=== PATIENT | female | born 1935 | race Caucasian/White ===

== ENCOUNTER → 2018-03-04 12:50 | Outpatient (CLI) | payer MEDICARE, OTHER, SELFPAY ==
[2018-03-04 13:10] LABS: Absolute Lymphocyte Count 1.62 X10^3/ul (0.83-4.51); Absolute Neutrophil Count 6.8 X10^3/uL (2.0-7.7); Basophil# 0.02 X10^3/uL; Basophil% 0.2 % (0-1); Eosinophil# 0.28 X10^3/uL; Eosinophils% 2.9 % (0-5); Hematocrit 47.7 % (37-47); Hemoglobin 14.7 g/dl (12.0-15.0); Lymphocyte # 1.62 X10^3/ul (4.0); Lymphocyte % 16.9 % (19-41); Mean Corp Hgb Conc 30.8 g/gl (32-36); Mean Corpuscular Hgb 30.5 pg (27.0-32.0); Mean Platelet Vol. 10.4 fl (6.2-12.0); Monocyte# 0.79 X10^3/uL; Monocyte% 8.3 % (0-10); Neutrophil # 6.84 X10^3/uL (2.7-7.7); Neutrophil % 71.5 % (47-70); Platelet Count 323 K/mm3 (150-450); RBC Distribution Width CV 14.1 % (11.6-14.6); RBC Distribution Width SD 50.6 fl (35.1-43.9); Red Blood Count 4.82 M/mm3 (4.2-5.4); White Blood Count 9.6 K/mm3 (4.4-11.0)
[2018-03-04 13:21] LABS: ALB/GLOB Ratio 0.8 RATIO (0.9-2.4); AST(SGOT) 23 U/L (15-37); Alanine Aminotransfer ALT/SGPT 19 U/L (13-56); Albumin, Serum 3.5 g/dL (3.2-5.0); Alkaline Phosphatase 100 U/L (45-117); Anion Gap 4 (5-15); BUN 7 mg/dL (7-18); BUN/Creat Ratio 8.9 RATIO (10-20); Calcium,Total 9.4 mg/dL (8.5-10.1); Chloride 97 mmol/L (98-107); Creatinine, Serum 0.79 mg/dL (0.55-1.02); EST Glomerular Filtration Rate 75 mL/min (>60); Est Glom Filt Rate - Afr Amer 90 mL/min (>60); Globulin 4.3 g/dL (2.2-4.2); Glucose 112 mg/dL (74-106); POSITIVE COUNT NO; POSITIVE DIFFERENTIAL NO; POSITIVE MORPHOLOGY NO; Potassium 4.1 mmol/L (3.5-5.1); Protein, Total 7.8 g/dL (6.4-8.2); Sodium Level 138 mmol/L (136-145)
== END ==
PROVIDERS: Family Provider Internal Medicine; PCP Internal Medicine; Visit Provider Family Medicine
DX: E11.9 Type 2 diabetes mellitus without complications (principal); I10 Essential (primary) hypertension
CPT/HCPCS: 36415; 80053; 85025

== ENCOUNTER → 2018-04-05 16:37 | Outpatient (CLI) | payer MEDICARE, OTHER, SELFPAY ==
[2018-04-05 18:58] LABS: Thyroid Stim Hormone (TSH) 1.26 uIU/mL (0.358-3.74)
== END ==
PROVIDERS: Visit Provider Family Medicine
DX: E11.9 Type 2 diabetes mellitus without complications (principal); I10 Essential (primary) hypertension
CPT/HCPCS: 36415; 84443

== ENCOUNTER → 2018-04-28 10:28 | Outpatient (CLI) | payer MEDICARE, OTHER, SELFPAY ==
--- NOTE | 2018-04-28 10:32 | VDLE_ITS ---
Reason For Study: LEG PAIN AND SWELLING Procedure LEFT Exam performed in department. GSV is normal. A preliminary report was called and/or faxed CFV is compressible, spontaneous, phasic, to Dr. Beyer. competent, and demonstrates normal augmentation. FV is compressible, spontaneous, phasic, competent and demonstrates normal augmentation. POP V is compressible, spontaneous, phasic, competent and demonstrates normal augmentation. T/P Trunk is compressible. PTV is compressible. LT PerV is compressible. Interpretation Summary Deep veins of the left lower extremity are patent and compressible segmentally. There is no evidence of left lower extremity deep vein thrombosis. Valvular competence appears intact within the proximal deep venous system on the left . The left greater saphenous vein appears patent and compressible segmentally. Ordering Physician: Arianna Beyer Referring Physician: Arianna Beyer Performed By: Lela Haile RVT
--- NOTE | 2018-04-28 10:46 | RAD_ITS ---
STUDY: X-RAY CHEST REASON FOR EXAM: Female, 82 years old. Preop for stem cell procedure TECHNIQUE: PA and lateral views of the chest. COMPARISON: 09/22/2017 FINDINGS: Lungs are hyperexpanded with chronic interstitial changes, no superimposed acute pulmonary process. There is no demonstrated pleural abnormality. Normal size heart. Normal mediastinum and jonny. Normal visualized pulmonary arteries. There is atherosclerotic calcification of the aortic arch with tortuosity. Normal visualized thoracic spine. Normal visualized ribs, clavicles, and shoulders. There is no demonstrated abnormality of the visualized soft tissue structures of the upper abdomen. RAD/Chest PA and Lateral IMPRESSION: Hyper expanded lungs with chronic interstitial changes, no superimposed acute pulmonary process. Electronically Signed: Mckinley Moore MD at 11:10 EDT , Service support ,
== END ==
PROVIDERS: Family Provider Internal Medicine; PCP Internal Medicine; Visit Provider Family Medicine
DX: J44.9 Chronic obstructive pulmonary disease, unspecified (principal); M79.605 Pain in left leg
CPT/HCPCS: 71046; 93971

== ENCOUNTER → 2018-06-22 10:48 | Outpatient (CLI) | payer MEDICARE, OTHER, SELFPAY ==
[2018-06-22 11:00] VITALS: PULSE 74; PULSE 93; PULSE 97; PULSE 98; PULSE 99; O2SAT 73; O2SAT 83; O2SAT 84; O2SAT 90; O2SAT 91; O2SAT 92; O2SAT 96
--- NOTE | 2018-06-22 11:42 | CPS ---
Pt wears 2-3L NC at home on pulse dose. DME is [employer]. Pt was 73% on RA pre test. 2L NC added and SpO2 went up to 85, increased again to 3L, SpO2 91% before starting test. Pt desaturated to 84% on 3L on 2nd minute and increased to 4L. On 3rd minute pt desaturated to 83% and increased to 5L. Pt's sats maintained on 5L for remainder of test. Pt checked post test on pulse dose and maintained oxygen levels while at rest, but recommended pt to go on continuous flow while exerting herself. Showed pt how to go on continuous flow on her tank and told pt to always have extra tanks at hand because continuous flow will run out faster.
--- NOTE | 2018-06-22 15:38 | WT_ITS ---
PSN 6 Minute Walk Test - 6 Minute Walk Test 6 Minute Walk Test: 6 Minute Walk Test PSN:6-Minute Walk Test Start: 06/22/18 11: 33 Freq: Status: Active Protocol: [id number] Document 06/22/18 11:00 HG (Rec: 06/22/18 11:46 HG [id number]) 6 Minute Walk Test Date Performed 06/22/18 Time Performed 11:00 Height 5 ft 1 in Weight: 87.09 kg Weight in Pounds 192.[address]: Maribel Ambrose Assistive device used: Cane Pre-test Oxygen Delivery Method Room Air Pulse Ox (%) 73 Pulse Rate (60-100 beats/min) 93 Dyspnea Bibi Scale (0-10) 3 Exertion Bibi Scale (6-20) 11 1st minute Oxygen Flow Rate (L/min) (L/min) 3 Oxygen Delivery Method Nasal Cannula Pulse Ox (%) 91 Pulse Rate (60-100 beats/min) 74 2nd minute Oxygen Flow Rate (L/min) (L/min) 3 Oxygen Delivery Method Nasal Cannula Pulse Ox (%) 84 Pulse Rate (60-100 beats/min) 97 Number of Rests Taken 1 Reported Symptoms Increased Work of Breathing 3rd minute Oxygen Flow Rate (L/min) (L/min) 4 Oxygen Delivery Method Nasal Cannula Pulse Ox (%) 83 Pulse Rate (60-100 beats/min) 98 Number of Rests Taken 1 Reported Symptoms Increased Work of Breathing 4th minute Oxygen Flow Rate (L/min) (L/min) 5 Oxygen Delivery Method Nasal Cannula Pulse Ox (%) 90 Pulse Rate (60-100 beats/min) 93 5th minute Oxygen Flow Rate (L/min) (L/min) 5 Oxygen Delivery Method Nasal Cannula Pulse Ox (%) 96 Pulse Rate (60-100 beats/min) 99 6th minute Oxygen Flow Rate (L/min) (L/min) 5 Oxygen Delivery Method Nasal Cannula Pulse Ox (%) 92 Pulse Rate (60-100 beats/min) 98 Post-test Oxygen Flow Rate (L/min) (L/min) 5 Oxygen Delivery Method Nasal Cannula Pulse Ox (%) 92 Pulse Rate (60-100 beats/min) 93 Dyspnea Bibi Scale (0-10) 3 Exertion Bibi Scale (6-20) 11 Full Laps Walked 6 Partial Lap, Number of Tiles Walked 0 Total Distance Walked (ft) 354 06/22/18 11:42 Cardiopulmonary Services by Richelle Dorsey Pt wears 2-3L NC at home on pulse dose. DME is [employer]. Pt was 73% on RA pre test. 2L NC added and SpO2 went up to 85, increased again to 3L, SpO2 91% before starting test. Pt desaturated to 84% on 3L on 2nd minute and increased to 4L. On 3rd minute pt desaturated to 83% and increased to 5L. Pt's sats maintained on 5L for remainder of test. Pt checked post test on pulse dose and maintained oxygen levels while at rest, but recommended pt to go on continuous flow while exerting herself. Showed pt how to go on continuous flow on her tank and told pt to always have extra tanks at hand because continuous flow will run out faster. Initialized on 06/22/18 11:42 - END OF NOTE - Interpretation Interpretation: Patient was noted to be 73% on room air. Patient was placed on 3 L nasal cannula before achieving a saturation of 91%. In total, patient required 5 L continuous flow with ambulation for 6 minutes using a cane and 2 breaks. In total patient traveled only 354 feet. No significant tachycardia was noted during testing. These findings are consistent with a respiratory limitation exercise tolerance. - Recommendations Recommendations: Patient should be on 3 L nasal cannula at rest and 5 L/min with any exertion.
== END ==
PROVIDERS: Family Provider Internal Medicine; PCP Internal Medicine; Visit Provider Nurse Practitioner Acute Care
DX: J44.9 Chronic obstructive pulmonary disease, unspecified (principal)
CPT/HCPCS: 94618

== ENCOUNTER → 2018-06-28 09:59 | Outpatient (CLI) | payer MEDICARE, OTHER, SELFPAY ==
--- NOTE | 2018-06-28 15:15 | PFTCOMP ---
COMPLETE PULMONARY FUNCTION TEST INTERPRETATION Brief HPI: Patient is an 82 year old female, currently under the care of Maribel Ambrose, who presents to [facility] for complete pulmonary function tests secondary to diagnosis of COPD. Respiratory therapist reports good effort and reproducible results. Interpretation: Forced expiration spirometry shows a very severe large airways obstructive ventilatory defect with an FEV1 of 34% predicted. There is no significant bronchodilator response by ATS criteria. Spirograms are of good quality and plateau slowly, indicating slowly emptying areas of the lungs. The respiratory flow volume loop shows decreased expiratory flow rates at all lung volumes consistent with airway obstruction. Lung volumes by body plethysmography show an elevated total lung capacity at 4.95 L, 120% predicted. FRC and RV are elevated out of proportion. Lung volume measurements are consistent with hyperinflation and air-trapping. Diffusion capacity by carbon monoxide is decreased at 25% predicted. The airway resistance is elevated. Compared to previous pulmonary function tests from 10/12/2017, there has been a significant reduction in FVC and FEV1 by 17% and 26% respectively. Impression: Irreversible very severe large airways obstructive ventilatory defect with a symmetric reduction diffusing capacity, resulting in air trapping with hyperinflation. There has been slight worsening compared to previous study.
== END ==
PROVIDERS: Family Provider Internal Medicine; PCP Internal Medicine; Visit Provider Nurse Practitioner Acute Care
DX: J44.9 Chronic obstructive pulmonary disease, unspecified (principal)
CPT/HCPCS: 94060; 94726; 94729

== ENCOUNTER → 2018-07-07 11:29 | Outpatient (CLI) | payer MEDICARE, OTHER, SELFPAY ==
[2018-07-07 13:01] LABS: Anion Gap 7 (5-15); BUN 11 mg/dL (7-18); Calcium,Total 9.6 mg/dL (8.5-10.1); Chloride 91 mmol/L (98-107); Creatinine, Serum 0.84 mg/dL (0.55-1.02); EST Glomerular Filtration Rate 69 mL/min (>60); Est Glom Filt Rate - Afr Amer 83 mL/min (>60); Glucose 127 mg/dL (74-106); Potassium 3.5 mmol/L (3.5-5.1); Sodium Level 138 mmol/L (136-145)
== END ==
PROVIDERS: Family Provider Family Medicine; PCP Family Medicine; Visit Provider Family Medicine
DX: R60.0 Localized edema (principal)
CPT/HCPCS: 36415; 80048

== ENCOUNTER → 2018-08-18 12:21 | Outpatient (CLI) | payer MEDICARE, OTHER, SELFPAY ==
[2018-08-18 13:05] LABS: Anion Gap 4 (5-15); BUN 7 mg/dL (7-18); BUN/Creat Ratio 9.4 RATIO (10-20); Chloride 95 mmol/L (98-107); Creatinine, Serum 0.75 mg/dL (0.55-1.02); EST Glomerular Filtration Rate 79 mL/min (>60); Est Glom Filt Rate - Afr Amer 96 mL/min (>60); Glucose 112 mg/dL (74-106); Sodium Level 140 mmol/L (136-145)
== END ==
PROVIDERS: Family Provider Family Medicine; PCP Family Medicine; Referring Provider Family Medicine; Visit Provider Family Medicine
DX: I10 Essential (primary) hypertension (principal); R60.0 Localized edema
CPT/HCPCS: 36415; 80048

== ENCOUNTER → 2018-11-11 10:30 | Outpatient (CLI) | payer MEDICARE, OTHER, SELFPAY ==
[2018-11-11 09:48] VITALS: BMI 35.5
--- NOTE | 2018-11-11 10:52 | RAD_ITS ---
STUDY: X-RAY CHEST REASON FOR EXAM: Female, 83 years old. Shortness of breath. Chronic dyspnea. TECHNIQUE: AP and lateral views of the chest. COMPARISON: Comparison is made with prior study dated April 28, 2018. FINDINGS: Hyperinflation. Scattered calcified granulomas. No acute abnormality is seen. Stable blunting of the cost phrenic angles. Normal size heart. Normal mediastinum and jonny. Normal visualized pulmonary arteries. There is atherosclerotic calcification of the aortic arch with tortuosity. There is demineralization of the osseous structures. Normal visualized ribs, clavicles, and shoulders. There is no demonstrated abnormality of the visualized soft tissue structures of the upper abdomen. RAD/Chest PA and Lateral IMPRESSION: Hyperinflation. Electronically Signed: Garrett Rivera MD at 15:11 EST , Service support ,
[2018-11-11 12:07] LABS: Anion Gap 11 (5-15); BUN 7 mg/dL (7-18); BUN/Creat Ratio 8.7 RATIO (10-20); Calcium,Total 9.4 mg/dL (8.5-10.1); Chloride 94 mmol/L (98-107); EST Glomerular Filtration Rate 73 mL/min (>60); Est Glom Filt Rate - Afr Amer 88 mL/min (>60); Glucose 129 mg/dL (74-106); Potassium 3.2 mmol/L (3.5-5.1); Sodium Level 140 mmol/L (136-145)
== END ==
PROVIDERS: Family Provider Family Medicine; PCP Family Medicine; Referring Provider Nurse Practitioner Acute Care; Visit Provider Nurse Practitioner Acute Care
DX: J44.9 Chronic obstructive pulmonary disease, unspecified (principal); R06.00 Dyspnea, unspecified
CPT/HCPCS: 36415; 71046; 80048; 83880

== ENCOUNTER → 2018-11-25 11:49 | Outpatient (CLI) | payer MEDICARE, OTHER, SELFPAY ==
[2018-11-25 10:52] VITALS: BMI 35.5
== END ==
PROVIDERS: Family Provider Family Medicine; PCP Family Medicine; Referring Provider Nurse Practitioner Acute Care; Visit Provider Nurse Practitioner Acute Care
DX: J47.9 Bronchiectasis, uncomplicated (principal)
CPT/HCPCS: 94667

== ENCOUNTER 2019-01-03 12:53 | Inpatient (IN) | payer MEDICARE, OTHER, SELFPAY ==
[2018-11-25 10:52] VITALS: BMI 35.5
[2019-01-03] VITALS (37 sets, daily range): BP systolic 80–179; BP diastolic 33–105; PULSE 60–825; RESP 12–23; TEMP 36.1–38.2; O2SAT 57–100; BMI 39.5; BMI 40.5; BMI 39.6
--- NOTE | 2019-01-03 13:02 | EKG12_ITS ---
Test Reason : SOB Blood Pressure : / mmHG Vent. Rate : 074 BPM Atrial Rate : 074 BPM P-R Int : 166 ms QRS Dur : 088 ms QT Int : 370 ms P-R-T Axes : 050 027 060 degrees QTc Int : 410 ms Sinus rhythm with Premature supraventricular complexes Low voltage QRS Borderline ECG Confirmed by HILLARY BRAND ([id number]), kennel helper DHRUV HOLT ([id number]) on 01/06/2019 11:12:29 AM Referred By: Cristopher Lazcano Confirmed By:HILALRY BRAND
--- NOTE | 2019-01-03 13:05 | CT_ITS ---
STUDY: CT BRAIN WITHOUT CONTRAST REASON FOR EXAM: Female, 83 years old. Head trauma. RADIATION DOSAGE (If Supplied By Facility): CTDIvol = ( 44.99 ) mGy, DLP = ( 779.24 ) mGycm TECHNIQUE: Transaxial CT imaging of the brain was performed without administration of intravenous contrast material. Individualized dose optimization techniques were used for this CT. COMPARISON: No relevant priors. FINDINGS: An endotracheal tube is in situ. Normal soft tissue structures. There is hyperostosis frontalis internus. There is mild cerebral atrophy with widening of the extra-axial spaces and ventricular dilatation. Normal white matter tracts of the cerebral hemispheres. Normal basal ganglia and thalami. Normal brainstem. Normal cerebellum. There is no intracranial hemorrhage. There are no findings of an acute ischemic infarction. There is opacification of the ethmoid sinuses. CT/Brain/Head without Contrast IMPRESSION: Chronic involutional changes of the brain. Opacification of the ethmoid sinuses bilaterally. Endotracheal tube is seen. Electronically Signed: Garrett Rivera, at 15:30 EDT , Service support ,
--- NOTE | 2019-01-03 13:05 | ED.VISSUMM ---
- ER Visit Summary Date of Service: 01/03/19 Chief Complaint: Shortness of breath History of Present Illness: The patient is a 83 F who presents with shortness of breath that has been getting progressively worse over the past few days. Family reports that patient fell yesterday and possibly hit her. Family states that her breathing became acutely worse today. Currently, the patient is nonverbal and is a very poor historian. When the patient arrived here, she was asked if she had any pain and she replied no. showed up and he stated that the patient did fall but he does not think she hit her head. He reported that the patient immediately called out for his help. He was able to help her up and she was able to ambulate after the fall. Physical Examination: Vital signs are stable. Patient is afebrile. There is a small frontal contusion. There is no bony crepitance or step-off. Neck is supple. Trachea is midline. There is no JVD noted. Heart was regular rate and rhythm. Lungs showed rhonchi on the right. There are no retractions noted. Abdomen is soft. Bowel sounds are normal. There is no apparent tenderness. Extremities are intact. There are no deformities. There is 2+ edema noted of the lower extremities bilaterally. Test Results: CBC showed a mild leukocytosis of 11.1 with 79 segs and 11 lymphocytes. Basic metabolic profile showed an elevated glucose of 181 and elevated CO2 of greater than 4 5 troponin was normal. Arterial blood gas showed a pH of 7.09, PCO2 was greater than 130, PO2 was 319. EKG showed sinus rhythm with a rate of 74. There are no acute ST or T wave changes. There is an occasional PAC noted. Chest x-ray showed cardiomegaly initially. There is no acute infiltrate. CT scan of the brain was obtained. There are chronic changes but there is no acute intracranial abnormality. Emergency Department Course and Treatment: Patient was ordered an albuterol aerosol. This was given via mask. With the blood gas results, I discussed with the the need for endotracheal intubation. He is agreeable with this. He states that the patient is a full code. Patient is not awake and alert enough to make decisions for herself at this time. Patient was given etomidate and rocuronium. Patient was intubated with a 7.5 ET tube to 25 cm of the lip. There is good air exchange bilaterally. There is no air noted over the stomach. There is good color change with capnography. Patient's oxygen saturation improved to 100%. Patient tolerated procedure well. Patient's blood pressure did drop during the procedure. Patient was given fluid bolus and her blood pressure has improved. Patient was started on propofol drip for sedation. Patient's blood pressure did drop to 79 systolic. This improved with a fluid bolus. Patient was given a dose of Versed for agitation. Patient was trying to bite the tube and fight the endotracheal tube. Case was discussed with Dr. Lazcano. He will admit the patient to ICU. Disposition: Admit to ICU Impression: 1. Hypercapnic respiratory failure 2. COPD exacerbation This note was generated with [employer] dictation software. It may contain incorrect words, spelling, and punctuation that were not noted in review of the chart prior to signing Capacity - Capacity Assessment Tool Can the patient make a choice & communicate that choice?: No Can the patient understand benefits, risks and alternatives?: No Can the patient make a logical, rational choice?: No Is there an impending, emergent risk to the patient?: Yes Is there a Surrogate Available?: Yes i.e. close relative (spouse, child, parent, sibling)?: Yes - Spouse ED Disposition - Plan for ED Patient: Disposition: [facility] Diagnosis: Hypercapnic respiratory failure Referrals: Arianna Beyer MD [Primary Care Provider] -
--- NOTE | 2019-01-03 13:10 | RAD_ITS ---
STUDY: X-RAY CHEST REASON FOR EXAM: Female, 83 years old. Shortness of breath. Lethargy. TECHNIQUE: Single AP portable view of the chest. COMPARISON: Comparison is made with prior study dated November 11, 2018. FINDINGS: EKG electrodes are seen. Scattered calcified granulomas. There is no demonstrated pleural abnormality. There is moderate cardiac enlargement. Normal mediastinum and jonny. Normal visualized pulmonary arteries. There is atherosclerotic calcification of the aortic arch with tortuosity. Normal visualized thoracic spine. Normal visualized ribs, clavicles, and shoulders. There is no demonstrated abnormality of the visualized soft tissue structures of the upper abdomen. RAD/Chest 1 View (Portable) IMPRESSION: Moderate cardiomegaly. No acute abnormality is seen. Electronically Signed: Garrett Rivera, at 14:03 EDT , Service support ,
[2019-01-03 13:34] LABS: Hematocrit 47.1 % (37-47); Hemoglobin 13.2 g/dl (12.0-15.0); Mean Corpuscular Volume 110.6 fL (81-99); Mean Platelet Vol. 10.6 fl (6.2-12.0); Platelet Count 228 K/mm3 (150-450); RBC Distribution Width CV 13.9 % (11.6-14.6); RBC Distribution Width SD 55.4 fl (35.1-43.9); Red Blood Count 4.26 M/mm3 (4.2-5.4); White Blood Count 11.1 K/mm3 (4.4-11.0)
[2019-01-03 13:39] LABS: POSITIVE COUNT YES; POSITIVE DIFFERENTIAL NO; POSITIVE MORPHOLOGY YES
[2019-01-03 13:40] LABS: Differential Indicated MANUAL DIFF
[2019-01-03 13:44] LABS: BUN 11 mg/dL (7-18); BUN/Creat Ratio 16.1 RATIO (10-20); Calcium,Total 8.8 mg/dL (8.5-10.1); Carbon Dioxide > 45.0 mmol/L (21.0-32.0); Chloride 94 mmol/L (98-107); Creatinine, Serum 0.68 mg/dL (0.55-1.02); EST Glomerular Filtration Rate 88 mL/min (>60); Est Glom Filt Rate - Afr Amer 106 mL/min (>60); Estimated Creatinine Clearance 31.69 ml/min; Glucose 181 mg/dL (74-106); Potassium 4.7 mmol/L (3.5-5.1); Sodium Level 140 mmol/L (136-145)
[2019-01-03] MEDS: Albuterol 2.5 MG/3 ML VIAL.NEB. INHALATION (13:45)
--- NOTE | 2019-01-03 13:53 | ED.RN ---
CO2 GREATER THAN 45 PER LAB, PRIMARY RN AND MD AWARE.
[2019-01-03 13:56] LABS: Lactic Acid 0.6 mmol/L (0.4-2.0)
[2019-01-03] MEDS: Etomidate 20 MG/10 ML Vial 28 MG IV (13:59)
[2019-01-03] MEDS: Rocuronium Bromide 50 MG/5 ML Vial 55 MG IV (14:00)
[2019-01-03 14:13] LABS: Absolute Neutrophil Count 8.8 X10^3/uL (2.0-7.7); Lymphocyte 11 % (19-41); Monocyte 10 % (0-10); Neutrophil-Segmented 79 % (47-70); Platelet Estimate ADEQUATE (ADEQ); Red Cell Morphology NORM C+C NORMAL (NORM C&C); Total Cells Counted 100 (MANUAL DIFF)
[2019-01-03 14:14] LABS: Absolute Lymphocyte Count 1.22 X10^3/ul (0.83-4.51); Lymphocyte # 1.22 X10^3/ul (4.0)
--- NOTE | 2019-01-03 14:30 | RAD_ITS ---
STUDY: X-RAY CHEST REASON FOR EXAM: Female, 83 years old. Endotracheal tube placement and orogastric tube placement. TECHNIQUE: Single AP portable view of the chest. COMPARISON: Comparison is made with prior study done earlier today. FINDINGS: The tip of the endotracheal tube is in the right mainstem bronchus. This should be pulled back approximately 5.3 cm. An orogastric tube is seen with the tip below the left hemidiaphragm. EKG electrodes are seen. Hyperinflation. Increased markings at the left lung base suggestive of left basilar atelectasis. Blunting of both costophrenic angles. There is borderline cardiomegaly. Normal mediastinum and jonny. Normal visualized pulmonary arteries. There is atherosclerotic calcification of the aortic arch with tortuosity. Normal visualized thoracic spine. Normal visualized ribs, clavicles, and shoulders. There is no demonstrated abnormality of the visualized soft tissue structures of the upper abdomen. RAD/Chest 1 View (Portable) IMPRESSION: The tip of the endotracheal tube is in the right mainstem bronchus. It should be pulled back approximately 5.3 cm. Findings areas of atelectasis at left lung base. Electronically Signed: Garrett Rivera, at 14:56 EDT , Service support ,
[2019-01-03 14:39] LABS: Allen Test POS; Blood Gas Specimen Type ART; O2 Delivery Device NRB Mask; SITE L RADIAL
[2019-01-03 14:40] LABS: Time Given 1337; pCO2 > 130.0 mmHg (35-45); pH 7.09 (7.35-7.45)
[2019-01-03 14:41] LABS: PO2 319 mmHG (75-100)
[2019-01-03] MEDS: Propofol 10MG/Ml 1,000 MG/100 ML Bottle 5.514 MG CONT INF (14:44)
[2019-01-03] MEDS: Midazolam 5 MG/ML Syringe IV (15:49)
[2019-01-03 15:55] LABS: Allen Test POS; Base Excess 17 mmol/L (-2 to +2); Bicarbonate 42.6 mmol/L (22-26); Blood Gas Specimen Type ART; FI02 30; Mode A-C; O2 Delivery Device Vent; PEEP 5; PO2 57 mmHG (75-100); RR 16; SITE L Radial; SO2 86 % (95-99); Time Given 1544; Total Carbon Dioxide 45 mmol/L; Vt 450; pCO2 77.1 mmHg (35-45); pH 7.35 (7.35-7.45)
--- NOTE | 2019-01-03 15:55 | CPS ---
CRITICAL VALUE ON ABG GIVEN TO DR. KEENAN.
--- NOTE | 2019-01-03 16:05 | NURSING ---
In ICU3 per bed from ER. COMPUTER SYSTEMS SECURITY ADMINISTRATOR, RT and Dr. Gamboa present for transport
--- NOTE | 2019-01-03 16:15 | NURSING ---
Dr. Gamboa remains at bedside. PT bagged 100% per RT w/much difficulty. CXR viewed by DR. Gamboa. OET pulled back several cms. pt now bagging easily. to Vent.
--- NOTE | 2019-01-03 16:16 | PCM.HP.STD ---
Problem List (1) COPD exacerbation Status: Chronic (2) Hypercapnic respiratory failure Status: Acute Qualifiers: Chronicity: acute Qualified Code(s): J96.02 - Acute respiratory failure with hypercapnia History of Present Illness Date of Admission: 01/03/19 Chief Complaint: shortness of breath The patient is a 83 year old F with shortness of breath. History is obtained through the ER physician as patient is intubated and sedated. No family present at bedside. Patient had been feeling unwell for the past few days. Patient was also feeling short of breath and fell and may have hit her head. PCO2 of greater than 130. Patient was emergently intubated and follow-up ABG showed pH of 7.35 and a PCO2 of 77. She did receive aerosols in the emergency room. Patient being admitted to the ICU for respiratory failure as well as suspected COPD exacerbation. [] Past Medical History Past Medical History (Chronic Problems): Chronic Problems (Last Reviewed 11/25/18 @ 11:11 by EVERARDO EncinasC) COPD exacerbation (Chronic) Hypercholesteremia (Chronic) Plasma cell disorder (Chronic) Carotid stenosis (Chronic) Osteopenia (Chronic) Lung nodule (Chronic) Hypersomnia (Chronic) 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 classification (Chronic) Abdominal hernia (Chronic) Obesity (BMI 35.0-39.9 without comorbidity) (Chronic) Chronic respiratory failure with hypoxia and hypercapnia (Chronic) COLD (chronic obstructive lung disease) (Chronic) Dyslipidemia (Chronic) Esophageal reflux (Chronic) Essential hypertension (Chronic) Former smoker (Chronic) Diabetes mellitus type 2 in obese (Chronic) Medical History: Medical History (Last Reviewed 01/03/19 @ 16:18 by Cristopher Lazcano DO) Parotitis (Acute) K11.20 Colon polyp (Acute) K63.5 Vitamin B12 deficiency (Acute) E53.8 Vitamin D deficiency (Acute) E55.9 Hypercholesteremia (Chronic) E78.00 Plasma cell disorder (Chronic) D72.9 Carotid stenosis (Chronic) I65.29 Allergic rhinitis (Acute) J30.9 Constipation (Acute) K59.00 Osteopenia (Chronic) M85.80 Lung nodule (Chronic) R91.1 Hypersomnia (Chronic) G47.10 Urinary incontinence (Acute) R32 Dyspnea (Acute) R06.00 Oral pharyngeal candidiasis (Acute) B37.0 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 classification (Chronic) J44.9 Abdominal hernia (Chronic) K46.9 Hypoxia (Acute) R09.02 Obesity (BMI 35.0-39.9 without comorbidity) (Chronic) E66.9 Dehydration (Acute) E86.0 Chronic respiratory failure with hypoxia and hypercapnia (Chronic) J96.11, J96.12 Acute on chronic respiratory failure with hypoxia and hypercapnia (Acute) J96.21, J96.22 COPD exacerbation (Acute) J44.1 FEV1 44% of predicted COLD (chronic obstructive lung disease) (Chronic) J44.9 Dyslipidemia (Chronic) E78.5 Esophageal reflux (Chronic) K21.9 Essential hypertension (Chronic) I10 Metabolic alkalosis (Resolved) E87.3 Former smoker (Chronic) Z87.891 Diabetes mellitus type 2 in obese (Chronic) E11.9, E66.9 Angioedema (Acute) T78.3XXA Allergies LEATHA Inhibitors Allergy (Severe, Verified 11/11/18 09:49) Unknown bee venom protein (honey bee) Allergy (Severe, Verified 11/11/18 09:49) Unknown levofloxacin [From Levaquin] Allergy (Severe, Verified 11/11/18 09:49) Unknown latex Allergy (Verified 11/11/18 09:49) Itching Sulfa (Sulfonamide Antibiotics) Allergy (Verified 11/11/18 09:49) PT CAN'T REMEMBER budesonide [From Symbicort] Adverse Reaction (Verified 11/11/18 09:49) SORES IN MOUTH fluticasone [From Advair Diskus] Adverse Reaction (Verified 11/11/18 09:49) SORES IN MOUTH formoterol [From Symbicort] Adverse Reaction (Verified 11/11/18 09:49) SORES IN MOUTH ipratropium Adverse Reaction (Verified 11/11/18 09:49) SORES IN MOUTH salmeterol [From Advair Diskus] Adverse Reaction (Verified 11/11/18 09:49) SORES IN MOUTH BREATHING TREATMENTS Adverse Reaction (Uncoded 11/11/18 09:49) SORES IN MOUTH Home Medications: Ambulatory Orders Medication Instructions Recorded Oxygen, Home [Home Oxygen] 2 lpm NASAL DAILY 04/08/15 Aspirin [Aspirin, Baby] 81 mg PO DAILY@0800 07/14/16 Tolterodine Tartrate 4 mg PO DAILY 12/02/16 Rabeprazole Sodium [Aciphex] 20 mg PO DAILY 09/15/17 Red Yeast Rice 600 mg PO DAILY 09/15/17 Magnesium Citrate [Citrate Of 300 ml PO X1 #300 ml 10/28/17 Magnesia] epinephrine 0.3 mg/0.3 mL 0.5 mg IM Q10-15M PRN 10/28/17 injection, auto-injector vit C,E,zinc,copper-aeijm0t 250 cap PO 10/28/17 mg-lutein 5 mg-zeaxanthin 1 mg capsule ipratropium 20 mcg-albuterol 100 2 inh INHALATION Q6H PRN #4 g 01/13/18 mcg/actuation mist for inhalation acetaminophen 325 mg capsule 325 mg PO TID PRN cap 04/21/18 flu vacc 2016-(67yr 0.5 ml IM ONCE #1 06/10/18 up)-MF59C(PF) 45 mcg(15 mcgx3)/0.5 mL IM syringe albuterol sulfate 2.5 mg/3 mL 2.5 mg INHALATION Q4H PRN #180 vial 06/21/18 (0.083 %) solution for nebulization lisinopril 10 mg tablet 10 mg PO DAILY 08/12/18 furosemide 40 mg tablet 40 mg PO BID #14 tab 11/11/18 potassium chloride 40 mEq/15 mL 40 meq PO DAILY #473 ml 11/11/18 oral liquid PEP device See Rx Instructions .ROUTE 11/25/18 .MEDSUPPLY #1 ea PEP device See Rx Instructions .ROUTE 11/25/18 .MEDSUPPLY #1 ea Handicap Placard 1 unit .ROUTE .MEDSUPPLY 01/03/19 Saxagliptin HCl [Onglyza] 5 mg PO DAILY 01/03/19 Surgical History: Surgical History (Last Reviewed 01/03/19 @ 16:18 by Cristopher Lazcano DO) stem cell injection (Resolved) bladder sling (Resolved) History of cholecystectomy (Resolved) Z98.890, Z90.49 History of inguinal hernia repair (Resolved) Z98.890, Z87.19 History of hemorrhoidectomy (Resolved) Z98.890 H/O cataract removal with insertion of prosthetic lens (Resolved) Z98.49, Z96.1 Surgical History: cataract - Bilateral, cholecystectomy, - - Bladder sling, Psychiatric History: No pertinent psych hx 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 Smoking Status: Former smoker - *Family History Maternal Family History: Family History (Last Reviewed 01/03/19 @ 16:18 by Cristopher Lazcano DO) Brother Lung disease Mother Heart disease Diabetes Father CAD (coronary artery disease) History Items: Diabetes, Heart Disease Paternal Family History: Family History (Last Reviewed 01/03/19 @ 16:18 by Cristopher Lazcano DO) Brother Lung disease Mother Heart disease Diabetes Father CAD (coronary artery disease) History Items: - - father at 76 with a DVT and PE Sibling Family History: Family History (Last Reviewed 01/03/19 @ 16:18 by Cristopher Lazcano DO) Brother Lung disease Mother Heart disease Diabetes Father CAD (coronary artery disease) History Items: - - she has 10 siblings...one is with pancreatic cancer Review of Systems Comment: Unable to obtain as the patient is intubated and sedated VTE Information - Inpt Only VTE Present on Admission: No VTE Pharm Prophylaxis ordered?: Yes Patient Problems: Active and Suspected Problems (Last Reviewed 11/25/18 @ 11:11 by Maribel Ambrose NP-C) Hypercapnic respiratory failure (Acute) - Physical Exam General: Alert, Cooperative, No apparent distress HEENT: Atraumatic, Normocephalic, - - No scleral icterus Oral: Moist Mucosa, No Gingival or Mucosal Lesions/ Ulcerations Neck: No Nodes, Thyroid Normal Size and Texture Lungs: Diminished, - - Coarse breath sounds bilaterally Cardiovascular: Regular rate, Regular Rhythm, Normal S1, Normal S2, No murmurs Abdomen: Bowel Sounds Present, Soft, Non Tender, Non-Distended, No Hepato-splenomegaly, Obese Extremities: No edema, No Calf Tenderness Skin: No rashes, - - Dry skin. Bruising on her hands. Musculoskeletal: No Tenderness to Palpation of Joints or Extremities, No Muscle Wasting Neurological: - - No clonus Psych/Mental Status: - - Intubated and sedated Vital Signs Temp Pulse Resp BP Pulse Ox 36.6 C 62 15 88/68 L 95 01/03/19 15:00 01/03/19 15:55 01/03/19 15:55 01/03/19 15:55 01/03/19 15:55 Oxygen Delivery Method Mechanical Ventilator Weight: 91.9 kg Body Mass Index (BMI) 39.5 Microbiology Past 72 Hours 01/03/19 14:00 Influenza Types A,B Direct FA (DANILO) - Final Mucosa - Nasopharyngeal Laboratory Tests Past 24 Hrs 01/03/19 01/03/19 01/03/19 13:10 13:10 13:18 WBC 11.1 H RBC 4.26 Hgb 13.2 Hct 47.1 H MCV 110.6 H MCH 31.0 MCHC 28.0 L RDW 13.9 RDW Differential 55.4 H Plt Count 228 MPV 10.6 Neut % (Auto) Not Reportable Absolute Neuts (auto) 8.8 H Absolute Lymphs (auto) 1.22 Total Counted 100 Neutrophils % (Manual) 79 H Lymphocytes % (Manual) 11 L Monocytes % (Manual) 10 Diff Path Review May foll Platelet Estimate ADEQUATE RBC Morphology NORM C+C Specimen Type Sample Site pH Bicarbonate Actual POC Total CO2 Base Excess O2 Saturation O2 % ABG pCO2 ABG pO2 Erick Test Respiration Rate O2 Delivery Device Liter Flow Minute Volume Vent Mode Tidal Volume POC PEEP Blood Gas Notified Whom Blood Gas Notified Time Sodium 140 Potassium 4.7 Chloride 94 L Carbon Dioxide > 45.0 H* Anion Gap TNP BUN 11 Creatinine 0.68 Estim Creat Clear Calc 31.69 Est GFR (MDRD) Af Amer 106 Est GFR (MDRD) Non-Af 88 BUN/Creatinine Ratio 16.1 Glucose 181 H Lactic Acid 0.6 Calcium 8.8 Troponin I < 0.015 01/03/19 01/03/19 13:37 15:45 WBC RBC Hgb Hct MCV MCH MCHC RDW RDW Differential Plt Count MPV Neut % (Auto) Absolute Neuts (auto) Absolute Lymphs (auto) Total Counted Neutrophils % (Manual) Lymphocytes % (Manual) Monocytes % (Manual) Diff Path Review Platelet Estimate RBC Morphology Specimen Type ART ART Sample Site L RADIAL L Radial pH 7.09 L* 7.35 Bicarbonate Actual TNP 42.6 H POC Total CO2 TNP 45 Base Excess TNP 17 H O2 Saturation TNP 86 L O2 % 30 ABG pCO2 > 130.0 H* 77.1 H* ABG pO2 319 H* 57 L Erick Test POS POS Respiration Rate 16 O2 Delivery Device NRB Mask Vent Liter Flow 8.0 Minute Volume 8.00 Vent Mode A-C Tidal Volume 450 POC PEEP 5 Blood Gas Notified Whom ED MD ED MD Blood Gas Notified Time 1337 1544 Sodium Potassium Chloride Carbon Dioxide Anion Gap BUN Creatinine Estim Creat Clear Calc Est GFR (MDRD) Af Amer Est GFR (MDRD) Non-Af BUN/Creatinine Ratio Glucose Lactic Acid Calcium Troponin I Clinical Impression(s) from Imaging Studies Brain CT 01/03/19 13:05 IMPRESSION: Chronic involutional changes of the brain. Opacification of the ethmoid sinuses bilaterally. Endotracheal tube is seen. Electronically Signed: Garrett Rivera, at 15:30 EDT , Service support , Chest X-Ray 01/03/19 13:10 IMPRESSION: Moderate cardiomegaly. No acute abnormality is seen. Electronically Signed: Garrett Rivera, at 14:03 EDT , Service support , Chest X-Ray 01/03/19 14:30 IMPRESSION: The tip of the endotracheal tube is in the right mainstem bronchus. It should be pulled back approximately 5.3 cm. Findings areas of atelectasis at left lung base. Electronically Signed: Garrett Rivera, at 14:56 EDT , Service support , Assessment/Plan All Active Problems (Last Reviewed 11/25/18 @ 11:11 by Maribel Ambrose, DRAUGHTSMAN-C) Hypercapnic respiratory failure (Acute) Hypokalemia (Acute) End of life care (Acute) Cough productive of yellow sputum (Acute) stem cell injection (Resolved) bladder sling (Resolved) History of cholecystectomy (Resolved) History of inguinal hernia repair (Resolved) History of hemorrhoidectomy (Resolved) H/O cataract removal with insertion of prosthetic lens (Resolved) Parotitis (Acute) Colon polyp (Acute) Vitamin B12 deficiency (Acute) Vitamin D deficiency (Acute) Allergic rhinitis (Acute) Constipation (Acute) Urinary incontinence (Acute) Dyspnea (Acute) Oral pharyngeal candidiasis (Acute) Hypoxia (Acute) Dehydration (Acute) Acute on chronic respiratory failure with hypoxia and hypercapnia (Acute) COPD exacerbation (Acute) Metabolic alkalosis (Resolved) Angioedema (Acute) History of DVT of lower extremity (Resolved) Parotitis (Resolved) 1. Acute hypercapnic respiratory failure Secondary to COPD On vent Pulmonary on consult Recheck chest x-ray this patient did have some adjustments made as appear to be more of a right mainstem intubation. Just make sure it is an appropriate place after they have adjusted it 2. Acute exacerbation of COPD No obvious infiltrate on chest x-ray Influenza swab was negative Initiate steroids Bronchodilators 3. Diabetes mellitus type 2 Sliding scale for now Hold Onglyza for now 4. DVT prophylaxis with Lovenox Code Visit Inpatient E&M: 71307 Init Hosp L3
--- NOTE | 2019-01-03 16:21 | HP.PCM_ITS ---
Problem List (1) COPD exacerbation Status: Chronic (2) Hypercapnic respiratory failure Status: Acute Qualifiers: Chronicity: acute Qualified Code(s): J96.02 - Acute respiratory failure with hypercapnia History of Present Illness Date of Admission: 01/03/19 Chief Complaint: shortness of breath The patient is a 83 year old F with shortness of breath. History is obtained through the ER physician as patient is intubated and sedated. No family present at bedside. Patient had been feeling unwell for the past few days. Patient was also feeling short of breath and fell and may have hit her head. PCO2 of greater than 130. Patient was emergently intubated and follow-up ABG showed pH of 7.35 and a PCO2 of 77. She did receive aerosols in the emergency room. Patient being admitted to the ICU for respiratory failure as well as suspected COPD exacerbation. [] Past Medical History Past Medical History (Chronic Problems): Chronic Problems (Last Reviewed 11/25/18 @ 11:11 by EVERARDO EncinasC) COPD exacerbation (Chronic) Hypercholesteremia (Chronic) Plasma cell disorder (Chronic) Carotid stenosis (Chronic) Osteopenia (Chronic) Lung nodule (Chronic) Hypersomnia (Chronic) 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 classification (Chronic) Abdominal hernia (Chronic) Obesity (BMI 35.0-39.9 without comorbidity) (Chronic) Chronic respiratory failure with hypoxia and hypercapnia (Chronic) COLD (chronic obstructive lung disease) (Chronic) Dyslipidemia (Chronic) Esophageal reflux (Chronic) Essential hypertension (Chronic) Former smoker (Chronic) Diabetes mellitus type 2 in obese (Chronic) Medical History: Medical History (Last Reviewed 01/03/19 @ 16:18 by Cristopher Lazcano DO) Parotitis (Acute) K11.20 Colon polyp (Acute) K63.5 Vitamin B12 deficiency (Acute) E53.8 Vitamin D deficiency (Acute) E55.9 Hypercholesteremia (Chronic) E78.00 Plasma cell disorder (Chronic) D72.9 Carotid stenosis (Chronic) I65.29 Allergic rhinitis (Acute) J30.9 Constipation (Acute) K59.00 Osteopenia (Chronic) M85.80 Lung nodule (Chronic) R91.1 Hypersomnia (Chronic) G47.10 Urinary incontinence (Acute) R32 Dyspnea (Acute) R06.00 Oral pharyngeal candidiasis (Acute) B37.0 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 classification (Chronic) J44.9 Abdominal hernia (Chronic) K46.9 Hypoxia (Acute) R09.02 Obesity (BMI 35.0-39.9 without comorbidity) (Chronic) E66.9 Dehydration (Acute) E86.0 Chronic respiratory failure with hypoxia and hypercapnia (Chronic) J96.11, J96.12 Acute on chronic respiratory failure with hypoxia and hypercapnia (Acute) J96.21, J96.22 COPD exacerbation (Acute) J44.1 FEV1 44% of predicted COLD (chronic obstructive lung disease) (Chronic) J44.9 Dyslipidemia (Chronic) E78.5 Esophageal reflux (Chronic) K21.9 Essential hypertension (Chronic) I10 Metabolic alkalosis (Resolved) E87.3 Former smoker (Chronic) Z87.891 Diabetes mellitus type 2 in obese (Chronic) E11.9, E66.9 Angioedema (Acute) T78.3XXA Allergies LEATHA Inhibitors Allergy (Severe, Verified 11/11/18 09:49) Unknown bee venom protein (honey bee) Allergy (Severe, Verified 11/11/18 09:49) Unknown levofloxacin [From Levaquin] Allergy (Severe, Verified 11/11/18 09:49) Unknown latex Allergy (Verified 11/11/18 09:49) Itching Sulfa (Sulfonamide Antibiotics) Allergy (Verified 11/11/18 09:49) PT CAN'T REMEMBER budesonide [From Symbicort] Adverse Reaction (Verified 11/11/18 09:49) SORES IN MOUTH fluticasone [From Advair Diskus] Adverse Reaction (Verified 11/11/18 09:49) SORES IN MOUTH formoterol [From Symbicort] Adverse Reaction (Verified 11/11/18 09:49) SORES IN MOUTH ipratropium Adverse Reaction (Verified 11/11/18 09:49) SORES IN MOUTH salmeterol [From Advair Diskus] Adverse Reaction (Verified 11/11/18 09:49) SORES IN MOUTH BREATHING TREATMENTS Adverse Reaction (Uncoded 11/11/18 09:49) SORES IN MOUTH Home Medications: Ambulatory Orders Medication Instructions Recorded Oxygen, Home [Home Oxygen] 2 lpm NASAL DAILY 04/08/15 Aspirin [Aspirin, Baby] 81 mg PO DAILY@0800 07/14/16 Tolterodine Tartrate 4 mg PO DAILY 12/02/16 Rabeprazole Sodium [Aciphex] 20 mg PO DAILY 09/15/17 Red Yeast Rice 600 mg PO DAILY 09/15/17 Magnesium Citrate [Citrate Of 300 ml PO X1 #300 ml 10/28/17 Magnesia] epinephrine 0.3 mg/0.3 mL 0.5 mg IM Q10-15M PRN 10/28/17 injection, auto-injector vit C,E,zinc,copper-enqqw0d 250 cap PO 10/28/17 mg-lutein 5 mg-zeaxanthin 1 mg capsule ipratropium 20 mcg-albuterol 100 2 inh INHALATION Q6H PRN #4 g 01/13/18 mcg/actuation mist for inhalation acetaminophen 325 mg capsule 325 mg PO TID PRN cap 04/21/18 flu vacc 2016-(67yr 0.5 ml IM ONCE #1 06/10/18 up)-MF59C(PF) 45 mcg(15 mcgx3)/0.5 mL IM syringe albuterol sulfate 2.5 mg/3 mL 2.5 mg INHALATION Q4H PRN #180 vial 06/21/18 (0.083 %) solution for nebulization lisinopril 10 mg tablet 10 mg PO DAILY 08/12/18 furosemide 40 mg tablet 40 mg PO BID #14 tab 11/11/18 potassium chloride 40 mEq/15 mL 40 meq PO DAILY #473 ml 11/11/18 oral liquid PEP device See Rx Instructions .ROUTE 11/25/18 .MEDSUPPLY #1 ea PEP device See Rx Instructions .ROUTE 11/25/18 .MEDSUPPLY #1 ea Handicap Placard 1 unit .ROUTE .MEDSUPPLY 01/03/19 Saxagliptin HCl [Onglyza] 5 mg PO DAILY 01/03/19 Surgical History: Surgical History (Last Reviewed 01/03/19 @ 16:18 by Cristopher Lazcano DO) stem cell injection (Resolved) bladder sling (Resolved) History of cholecystectomy (Resolved) Z98.890, Z90.49 History of inguinal hernia repair (Resolved) Z98.890, Z87.19 History of hemorrhoidectomy (Resolved) Z98.890 H/O cataract removal with insertion of prosthetic lens (Resolved) Z98.49, Z96.1 Surgical History: cataract - Bilateral, cholecystectomy, - - Bladder sling, Psychiatric History: No pertinent psych hx 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 Smoking Status: Former smoker - *Family History Maternal Family History: Family History (Last Reviewed 01/03/19 @ 16:18 by Cristopher Lazcano DO) Brother Lung disease Mother Heart disease Diabetes Father CAD (coronary artery disease) History Items: Diabetes, Heart Disease Paternal Family History: Family History (Last Reviewed 01/03/19 @ 16:18 by Cristopher Lazcano DO) Brother Lung disease Mother Heart disease Diabetes Father CAD (coronary artery disease) History Items: - - father at 76 with a DVT and PE Sibling Family History: Family History (Last Reviewed 01/03/19 @ 16:18 by Cristopher Lazcano DO) Brother Lung disease Mother Heart disease Diabetes Father CAD (coronary artery disease) History Items: - - she has 10 siblings...one is with pancreatic cancer Review of Systems Comment: Unable to obtain as the patient is intubated and sedated VTE Information - Inpt Only VTE Present on Admission: No VTE Pharm Prophylaxis ordered?: Yes Patient Problems: Active and Suspected Problems (Last Reviewed 11/25/18 @ 11:11 by Maribel Ambrose NP-C) Hypercapnic respiratory failure (Acute) - Physical Exam General: Alert, Cooperative, No apparent distress HEENT: Atraumatic, Normocephalic, - - No scleral icterus Oral: Moist Mucosa, No Gingival or Mucosal Lesions/ Ulcerations Neck: No Nodes, Thyroid Normal Size and Texture Lungs: Diminished, - - Coarse breath sounds bilaterally Cardiovascular: Regular rate, Regular Rhythm, Normal S1, Normal S2, No murmurs Abdomen: Bowel Sounds Present, Soft, Non Tender, Non-Distended, No Hepato- splenomegaly, Obese Extremities: No edema, No Calf Tenderness Skin: No rashes, - - Dry skin. Bruising on her hands. Musculoskeletal: No Tenderness to Palpation of Joints or Extremities, No Muscle Wasting Neurological: - - No clonus Psych/Mental Status: - - Intubated and sedated Vital Signs Temp Pulse Resp BP Pulse Ox 36.6 C 62 15 88/68 L 95 01/03/19 15:00 01/03/19 15:55 01/03/19 15:55 01/03/19 15:55 01/03/19 15:55 Oxygen Delivery Method Mechanical Ventilator Weight: 91.9 kg Body Mass Index (BMI) 39.5 Microbiology Past 72 Hours 01/03/19 14:00 Influenza Types A,B Direct FA (DANILO) - Final Mucosa - Nasopharyngeal Laboratory Tests Past 24 Hrs 01/03/19 01/03/19 01/03/19 13:10 13:10 13:18 WBC 11.1 H RBC 4.26 Hgb 13.2 Hct 47.1 H MCV 110.6 H MCH 31.0 MCHC 28.0 L RDW 13.9 RDW Differential 55.4 H Plt Count 228 MPV 10.6 Neut % (Auto) Not Reportable Absolute Neuts (auto) 8.8 H Absolute Lymphs (auto) 1.22 Total Counted 100 Neutrophils % (Manual) 79 H Lymphocytes % (Manual) 11 L Monocytes % (Manual) 10 Diff Path Review May foll Platelet Estimate ADEQUATE RBC Morphology NORM C+C Specimen Type Sample Site pH Bicarbonate Actual POC Total CO2 Base Excess O2 Saturation O2 % ABG pCO2 ABG pO2 Erick Test Respiration Rate O2 Delivery Device Liter Flow Minute Volume Vent Mode Tidal Volume POC PEEP Blood Gas Notified Whom Blood Gas Notified Time Sodium 140 Potassium 4.7 Chloride 94 L Carbon Dioxide > 45.0 H* Anion Gap TNP BUN 11 Creatinine 0.68 Estim Creat Clear Calc 31.69 Est GFR (MDRD) Af Amer 106 Est GFR (MDRD) Non-Af 88 BUN/Creatinine Ratio 16.1 Glucose 181 H Lactic Acid 0.6 Calcium 8.8 Troponin I < 0.015 01/03/19 01/03/19 13:37 15:45 WBC RBC Hgb Hct MCV MCH MCHC RDW RDW Differential Plt Count MPV Neut % (Auto) Absolute Neuts (auto) Absolute Lymphs (auto) Total Counted Neutrophils % (Manual) Lymphocytes % (Manual) Monocytes % (Manual) Diff Path Review Platelet Estimate RBC Morphology Specimen Type ART ART Sample Site L RADIAL L Radial pH 7.09 L* 7.35 Bicarbonate Actual TNP 42.6 H POC Total CO2 TNP 45 Base Excess TNP 17 H O2 Saturation TNP 86 L O2 % 30 ABG pCO2 > 130.0 H* 77.1 H* ABG pO2 319 H* 57 L Erick Test POS POS Respiration Rate 16 O2 Delivery Device NRB Mask Vent Liter Flow 8.0 Minute Volume 8.00 Vent Mode A-C Tidal Volume 450 POC PEEP 5 Blood Gas Notified Whom ED MD ED MD Blood Gas Notified Time 1337 1544 Sodium Potassium Chloride Carbon Dioxide Anion Gap BUN Creatinine Estim Creat Clear Calc Est GFR (MDRD) Af Amer Est GFR (MDRD) Non-Af BUN/Creatinine Ratio Glucose Lactic Acid Calcium Troponin I Clinical Impression(s) from Imaging Studies Brain CT 01/03/19 13:05 IMPRESSION: Chronic involutional changes of the brain. Opacification of the ethmoid sinuses bilaterally. Endotracheal tube is seen. Electronically Signed: Garrett Rivera, at 15:30 EDT , Service support , Chest X-Ray 01/03/19 13:10 IMPRESSION: Moderate cardiomegaly. No acute abnormality is seen. Electronically Signed: Garrett Rivera, at 14:03 EDT , Service support , Chest X-Ray 01/03/19 14:30 IMPRESSION: The tip of the endotracheal tube is in the right mainstem bronchus. It should be pulled back approximately 5.3 cm. Findings areas of atelectasis at left lung base. Electronically Signed: Garrett Rivera, at 14:56 EDT , Service support , Assessment/Plan All Active Problems (Last Reviewed 11/25/18 @ 11:11 by Maribel Ambrose, MANAGER HIGHWAY-C) Hypercapnic respiratory failure (Acute) Hypokalemia (Acute) End of life care (Acute) Cough productive of yellow sputum (Acute) stem cell injection (Resolved) bladder sling (Resolved) History of cholecystectomy (Resolved) History of inguinal hernia repair (Resolved) History of hemorrhoidectomy (Resolved) H/O cataract removal with insertion of prosthetic lens (Resolved) Parotitis (Acute) Colon polyp (Acute) Vitamin B12 deficiency (Acute) Vitamin D deficiency (Acute) Allergic rhinitis (Acute) Constipation (Acute) Urinary incontinence (Acute) Dyspnea (Acute) Oral pharyngeal candidiasis (Acute) Hypoxia (Acute) Dehydration (Acute) Acute on chronic respiratory failure with hypoxia and hypercapnia (Acute) COPD exacerbation (Acute) Metabolic alkalosis (Resolved) Angioedema (Acute) History of DVT of lower extremity (Resolved) Parotitis (Resolved) 1. Acute hypercapnic respiratory failure * Secondary to COPD * On vent * Pulmonary on consult * Recheck chest x-ray this patient did have some adjustments made as appear to be more of a right mainstem intubation. Just make sure it is an appropriate place after they have adjusted it 2. Acute exacerbation of COPD * No obvious infiltrate on chest x-ray * Influenza swab was negative * Initiate steroids * Bronchodilators 3. Diabetes mellitus type 2 * Sliding scale for now * Hold Onglyza for now 4. DVT prophylaxis with Lovenox Code Visit Inpatient E&M: 56867 Init Hosp L3
--- NOTE | 2019-01-03 16:25 | RAD_ITS ---
STUDY: X-RAY CHEST REASON FOR EXAM: Female, 83 years old. Tube placement TECHNIQUE: Frontal view of the chest COMPARISON: 01/03/2019 at 3:35 PM. FINDINGS: There is an endotracheal tube noted with its tip approximately 2 cm above the bridger. There is an enteric tube noted with its tip in the proximal stomach. This could be advanced 5-10 cm for improved positioning. The lungs are clear. There are no pleural effusions. There is no pneumothorax. The heart is normal in size. The visualized osseous structures are within normal limits. RAD/Chest 1 View (Portable) IMPRESSION: Satisfactory position of the endotracheal tube. Enteric tube tip in the proximal stomach. This could be advanced 5-10 cm for improved positioning. Electronically Signed: Ar Butts, at 17:12 EDT Tel , Service support ,
[2019-01-03] MEDS: fentaNYL drip 100 ML 10 MCG CONT INF (16:30)
--- NOTE | 2019-01-03 16:58 | PCM.CON.CC ---
Problem List (1) Hypercapnic respiratory failure Status: Acute Qualifiers: Chronicity: acute on chronic Qualified Code(s): J96.22 - Acute and chronic respiratory failure with hypercapnia (2) COPD exacerbation Status: Chronic (3) stem cell injection Status: Resolved (4) bladder sling Status: Resolved (5) History of cholecystectomy Status: Resolved (6) History of inguinal hernia repair Status: Resolved (7) History of hemorrhoidectomy Status: Resolved (8) H/O cataract removal with insertion of prosthetic lens Status: Resolved (9) Vitamin B12 deficiency Status: Acute (10) Vitamin D deficiency Status: Acute (11) Plasma cell disorder Status: Chronic (12) Allergic rhinitis Status: Acute (13) Constipation Status: Acute (14) Osteopenia Status: Chronic (15) 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 classification Status: Chronic (16) Obesity (BMI 35.0-39.9 without comorbidity) Status: Chronic (17) Chronic respiratory failure with hypoxia and hypercapnia Status: Chronic (18) Acute on chronic respiratory failure with hypoxia and hypercapnia Status: Acute (19) Diabetes mellitus type 2 in obese Status: Chronic Reason for Consult Date of Consultation: 01/03/19 Reason for Consultation: Respiratory failure History of Present Illness: The patient is a 83 year old F, with past medical history listed below and well-known to me from the outpatient office, who presented to [facility] on 01/03/19 secondary to progressive shortness of breath over the last 3-4 days. Patient reportedly had a fall yesterday and might have hit her head. Patient states her breathing became acutely worse today and on presentation to the ER was nonverbal. Patient reportedly had no pain at that time, but was unable to rise under her own power or ambulate. Patient was noted to have 2+ edema of the lower extremities and significant elevation of CO2 on ABG. Patient was intubated. While in the ER, patient was very difficult to ventilate. Patient was given etomidate and rocuronium. Patient was having some decreased blood pressures that was attributed to her sedation. Patient received a fluid bolus with some improvement. Patient was given a single dose of Versed. Patient was seen by myself in the ER and personally transported to the intensive care unit for further monitoring. On arrival to the intensive care unit, patient had transcutaneous carbon dioxide monitoring placed. Patient did have significant issues with synchrony with the ventilator, but responded well to VC plus and initiation of a fentanyl drip. Patient's oxygenation status has been doing well. Patient's blood pressure has remained stable. Nursing had reported some concern for venous access, but a PICC line has been ordered. Patient's is not a very good historian and review of systems was unable to be obtained. 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) Abdominal hernia (Chronic) Obesity (BMI 35.0-39.9 without comorbidity) (Chronic) Chronic respiratory failure with hypoxia and hypercapnia (Chronic) COLD (chronic obstructive lung disease) (Chronic) Dyslipidemia (Chronic) Esophageal reflux (Chronic) Essential hypertension (Chronic) Former smoker (Chronic) Diabetes mellitus type 2 in obese (Chronic) Medical History: Medical History (Last Reviewed 01/03/19 @ 16:18 by Cristopher Lazcano DO) Parotitis (Acute) K11.20 Colon polyp (Acute) K63.5 Vitamin B12 deficiency (Acute) E53.8 Vitamin D deficiency (Acute) E55.9 Hypercholesteremia (Chronic) E78.00 Plasma cell disorder (Chronic) D72.9 Carotid stenosis (Chronic) I65.29 Allergic rhinitis (Acute) J30.9 Constipation (Acute) K59.00 Osteopenia (Chronic) M85.80 Lung nodule (Chronic) R91.1 Hypersomnia (Chronic) G47.10 Urinary incontinence (Acute) R32 Dyspnea (Acute) R06.00 Oral pharyngeal candidiasis (Acute) B37.0 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 classification (Chronic) J44.9 Abdominal hernia (Chronic) K46.9 Hypoxia (Acute) R09.02 Obesity (BMI 35.0-39.9 without comorbidity) (Chronic) E66.9 Dehydration (Acute) E86.0 Chronic respiratory failure with hypoxia and hypercapnia (Chronic) J96.11, J96.12 Acute on chronic respiratory failure with hypoxia and hypercapnia (Acute) J96.21, J96.22 COPD exacerbation (Acute) J44.1 FEV1 44% of predicted COLD (chronic obstructive lung disease) (Chronic) J44.9 Dyslipidemia (Chronic) E78.5 Esophageal reflux (Chronic) K21.9 Essential hypertension (Chronic) I10 Metabolic alkalosis (Resolved) E87.3 Former smoker (Chronic) Z87.891 Diabetes mellitus type 2 in obese (Chronic) E11.9, E66.9 Angioedema (Acute) T78.3XXA Allergies bee venom protein (honey bee) Allergy (Severe, Verified 01/03/19 16:50) Anaphylaxis LEATHA Inhibitors Allergy (Verified 01/03/19 16:50) Unknown latex Allergy (Verified 11/11/18 09:49) Itching levofloxacin [From Levaquin] Allergy (Verified 01/03/19 16:50) Unknown Sulfa (Sulfonamide Antibiotics) Allergy (Verified 11/11/18 09:49) PT CAN'T REMEMBER budesonide [From Symbicort] Adverse Reaction (Verified 11/11/18 09:49) SORES IN MOUTH fluticasone [From Advair Diskus] Adverse Reaction (Verified 11/11/18 09:49) SORES IN MOUTH formoterol [From Symbicort] Adverse Reaction (Verified 11/11/18 09:49) SORES IN MOUTH ipratropium Adverse Reaction (Verified 11/11/18 09:49) SORES IN MOUTH salmeterol [From Advair Diskus] Adverse Reaction (Verified 11/11/18 09:49) SORES IN MOUTH BREATHING TREATMENTS Adverse Reaction (Uncoded 11/11/18 09:49) SORES IN MOUTH Home Medications: Ambulatory Orders Medication Instructions Recorded Oxygen, Home [Home Oxygen] 2 lpm NASAL DAILY 04/08/15 Aspirin [Aspirin, Baby] 81 mg PO DAILY@0800 07/14/16 Tolterodine Tartrate 4 mg PO DAILY 12/02/16 Rabeprazole Sodium [Aciphex] 20 mg PO DAILY 09/15/17 Red Yeast Rice 600 mg PO DAILY 09/15/17 epinephrine 0.3 mg/0.3 mL 0.5 mg IM Q10-15M PRN 10/28/17 injection, auto-injector vit C,E,zinc,copper-[id number] 250 cap PO 10/28/17 mg-lutein 5 mg-zeaxanthin 1 mg capsule ipratropium 20 mcg-albuterol 100 2 inh INHALATION Q6H PRN #4 g 01/13/18 mcg/actuation mist for inhalation acetaminophen 325 mg capsule 325 mg PO TID PRN cap 04/21/18 albuterol sulfate 2.5 mg/3 mL 2.5 mg INHALATION Q4H PRN #180 vial 06/21/18 (0.083 %) solution for nebulization lisinopril 10 mg tablet 10 mg PO DAILY 08/12/18 furosemide 40 mg tablet 40 mg PO BID #14 tab 11/11/18 potassium chloride 40 mEq/15 mL 40 meq PO DAILY #473 ml 11/11/18 oral liquid Saxagliptin HCl [Onglyza] 5 mg PO DAILY 01/03/19 Surgical History: Surgical History (Last Reviewed 01/03/19 @ 16:18 by Cristopher Lazcano DO) stem cell injection (Resolved) bladder sling (Resolved) History of cholecystectomy (Resolved) Z98.890, Z90.49 History of inguinal hernia repair (Resolved) Z98.890, Z87.19 History of hemorrhoidectomy (Resolved) Z98.890 H/O cataract removal with insertion of prosthetic lens (Resolved) Z98.49, Z96.1 Surgical History: cataract - Bilateral, cholecystectomy, - - Bladder sling, Psychiatric History: No pertinent psych hx [employer] History: No pertinent [employer] history Smoking Status: Former smoker - *Family History Maternal Family History: Family History (Last Reviewed 01/03/19 @ 16:18 by Cristopher Lazcano DO) Brother Lung disease Mother Heart disease Diabetes Father CAD (coronary artery disease) History Items: Diabetes, Heart Disease Paternal Family History: Family History (Last Reviewed 01/03/19 @ 16:18 by Cristopher Lazcano DO) Brother Lung disease Mother Heart disease Diabetes Father CAD (coronary artery disease) History Items: - - father at 76 with a DVT and PE Sibling Family History: Family History (Last Reviewed 01/03/19 @ 16:18 by Cristopher Lazcano DO) Brother Lung disease Mother Heart disease Diabetes Father CAD (coronary artery disease) History Items: - - she has 10 siblings...one is with pancreatic cancer Review of Systems Unable to obtain accurate/complete ROS d/t: Intubated and sedated. See HPI Patient Problems: Active and Suspected Problems (Last Reviewed 01/03/19 @ 16:18 by MALISSA Ruiz Hypercapnic respiratory failure (Acute) Objective: Original chest x-ray was noted to have a right mainstem intubation. On arrival to the intensive care unit, tube position was unchanged. Endotracheal tube was withdrawn 3 cm and repeat chest x-ray shows appropriate position. OG was also noted to be high and this was advanced with improved position on repeat x-ray. - Physical Exam General: - - Intubated and sedated. Morbidly obese. Cushingoid appearance. HEENT: Atraumatic, PERRLA, EOMI, Normocephalic, - - No scleral icterus or injection noted. Oral: No Gingival or Mucosal Lesions/ Ulcerations, Dry Mucosa Neck: Supple, No Nodes, Trachea Midline, JVD, Right Lungs: No rhonchi, No rales, Diminished, Wheezes - Sporadic at end exhalation Cardiovascular: Regular rate, Regular Rhythm, Normal S1, Normal S2, No murmurs, No rub noted, No Gallop, - - Normal sinus rhythm noted on telemetry Abdomen: Bowel Sounds Present, Soft, Non Tender, Distended, Obese Extremities: No cyanosis, Clubbing, Edema Skin: - - Decubitus ulcer of the coccyx was noted. Very thin skin with multiple tears. Some bruising noted at various stages. Musculoskeletal: No Tenderness to Palpation of Joints or Extremities Lymphatic: No Cervical, Supraclavicular, or Inguinal Adenopathy Neurological: Cranial nerves II-XII grossly intact, Neuro grossly intact, Motor Exam 5/5 strength throughout Psych/Mental Status: Flat Affect, Restless Vital Signs Temp Pulse Resp BP Pulse Ox 36.6 C 62 15 88/68 L 95 01/03/19 15:00 01/03/19 15:55 01/03/19 15:55 01/03/19 15:55 01/03/19 15:55 Oxygen Delivery Method Mechanical Ventilator Weight: 91.9 kg Body Mass Index (BMI) 39.5 Microbiology Past 72 Hours 01/03/19 14:00 Influenza Types A,B Direct FA (DANILO) - Final Mucosa - Nasopharyngeal Laboratory Tests Past 24 Hrs 01/03/19 01/03/19 01/03/19 13:10 13:10 13:10 WBC 11.1 H RBC 4.26 Hgb 13.2 Hct 47.1 H MCV 110.6 H MCH 31.0 MCHC 28.0 L RDW 13.9 RDW Differential 55.4 H Plt Count 228 MPV 10.6 Neut % (Auto) Not Reportable Absolute Neuts (auto) 8.8 H Absolute Lymphs (auto) 1.22 Total Counted 100 Neutrophils % (Manual) 79 H Lymphocytes % (Manual) 11 L Monocytes % (Manual) 10 Diff Path Review May foll Platelet Estimate ADEQUATE RBC Morphology NORM C+C PT Pending INR Pending APTT Pending Specimen Type Sample Site pH Bicarbonate Actual POC Total CO2 Base Excess O2 Saturation O2 % ABG pCO2 ABG pO2 Erick Test Respiration Rate O2 Delivery Device Liter Flow Minute Volume Vent Mode Tidal Volume POC PEEP Blood Gas Notified Whom Blood Gas Notified Time Sodium 140 Potassium 4.7 Chloride 94 L Carbon Dioxide > 45.0 H* Anion Gap TNP BUN 11 Creatinine 0.68 Estim Creat Clear Calc 31.69 Est GFR (MDRD) Af Amer 106 Est GFR (MDRD) Non-Af 88 BUN/Creatinine Ratio 16.1 Glucose 181 H Lactic Acid Calcium 8.8 Troponin I < 0.015 01/03/19 01/03/19 01/03/19 13:18 13:37 15:45 WBC RBC Hgb Hct MCV MCH MCHC RDW RDW Differential Plt Count MPV Neut % (Auto) Absolute Neuts (auto) Absolute Lymphs (auto) Total Counted Neutrophils % (Manual) Lymphocytes % (Manual) Monocytes % (Manual) Diff Path Review Platelet Estimate RBC Morphology PT INR APTT Specimen Type ART ART Sample Site L RADIAL L Radial pH 7.09 L* 7.35 Bicarbonate Actual TNP 42.6 H POC Total CO2 TNP 45 Base Excess TNP 17 H O2 Saturation TNP 86 L O2 % 30 ABG pCO2 > 130.0 H* 77.1 H* ABG pO2 319 H* 57 L Erick Test POS POS Respiration Rate 16 O2 Delivery Device NRB Mask Vent Liter Flow 8.0 Minute Volume 8.00 Vent Mode A-C Tidal Volume 450 POC PEEP 5 Blood Gas Notified Whom ED MD ED MD Blood Gas Notified Time 1337 1544 Sodium Potassium Chloride Carbon Dioxide Anion Gap BUN Creatinine Estim Creat Clear Calc Est GFR (MDRD) Af Amer Est GFR (MDRD) Non-Af BUN/Creatinine Ratio Glucose Lactic Acid 0.6 Calcium Troponin I Clinical Impression(s) from Imaging Studies Brain CT 01/03/19 13:05 IMPRESSION: Chronic involutional changes of the brain. Opacification of the ethmoid sinuses bilaterally. Endotracheal tube is seen. Electronically Signed: Garrett Miguel, at 15:30 EDT , Service support , Chest X-Ray 01/03/19 13:10 IMPRESSION: Moderate cardiomegaly. No acute abnormality is seen. Electronically Signed: Garrett Miguel, at 14:03 EDT , Service support , Chest X-Ray 01/03/19 14:30 IMPRESSION: The tip of the endotracheal tube is in the right mainstem bronchus. It should be pulled back approximately 5.3 cm. Findings areas of atelectasis at left lung base. Electronically Signed: Garrett Miguel, at 14:56 EDT , Service support , Assessment/Plan Active and Suspected Problems (Last Reviewed 01/03/19 @ 16:18 by Cristopher Lazcano DO) Hypercapnic respiratory failure (Acute) RECOMMENDATIONS: 1. Initiate mucolytic, steroids, bronchodilators and empiric antibiotics 2. Place PICC line 3. Await coley cultures and obtain respiratory panel 4. Continues breathing and awakening trials per protocol 5. Sliding scale insulin 6. Initiate tube feeds 7. Initiate Levophed if necessary IMPRESSIONS: 1. Acute on chronic hypoxemic and hypercarbic respiratory failure Patient with advanced COPD by PFT criteria at baseline. Unclear etiology of patient's current exacerbation. Chest x-ray does not show any significant infiltrate, so viral etiology versus volume depletion would be suspected. Coley cultures have been ordered. Will initiate patient on steroids, bronchodilators, mucolytic and empiric antibiotics. Will monitor patient's blood pressure closely. Anticipate significant issues with hypotension given acidosis on presentation. Patient may also have an element of sepsis. Levophed if necessary. Patient may require stress dose steroids as she has had multiple prednisone bursts as an outpatient previously. 2. Diabetes mellitus type 2 Patient will be initiated on empiric steroid therapy. Will need to watch blood sugars closely. Anticipate protracted course, so tube feeds will be initiated immediately. 3. Morbid obesity/dyslipidemia/esophageal reflux/hypertension/chronic steroids/osteopenia Complicates care, management, recovery and prognosis. Patient may require stress dose steroids. Blood pressure medications will be held. TIME: 78 minutes of critical care time was spent addressing the patient's acute on chronic respiratory failure, diabetes mellitus, review of all data and collaboration with the care team. (3 PM to 5:14 PM) Code Visit Procedures: [id number] Critial Care Addl 30 Min 9xxxx: [id number] Critical care first hour
--- NOTE | 2019-01-03 17:03 | CON.PCM_ITS ---
Problem List (1) Hypercapnic respiratory failure Status: Acute Qualifiers: Chronicity: acute on chronic Qualified Code(s): J96.22 - Acute and chronic respiratory failure with hypercapnia (2) COPD exacerbation Status: Chronic (3) stem cell injection Status: Resolved (4) bladder sling Status: Resolved (5) History of cholecystectomy Status: Resolved (6) History of inguinal hernia repair Status: Resolved (7) History of hemorrhoidectomy Status: Resolved (8) H/O cataract removal with insertion of prosthetic lens Status: Resolved (9) Vitamin B12 deficiency Status: Acute (10) Vitamin D deficiency Status: Acute (11) Plasma cell disorder Status: Chronic (12) Allergic rhinitis Status: Acute (13) Constipation Status: Acute (14) Osteopenia Status: Chronic (15) 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 classification Status: Chronic (16) Obesity (BMI 35.0-39.9 without comorbidity) Status: Chronic (17) Chronic respiratory failure with hypoxia and hypercapnia Status: Chronic (18) Acute on chronic respiratory failure with hypoxia and hypercapnia Status: Acute (19) Diabetes mellitus type 2 in obese Status: Chronic Reason for Consult Date of Consultation: 01/03/19 Reason for Consultation: Respiratory failure History of Present Illness: The patient is a 83 year old F, with past medical history listed below and well- known to me from the outpatient office, who presented to [facility] on 01/03/19 secondary to progressive shortness of breath over the last 3- 4 days. Patient reportedly had a fall yesterday and might have hit her head. Patient states her breathing became acutely worse today and on presentation to the ER was nonverbal. Patient reportedly had no pain at that time, but was unable to rise under her own power or ambulate. Patient was noted to have 2+ edema of the lower extremities and significant elevation of CO2 on ABG. Patient was intubated. While in the ER, patient was very difficult to ventilate. Patient was given etomidate and rocuronium. Patient was having some decreased blood pressures that was attributed to her sedation. Patient received a fluid bolus with some improvement. Patient was given a single dose of Versed. Patient was seen by myself in the ER and personally transported to the intensive care unit for further monitoring. On arrival to the intensive care unit, patient had transcutaneous carbon dioxide monitoring placed. Patient did have significant issues with synchrony with the ventilator, but responded well to VC plus and initiation of a fentanyl drip. Patient's oxygenation status has been doing well. Patient's blood pressure has remained stable. Nursing had reported some concern for venous access, but a PICC line has been ordered. Patient's is not a very good historian and review of systems was unable to be obtained. 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) Abdominal hernia (Chronic) Obesity (BMI 35.0-39.9 without comorbidity) (Chronic) Chronic respiratory failure with hypoxia and hypercapnia (Chronic) COLD (chronic obstructive lung disease) (Chronic) Dyslipidemia (Chronic) Esophageal reflux (Chronic) Essential hypertension (Chronic) Former smoker (Chronic) Diabetes mellitus type 2 in obese (Chronic) Medical History: Medical History (Last Reviewed 01/03/19 @ 16:18 by Cristopher Lazcano DO) Parotitis (Acute) K11.20 Colon polyp (Acute) K63.5 Vitamin B12 deficiency (Acute) E53.8 Vitamin D deficiency (Acute) E55.9 Hypercholesteremia (Chronic) E78.00 Plasma cell disorder (Chronic) D72.9 Carotid stenosis (Chronic) I65.29 Allergic rhinitis (Acute) J30.9 Constipation (Acute) K59.00 Osteopenia (Chronic) M85.80 Lung nodule (Chronic) R91.1 Hypersomnia (Chronic) G47.10 Urinary incontinence (Acute) R32 Dyspnea (Acute) R06.00 Oral pharyngeal candidiasis (Acute) B37.0 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 classification (Chronic) J44.9 Abdominal hernia (Chronic) K46.9 Hypoxia (Acute) R09.02 Obesity (BMI 35.0-39.9 without comorbidity) (Chronic) E66.9 Dehydration (Acute) E86.0 Chronic respiratory failure with hypoxia and hypercapnia (Chronic) J96.11, J96.12 Acute on chronic respiratory failure with hypoxia and hypercapnia (Acute) J96.21, J96.22 COPD exacerbation (Acute) J44.1 FEV1 44% of predicted COLD (chronic obstructive lung disease) (Chronic) J44.9 Dyslipidemia (Chronic) E78.5 Esophageal reflux (Chronic) K21.9 Essential hypertension (Chronic) I10 Metabolic alkalosis (Resolved) E87.3 Former smoker (Chronic) Z87.891 Diabetes mellitus type 2 in obese (Chronic) E11.9, E66.9 Angioedema (Acute) T78.3XXA Allergies bee venom protein (honey bee) Allergy (Severe, Verified 01/03/19 16:50) Anaphylaxis LEATHA Inhibitors Allergy (Verified 01/03/19 16:50) Unknown latex Allergy (Verified 11/11/18 09:49) Itching levofloxacin [From Levaquin] Allergy (Verified 01/03/19 16:50) Unknown Sulfa (Sulfonamide Antibiotics) Allergy (Verified 11/11/18 09:49) PT CAN'T REMEMBER budesonide [From Symbicort] Adverse Reaction (Verified 11/11/18 09:49) SORES IN MOUTH fluticasone [From Advair Diskus] Adverse Reaction (Verified 11/11/18 09:49) SORES IN MOUTH formoterol [From Symbicort] Adverse Reaction (Verified 11/11/18 09:49) SORES IN MOUTH ipratropium Adverse Reaction (Verified 11/11/18 09:49) SORES IN MOUTH salmeterol [From Advair Diskus] Adverse Reaction (Verified 11/11/18 09:49) SORES IN MOUTH BREATHING TREATMENTS Adverse Reaction (Uncoded 11/11/18 09:49) SORES IN MOUTH Home Medications: Ambulatory Orders Medication Instructions Recorded Oxygen, Home [Home Oxygen] 2 lpm NASAL DAILY 04/08/15 Aspirin [Aspirin, Baby] 81 mg PO DAILY@0800 07/14/16 Tolterodine Tartrate 4 mg PO DAILY 12/02/16 Rabeprazole Sodium [Aciphex] 20 mg PO DAILY 09/15/17 Red Yeast Rice 600 mg PO DAILY 09/15/17 epinephrine 0.3 mg/0.3 mL 0.5 mg IM Q10-15M PRN 10/28/17 injection, auto-injector vit C,E,zinc,copper-[id number] 250 cap PO 10/28/17 mg-lutein 5 mg-zeaxanthin 1 mg capsule ipratropium 20 mcg-albuterol 100 2 inh INHALATION Q6H PRN #4 g 01/13/18 mcg/actuation mist for inhalation acetaminophen 325 mg capsule 325 mg PO TID PRN cap 04/21/18 albuterol sulfate 2.5 mg/3 mL 2.5 mg INHALATION Q4H PRN #180 vial 06/21/18 (0.083 %) solution for nebulization lisinopril 10 mg tablet 10 mg PO DAILY 08/12/18 furosemide 40 mg tablet 40 mg PO BID #14 tab 11/11/18 potassium chloride 40 mEq/15 mL 40 meq PO DAILY #473 ml 11/11/18 oral liquid Saxagliptin HCl [Onglyza] 5 mg PO DAILY 01/03/19 Surgical History: Surgical History (Last Reviewed 01/03/19 @ 16:18 by Cristopher Lazcano DO) stem cell injection (Resolved) bladder sling (Resolved) History of cholecystectomy (Resolved) Z98.890, Z90.49 History of inguinal hernia repair (Resolved) Z98.890, Z87.19 History of hemorrhoidectomy (Resolved) Z98.890 H/O cataract removal with insertion of prosthetic lens (Resolved) Z98.49, Z96.1 Surgical History: cataract - Bilateral, cholecystectomy, - - Bladder sling, Psychiatric History: No pertinent psych hx SWATCH CHECKER History: No pertinent SWATCH CHECKER history Smoking Status: Former smoker - *Family History Maternal Family History: Family History (Last Reviewed 01/03/19 @ 16:18 by Cristopher Lazcano DO) Brother Lung disease Mother Heart disease Diabetes Father CAD (coronary artery disease) History Items: Diabetes, Heart Disease Paternal Family History: Family History (Last Reviewed 01/03/19 @ 16:18 by Cristopher Lazcano DO) Brother Lung disease Mother Heart disease Diabetes Father CAD (coronary artery disease) History Items: - - father at 76 with a DVT and PE Sibling Family History: Family History (Last Reviewed 01/03/19 @ 16:18 by Cristopher Lazcano DO) Brother Lung disease Mother Heart disease Diabetes Father CAD (coronary artery disease) History Items: - - she has 10 siblings...one is with pancreatic cancer Review of Systems Unable to obtain accurate/complete ROS d/t: Intubated and sedated. See HPI Patient Problems: Active and Suspected Problems (Last Reviewed 01/03/19 @ 16:18 by MALISSA Ruiz Hypercapnic respiratory failure (Acute) Objective: Original chest x-ray was noted to have a right mainstem intubation. On arrival to the intensive care unit, tube position was unchanged. Endotracheal tube was withdrawn 3 cm and repeat chest x-ray shows appropriate position. OG was also noted to be high and this was advanced with improved position on repeat x-ray. - Physical Exam General: - - Intubated and sedated. Morbidly obese. Cushingoid appearance. HEENT: Atraumatic, PERRLA, EOMI, Normocephalic, - - No scleral icterus or injection noted. Oral: No Gingival or Mucosal Lesions/ Ulcerations, Dry Mucosa Neck: Supple, No Nodes, Trachea Midline, JVD, Right Lungs: No rhonchi, No rales, Diminished, Wheezes - Sporadic at end exhalation Cardiovascular: Regular rate, Regular Rhythm, Normal S1, Normal S2, No murmurs, No rub noted, No Gallop, - - Normal sinus rhythm noted on telemetry Abdomen: Bowel Sounds Present, Soft, Non Tender, Distended, Obese Extremities: No cyanosis, Clubbing, Edema Skin: - - Decubitus ulcer of the coccyx was noted. Very thin skin with multiple tears. Some bruising noted at various stages. Musculoskeletal: No Tenderness to Palpation of Joints or Extremities Lymphatic: No Cervical, Supraclavicular, or Inguinal Adenopathy Neurological: Cranial nerves II-XII grossly intact, Neuro grossly intact, Motor Exam 5/5 strength throughout Psych/Mental Status: Flat Affect, Restless Vital Signs Temp Pulse Resp BP Pulse Ox 36.6 C 62 15 88/68 L 95 01/03/19 15:00 01/03/19 15:55 01/03/19 15:55 01/03/19 15:55 01/03/19 15:55 Oxygen Delivery Method Mechanical Ventilator Weight: 91.9 kg Body Mass Index (BMI) 39.5 Microbiology Past 72 Hours 01/03/19 14:00 Influenza Types A,B Direct FA (DANILO) - Final Mucosa - Nasopharyngeal Laboratory Tests Past 24 Hrs 01/03/19 01/03/19 01/03/19 13:10 13:10 13:10 WBC 11.1 H RBC 4.26 Hgb 13.2 Hct 47.1 H MCV 110.6 H MCH 31.0 MCHC 28.0 L RDW 13.9 RDW Differential 55.4 H Plt Count 228 MPV 10.6 Neut % (Auto) Not Reportable Absolute Neuts (auto) 8.8 H Absolute Lymphs (auto) 1.22 Total Counted 100 Neutrophils % (Manual) 79 H Lymphocytes % (Manual) 11 L Monocytes % (Manual) 10 Diff Path Review May foll Platelet Estimate ADEQUATE RBC Morphology NORM C+C PT Pending INR Pending APTT Pending Specimen Type Sample Site pH Bicarbonate Actual POC Total CO2 Base Excess O2 Saturation O2 % ABG pCO2 ABG pO2 Erick Test Respiration Rate O2 Delivery Device Liter Flow Minute Volume Vent Mode Tidal Volume POC PEEP Blood Gas Notified Whom Blood Gas Notified Time Sodium 140 Potassium 4.7 Chloride 94 L Carbon Dioxide > 45.0 H* Anion Gap TNP BUN 11 Creatinine 0.68 Estim Creat Clear Calc 31.69 Est GFR (MDRD) Af Amer 106 Est GFR (MDRD) Non-Af 88 BUN/Creatinine Ratio 16.1 Glucose 181 H Lactic Acid Calcium 8.8 Troponin I < 0.015 01/03/19 01/03/19 01/03/19 13:18 13:37 15:45 WBC RBC Hgb Hct MCV MCH MCHC RDW RDW Differential Plt Count MPV Neut % (Auto) Absolute Neuts (auto) Absolute Lymphs (auto) Total Counted Neutrophils % (Manual) Lymphocytes % (Manual) Monocytes % (Manual) Diff Path Review Platelet Estimate RBC Morphology PT INR APTT Specimen Type ART ART Sample Site L RADIAL L Radial pH 7.09 L* 7.35 Bicarbonate Actual TNP 42.6 H POC Total CO2 TNP 45 Base Excess TNP 17 H O2 Saturation TNP 86 L O2 % 30 ABG pCO2 > 130.0 H* 77.1 H* ABG pO2 319 H* 57 L Erick Test POS POS Respiration Rate 16 O2 Delivery Device NRB Mask Vent Liter Flow 8.0 Minute Volume 8.00 Vent Mode A-C Tidal Volume 450 POC PEEP 5 Blood Gas Notified Whom ED MD ED MD Blood Gas Notified Time 1337 1544 Sodium Potassium Chloride Carbon Dioxide Anion Gap BUN Creatinine Estim Creat Clear Calc Est GFR (MDRD) Af Amer Est GFR (MDRD) Non-Af BUN/Creatinine Ratio Glucose Lactic Acid 0.6 Calcium Troponin I Clinical Impression(s) from Imaging Studies Brain CT 01/03/19 13:05 IMPRESSION: Chronic involutional changes of the brain. Opacification of the ethmoid sinuses bilaterally. Endotracheal tube is seen. Electronically Signed: Garrett Miguel, at 15:30 EDT , Service support , Chest X-Ray 01/03/19 13:10 IMPRESSION: Moderate cardiomegaly. No acute abnormality is seen. Electronically Signed: Garrett Miguel, at 14:03 EDT , Service support , Chest X-Ray 01/03/19 14:30 IMPRESSION: The tip of the endotracheal tube is in the right mainstem bronchus. It should be pulled back approximately 5.3 cm. Findings areas of atelectasis at left lung base. Electronically Signed: Garrett Miguel, at 14:56 EDT , Service support , Assessment/Plan Active and Suspected Problems (Last Reviewed 01/03/19 @ 16:18 by Cristopher Lazcano DO) Hypercapnic respiratory failure (Acute) RECOMMENDATIONS: 1. Initiate mucolytic, steroids, bronchodilators and empiric antibiotics 2. Place PICC line 3. Await coley cultures and obtain respiratory panel 4. Continues breathing and awakening trials per protocol 5. Sliding scale insulin 6. Initiate tube feeds 7. Initiate Levophed if necessary IMPRESSIONS: 1. Acute on chronic hypoxemic and hypercarbic respiratory failure Patient with advanced COPD by PFT criteria at baseline. Unclear etiology of patient's current exacerbation. Chest x-ray does not show any significant infiltrate, so viral etiology versus volume depletion would be suspected. Coley cultures have been ordered. Will initiate patient on steroids, bronchodilators, mucolytic and empiric antibiotics. Will monitor patient's blood pressure closely. Anticipate significant issues with hypotension given acidosis on presentation. Patient may also have an element of sepsis. Levophed if necessary. Patient may require stress dose steroids as she has had multiple prednisone bursts as an outpatient previously. 2. Diabetes mellitus type 2 Patient will be initiated on empiric steroid therapy. Will need to watch blood sugars closely. Anticipate protracted course, so tube feeds will be in itiated immediately. 3. Morbid obesity/dyslipidemia/esophageal reflux/hypertension/chronic steroids/osteopenia Complicates care, management, recovery and prognosis. Patient may require stress dose steroids. Blood pressure medications will be held. TIME: 78 minutes of critical care time was spent addressing the patient's acute on chronic respiratory failure, diabetes mellitus, review of all data and collaboration with the care team. (3 PM to 5:14 PM) Code Visit Procedures: [id number] Critial Care Addl 30 Min 9xxxx: [id number] Critical care first hour
--- NOTE | 2019-01-03 17:54 | NURSING ---
RT in pt room, begin Art line insertion
[2019-01-03] MEDS: Ipratropium/Albuterol Sulfate 3 ML AMPUL.NEB INHALATION ×2 (18:45→22:33)
[2019-01-03 19:26] LABS: Bedside Glucose 104 mg/dL (70-110)
[2019-01-03 19:26] LABS: Allen Test POS; Base Excess 19 mmol/L (-2 to +2); Bicarbonate 43.3 mmol/L (22-26); Blood Gas Specimen Type ART; FI02 30; Mode VC+; O2 Delivery Device Vent; PEEP 5; PO2 46 mmHG (75-100); RR 12; SITE L Radial; SO2 81 % (95-99); Time Given 1915; Total Carbon Dioxide 45 mmol/L; Vt 450; pCO2 64.2 mmHg (35-45); pH 7.44 (7.35-7.45)
[2019-01-03] MEDS: Vital AF 1.2 Cal Liquid 1,000 ML 20 ML GT (20:59)
[2019-01-03] MEDS: levoFLOXacin IV 500 MG/100 ML BAG 100 MG IV (20:59)
[2019-01-03] MEDS: guaiFENesin 10 ML UDC (200MG/10ML) GT (21:00)
[2019-01-03] MEDS: Chlorhexidine 15 ML PO (21:01)
--- NOTE | 2019-01-03 21:26 | RAD_ITS ---
STUDY: X-RAY CHEST REASON FOR EXAM: Female, 83 years old. Oral gastric tube placement. TECHNIQUE: Limited portable image. COMPARISON: None. FINDINGS: The tip of the orogastric tube is in the distal portion of the stomach. RAD/Abdomen Single View IMPRESSION: The tip of the orogastric tube is in the distal portion of the stomach. Electronically Signed: Garrett Rivera, at 10:14 EDT , Service support ,
[2019-01-03 21:43] LABS: International Normalized Ratio 1.1; Prothrombin Time (Protime)PT. 13.7 SECONDS (11.7-14.9)
[2019-01-03 21:44] LABS: Partial Thromboplast Time 29.7 Seconds (24.1-36.2)
[2019-01-03] MEDS: Docusate Sodium 100 MG/10 ML UDC NG (21:56)
[2019-01-03] MEDS: Acetaminophen 650 MG/20 ML UDC 325 MG NG (22:13)
[2019-01-04] VITALS (43 sets, daily range): BP systolic 99–206; BP diastolic 27–103; PULSE 59–107; RESP 12–24; TEMP 37.2–38.3; O2SAT 86–97
[2019-01-04] MEDS: 0.9% NaCl PICC Flush IV ×3 (00:57→21:27)
[2019-01-04] MEDS: Insulin Lispro 100 UNIT/ML INSULN.PEN SQ ×4 (00:57→17:28)
[2019-01-04 01:01] LABS: Bedside Glucose 156 mg/dL (70-110)
[2019-01-04] MEDS: fentaNYL drip 100 ML 10 MCG CONT INF ×3 (01:33→23:07)
[2019-01-04] MEDS: guaiFENesin 10 ML UDC (200MG/10ML) GT ×6 (01:34→21:26)
[2019-01-04] MEDS: Propofol 10MG/Ml 1,000 MG/100 ML Bottle 5.514 MG CONT INF (03:29)
[2019-01-04] MEDS: Ipratropium/Albuterol Sulfate 3 ML AMPUL.NEB INHALATION ×6 (03:30→22:15)
[2019-01-04] MEDS: CHLORHEXIDINE GLUC 2% CLOTH 1 EACH TOWELETTE TOPICAL (04:09)
[2019-01-04] MEDS: 0.9% NaCl IVPB Med Flush (250 mL) 15 ML IV (04:13)
[2019-01-04 04:40] LABS: Absolute Lymphocyte Count 0.38 X10^3/ul (0.83-4.51); Absolute Neutrophil Count 8.3 X10^3/uL (2.0-7.7); Differential Indicated SCAN CRITERIA MET; Hematocrit 41.1 % (37-47); Lymphocyte # 0.38 X10^3/ul (4.0); Lymphocyte % 4.3 % (19-41); Mean Corp Hgb Conc 29.2 g/gl (32-36); Mean Corpuscular Hgb 30.5 pg (27.0-32.0); Mean Corpuscular Volume 104.6 fL (81-99); Mean Platelet Vol. 10.7 fl (6.2-12.0); Monocyte# 0.14 X10^3/uL; Monocyte% 1.6 % (0-10); Neutrophil # 8.29 X10^3/uL (2.7-7.7); Neutrophil % 93.6 % (47-70); POSITIVE COUNT NO; POSITIVE DIFFERENTIAL YES; POSITIVE MORPHOLOGY NO; Platelet Count 183 K/mm3 (150-450); RBC Distribution Width CV 13.6 % (11.6-14.6); RBC Distribution Width SD 51.7 fl (35.1-43.9); Red Blood Count 3.93 M/mm3 (4.2-5.4); White Blood Count 8.9 K/mm3 (4.4-11.0)
[2019-01-04 04:51] LABS: Anion Gap 4 (5-15); BUN 15 mg/dL (7-18); BUN/Creat Ratio 18.1 RATIO (10-20); Calcium,Total 8.5 mg/dL (8.5-10.1); Chloride 97 mmol/L (98-107); Creatinine, Serum 0.83 mg/dL (0.55-1.02); EST Glomerular Filtration Rate 70 mL/min (>60); Est Glom Filt Rate - Afr Amer 85 mL/min (>60); Estimated Creatinine Clearance 78.63 ml/min; Glucose 201 mg/dL (74-106); Magnesium 2.2 mg/dL (1.6-2.6); Potassium 4.3 mmol/L (3.5-5.1); Sodium Level 142 mmol/L (136-145)
[2019-01-04 05:03] LABS: Phosphorus 1.7 mg/dL (2.5-4.9)
[2019-01-04 06:20] LABS: Bedside Glucose 171 mg/dL (70-110)
--- NOTE | 2019-01-04 07:04 | PCM.PN.INT ---
Subjective: Patient did okay overnight. Patient did require Levophed therapy transiently, but has been off pressors most of the evening. Patient did spike a fever overnight. Oxygenation has slightly improved. Patient will open eyes to command. General: Cooperative, No apparent distress, - - Appears older than stated age. Good vent synchrony. RASS 0. HEENT: Atraumatic, PERRLA, EOMI, Normocephalic, - - No scleral icterus or injection noted. Oral: Moist Mucosa, No Gingival or Mucosal Lesions/ Ulcerations Neck: Supple, No JVD, No Nodes, Trachea Midline Lungs: No rhonchi, No wheeze, No rales, Diminished, - - Symmetric expansion. No dullness to percussion. Cardiovascular: Regular rate, Regular Rhythm, Normal S1, Normal S2, No murmurs, No rub noted, No Gallop Abdomen: Bowel Sounds Present, Soft, Non Tender, Non-Distended, Obese Extremities: No cyanosis, Capillary Refill Less than 3 Seconds, Clubbing, Edema Skin: - - No significant change compared to previous Musculoskeletal: No Tenderness to Palpation of Joints or Extremities Lymphatic: No Cervical, Supraclavicular, or Inguinal Adenopathy Neurological: Cranial nerves II-XII grossly intact, Neuro grossly intact, Motor Exam 5/5 strength throughout Psych/Mental Status: Appropriate, Flat Affect Vital Signs Temp Pulse Resp BP Pulse Ox 37.5 C H 63 16 102/31 L 94 01/04/19 07:00 01/04/19 07:00 01/04/19 07:00 01/04/19 07:00 01/04/19 07:00 Oxygen Delivery Method Mechanical Ventilator Weight: 93.5 kg Body Mass Index (BMI) 40.5 Intake and Output for Last 24 Hours 01/02/19 01/03/19 01/04/19 23:59 23:59 23:59 Intake Total 705.5 / 705.5 699.2 / 699.2 Output Total 355 / 355 150 / 150 Balance 350.5 / 350.5 549.2 / 549.2 Labs (Last 48 Hours) 01/03/19 01/03/19 01/03/19 13:10 13:10 13:18 WBC 11.1 H RBC 4.26 Hgb 13.2 Hct 47.1 H MCV 110.6 H MCH 31.0 MCHC 28.0 L RDW 13.9 RDW Differential 55.4 H Plt Count 228 MPV 10.6 Immature Gran % (Auto) Neut % (Auto) Not Reportable Lymph % (Auto) [place] % (Auto) Eos % (Auto) Baso % (Auto) Absolute Neuts (auto) 8.8 H Absolute Lymphs (auto) 1.22 Total Counted 100 Neutrophils % (Manual) 79 H Lymphocytes % (Manual) 11 L Monocytes % (Manual) 10 Differential Comment Diff Path Review May foll Platelet Estimate ADEQUATE RBC Morphology NORM C+C PT INR APTT Specimen Type Sample Site pH Bicarbonate Actual POC Total CO2 Base Excess O2 Saturation O2 % ABG pCO2 ABG pO2 Erick Test Respiration Rate O2 Delivery Device Liter Flow Minute Volume Vent Mode Tidal Volume POC PEEP Blood Gas Notified Whom Blood Gas Notified Time Sodium 140 Potassium 4.7 Chloride 94 L Carbon Dioxide > 45.0 H* Anion Gap TNP BUN 11 Creatinine 0.68 Estim Creat Clear Calc 31.69 Est GFR (MDRD) Af Amer 106 Est GFR (MDRD) Non-Af 88 BUN/Creatinine Ratio 16.1 Glucose 181 H Lactic Acid 0.6 Calcium 8.8 Phosphorus Magnesium Troponin I < 0.015 POC Glucose 01/03/19 01/03/19 01/03/19 13:37 15:45 18:48 WBC RBC Hgb Hct MCV MCH MCHC RDW RDW Differential Plt Count MPV Immature Gran % (Auto) Neut % (Auto) Lymph % (Auto) [place] % (Auto) Eos % (Auto) Baso % (Auto) Absolute Neuts (auto) Absolute Lymphs (auto) Total Counted Neutrophils % (Manual) Lymphocytes % (Manual) Monocytes % (Manual) Differential Comment Diff Path Review Platelet Estimate RBC Morphology PT INR APTT Specimen Type ART ART Sample Site L RADIAL L Radial pH 7.09 L* 7.35 Bicarbonate Actual TNP 42.6 H POC Total CO2 TNP 45 Base Excess TNP 17 H O2 Saturation TNP 86 L O2 % 30 ABG pCO2 > 130.0 H* 77.1 H* ABG pO2 319 H* 57 L Erick Test POS POS Respiration Rate 16 O2 Delivery Device NRB Mask Vent Liter Flow 8.0 Minute Volume 8.00 Vent Mode A-C Tidal Volume 450 POC PEEP 5 Blood Gas Notified Whom ED MD ED MD Blood Gas Notified Time 1337 1544 Sodium Potassium Chloride Carbon Dioxide Anion Gap BUN Creatinine Estim Creat Clear Calc Est GFR (MDRD) Af Amer Est GFR (MDRD) Non-Af BUN/Creatinine Ratio Glucose Lactic Acid Calcium Phosphorus Magnesium Troponin I POC Glucose 104 01/03/19 01/03/19 01/04/19 19:20 21:15 00:53 WBC RBC Hgb Hct MCV MCH MCHC RDW RDW Differential Plt Count MPV Immature Gran % (Auto) Neut % (Auto) Lymph % (Auto) [place] % (Auto) Eos % (Auto) Baso % (Auto) Absolute Neuts (auto) Absolute Lymphs (auto) Total Counted Neutrophils % (Manual) Lymphocytes % (Manual) Monocytes % (Manual) Differential Comment Diff Path Review Platelet Estimate RBC Morphology PT 13.7 INR 1.1 APTT 29.7 Specimen Type ART Sample Site L Radial pH 7.44 Bicarbonate Actual 43.3 H POC Total CO2 45 Base Excess 19 H O2 Saturation 81 L O2 % 30 ABG pCO2 64.2 H ABG pO2 46 L Erick Test POS Respiration Rate 12 O2 Delivery Device Vent Liter Flow Minute Volume Vent Mode VC+ Tidal Volume 450 POC PEEP 5 Blood Gas Notified Whom ICU Blood Gas Notified Time 191 Sodium Potassium Chloride Carbon Dioxide Anion Gap BUN Creatinine Estim Creat Clear Calc Est GFR (MDRD) Af Amer Est GFR (MDRD) Non-Af BUN/Creatinine Ratio Glucose Lactic Acid Calcium Phosphorus Magnesium Troponin I POC Glucose 156 H 01/04/19 01/04/19 01/04/19 04:20 04:20 04:20 WBC 8.9 RBC 3.93 L Hgb 12.0 Hct 41.1 MCV 104.6 H MCH 30.5 MCHC 29.2 L RDW 13.6 RDW Differential 51.7 H Plt Count 183 MPV 10.7 Immature Gran % (Auto) 0.500 Neut % (Auto) 93.6 H Lymph % (Auto) 4.3 L [place] % (Auto) 1.6 Eos % (Auto) 0.0 Baso % (Auto) 0.0 Absolute Neuts (auto) 8.3 H Absolute Lymphs (auto) 0.38 L Total Counted Not Reportable Neutrophils % (Manual) Lymphocytes % (Manual) Monocytes % (Manual) Differential Comment Diff Path Review Platelet Estimate RBC Morphology PT INR APTT Specimen Type Sample Site pH Bicarbonate Actual POC Total CO2 Base Excess O2 Saturation O2 % ABG pCO2 ABG pO2 Erick Test Respiration Rate O2 Delivery Device Liter Flow Minute Volume Vent Mode Tidal Volume POC PEEP Blood Gas Notified Whom Blood Gas Notified Time Sodium 142 Potassium 4.3 Chloride 97 L Carbon Dioxide 41.0 H Anion Gap 4 L BUN 15 Creatinine 0.83 Estim Creat Clear Calc 78.63 Est GFR (MDRD) Af Amer 85 Est GFR (MDRD) Non-Af 70 BUN/Creatinine Ratio 18.1 Glucose 201 H Lactic Acid Calcium 8.5 Phosphorus 1.7 L Magnesium 2.2 Troponin I POC Glucose 01/04/19 06:00 WBC RBC Hgb Hct MCV MCH MCHC RDW RDW Differential Plt Count MPV Immature Gran % (Auto) Neut % (Auto) Lymph % (Auto) [place] % (Auto) Eos % (Auto) Baso % (Auto) Absolute Neuts (auto) Absolute Lymphs (auto) Total Counted Neutrophils % (Manual) Lymphocytes % (Manual) Monocytes % (Manual) Differential Comment Diff Path Review Platelet Estimate RBC Morphology PT INR APTT Specimen Type Sample Site pH Bicarbonate Actual POC Total CO2 Base Excess O2 Saturation O2 % ABG pCO2 ABG pO2 Erick Test Respiration Rate O2 Delivery Device Liter Flow Minute Volume Vent Mode Tidal Volume POC PEEP Blood Gas Notified Whom Blood Gas Notified Time Sodium Potassium Chloride Carbon Dioxide Anion Gap BUN Creatinine Estim Creat Clear Calc Est GFR (MDRD) Af Amer Est GFR (MDRD) Non-Af BUN/Creatinine Ratio Glucose Lactic Acid Calcium Phosphorus Magnesium Troponin I POC Glucose 171 H Microbiology 01/03/19 14:00 Mucosa - Nasopharyngeal Influenza Types A,B Direct FA (DANILO) - Final Clinical Impression(s) from Imaging Studies Brain CT 01/03/19 13:05 IMPRESSION: Chronic involutional changes of the brain. Opacification of the ethmoid sinuses bilaterally. Endotracheal tube is seen. Electronically Signed: Garrett Rivera, at 15:30 EDT , Service support , Chest X-Ray 01/03/19 13:10 IMPRESSION: Moderate cardiomegaly. No acute abnormality is seen. Electronically Signed: Garrett Rivera, at 14:03 EDT , Service support , Chest X-Ray 01/03/19 14:30 IMPRESSION: The tip of the endotracheal tube is in the right mainstem bronchus. It should be pulled back approximately 5.3 cm. Findings areas of atelectasis at left lung base. Electronically Signed: Garrett Vivilewisjoann, at 14:56 EDT , Service support , Chest X-Ray 01/03/19 16:25 IMPRESSION: Satisfactory position of the endotracheal tube. Enteric tube tip in the proximal stomach. This could be advanced 5-10 cm for improved positioning. Electronically Signed: Ar Butts, at 17:12 EDT Tel , Service support , Medical Necessity - Tobacco Use Smoking Status: Former smoker Tobacco Use: Cigarettes Assessment/Plan All Active Problems (Last Reviewed 01/03/19 @ 16:18 by Cristopher Lazcano DO) Hypercapnic respiratory failure (Acute) Hypokalemia (Acute) End of life care (Acute) Cough productive of yellow sputum (Acute) stem cell injection (Resolved) bladder sling (Resolved) History of cholecystectomy (Resolved) History of inguinal hernia repair (Resolved) History of hemorrhoidectomy (Resolved) H/O cataract removal with insertion of prosthetic lens (Resolved) Parotitis (Acute) Colon polyp (Acute) Vitamin B12 deficiency (Acute) Vitamin D deficiency (Acute) Allergic rhinitis (Acute) Constipation (Acute) Urinary incontinence (Acute) Dyspnea (Acute) Oral pharyngeal candidiasis (Acute) Hypoxia (Acute) Dehydration (Acute) Acute on chronic respiratory failure with hypoxia and hypercapnia (Acute) COPD exacerbation (Acute) Metabolic alkalosis (Resolved) Angioedema (Acute) History of DVT of lower extremity (Resolved) Parotitis (Resolved) RECOMMENDATIONS: 1. Continue mucolytic, steroids, bronchodilators and empiric antibiotics 2. Wean oxygen as tolerated 3. Await coley cultures and obtain respiratory panel 4. Continues breathing and awakening trials per protocol 5. Sliding scale insulin 6. Continue tube feeds IMPRESSIONS: 1. Acute on chronic hypoxemic and hypercarbic respiratory failure Patient with advanced COPD by PFT criteria at baseline. Unclear etiology of patient's current exacerbation. Chest x-ray does not show any significant infiltrate, so viral etiology versus volume depletion would be suspected. Coley cultures have been ordered. Continue patient on steroids, bronchodilators, mucolytic and empiric antibiotics. Spontaneous breathing and awakening trials per protocol. Await results of viral panel. 2. Diabetes mellitus type 2 Patient initiated on empiric steroid therapy. Will need to watch blood sugars closely. Patient currently on tube feeds. 3. Morbid obesity/dyslipidemia/esophageal reflux/hypertension/chronic steroids/osteopenia Complicates care, management, recovery and prognosis. Patient may require stress dose steroids. Blood pressure medications will be held. TIME: 33 minutes of critical care time was spent addressing the patient's acute on chronic respiratory failure, diabetes mellitus, review of all data and collaboration with the care team. (5:40 AM to 6:40 AM) Code Visit [id number]: [id number] Critical care first hour
--- NOTE | 2019-01-04 07:09 | PN_ITS ---
Subjective: Patient did okay overnight. Patient did require Levophed therapy transiently, but has been off pressors most of the evening. Patient did spike a fever overnight. Oxygenation has slightly improved. Patient will open eyes to command. General: Cooperative, No apparent distress, - - Appears older than stated age. Good vent synchrony. RASS 0. HEENT: Atraumatic, PERRLA, EOMI, Normocephalic, - - No scleral icterus or injection noted. Oral: Moist Mucosa, No Gingival or Mucosal Lesions/ Ulcerations Neck: Supple, No JVD, No Nodes, Trachea Midline Lungs: No rhonchi, No wheeze, No rales, Diminished, - - Symmetric expansion. No dullness to percussion. Cardiovascular: Regular rate, Regular Rhythm, Normal S1, Normal S2, No murmurs, No rub noted, No Gallop Abdomen: Bowel Sounds Present, Soft, Non Tender, Non-Distended, Obese Extremities: No cyanosis, Capillary Refill Less than 3 Seconds, Clubbing, Edema Skin: - - No significant change compared to previous Musculoskeletal: No Tenderness to Palpation of Joints or Extremities Lymphatic: No Cervical, Supraclavicular, or Inguinal Adenopathy Neurological: Cranial nerves II-XII grossly intact, Neuro grossly intact, Motor Exam 5/5 strength throughout Psych/Mental Status: Appropriate, Flat Affect Vital Signs Temp Pulse Resp BP Pulse Ox 37.5 C H 63 16 102/31 L 94 01/04/19 07:00 01/04/19 07:00 01/04/19 07:00 01/04/19 07:00 01/04/19 07:00 Oxygen Delivery Method Mechanical Ventilator Weight: 93.5 kg Body Mass Index (BMI) 40.5 Intake and Output for Last 24 Hours 01/02/19 01/03/19 01/04/19 23:59 23:59 23:59 Intake Total 705.5 / 705.5 699.2 / 699.2 Output Total 355 / 355 150 / 150 Balance 350.5 / 350.5 549.2 / 549.2 Labs (Last 48 Hours) 01/03/19 01/03/19 01/03/19 13:10 13:10 13:18 WBC 11.1 H RBC 4.26 Hgb 13.2 Hct 47.1 H MCV 110.6 H MCH 31.0 MCHC 28.0 L RDW 13.9 RDW Differential 55.4 H Plt Count 228 MPV 10.6 Immature Gran % (Auto) Neut % (Auto) Not Reportable Lymph % (Auto) [place] % (Auto) Eos % (Auto) Baso % (Auto) Absolute Neuts (auto) 8.8 H Absolute Lymphs (auto) 1.22 Total Counted 100 Neutrophils % (Manual) 79 H Lymphocytes % (Manual) 11 L Monocytes % (Manual) 10 Differential Comment Diff Path Review May foll Platelet Estimate ADEQUATE RBC Morphology NORM C+C PT INR APTT Specimen Type Sample Site pH Bicarbonate Actual POC Total CO2 Base Excess O2 Saturation O2 % ABG pCO2 ABG pO2 Erick Test Respiration Rate O2 Delivery Device Liter Flow Minute Volume Vent Mode Tidal Volume POC PEEP Blood Gas Notified Whom Blood Gas Notified Time Sodium 140 Potassium 4.7 Chloride 94 L Carbon Dioxide > 45.0 H* Anion Gap TNP BUN 11 Creatinine 0.68 Estim Creat Clear Calc 31.69 Est GFR (MDRD) Af Amer 106 Est GFR (MDRD) Non-Af 88 BUN/Creatinine Ratio 16.1 Glucose 181 H Lactic Acid 0.6 Calcium 8.8 Phosphorus Magnesium Troponin I < 0.015 POC Glucose 01/03/19 01/03/19 01/03/19 13:37 15:45 18:48 WBC RBC Hgb Hct MCV MCH MCHC RDW RDW Differential Plt Count MPV Immature Gran % (Auto) Neut % (Auto) Lymph % (Auto) [place] % (Auto) Eos % (Auto) Baso % (Auto) Absolute Neuts (auto) Absolute Lymphs (auto) Total Counted Neutrophils % (Manual) Lymphocytes % (Manual) Monocytes % (Manual) Differential Comment Diff Path Review Platelet Estimate RBC Morphology PT INR APTT Specimen Type ART ART Sample Site L RADIAL L Radial pH 7.09 L* 7.35 Bicarbonate Actual TNP 42.6 H POC Total CO2 TNP 45 Base Excess TNP 17 H O2 Saturation TNP 86 L O2 % 30 ABG pCO2 > 130.0 H* 77.1 H* ABG pO2 319 H* 57 L Erick Test POS POS Respiration Rate 16 O2 Delivery Device NRB Mask Vent Liter Flow 8.0 Minute Volume 8.00 Vent Mode A-C Tidal Volume 450 POC PEEP 5 Blood Gas Notified Whom ED MD ED MD Blood Gas Notified Time 1337 1544 Sodium Potassium Chloride Carbon Dioxide Anion Gap BUN Creatinine Estim Creat Clear Calc Est GFR (MDRD) Af Amer Est GFR (MDRD) Non-Af BUN/Creatinine Ratio Glucose Lactic Acid Calcium Phosphorus Magnesium Troponin I POC Glucose 104 01/03/19 01/03/19 01/04/19 19:20 21:15 00:53 WBC RBC Hgb Hct MCV MCH MCHC RDW RDW Differential Plt Count MPV Immature Gran % (Auto) Neut % (Auto) Lymph % (Auto) [place] % (Auto) Eos % (Auto) Baso % (Auto) Absolute Neuts (auto) Absolute Lymphs (auto) Total Counted Neutrophils % (Manual) Lymphocytes % (Manual) Monocytes % (Manual) Differential Comment Diff Path Review Platelet Estimate RBC Morphology PT 13.7 INR 1.1 APTT 29.7 Specimen Type ART Sample Site L Radial pH 7.44 Bicarbonate Actual 43.3 H POC Total CO2 45 Base Excess 19 H O2 Saturation 81 L O2 % 30 ABG pCO2 64.2 H ABG pO2 46 L Erick Test POS Respiration Rate 12 O2 Delivery Device Vent Liter Flow Minute Volume Vent Mode VC+ Tidal Volume 450 POC PEEP 5 Blood Gas Notified Whom ICU Blood Gas Notified Time 191 Sodium Potassium Chloride Carbon Dioxide Anion Gap BUN Creatinine Estim Creat Clear Calc Est GFR (MDRD) Af Amer Est GFR (MDRD) Non-Af BUN/Creatinine Ratio Glucose Lactic Acid Calcium Phosphorus Magnesium Troponin I POC Glucose 156 H 01/04/19 01/04/19 01/04/19 04:20 04:20 04:20 WBC 8.9 RBC 3.93 L Hgb 12.0 Hct 41.1 MCV 104.6 H MCH 30.5 MCHC 29.2 L RDW 13.6 RDW Differential 51.7 H Plt Count 183 MPV 10.7 Immature Gran % (Auto) 0.500 Neut % (Auto) 93.6 H Lymph % (Auto) 4.3 L [place] % (Auto) 1.6 Eos % (Auto) 0.0 Baso % (Auto) 0.0 Absolute Neuts (auto) 8.3 H Absolute Lymphs (auto) 0.38 L Total Counted Not Reportable Neutrophils % (Manual) Lymphocytes % (Manual) Monocytes % (Manual) Differential Comment Diff Path Review Platelet Estimate RBC Morphology PT INR APTT Specimen Type Sample Site pH Bicarbonate Actual POC Total CO2 Base Excess O2 Saturation O2 % ABG pCO2 ABG pO2 Erick Test Respiration Rate O2 Delivery Device Liter Flow Minute Volume Vent Mode Tidal Volume POC PEEP Blood Gas Notified Whom Blood Gas Notified Time Sodium 142 Potassium 4.3 Chloride 97 L Carbon Dioxide 41.0 H Anion Gap 4 L BUN 15 Creatinine 0.83 Estim Creat Clear Calc 78.63 Est GFR (MDRD) Af Amer 85 Est GFR (MDRD) Non-Af 70 BUN/Creatinine Ratio 18.1 Glucose 201 H Lactic Acid Calcium 8.5 Phosphorus 1.7 L Magnesium 2.2 Troponin I POC Glucose 01/04/19 06:00 WBC RBC Hgb Hct MCV MCH MCHC RDW RDW Differential Plt Count MPV Immature Gran % (Auto) Neut % (Auto) Lymph % (Auto) [place] % (Auto) Eos % (Auto) Baso % (Auto) Absolute Neuts (auto) Absolute Lymphs (auto) Total Counted Neutrophils % (Manual) Lymphocytes % (Manual) Monocytes % (Manual) Differential Comment Diff Path Review Platelet Estimate RBC Morphology PT INR APTT Specimen Type Sample Site pH Bicarbonate Actual POC Total CO2 Base Excess O2 Saturation O2 % ABG pCO2 ABG pO2 Erick Test Respiration Rate O2 Delivery Device Liter Flow Minute Volume Vent Mode Tidal Volume POC PEEP Blood Gas Notified Whom Blood Gas Notified Time Sodium Potassium Chloride Carbon Dioxide Anion Gap BUN Creatinine Estim Creat Clear Calc Est GFR (MDRD) Af Amer Est GFR (MDRD) Non-Af BUN/Creatinine Ratio Glucose Lactic Acid Calcium Phosphorus Magnesium Troponin I POC Glucose 171 H Microbiology 01/03/19 14:00 Mucosa - Nasopharyngeal Influenza Types A,B Direct FA (DANILO) - Final Clinical Impression(s) from Imaging Studies Brain CT 01/03/19 13:05 IMPRESSION: Chronic involutional changes of the brain. Opacification of the ethmoid sinuses bilaterally. Endotracheal tube is seen. Electronically Signed: Garrett Rivera, at 15:30 EDT , Service support , Chest X-Ray 01/03/19 13:10 IMPRESSION: Moderate cardiomegaly. No acute abnormality is seen. Electronically Signed: Garrett Rivera, at 14:03 EDT , Service support , Chest X-Ray 01/03/19 14:30 IMPRESSION: The tip of the endotracheal tube is in the right mainstem bronchus. It should be pulled back approximately 5.3 cm. Findings areas of atelectasis at left lung base. Electronically Signed: Garrett Vivilewisjoann, at 14:56 EDT , Service support , Chest X-Ray 01/03/19 16:25 IMPRESSION: Satisfactory position of the endotracheal tube. Enteric tube tip in the proximal stomach. This could be advanced 5-10 cm for improved positioning. Electronically Signed: Ar Butts, at 17:12 EDT Tel , Service support , Medical Necessity - Tobacco Use Smoking Status: Former smoker Tobacco Use: Cigarettes Assessment/Plan All Active Problems (Last Reviewed 01/03/19 @ 16:18 by Cristopher Lazcano DO) Hypercapnic respiratory failure (Acute) Hypokalemia (Acute) End of life care (Acute) Cough productive of yellow sputum (Acute) stem cell injection (Resolved) bladder sling (Resolved) History of cholecystectomy (Resolved) History of inguinal hernia repair (Resolved) History of hemorrhoidectomy (Resolved) H/O cataract removal with insertion of prosthetic lens (Resolved) Parotitis (Acute) Colon polyp (Acute) Vitamin B12 deficiency (Acute) Vitamin D deficiency (Acute) Allergic rhinitis (Acute) Constipation (Acute) Urinary incontinence (Acute) Dyspnea (Acute) Oral pharyngeal candidiasis (Acute) Hypoxia (Acute) Dehydration (Acute) Acute on chronic respiratory failure with hypoxia and hypercapnia (Acute) COPD exacerbation (Acute) Metabolic alkalosis (Resolved) Angioedema (Acute) History of DVT of lower extremity (Resolved) Parotitis (Resolved) RECOMMENDATIONS: 1. Continue mucolytic, steroids, bronchodilators and empiric antibiotics 2. Wean oxygen as tolerated 3. Await coley cultures and obtain respiratory panel 4. Continues breathing and awakening trials per protocol 5. Sliding scale insulin 6. Continue tube feeds IMPRESSIONS: 1. Acute on chronic hypoxemic and hypercarbic respiratory failure Patient with advanced COPD by PFT criteria at baseline. Unclear etiology of patient's current exacerbation. Chest x-ray does not show any significant infiltrate, so viral etiology versus volume depletion would be suspected. Coley cultures have been ordered. Continue patient on steroids, bronchodilators, mucolytic and empiric antibiotics. Spontaneous breathing and awakening trials per protocol. Await results of viral panel. 2. Diabetes mellitus type 2 Patient initiated on empiric steroid therapy. Will need to watch blood sugars closely. Patient currently on tube feeds. 3. Morbid obesity/dyslipidemia/esophageal reflux/hypertension/chronic steroids/osteopenia Complicates care, management, recovery and prognosis. Patient may require stress dose steroids. Blood pressure medications will be held. TIME: 33 minutes of critical care time was spent addressing the patient's acute on chronic respiratory failure, diabetes mellitus, review of all data and collaboration with the care team. (5:40 AM to 6:40 AM) Code Visit [id number]: [id number] Critical care first hour
--- NOTE | 2019-01-04 07:52 | PCM.PN.HOSP ---
Patient Problems: Active and Suspected Problems (Last Reviewed 01/03/19 @ 16:18 by Cristopher Lazcano DO) Hypercapnic respiratory failure (Acute) Subjective: Patient was seen and examined. Admitted yesterday with SOB and emergently intubated. She has since been managed as acute COPD exacerbation. Vitals/I&O's: Vital Signs Temp Pulse Resp BP Pulse Ox 99.5 F H 63 16 102/31 L 94 01/04/19 07:00 01/04/19 07:24 01/04/19 07:00 01/04/19 07:00 01/04/19 07:00 Oxygen Delivery Method Mechanical Ventilator Weight: 93.5 kg Body Mass Index (BMI) 40.5 Intake and Output for Last 24 Hours 01/02/19 01/03/19 01/04/19 23:59 23:59 23:59 Intake Total 705.5 / 705.5 699.2 / 699.2 Output Total 355 / 355 150 / 150 Balance 350.5 / 350.5 549.2 / 549.2 General: - - Intubated, sedated, on mechanical ventilator HEENT: Atraumatic, PERRLA, EOMI, Normocephalic Oral: Dry Mucosa Neck: Supple Lungs: Clear to auscultation Cardiovascular: Regular rate, Regular Rhythm, Normal S1, Normal S2 Abdomen: Bowel Sounds Present, Soft, Non Tender, Non-Distended, No Hepato-splenomegaly Extremities: Edema - bilateral pedaL edema +2 Skin: No rashes Musculoskeletal: No Tenderness to Palpation of Joints or Extremities Lymphatic: No Cervical, Supraclavicular, or Inguinal Adenopathy Neurological: - - sedated Psych/Mental Status: - - sedated Microbiology Past 72 Hours 01/03/19 14:00 Mucosa - Nasopharyngeal Influenza Types A,B Direct FA (DANILO) - Final Laboratory Results 01/03/19 13:10: WBC 11.1 H, RBC 4.26, Hgb 13.2, Hct 47.1 H, MCV 110.6 H, MCH 31.0, MCHC 28.0 L, RDW 13.9, RDW Differential 55.4 H, Plt Count 228, MPV 10.6, Neut % (Auto) Not Reportable, Absolute Neuts (auto) 8.8 H, Absolute Lymphs (auto) 1.22, Total Counted 100, Neutrophils % (Manual) 79 H, Lymphocytes % (Manual) 11 L, Monocytes % (Manual) 10, Diff Path Review February, Platelet Estimate ADEQUATE, RBC Morphology NORM C+C 01/03/19 13:10: Sodium 140, Potassium 4.7, Chloride 94 L, Carbon Dioxide > 45.0 H*, Anion Gap TNP, BUN 11, Creatinine 0.68, Estim Creat Clear Calc 31.69, Est GFR (MDRD) Af Amer 106, Est GFR (MDRD) Non-Af 88, BUN/Creatinine Ratio 16.1, Glucose 181 H, Calcium 8.8, Troponin I < 0.015 01/03/19 13:18: Lactic Acid 0.6 01/03/19 13:37: Specimen Type ART, Sample Site L RADIAL, pH 7.09 L*, Bicarbonate Actual TNP, POC Total CO2 TNP, Base Excess TNP, O2 Saturation TNP, ABG pCO2 > 130.0 H*, ABG pO2 319 H*, Erick Test POS, O2 Delivery Device NRB Mask, Liter Flow 8.0, Blood Gas Notified Whom ED , Blood Gas Notified Time 13301/03/19 15:45: Specimen Type ART, Sample Site L Radial, pH 7.35, Bicarbonate Actual 42.6 H, POC Total CO2 45, Base Excess 17 H, O2 Saturation 86 L, O2 % 30, ABG pCO2 77.1 H*, ABG pO2 57 L, Erick Test POS, Respiration Rate 16, O2 Delivery Device Vent, Minute Volume 8.00, Vent Mode A-C, Tidal Volume 450, POC PEEP 5, Blood Gas Notified Whom ED MD, Blood Gas Notified Time 15401/03/19 18:48: POC Glucose 104 01/03/19 19:20: Specimen Type ART, Sample Site L Radial, pH 7.44, Bicarbonate Actual 43.3 H, POC Total CO2 45, Base Excess 19 H, O2 Saturation 81 L, O2 % 30, ABG pCO2 64.2 H, ABG pO2 46 L, Erick Test POS, Respiration Rate 12, O2 Delivery Device Vent, Vent Mode VC+, Tidal Volume 450, POC PEEP 5, Blood Gas Notified Whom ICU , Blood Gas Notified Time 191401/03/19 21:15: PT 13.7, INR 1.1, APTT 29.7 01/04/19 00:53: POC Glucose 156 H 01/04/19 04:20: WBC 8.9, RBC 3.93 L, Hgb 12.0, Hct 41.1, MCV 104.6 H, MCH 30.5, MCHC 29.2 L, RDW 13.6, RDW Differential 51.7 H, Plt Count 183, MPV 10.7, Immature Gran % (Auto) 0.500, Neut % (Auto) 93.6 H, Lymph % (Auto) 4.3 L, [place] % (Auto) 1.6, Eos % (Auto) 0.0, Baso % (Auto) 0.0, Absolute Neuts (auto) 8.3 H, Absolute Lymphs (auto) 0.38 L, Total Counted Not Reportable, Differential Comment 01/04/19 04:20: Sodium 142, Potassium 4.3, Chloride 97 L, Carbon Dioxide 41.0 H, Anion Gap 4 L, BUN 15, Creatinine 0.83, Estim Creat Clear Calc 78.63, Est GFR (MDRD) Af Amer 85, Est GFR (MDRD) Non-Af 70, BUN/Creatinine Ratio 18.1, Glucose 201 H, Calcium 8.5, Magnesium 2.2 01/04/19 04:20: Phosphorus 1.7 L 01/04/19 06:00: POC Glucose 171 H Current Medications Acetaminophen (Tylenol Liquid) 650 mg NG Q6H PRN PRN PRN Reason: Fever > 100.4/Pain Albuterol Sulfate (Ventolin Aerosols) 2.5 mg INHALATION Q2H PRN PRN PRN Reason: SHORTNESS OF BREATH Albuterol/Ipratropium (Duoneb) 3 ml INHALATION Q4H.RT [facility] Last Admin: 01/04/19 06:39 Dose: 3 ml Aspirin (Aspirin, Baby) 81 mg NG DAILY@0800 [facility] Chlorhexidine Gluconate () 15 ml PO BID [facility] Last Admin: 01/03/19 21:01 Dose: 15 ml Chlorhexidine Gluconate () 1 each TOPICAL DAILY [facility] Last Admin: 01/04/19 04:09 Dose: 1 each Dextrose (D50w Syringe) 0 gm IV X1 PRN; Protocol PRN Reason: Hypoglycemia Docusate Sodium (Colace Syrup) 100 mg NG BID [facility] Last Admin: 01/03/19 21:56 Dose: 100 mg Enoxaparin Sodium (Lovenox) 40 mg SC DAILY@1000 [facility] Glucagon () 1 mg IM .X1 PRN PRN Reason: Hypoglycemia Guaifenesin (Robitussin) 10 ml GT Q4H [facility] Last Admin: 01/04/19 06:01 Dose: 10 ml Heparin Sodium (Beef Lung) () 50 units IV UD PRN PRN Reason: HEPARIN FLUSH Sodium Chloride () 500 mls @ 999 mls/hr IV .Q31M ONE Last Admin: 01/03/19 13:14 Dose: 999 mls/hr Famotidine 20 mg/ Sodium (Chloride) 10 mls @ 300 mls/hr IV Q24 [facility] Last Admin: 01/03/19 20:58 Dose: 300 mls/hr Sodium Chloride () 250 mls @ 15 mls/hr IV .[id number] PRN PRN Reason: SALINE FLUSH Last Admin: 01/04/19 04:13 Dose: 15 mls/hr Sodium Chloride () 500 mls @ 15 mls/hr IV .[id number] PRN PRN Reason: SALINE FLUSH Fentanyl () 100 mls @ 10 mls/hr CONT INF .Q10H [facility] Last Admin: 01/04/19 03:07 Dose: Not Given Enteral Nutritional Formula (Vital Af 1.2 [place] Liquid) 1,000 mls @ 20 mls/hr GT .Q48H [facility] Last Admin: 01/03/19 20:59 Dose: 20 mls/hr Propofol (Diprivan) 1,000 mg in 100 mls @ 5.514 mls/hr CONT INF .Q12H [facility] Last Admin: 01/04/19 05:24 Dose: Not Given Levofloxacin (Levaquin Iv) 250 mg in 50 mls @ 50 mls/hr IV Q24H [facility] Stop: 01/09/19 22:01 Norepinephrine Bitartrate 8 mg (/ Sodium Chloride) 250 mls @ 9.38 mls/hr CONT INF .[id number] [facility] Last Admin: 01/03/19 21:57 Dose: 9.38 mls/hr Insulin Human Lispro (Humalog Kwikpen (Bkc)) 0 unit SQ Q6 [facility]; Protocol Last Admin: 01/04/19 06:01 Dose: 1 u Lisinopril (Zestril) 10 mg NG DAILY [facility] Magnesium Hydroxide (Milk Of Magnesia) 30 ml PO DAILY PRN PRN PRN Reason: Constipation Methylprednisolone (Solu-Medrol) 40 mg IV Q6 [facility] Last Admin: 01/04/19 06:01 Dose: 40 mg Ondansetron HCl (Zofran) 4 mg IV Q8H PRN PRN PRN Reason: Nausea Polyethylene Glycol (Miralax) 17 gm GT DAILY PRN PRN Reason: Constipation Sodium Chloride () 5 - 15 ml IV UD PRN PRN Reason: SALINE FLUSH Sodium Chloride () 10 - 20 ml IV UD PRN PRN Reason: PICC FLUSH Last Admin: 01/04/19 06:04 Dose: 20 ml Medical Necessity - Tobacco Use Smoking Status: Former smoker Tobacco Use: Cigarettes Assessment/Plan All Active Problems (Last Reviewed 01/03/19 @ 16:18 by Cristopher Lazcano DO) Hypercapnic respiratory failure (Acute) Hypokalemia (Acute) End of life care (Acute) Cough productive of yellow sputum (Acute) stem cell injection (Resolved) bladder sling (Resolved) History of cholecystectomy (Resolved) History of inguinal hernia repair (Resolved) History of hemorrhoidectomy (Resolved) H/O cataract removal with insertion of prosthetic lens (Resolved) Parotitis (Acute) Colon polyp (Acute) Vitamin B12 deficiency (Acute) Vitamin D deficiency (Acute) Allergic rhinitis (Acute) Constipation (Acute) Urinary incontinence (Acute) Dyspnea (Acute) Oral pharyngeal candidiasis (Acute) Hypoxia (Acute) Dehydration (Acute) Acute on chronic respiratory failure with hypoxia and hypercapnia (Acute) COPD exacerbation (Acute) Metabolic alkalosis (Resolved) Angioedema (Acute) History of DVT of lower extremity (Resolved) Parotitis (Resolved) 83-year-old female with past medical history of COPD admitted with shortness of breath, found to be in respiratory failure second to COPD exacerbation, emergently intubated in the emergency department and subsequently managed in ICU. 1. 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 2. Acute COPD exacerbation, management as above 3. Hypophosphatemia, replaced, recheck in am 4. Type II DM, was on Onglyza at home, held on admission, currently on Accu-Cheks with insulin sliding scale, blood sugars are controlled, will continue to monitor, check HbA1c 5. DVT prophylaxis with Lovenox subcu Code Visit Inpatient E&M: 14434 Subs Hosp L3
--- NOTE | 2019-01-04 09:44 | CPS ---
Transcutaneous CO2 monitor 58.3, sensor is on left clavicle.
[2019-01-04] MEDS: Chlorhexidine 15 ML PO ×2 (09:51→21:33)
[2019-01-04] MEDS: Enoxaparin 40 MG/0.4 ML Syringe SC (09:51)
[2019-01-04] MEDS: Aspirin 81 MG TAB.CHEW GT (09:51)
[2019-01-04] MEDS: Polyethylene Glycol 3350 17 GM PACKET GT ×2 (09:52→21:26)
[2019-01-04] MEDS: Famotidine 20 MG Tablet GT ×2 (09:56→21:26)
[2019-01-04] MEDS: Senna/Docusate Sodium 1 Tablet 2 TABLET GT ×2 (10:03→21:26)
[2019-01-04 11:30] LABS: Bedside Glucose 175 mg/dL (70-110)
--- NOTE | 2019-01-04 12:30 | CPS ---
TCO2 monitor=56.2
[2019-01-04 13:50] LABS: Pathologist Review Reviewed
--- NOTE | 2019-01-04 16:01 | CPS ---
Transcutaneous CO2 monitoring=57. adhesive came off during P.T., R.T. replaced w/o problems to left clavicle.
[2019-01-04 17:40] LABS: Bedside Glucose 222 mg/dL (70-110)
[2019-01-04] MEDS: Lisinopril 20 MG Tablet GT (18:07)
--- NOTE | 2019-01-04 19:03 | CPS ---
Addendum entered by Damian Castanon 01/05/19 02:18: Site ring on just below right clavicle Original Note: TCO2 level 63.7
[2019-01-04] MEDS: hydrALAZINE 20 MG/ML Vial 5 MG IV (20:53)
[2019-01-04] MEDS: levoFLOXacin IV 250 MG/50 ML BAG 50 MG IV (21:33)
[2019-01-04] MEDS: Vital AF 1.2 Cal Liquid 1,000 ML 20 ML GT (23:08)
[2019-01-05] VITALS (43 sets, daily range): BP systolic 121–230; BP diastolic 34–97; PULSE 55–117; RESP 11–27; TEMP 37–37.3; O2SAT 91–100
[2019-01-05] MEDS: Insulin Lispro 100 UNIT/ML INSULN.PEN SQ ×5 (00:08→23:43)
[2019-01-05] MEDS: 0.9% NaCl PICC Flush IV ×2 (00:11→05:47)
[2019-01-05 00:20] LABS: Bedside Glucose 238 mg/dL (70-110)
[2019-01-05] MEDS: guaiFENesin 10 ML UDC (200MG/10ML) GT ×6 (02:06→21:37)
--- NOTE | 2019-01-05 02:14 | CPS ---
Addendum entered by Damian Castanon 01/05/19 02:19: site ring on right clavicle Original Note: tCO2 level at 55.9
--- NOTE | 2019-01-05 02:15 | CPS ---
Addendum entered by Damian Castanon 01/05/19 02:20: placement below right clavicle, skin intact Original Note: tCO2 level at 51.4
[2019-01-05] MEDS: Propofol 10MG/Ml 1,000 MG/100 ML Bottle 5.514 MG CONT INF (02:24)
[2019-01-05] MEDS: Ipratropium/Albuterol Sulfate 3 ML AMPUL.NEB INHALATION ×6 (03:15→22:52)
--- NOTE | 2019-01-05 03:18 | CPS ---
tCO2 monitoring at 61, sight at right clavicle intact
[2019-01-05] MEDS: CHLORHEXIDINE GLUC 2% CLOTH 1 EACH TOWELETTE TOPICAL (03:41)
[2019-01-05 05:14] LABS: Absolute Lymphocyte Count 0.42 X10^3/ul (0.83-4.51); Absolute Neutrophil Count 16.5 X10^3/uL (2.0-7.7); Basophil# 0.01 X10^3/uL; Basophil% 0.1 % (0-1); Hematocrit 41.3 % (37-47); Lymphocyte # 0.42 X10^3/ul (4.0); Lymphocyte % 2.3 % (19-41); Mean Corp Hgb Conc 31.5 g/gl (32-36); Mean Corpuscular Hgb 31.1 pg (27.0-32.0); Mean Corpuscular Volume 98.8 fL (81-99); Mean Platelet Vol. 10.6 fl (6.2-12.0); Monocyte% 5.6 % (0-10); Neutrophil % 91.7 % (47-70); Platelet Count 235 K/mm3 (150-450); RBC Distribution Width CV 14.8 % (11.6-14.6); RBC Distribution Width SD 52.9 fl (35.1-43.9); Red Blood Count 4.18 M/mm3 (4.2-5.4)
[2019-01-05 05:16] LABS: Differential Indicated SCAN CRITERIA MET; POSITIVE COUNT NO; POSITIVE DIFFERENTIAL YES; POSITIVE MORPHOLOGY NO
[2019-01-05 05:20] LABS: Albumin, Serum 2.9 g/dL (3.2-5.0); BUN 23 mg/dL (7-18); BUN/Creat Ratio 28.9 RATIO (10-20); Calcium,Total 8.7 mg/dL (8.5-10.1); Chloride 96 mmol/L (98-107); EST Glomerular Filtration Rate 74 mL/min (>60); Est Glom Filt Rate - Afr Amer 89 mL/min (>60); Estimated Creatinine Clearance 81.41 ml/min; Glucose 211 mg/dL (74-106); Phosphorus 2.7 mg/dL (2.5-4.9); Potassium 4.2 mmol/L (3.5-5.1); Sodium Level 139 mmol/L (136-145)
[2019-01-05 06:00] LABS: Allen Test POS; Base Excess 18 mmol/L (-2 to +2); Bicarbonate 41.9 mmol/L (22-26); Blood Gas Specimen Type ART; FI02 35; Mode CPAP PS; O2 Delivery Device Vent; PEEP 5; PO2 73 mmHG (75-100); PS 5; SITE L Radial; SO2 94 % (95-99); Time Given 550; Total Carbon Dioxide 44 mmol/L; pCO2 61.9 mmHg (35-45); pH 7.44 (7.35-7.45)
[2019-01-05 06:20] LABS: Bedside Glucose 232 mg/dL (70-110)
--- NOTE | 2019-01-05 06:26 | CPS ---
Discontinuing tcPCO2 per Dr. Gamboa verbal order.
--- NOTE | 2019-01-05 06:46 | PN_ITS ---
Subjective: Patient did okay overnight. No acute issues were reported. Patient did have a spontaneous breathing and awakening trial this morning, but no leak was noted. Patient did have highly variable blood pressures overnight leading to some hydralazine dosing and reinitiation of lisinopril. General: Alert, Cooperative - Does follow some commands, but needed frequent reassurance during spontaneous awakening trial, - - Good vent synchrony. HEENT: Atraumatic, PERRLA, EOMI, Normocephalic, - - No scleral icterus or injection noted. Oral: Moist Mucosa, No Gingival or Mucosal Lesions/ Ulcerations Neck: Supple, No JVD, No Nodes, Trachea Midline Lungs: No rhonchi, No wheeze, No rales, Diminished, - - Symmetric expansion. Cardiovascular: Regular rate, Regular Rhythm, Normal S1, Normal S2, No murmurs, No rub noted, No Gallop Abdomen: Bowel Sounds Present, Soft, Non Tender, Non-Distended, Obese Extremities: No cyanosis, Clubbing, Edema Skin: - - No significant change compared to previous Musculoskeletal: No Tenderness to Palpation of Joints or Extremities, No Muscle Wasting Lymphatic: No Cervical, Supraclavicular, or Inguinal Adenopathy Neurological: Cranial nerves II-XII grossly intact, Neuro grossly intact, Motor Exam 5/5 strength throughout Psych/Mental Status: Anxious, Restless Vital Signs Temp Pulse Resp BP Pulse Ox 37.2 C 74 12 169/97 H 94 01/05/19 06:00 01/05/19 06:32 01/05/19 06:32 01/05/19 06:00 01/05/19 06:27 Oxygen Delivery Method Mechanical Ventilator Weight: 95 kg Body Mass Index (BMI) 40.5 Intake and Output for Last 24 Hours 01/03/19 01/04/19 01/05/19 23:59 23:59 23:59 Intake Total 705.5 / 705.5 3107.2 / 3107.2 623.5 / 623.5 Output Total 355 / 355 900 / 900 600 / 600 Balance 350.5 / 350.5 2207.2 / 2207.2 23.5 / 23.5 Labs (Last 48 Hours) 01/03/19 01/03/19 01/03/19 13:10 13:10 13:18 WBC 11.1 H RBC 4.26 Hgb 13.2 Hct 47.1 H MCV 110.6 H MCH 31.0 MCHC 28.0 L RDW 13.9 RDW Differential 55.4 H Plt Count 228 MPV 10.6 Immature Gran % (Auto) Neut % (Auto) Not Reportable Lymph % (Auto) [place] % (Auto) Eos % (Auto) Baso % (Auto) Absolute Neuts (auto) 8.8 H Absolute Lymphs (auto) 1.22 Total Counted 100 Neutrophils % (Manual) 79 H Lymphocytes % (Manual) 11 L Monocytes % (Manual) 10 Differential Comment Diff Path Review Reviewed Platelet Estimate ADEQUATE RBC Morphology NORM C+C PT INR APTT Specimen Type Sample Site pH Bicarbonate Actual POC Total CO2 Base Excess O2 Saturation O2 % ABG pCO2 ABG pO2 Erick Test Respiration Rate O2 Delivery Device Liter Flow Minute Volume Vent Mode Tidal Volume POC PEEP POC Pressure Suppt Blood Gas Notified Whom Blood Gas Notified Time Sodium 140 Potassium 4.7 Chloride 94 L Carbon Dioxide > 45.0 H* Anion Gap TNP BUN 11 Creatinine 0.68 Estim Creat Clear Calc 31.69 Est GFR (MDRD) Af Amer 106 Est GFR (MDRD) Non-Af 88 BUN/Creatinine Ratio 16.1 Glucose 181 H Lactic Acid 0.6 Calcium 8.8 Phosphorus Magnesium Troponin I < 0.015 Albumin POC Glucose 01/03/19 01/03/19 01/03/19 13:37 15:45 18:48 WBC RBC Hgb Hct MCV MCH MCHC RDW RDW Differential Plt Count MPV Immature Gran % (Auto) Neut % (Auto) Lymph % (Auto) [place] % (Auto) Eos % (Auto) Baso % (Auto) Absolute Neuts (auto) Absolute Lymphs (auto) Total Counted Neutrophils % (Manual) Lymphocytes % (Manual) Monocytes % (Manual) Differential Comment Diff Path Review Platelet Estimate RBC Morphology PT INR APTT Specimen Type ART ART Sample Site L RADIAL L Radial pH 7.09 L* 7.35 Bicarbonate Actual TNP 42.6 H POC Total CO2 TNP 45 Base Excess TNP 17 H O2 Saturation TNP 86 L O2 % 30 ABG pCO2 > 130.0 H* 77.1 H* ABG pO2 319 H* 57 L Erick Test POS POS Respiration Rate 16 O2 Delivery Device NRB Mask Vent Liter Flow 8.0 Minute Volume 8.00 Vent Mode A-C Tidal Volume 450 POC PEEP 5 POC Pressure Suppt Blood Gas Notified Whom ED MD ED MD Blood Gas Notified Time [id number] Sodium Potassium Chloride Carbon Dioxide Anion Gap BUN Creatinine Estim Creat Clear Calc Est GFR (MDRD) Af Amer Est GFR (MDRD) Non-Af BUN/Creatinine Ratio Glucose Lactic Acid Calcium Phosphorus Magnesium Troponin I Albumin POC Glucose 104 01/03/19 01/03/19 01/04/19 19:20 21:15 00:53 WBC RBC Hgb Hct MCV MCH MCHC RDW RDW Differential Plt Count MPV Immature Gran % (Auto) Neut % (Auto) Lymph % (Auto) [place] % (Auto) Eos % (Auto) Baso % (Auto) Absolute Neuts (auto) Absolute Lymphs (auto) Total Counted Neutrophils % (Manual) Lymphocytes % (Manual) Monocytes % (Manual) Differential Comment Diff Path Review Platelet Estimate RBC Morphology PT 13.7 INR 1.1 APTT 29.7 Specimen Type ART Sample Site L Radial pH 7.44 Bicarbonate Actual 43.3 H POC Total CO2 45 Base Excess 19 H O2 Saturation 81 L O2 % 30 ABG pCO2 64.2 H ABG pO2 46 L Erick Test POS Respiration Rate 12 O2 Delivery Device Vent Liter Flow Minute Volume Vent Mode VC+ Tidal Volume 450 POC PEEP 5 POC Pressure Suppt Blood Gas Notified Whom ICU MD Blood Gas Notified Time 1915 Sodium Potassium Chloride Carbon Dioxide Anion Gap BUN Creatinine Estim Creat Clear Calc Est GFR (MDRD) Af Amer Est GFR (MDRD) Non-Af BUN/Creatinine Ratio Glucose Lactic Acid Calcium Phosphorus Magnesium Troponin I Albumin POC Glucose 156 H 01/04/19 01/04/19 01/04/19 04:20 04:20 04:20 WBC 8.9 RBC 3.93 L Hgb 12.0 Hct 41.1 MCV 104.6 H MCH 30.5 MCHC 29.2 L RDW 13.6 RDW Differential 51.7 H Plt Count 183 MPV 10.7 Immature Gran % (Auto) 0.500 Neut % (Auto) 93.6 H Lymph % (Auto) 4.3 L [place] % (Auto) 1.6 Eos % (Auto) 0.0 Baso % (Auto) 0.0 Absolute Neuts (auto) 8.3 H Absolute Lymphs (auto) 0.38 L Total Counted Not Reportable Neutrophils % (Manual) Lymphocytes % (Manual) Monocytes % (Manual) Differential Comment Diff Path Review Platelet Estimate RBC Morphology PT INR APTT Specimen Type Sample Site pH Bicarbonate Actual POC Total CO2 Base Excess O2 Saturation O2 % ABG pCO2 ABG pO2 Erick Test Respiration Rate O2 Delivery Device Liter Flow Minute Volume Vent Mode Tidal Volume POC PEEP POC Pressure Suppt Blood Gas Notified Whom Blood Gas Notified Time Sodium 142 Potassium 4.3 Chloride 97 L Carbon Dioxide 41.0 H Anion Gap 4 L BUN 15 Creatinine 0.83 Estim Creat Clear Calc 78.63 Est GFR (MDRD) Af Amer 85 Est GFR (MDRD) Non-Af 70 BUN/Creatinine Ratio 18.1 Glucose 201 H Lactic Acid Calcium 8.5 Phosphorus 1.7 L Magnesium 2.2 Troponin I Albumin POC Glucose 01/04/19 01/04/19 01/04/19 06:00 11:14 17:26 WBC RBC Hgb Hct MCV MCH MCHC RDW RDW Differential Plt Count MPV Immature Gran % (Auto) Neut % (Auto) Lymph % (Auto) [place] % (Auto) Eos % (Auto) Baso % (Auto) Absolute Neuts (auto) Absolute Lymphs (auto) Total Counted Neutrophils % (Manual) Lymphocytes % (Manual) Monocytes % (Manual) Differential Comment Diff Path Review Platelet Estimate RBC Morphology PT INR APTT Specimen Type Sample Site pH Bicarbonate Actual POC Total CO2 Base Excess O2 Saturation O2 % ABG pCO2 ABG pO2 Erick Test Respiration Rate O2 Delivery Device Liter Flow Minute Volume Vent Mode Tidal Volume POC PEEP POC Pressure Suppt Blood Gas Notified Whom Blood Gas Notified Time Sodium Potassium Chloride Carbon Dioxide Anion Gap BUN Creatinine Estim Creat Clear Calc Est GFR (MDRD) Af Amer Est GFR (MDRD) Non-Af BUN/Creatinine Ratio Glucose Lactic Acid Calcium Phosphorus Magnesium Troponin I Albumin POC Glucose 171 H 175 H 222 H 01/05/19 01/05/19 01/05/19 00:07 04:45 04:45 WBC 18.0 H RBC 4.18 L Hgb 13.0 Hct 41.3 MCV 98.8 MCH 31.1 MCHC 31.5 L RDW 14.8 H RDW Differential 52.9 H Plt Count 235 MPV 10.6 Immature Gran % (Auto) 0.300 Neut % (Auto) 91.7 H Lymph % (Auto) 2.3 L [place] % (Auto) 5.6 Eos % (Auto) 0.0 Baso % (Auto) 0.1 Absolute Neuts (auto) 16.5 H Absolute Lymphs (auto) 0.42 L Total Counted Not Reportable Neutrophils % (Manual) Lymphocytes % (Manual) Monocytes % (Manual) Differential Comment Diff Path Review Platelet Estimate RBC Morphology PT INR APTT Specimen Type Sample Site pH Bicarbonate Actual POC Total CO2 Base Excess O2 Saturation O2 % ABG pCO2 ABG pO2 Erick Test Respiration Rate O2 Delivery Device Liter Flow Minute Volume Vent Mode Tidal Volume POC PEEP POC Pressure Suppt Blood Gas Notified Whom Blood Gas Notified Time Sodium 139 Potassium 4.2 Chloride 96 L Carbon Dioxide 39.0 H Anion Gap BUN 23 H Creatinine 0.80 Estim Creat Clear Calc 81.41 Est GFR (MDRD) Af Amer 89 Est GFR (MDRD) Non-Af 74 BUN/Creatinine Ratio 28.9 H Glucose 211 H Lactic Acid Calcium 8.7 Phosphorus 2.7 Magnesium Troponin I Albumin 2.9 L POC Glucose 238 H 01/05/19 01/05/19 05:56 06:03 WBC RBC Hgb Hct MCV MCH MCHC RDW RDW Differential Plt Count MPV Immature Gran % (Auto) Neut % (Auto) Lymph % (Auto) [place] % (Auto) Eos % (Auto) Baso % (Auto) Absolute Neuts (auto) Absolute Lymphs (auto) Total Counted Neutrophils % (Manual) Lymphocytes % (Manual) Monocytes % (Manual) Differential Comment Diff Path Review Platelet Estimate RBC Morphology PT INR APTT Specimen Type ART Sample Site L Radial pH 7.44 Bicarbonate Actual 41.9 H POC Total CO2 44 Base Excess 18 H O2 Saturation 94 L O2 % 35 ABG pCO2 61.9 H ABG pO2 73 L Erick Test POS Respiration Rate O2 Delivery Device Vent Liter Flow Minute Volume Vent Mode CPAP PS Tidal Volume POC PEEP 5 POC Pressure Suppt 5 Blood Gas Notified Whom [facility] MD Blood Gas Notified Time 550 Sodium Potassium Chloride Carbon Dioxide Anion Gap BUN Creatinine Estim Creat Clear Calc Est GFR (MDRD) Af Amer Est GFR (MDRD) Non-Af BUN/Creatinine Ratio Glucose Lactic Acid Calcium Phosphorus Magnesium Troponin I Albumin POC Glucose 232 H Microbiology 01/03/19 17:30 Sputum, Induced/Lukens Gram Stain - Final 01/03/19 17:30 Sputum, Induced/Lukens Respiratory Culture - Preliminary Appears to be normal respiratory ras. Further studies to follow. 01/03/19 18:20 Mucosa - Nasopharyngeal Respiratory Panel (PCR) - Final 01/03/19 14:00 Mucosa - Nasopharyngeal Influenza Types A,B Direct FA (DANILO) - Final Clinical Impression(s) from Imaging Studies [facility] X-Ray 01/03/19 21:26 IMPRESSION: The tip of the orogastric tube is in the distal portion of the stomach. Electronically Signed: Garrett Rivera, at 10:14 EDT , Service support , Medical Necessity - Tobacco Use Smoking Status: Former smoker Tobacco Use: Cigarettes Assessment/Plan All Active Problems (Last Reviewed 01/03/19 @ 16:18 by Cristopher Lazcano DO) Hypercapnic respiratory failure (Acute) Hypokalemia (Acute) End of life care (Acute) Cough productive of yellow sputum (Acute) stem cell injection (Resolved) bladder sling (Resolved) History of cholecystectomy (Resolved) History of inguinal hernia repair (Resolved) History of hemorrhoidectomy (Resolved) H/O cataract removal with insertion of prosthetic lens (Resolved) Parotitis (Acute) Colon polyp (Acute) Vitamin B12 deficiency (Acute) Vitamin D deficiency (Acute) Allergic rhinitis (Acute) Constipation (Acute) Urinary incontinence (Acute) Dyspnea (Acute) Oral pharyngeal candidiasis (Acute) Hypoxia (Acute) Dehydration (Acute) Acute on chronic respiratory failure with hypoxia and hypercapnia (Acute) COPD exacerbation (Acute) Metabolic alkalosis (Resolved) Angioedema (Acute) History of DVT of lower extremity (Resolved) Parotitis (Resolved) RECOMMENDATIONS: 1. Continue mucolytic, steroids, bronchodilators and empiric antibiotics 2. Wean oxygen as tolerated 3. Transition to Precedex from propofol 4. Continues breathing and awakening trials per protocol 5. Sliding scale insulin 6. Continue tube feeds IMPRESSIONS: 1. Acute on chronic hypoxemic and hypercarbic respiratory failure Patient with advanced COPD by PFT criteria at baseline. Unclear etiology of patient's current exacerbation. Chest x-ray does not show any significant infiltrate, so viral etiology versus volume depletion would be suspected. [place] cultures are currently pending. Continue patient on steroids, bronchodilators, mucolytic and empiric antibiotics. No change in steroids given lack of leak on SBT. Spontaneous breathing and awakening trials per protocol. Will transition to Precedex therapy to facilitate liberation from the ventilator. 2. Diabetes mellitus type 2 Patient initiated on empiric steroid therapy. Will need to watch blood sugars closely. Patient currently on tube feeds. 3. Morbid obesity/dyslipidemia/esophageal reflux/hypertension/chronic steroids/osteopenia Complicates care, management, recovery and prognosis. Patient may require stress dose steroids. Blood pressure medications will be held. TIME: 35 minutes of critical care time was spent addressing the patient's acute on chronic respiratory failure, diabetes mellitus, review of all data and collaboration with the care team. (6 AM to 6:45 AM) Code Visit [id number]: [id number] Critical care first hour
--- NOTE | 2019-01-05 07:13 | PN_ITS ---
Patient Problems: Active and Suspected Problems (Last Reviewed 01/03/19 @ 16:18 by Cristopher Lazcano DO) Hypercapnic respiratory failure (Acute) Subjective: Patient was seen and examined. Awake, trying to talk whilst intubated, Appeared frustrated, wanting to get bilateral wrist restraints off. Remains intubated, did not have an airleak this morning. Objective: Physical exam: General: - - Intubated, alert, on mechanical ventilator HEENT: Atraumatic, PERRLA, EOMI, Normocephalic Oral: Dry Mucosa Neck: Supple Lungs: Clear to auscultation Cardiovascular: Regular rate, Regular Rhythm, Normal S1, Normal S2 Abdomen: Bowel Sounds Present, Soft, Non Tender, Non-Distended, No Hepato- splenomegaly Extremities: Edema - bilateral pedaL edema +2 Skin: No rashes Musculoskeletal: No Tenderness to Palpation of Joints or Extremities Lymphatic: No Cervical, Supraclavicular, or Inguinal Adenopathy Neurological: - - sedated Psych/Mental Status: - - sedated Vitals/I&O's: Vital Signs Temp Pulse Resp BP Pulse Ox 99.0 F 74 12 169/97 H 94 01/05/19 06:00 01/05/19 06:32 01/05/19 06:32 01/05/19 06:00 01/05/19 06:27 Oxygen Delivery Method Mechanical Ventilator Weight: 95 kg Body Mass Index (BMI) 40.5 Intake and Output for Last 24 Hours 01/03/19 01/04/19 01/05/19 23:59 23:59 23:59 Intake Total 705.5 / 705.5 3107.2 / 3107.2 623.5 / 623.5 Output Total 355 / 355 900 / 900 600 / 600 Balance 350.5 / 350.5 2207.2 / 2207.2 23.5 / 23.5 Microbiology Past 72 Hours 01/03/19 17:30 Sputum, Induced/Lukens Gram Stain - Final 01/03/19 17:30 Sputum, Induced/Lukens Respiratory Culture - Preliminary Appears to be normal respiratory ras. Further studies to follow. 01/03/19 18:20 Mucosa - Nasopharyngeal Respiratory Panel (PCR) - Final 01/03/19 14:00 Mucosa - Nasopharyngeal Influenza Types A,B Direct FA (DANILO) - Final Laboratory Results 01/03/19 13:10: Diff Path Review Reviewed 01/04/19 11:14: POC Glucose 175 H 01/04/19 17:26: POC Glucose 222 H 01/05/19 00:07: POC Glucose 238 H 01/05/19 04:45: WBC 18.0 H, RBC 4.18 L, Hgb 13.0, Hct 41.3, MCV 98.8, MCH 31.1, MCHC 31.5 L, RDW 14.8 H, RDW Differential 52.9 H, Plt Count 235, MPV 10.6, Immature Gran % (Auto) 0.300, Neut % (Auto) 91.7 H, Lymph % (Auto) 2.3 L, Stanley % (Auto) 5.6, Eos % (Auto) 0.0, Baso % (Auto) 0.1, Absolute Neuts (auto) 16.5 H, Absolute Lymphs (auto) 0.42 L, Total Counted Not Reportable, Differential Comment 01/05/19 04:45: Sodium 139, Potassium 4.2, Chloride 96 L, Carbon Dioxide 39.0 H, BUN 23 H, Creatinine 0.80, Estim Creat Clear Calc 81.41, Est GFR (MDRD) Af Amer 89, Est GFR (MDRD) Non-Af 74, BUN/Creatinine Ratio 28.9 H, Glucose 211 H, Calcium 8.7, Phosphorus 2.7, Albumin 2.9 L 01/05/19 05:56: Specimen Type ART, Sample Site L Radial, pH 7.44, Bicarbonate Actual 41.9 H, POC Total CO2 44, Base Excess 18 H, O2 Saturation 94 L, O2 % 35, ABG pCO2 61.9 H, ABG pO2 73 L, Erick Test POS, O2 Delivery Device Vent, Vent Mode CPAP PS, POC PEEP 5, POC Pressure Suppt 5, Blood Gas Notified Whom HOSP , Blood Gas Notified Time 550 01/05/19 06:03: POC Glucose 232 H Current Medications Acetaminophen (Tylenol Liquid) 650 mg GT Q6H PRN PRN PRN Reason: Fever > 100.4/Pain Albuterol Sulfate (Ventolin Aerosols) 2.5 mg INHALATION Q2H PRN PRN PRN Reason: SHORTNESS OF BREATH Albuterol/Ipratropium (Duoneb) 3 ml INHALATION Q4H.RT CURRY Last Admin: 01/05/19 06:31 Dose: 3 ml Aspirin (Aspirin, Baby) 81 mg GT DAILY [facility] Last Admin: 01/04/19 09:51 Dose: 81 mg Chlorhexidine Gluconate () 15 ml PO BID [facility] Last Admin: 01/04/19 21:33 Dose: 15 ml Chlorhexidine Gluconate () 1 each TOPICAL DAILY [facility] Last Admin: 01/05/19 03:41 Dose: 1 each Dextrose (D50w Syringe) 0 gm IV X1 PRN; Protocol PRN Reason: Hypoglycemia Enoxaparin Sodium (Lovenox) 40 mg SC DAILY@1000 [facility] Last Admin: 01/04/19 09:51 Dose: 40 mg Famotidine (Pepcid) 20 mg GT BID [facility] Last Admin: 01/04/19 21:26 Dose: 20 mg Furosemide (Lasix) 20 mg IV DAILY [facility] Glucagon () 1 mg IM .X1 PRN PRN Reason: Hypoglycemia Guaifenesin (Robitussin) 10 ml GT Q4H [facility] Last Admin: 01/05/19 05:44 Dose: 10 ml Heparin Sodium (Beef Lung) () 50 units IV UD PRN PRN Reason: HEPARIN FLUSH Hydralazine HCl (Apresoline Iv) 5 mg IV Q6H PRN PRN PRN Reason: BLOOD PRESSURE Last Admin: 01/04/19 20:53 Dose: 5 mg Sodium Chloride () 250 mls @ 15 mls/hr IV .[id number] PRN PRN Reason: SALINE FLUSH Last Admin: 01/04/19 04:13 Dose: 15 mls/hr Sodium Chloride () 500 mls @ 15 mls/hr IV .[id number] PRN PRN Reason: SALINE FLUSH Fentanyl () 100 mls @ 10 mls/hr CONT INF .Q10H [facility] Last Admin: 01/04/19 23:07 Dose: 10 mls/hr Levofloxacin (Levaquin Iv) 250 mg in 50 mls @ 50 mls/hr IV Q24H [facility] Stop: 01/09/19 22:01 Last Admin: 01/04/19 21:33 Dose: 50 mls/hr Enteral Nutritional Formula (Vital Af 1.2 Garrison Liquid) 1,000 mls @ 20 mls/hr GT .Q48H [facility] Last Admin: 01/04/19 23:08 Dose: 20 mls/hr Dexmedetomidine HCl 400 mcg/ (Sodium Chloride) 100 mls @ 11.88 mls/hr CONT INF .Q8H26M [facility]; Protocol Insulin Human Lispro (Humalog Kwikpen (Bkc)) 0 unit SQ Q6 [facility]; Protocol Last Admin: 01/05/19 06:04 Dose: 3 u Lisinopril (Zestril) 20 mg GT DAILY [facility] Last Admin: 01/04/19 18:07 Dose: 20 mg Magnesium Hydroxide (Milk Of Magnesia) 30 ml PO DAILY PRN PRN PRN Reason: Constipation Methylprednisolone (Solu-Medrol) 40 mg IV Q6 [facility] Last Admin: 01/05/19 05:44 Dose: 40 mg Ondansetron HCl (Zofran) 4 mg IV Q8H PRN PRN PRN Reason: Nausea Polyethylene Glycol (Miralax) 17 gm GT BID [facility] Last Admin: 01/04/19 21:26 Dose: 17 gm Senna/Docusate Sodium (Senokot-S, Mini-Colace) 2 tablet GT BID [facility] Last Admin: 01/04/19 21:26 Dose: 2 tablet Sodium Chloride () 5 - 15 ml IV UD PRN PRN Reason: SALINE FLUSH Sodium Chloride () 10 - 20 ml IV UD PRN PRN Reason: PICC FLUSH Last Admin: 01/05/19 05:47 Dose: 10 ml Medical Necessity - Tobacco Use Smoking Status: Former smoker Tobacco Use: Cigarettes Assessment/Plan All Active Problems (Last Reviewed 01/03/19 @ 16:18 by Cristopher Lazcano DO) Hypercapnic respiratory failure (Acute) Hypokalemia (Acute) End of life care (Acute) Cough productive of yellow sputum (Acute) stem cell injection (Resolved) bladder sling (Resolved) History of cholecystectomy (Resolved) History of inguinal hernia repair (Resolved) History of hemorrhoidectomy (Resolved) H/O cataract removal with insertion of prosthetic lens (Resolved) Parotitis (Acute) Colon polyp (Acute) Vitamin B12 deficiency (Acute) Vitamin D deficiency (Acute) Allergic rhinitis (Acute) Constipation (Acute) Urinary incontinence (Acute) Dyspnea (Acute) Oral pharyngeal candidiasis (Acute) Hypoxia (Acute) Dehydration (Acute) Acute on chronic respiratory failure with hypoxia and hypercapnia (Acute) COPD exacerbation (Acute) Metabolic alkalosis (Resolved) Angioedema (Acute) History of DVT of lower extremity (Resolved) Parotitis (Resolved) 83-year-old female with past medical history of COPD admitted with shortness of breath, found to be in respiratory failure second to COPD exacerbation, emergently intubated in the emergency department and subsequently managed in ICU. 1. Acute hypercapnic respiratory failure second to acute COPD exacerbation, status post intubation, on mechanical ventilator, Improving, on IV steroids, IV levaquin, breathing treatments, riding coach following. 2. Acute COPD exacerbation, management as above 3. Hypophosphatemia, resolved 4. Type II DM, was on Onglyza at home, held on admission, currently on Accu- Cheks with insulin sliding scale, blood sugars are fairly uncontrolled, will increase ISS to med-high dose, HgbA1c is pending. 5. Leucocytosis secondary to IV steroids, will trend 6. DVT prophylaxis with Lovenox subcu 7. GI PPx- Famotidine Code Visit Inpatient E&M: 16392 Subs Hosp L2
[2019-01-05] MEDS: Famotidine 20 MG Tablet GT ×2 (10:30→21:37)
[2019-01-05] MEDS: Polyethylene Glycol 3350 17 GM PACKET GT ×2 (10:30→21:37)
[2019-01-05] MEDS: Chlorhexidine 15 ML PO ×2 (10:30→21:36)
[2019-01-05] MEDS: Aspirin 81 MG TAB.CHEW GT (10:30)
[2019-01-05] MEDS: Furosemide 20 MG/2 ML VIAL IV ×2 (10:30→21:36)
[2019-01-05] MEDS: Senna/Docusate Sodium 1 Tablet 2 TABLET GT ×2 (10:31→21:37)
[2019-01-05] MEDS: Enoxaparin 40 MG/0.4 ML Syringe SC (10:31)
[2019-01-05] MEDS: 0.9% NaCl Peripheral Flush Adult/Peds IV ×2 (10:32→12:27)
[2019-01-05 11:32] LABS: Hemoglobin A1c 7.2 % (4.2-6.3)
[2019-01-05] MEDS: fentaNYL drip 100 ML 10 MCG CONT INF ×2 (11:56→20:51)
[2019-01-05 12:05] LABS: Bedside Glucose 245 mg/dL (70-110)
--- NOTE | 2019-01-05 12:12 | CASEMGMT ---
SW met initially w/pt's three sisters and niece in the waiting room, then spoke w/ Davey and granddaughter Maribel in the waiting area by the elevators in regard to pt. Pt at this time is still on the ventilator. PCP: Dr Arianna Beyer Preferred Pharmacy: [facility] in [place] Insurance/Prescription Benefit: Medicare, [employer], for Life Living Will/POA: None Living arrangements: Pt lives w/ in a high ranch, flight of steps to main living area. As per pt's sisters, pt has a stair chair that takes her up the stairs. As per pt's sisters, does not help pt as much as is needed and leaves her home alone at times. Pt's sisters state concern about pt being home alone. Pt's one sister lives 5 minutes away and does help pt at times. Pt's sisters state that is overstating how much he helps. As per , pt does the wash, cooking, cleaning, helps pt w/personal ADL's such as washing hair. Transportation: Pt's takes pt to appointments. DME/HHC: Pt on 2-3 LPM continuous O2, through [employer]. Pt has a cane and just recently got a walker. As per , pt has never had home health or been to a usp. Plan: Plan is to be determined. Pt's sisters feel pt should go to a usp from here so she can be properly cared for. Pt's states he wants to take pt home, this is his first choice. He explains pt has always been able to come home and has wanted to come home in the past. SW explained to sisters that we will need to see how pt does. SW explained to the also that we will need to see how the pt does, and also make sure that she can manage if going home. SW gently explained to that sometimes after a stay like this patients need more help than before, and could be too much to manage at home. SW/CM will continue to follow and will make needed discharge arrangements when appropriate. BILL Lan, DIRECTOR SURFACE TRANSPORTATION
[2019-01-05] MEDS: Lisinopril 20 MG Tablet GT (13:09)
--- NOTE | 2019-01-05 15:12 | CASEMGMT ---
Two of pt's sisters asked to speak w/SW. SW met w/sisters in waiting room. They were asking what halfway could care for pt. SW explained that we will need to see the care needs for pt when she is ready for discharge. Pt's sister concerned no halfway can care for pt on a vent. SW explained the plan is to get pt off of the vent. SW gently explained that patients do not normally leave the hospital on a vent--but that if pt could truly not get off a vent then we would be talking to family about a trach and feeding tube vs. hospice. Pt's sister states that pt would never want that. SW offered support to pt's sisters, explained will see how pt is doing tomorrow in regard to her breathing, and will work on discharge plan when appropriate. BILL Lan, GUEST SERVICES REPRESENTATIVE
--- NOTE | 2019-01-05 17:58 | EKG12_ITS ---
Test Reason : RHYTHM CHANGE Blood Pressure : / mmHG Vent. Rate : 057 BPM Atrial Rate : 057 BPM P-R Int : 160 ms QRS Dur : 086 ms QT Int : 414 ms P-R-T Axes : 057 030 058 degrees QTc Int : 402 ms Sinus bradycardia Otherwise normal ECG When compared with ECG of 03-JAN-2019 13:22, MANUAL COMPARISON REQUIRED, DATA IS UNCONFIRMED Confirmed by QUINN MARTINEZ, KEVAN ([id number]), international editorial producer DHRUV HOLT ([id number]) on 01/10/2019 8:26:39 AM Referred By: Cristopher Lazcano Confirmed By:KEVAN BALL MD
[2019-01-05 18:30] LABS: Bedside Glucose 244 mg/dL (70-110)
[2019-01-05] MEDS: levoFLOXacin IV 250 MG/50 ML BAG 50 MG IV (21:44)
[2019-01-05] MEDS: Vital AF 1.2 Cal Liquid 1,000 ML 20 ML GT (23:47)
[2019-01-05 23:56] LABS: Bedside Glucose 194 mg/dL (70-110)
[2019-01-06] VITALS (46 sets, daily range): BP systolic 111–180; BP diastolic 34–88; PULSE 13–79; RESP 12–26; TEMP 36.8–37.2; O2SAT 91–100
[2019-01-06] MEDS: Ipratropium/Albuterol Sulfate 3 ML AMPUL.NEB INHALATION ×6 (02:19→22:11)
[2019-01-06] MEDS: fentaNYL drip 100 ML 10 MCG CONT INF ×2 (02:21→16:34)
[2019-01-06] MEDS: guaiFENesin 10 ML UDC (200MG/10ML) GT ×6 (02:21→22:18)
[2019-01-06] MEDS: CHLORHEXIDINE GLUC 2% CLOTH 1 EACH TOWELETTE TOPICAL (02:37)
[2019-01-06 04:43] LABS: Hematocrit 41.9 % (37-47); Hemoglobin 13.3 g/dl (12.0-15.0); Lymphocyte % 2.3 % (19-41); Mean Corp Hgb Conc 31.7 g/gl (32-36); Mean Corpuscular Hgb 30.4 pg (27.0-32.0); Mean Corpuscular Volume 95.9 fL (81-99); Mean Platelet Vol. 10.6 fl (6.2-12.0); Monocyte# 0.54 X10^3/uL; Monocyte% 4.2 % (0-10); Neutrophil # 11.95 X10^3/uL (2.7-7.7); Neutrophil % 93.2 % (47-70); Platelet Count 189 K/mm3 (150-450); RBC Distribution Width CV 14.9 % (11.6-14.6); RBC Distribution Width SD 50.4 fl (35.1-43.9); Red Blood Count 4.37 M/mm3 (4.2-5.4); White Blood Count 12.8 K/mm3 (4.4-11.0)
[2019-01-06 04:47] LABS: Differential Indicated SCAN CRITERIA MET; POSITIVE COUNT NO; POSITIVE DIFFERENTIAL YES; POSITIVE MORPHOLOGY NO
[2019-01-06 04:51] LABS: Prothrombin Time (Protime)PT. 13.3 SECONDS (11.7-14.9)
[2019-01-06 05:04] LABS: Albumin, Serum 2.7 g/dL (3.2-5.0); Anion Gap 3 (5-15); BUN 29 mg/dL (7-18); BUN/Creat Ratio 35.3 RATIO (10-20); Calcium,Total 8.3 mg/dL (8.5-10.1); Chloride 95 mmol/L (98-107); Creatinine, Serum 0.82 mg/dL (0.55-1.02); EST Glomerular Filtration Rate 71 mL/min (>60); Est Glom Filt Rate - Afr Amer 86 mL/min (>60); Glucose 190 mg/dL (74-106); Phosphorus 4.2 mg/dL (2.5-4.9); Potassium 4.2 mmol/L (3.5-5.1); Sodium Level 139 mmol/L (136-145)
[2019-01-06 05:08] LABS: Differential Comment SCANNED
[2019-01-06] MEDS: hydrALAZINE 20 MG/ML Vial 5 MG IV (05:47)
[2019-01-06] MEDS: Insulin Lispro 100 UNIT/ML INSULN.PEN SQ ×3 (06:20→18:45)
[2019-01-06] MEDS: Magnesium Citrate 300 ML 150 ML PO (06:34)
[2019-01-06 06:37] LABS: Bedside Glucose 206 mg/dL (70-110)
--- NOTE | 2019-01-06 07:24 | PN_ITS ---
Subjective: Patient did well overnight. No hemodynamic instability was noted. Patient once again was able to tolerate spontaneous breathing trial for an hour, but no leak was noted. Patient also noted to have significant hypertension overnight requiring as needed medications. General: Alert, Cooperative, No apparent distress, - - Morbidly obese. Anasarca. Cushingoid appearance. HEENT: Atraumatic, PERRLA, EOMI, Normocephalic, - - Slight scleral injection without icterus Oral: Moist Mucosa, No Gingival or Mucosal Lesions/ Ulcerations Neck: Supple, No JVD, No Nodes, Trachea Midline Lungs: No rhonchi, No wheeze, No rales, Diminished, - - No leak noted with obstruction of endotracheal tube. Cardiovascular: Regular rate, Regular Rhythm, Normal S1, Normal S2, No murmurs, No rub noted, No Gallop Abdomen: Bowel Sounds Present, Soft, Non Tender, Non-Distended, Obese Extremities: No cyanosis, Clubbing, Edema Skin: - - No significant change compared to previous Musculoskeletal: No Tenderness to Palpation of Joints or Extremities Lymphatic: No Cervical, Supraclavicular, or Inguinal Adenopathy Neurological: Cranial nerves II-XII grossly intact, Neuro grossly intact, Motor Exam 5/5 strength throughout Psych/Mental Status: Anxious, Flat Affect Vital Signs Temp Pulse Resp BP Pulse Ox 36.8 C 61 14 124/49 H 98 01/06/19 05:00 01/06/19 07:00 01/06/19 07:00 01/06/19 07:00 01/06/19 07:00 Oxygen Delivery Method Mechanical Ventilator Weight: 93.3 kg Body Mass Index (BMI) 40.5 Intake and Output for Last 24 Hours 01/04/19 01/05/19 01/06/19 23:59 23:59 23:59 Intake Total 3107.2 / 3107.2 1881.5 / 1881.5 1086 / 1086 Output Total 900 / 900 1999 / 2000 1250 / 1250 Balance 2207.2 / 2207.2 -118.5 / -118.5 -164 / -164 Labs (Last 48 Hours) 01/03/19 01/04/19 01/04/19 13:10 11:14 17:26 WBC RBC Hgb Hct MCV MCH MCHC RDW RDW Differential Plt Count MPV Immature Gran % (Auto) Neut % (Auto) Lymph % (Auto) Charlton % (Auto) Eos % (Auto) Baso % (Auto) Absolute Neuts (auto) Absolute Lymphs (auto) Total Counted Differential Comment Diff Path Review Reviewed PT INR Specimen Type Sample Site pH Bicarbonate Actual POC Total CO2 Base Excess O2 Saturation O2 % ABG pCO2 ABG pO2 Erick Test O2 Delivery Device Vent Mode POC PEEP POC Pressure Suppt Blood Gas Notified Whom Blood Gas Notified Time Sodium Potassium Chloride Carbon Dioxide Anion Gap BUN Creatinine Estim Creat Clear Calc Est GFR (MDRD) Af Amer Est GFR (MDRD) Non-Af BUN/Creatinine Ratio Glucose Hemoglobin A1c Calcium Phosphorus Albumin POC Glucose 175 H 222 H 01/05/19 01/05/19 01/05/19 00:07 04:45 04:45 WBC 18.0 H RBC 4.18 L Hgb 13.0 Hct 41.3 MCV 98.8 MCH 31.1 MCHC 31.5 L RDW 14.8 H RDW Differential 52.9 H Plt Count 235 MPV 10.6 Immature Gran % (Auto) 0.300 Neut % (Auto) 91.7 H Lymph % (Auto) 2.3 L Charlton % (Auto) 5.6 Eos % (Auto) 0.0 Baso % (Auto) 0.1 Absolute Neuts (auto) 16.5 H Absolute Lymphs (auto) 0.42 L Total Counted Not Reportable Differential Comment Diff Path Review PT INR Specimen Type Sample Site pH Bicarbonate Actual POC Total CO2 Base Excess O2 Saturation O2 % ABG pCO2 ABG pO2 Erick Test O2 Delivery Device Vent Mode POC PEEP POC Pressure Suppt Blood Gas Notified Whom Blood Gas Notified Time Sodium 139 Potassium 4.2 Chloride 96 L Carbon Dioxide 39.0 H Anion Gap BUN 23 H Creatinine 0.80 Estim Creat Clear Calc 81.41 Est GFR (MDRD) Af Amer 89 Est GFR (MDRD) Non-Af 74 BUN/Creatinine Ratio 28.9 H Glucose 211 H Hemoglobin A1c Calcium 8.7 Phosphorus 2.7 Albumin 2.9 L POC Glucose 238 H 01/05/19 01/05/19 01/05/19 04:45 05:56 06:03 WBC RBC Hgb Hct MCV MCH MCHC RDW RDW Differential Plt Count MPV Immature Gran % (Auto) Neut % (Auto) Lymph % (Auto) Charlton % (Auto) Eos % (Auto) Baso % (Auto) Absolute Neuts (auto) Absolute Lymphs (auto) Total Counted Differential Comment Diff Path Review PT INR Specimen Type ART Sample Site L Radial pH 7.44 Bicarbonate Actual 41.9 H POC Total CO2 44 Base Excess 18 H O2 Saturation 94 L O2 % 35 ABG pCO2 61.9 H ABG pO2 73 L Erick Test POS O2 Delivery Device Vent Vent Mode CPAP PS POC PEEP 5 POC Pressure Suppt 5 Blood Gas Notified Whom [facility] Blood Gas Notified Time 550 Sodium Potassium Chloride Carbon Dioxide Anion Gap BUN Creatinine Estim Creat Clear Calc Est GFR (MDRD) Af Amer Est GFR (MDRD) Non-Af BUN/Creatinine Ratio Glucose Hemoglobin A1c 7.2 H Calcium Phosphorus Albumin POC Glucose 232 H 01/05/19 01/05/19 01/05/19 11:55 18:24 23:41 WBC RBC Hgb Hct MCV MCH MCHC RDW RDW Differential Plt Count MPV Immature Gran % (Auto) Neut % (Auto) Lymph % (Auto) Charlton % (Auto) Eos % (Auto) Baso % (Auto) Absolute Neuts (auto) Absolute Lymphs (auto) Total Counted Differential Comment Diff Path Review PT INR Specimen Type Sample Site pH Bicarbonate Actual POC Total CO2 Base Excess O2 Saturation O2 % ABG pCO2 ABG pO2 Erick Test O2 Delivery Device Vent Mode POC PEEP POC Pressure Suppt Blood Gas Notified Whom Blood Gas Notified Time Sodium Potassium Chloride Carbon Dioxide Anion Gap BUN Creatinine Estim Creat Clear Calc Est GFR (MDRD) Af Amer Est GFR (MDRD) Non-Af BUN/Creatinine Ratio Glucose Hemoglobin A1c Calcium Phosphorus Albumin POC Glucose 245 H 244 H 194 H 01/06/19 01/06/19 01/06/19 04:30 04:30 04:30 WBC 12.8 H RBC 4.37 Hgb 13.3 Hct 41.9 MCV 95.9 MCH 30.4 MCHC 31.7 L RDW 14.9 H RDW Differential 50.4 H Plt Count 189 MPV 10.6 Immature Gran % (Auto) 0.300 Neut % (Auto) 93.2 H Lymph % (Auto) 2.3 L Charlton % (Auto) 4.2 Eos % (Auto) 0.0 Baso % (Auto) 0.0 Absolute Neuts (auto) 12.0 H Absolute Lymphs (auto) 0.30 L Total Counted Not Reportable Differential Comment SCANNED Diff Path Review PT 13.3 INR 1.0 Specimen Type Sample Site pH Bicarbonate Actual POC Total CO2 Base Excess O2 Saturation O2 % ABG pCO2 ABG pO2 Erick Test O2 Delivery Device Vent Mode POC PEEP POC Pressure Suppt Blood Gas Notified Whom Blood Gas Notified Time Sodium 139 Potassium 4.2 Chloride 95 L Carbon Dioxide 41.0 H Anion Gap 3 L BUN 29 H Creatinine 0.82 Estim Creat Clear Calc 80.70 Est GFR (MDRD) Af Amer 86 Est GFR (MDRD) Non-Af 71 BUN/Creatinine Ratio 35.3 H Glucose 190 H Hemoglobin A1c Calcium 8.3 L Phosphorus 4.2 Albumin 2.7 L POC Glucose 01/06/19 06:18 WBC RBC Hgb Hct MCV MCH MCHC RDW RDW Differential Plt Count MPV Immature Gran % (Auto) Neut % (Auto) Lymph % (Auto) Charlton % (Auto) Eos % (Auto) Baso % (Auto) Absolute Neuts (auto) Absolute Lymphs (auto) Total Counted Differential Comment Diff Path Review PT INR Specimen Type Sample Site pH Bicarbonate Actual POC Total CO2 Base Excess O2 Saturation O2 % ABG pCO2 ABG pO2 Erick Test O2 Delivery Device Vent Mode POC PEEP POC Pressure Suppt Blood Gas Notified Whom Blood Gas Notified Time Sodium Potassium Chloride Carbon Dioxide Anion Gap BUN Creatinine Estim Creat Clear Calc Est GFR (MDRD) Af Amer Est GFR (MDRD) Non-Af BUN/Creatinine Ratio Glucose Hemoglobin A1c Calcium Phosphorus Albumin POC Glucose 206 H Microbiology 01/03/19 13:25 Blood Culture (Wb) #2 - Right Forearm Blood Culture - Preliminary No growth in 48 hours. 01/03/19 13:18 Blood Culture (Wb) - Left Forearm Blood Culture - Preliminary No growth in 48 hours. 01/03/19 17:30 Sputum, Induced/Lukens Gram Stain - Final 01/03/19 17:30 Sputum, Induced/Lukens Respiratory Culture - Final 01/03/19 18:20 Mucosa - Nasopharyngeal Respiratory Panel (PCR) - Final Medical Necessity - Tobacco Use Smoking Status: Former smoker Tobacco Use: Cigarettes Assessment/Plan All Active Problems (Last Reviewed 01/03/19 @ 16:18 by Cristopher Lazcano DO) Hypercapnic respiratory failure (Acute) Hypokalemia (Acute) End of life care (Acute) Cough productive of yellow sputum (Acute) stem cell injection (Resolved) bladder sling (Resolved) History of cholecystectomy (Resolved) History of inguinal hernia repair (Resolved) History of hemorrhoidectomy (Resolved) H/O cataract removal with insertion of prosthetic lens (Resolved) Parotitis (Acute) Colon polyp (Acute) Vitamin B12 deficiency (Acute) Vitamin D deficiency (Acute) Allergic rhinitis (Acute) Constipation (Acute) Urinary incontinence (Acute) Dyspnea (Acute) Oral pharyngeal candidiasis (Acute) Hypoxia (Acute) Dehydration (Acute) Acute on chronic respiratory failure with hypoxia and hypercapnia (Acute) COPD exacerbation (Acute) Metabolic alkalosis (Resolved) Angioedema (Acute) History of DVT of lower extremity (Resolved) Parotitis (Resolved) RECOMMENDATIONS: 1. Continue mucolytic, steroids, bronchodilators and empiric antibiotics 2. Wean oxygen as tolerated 3. Continue Precedex 4. Continues breathing and awakening trials per protocol 5. Sliding scale insulin 6. Aggressive bowel regimen 7. Obtain ENT evaluation IMPRESSIONS: 1. Acute on chronic hypoxemic and hypercarbic respiratory failure Patient with advanced COPD by PFT criteria at baseline. Unclear etiology of patient's current exacerbation. Chest x-ray does not show any significant infiltrate, so viral etiology versus volume depletion would be suspected. Continue patient on steroids, bronchodilators, mucolytic and empiric antibiotics. No change in steroids given lack of leak on SBT. Spontaneous breathing and awakening trials per protocol. Patient continues not to have a leak despite Solu-Medrol therapy. Unclear if transition to Decadron would be helpful. Will obtain an ENT evaluation. Will discuss with family as patient may need to be extubated under direct observation 2. Diabetes mellitus type 2 Patient continues on empiric steroid therapy. Will need to watch blood sugars closely. Patient has had high residuals, but no bowel movements have been noted. Aggressive bowel regimen has been ordered and then tube feeds can be reinitiated. 3. Morbid obesity/dyslipidemia/esophageal reflux/hypertension/chronic steroids/osteopenia Complicates care, management, recovery and prognosis. Blood pressure medications will be held. TIME: 34 minutes of critical care time was spent addressing the patient's acute on chronic respiratory failure, diabetes mellitus, review of all data and collaboration with the care team. (5:50 AM to 6:30 AM) Code Visit [id number]: [id number] Critical care first hour
--- NOTE | 2019-01-06 08:17 | PCM.PN.HOSP ---
Patient Problems: Active and Suspected Problems (Last Reviewed 01/03/19 @ 16:18 by Cristopher Lazcano DO) Hypercapnic respiratory failure (Acute) Subjective: Patient was seen and examined. Not able to be extubated. ENT consulted. No other acute events overnight. Objective: Physical exam: General: - - Intubated, alert, on mechanical ventilator HEENT: Atraumatic, PERRLA, EOMI, Normocephalic Oral: Dry Mucosa Neck: Supple Lungs: Clear to auscultation Cardiovascular: Regular rate, Regular Rhythm, Normal S1, Normal S2 Abdomen: Bowel Sounds Present, Soft, Non Tender, Non-Distended, No Hepato-splenomegaly Extremities: Edema - bilateral pedaL edema +2 Skin: No rashes Musculoskeletal: No Tenderness to Palpation of Joints or Extremities Lymphatic: No Cervical, Supraclavicular, or Inguinal Adenopathy Neurological: - - sedated Psych/Mental Status: sedated Vitals/I&O's: Vital Signs Temp Pulse Resp BP Pulse Ox 98.2 F 61 14 124/49 H 98 01/06/19 05:00 01/06/19 07:17 01/06/19 07:00 01/06/19 07:00 01/06/19 07:00 Oxygen Delivery Method Mechanical Ventilator Weight: 93.3 kg Body Mass Index (BMI) 40.5 Intake and Output for Last 24 Hours 01/04/19 01/05/19 01/06/19 23:59 23:59 23:59 Intake Total 3107.2 / 3107.2 1881.5 / 1881.5 1086 / 1086 Output Total 900 / 900 1999 / 2000 1250 / 1250 Balance 2207.2 / 2207.2 -118.5 / -118.5 -164 / -164 Microbiology Past 72 Hours 01/03/19 13:25 Blood Culture (Wb) #2 - Right Forearm Blood Culture - Preliminary No growth in 48 hours. 01/03/19 13:18 Blood Culture (Wb) - Left Forearm Blood Culture - Preliminary No growth in 48 hours. 01/03/19 17:30 Sputum, Induced/Lukens Gram Stain - Final 01/03/19 17:30 Sputum, Induced/Lukens Respiratory Culture - Final 01/03/19 18:20 Mucosa - Nasopharyngeal Respiratory Panel (PCR) - Final 01/03/19 14:00 Mucosa - Nasopharyngeal Influenza Types A,B Direct FA ([facility]) - Final Laboratory Results 01/05/19 04:45: Hemoglobin A1c 7.2 H 01/05/19 11:55: POC Glucose 245 H 01/05/19 18:24: POC Glucose 244 H 01/05/19 23:41: POC Glucose 194 H 01/06/19 04:30: Sodium 139, Potassium 4.2, Chloride 95 L, Carbon Dioxide 41.0 H, Anion Gap 3 L, BUN 29 H, Creatinine 0.82, Estim Creat Clear Calc 80.70, Est GFR (MDRD) Af Amer 86, Est GFR (MDRD) Non-Af 71, BUN/Creatinine Ratio 35.3 H, Glucose 190 H, Calcium 8.3 L, Phosphorus 4.2, Albumin 2.7 L 01/06/19 04:30: WBC 12.8 H, RBC 4.37, Hgb 13.3, Hct 41.9, MCV 95.9, MCH 30.4, MCHC 31.7 L, RDW 14.9 H, RDW Differential 50.4 H, Plt Count 189, MPV 10.6, Immature Gran % (Auto) 0.300, Neut % (Auto) 93.2 H, Lymph % (Auto) 2.3 L, Mcclain % (Auto) 4.2, Eos % (Auto) 0.0, Baso % (Auto) 0.0, Absolute Neuts (auto) 12.0 H, Absolute Lymphs (auto) 0.30 L, Total Counted Not Reportable, Differential Comment SCANNED 01/06/19 04:30: PT 13.3, INR 1.0 01/06/19 06:18: POC Glucose 206 H Current Medications Acetaminophen (Tylenol Liquid) 650 mg GT Q6H PRN PRN PRN Reason: Fever > 100.4/Pain Albuterol Sulfate (Ventolin Aerosols) 2.5 mg INHALATION Q2H PRN PRN PRN Reason: SHORTNESS OF BREATH Albuterol/Ipratropium (Duoneb) 3 ml INHALATION Q4H.RT [facility] Last Admin: 01/06/19 06:35 Dose: 3 ml Aspirin (Aspirin, Baby) 81 mg GT DAILY [facility] Last Admin: 01/05/19 10:30 Dose: 81 mg Chlorhexidine Gluconate () 15 ml PO BID [facility] Last Admin: 01/05/19 21:36 Dose: 15 ml Chlorhexidine Gluconate () 1 each TOPICAL DAILY [facility] Last Admin: 01/06/19 02:37 Dose: 1 each Dextrose (D50w Syringe) 0 gm IV X1 PRN; Protocol PRN Reason: Hypoglycemia Enoxaparin Sodium (Lovenox) 40 mg SC DAILY@1000 [facility] Last Admin: 01/05/19 10:31 Dose: 40 mg Famotidine (Pepcid) 20 mg GT BID [facility] Last Admin: 01/05/19 21:37 Dose: 20 mg Furosemide (Lasix) 20 mg IV BID [facility] Last Admin: 01/05/19 21:36 Dose: 20 mg Glucagon () 1 mg IM .X1 PRN PRN Reason: Hypoglycemia Guaifenesin (Robitussin) 10 ml GT Q4H [facility] Last Admin: 01/06/19 05:45 Dose: 10 ml Heparin Sodium (Beef Lung) () 50 units IV UD PRN PRN Reason: HEPARIN FLUSH Hydralazine HCl (Apresoline Iv) 5 mg IV Q6H PRN PRN PRN Reason: BLOOD PRESSURE Last Admin: 01/06/19 05:47 Dose: 5 mg Sodium Chloride () 250 mls @ 15 mls/hr IV .[id number] PRN PRN Reason: SALINE FLUSH Last Admin: 01/04/19 04:13 Dose: 15 mls/hr Sodium Chloride () 500 mls @ 15 mls/hr IV .[id number] PRN PRN Reason: SALINE FLUSH Fentanyl () 100 mls @ 10 mls/hr CONT INF .Q10H [facility] Last Admin: 01/06/19 02:21 Dose: 10 mls/hr Levofloxacin (Levaquin Iv) 250 mg in 50 mls @ 50 mls/hr IV Q24H [facility] Stop: 01/09/19 22:01 Last Admin: 01/05/19 21:44 Dose: 50 mls/hr Enteral Nutritional Formula (Vital Af 1.2 Garrison Liquid) 1,000 mls @ 20 mls/hr GT .Q48H [facility] Last Admin: 01/05/19 23:47 Dose: 20 mls/hr Dexmedetomidine HCl 400 mcg/ (Sodium Chloride) 100 mls @ 11.88 mls/hr CONT INF .Q8H26M [facility]; Protocol Last Admin: 01/06/19 06:20 Dose: 11.88 mls/hr Insulin Human Lispro (Humalog Kwikpen (Bkc)) 0 unit SQ Q6 [facility]; Protocol Last Admin: 01/06/19 06:20 Dose: 4 u Lisinopril (Zestril) 20 mg GT DAILY [facility] Last Admin: 01/05/19 13:09 Dose: 20 mg Magnesium Hydroxide (Milk Of Magnesia) 30 ml PO DAILY PRN PRN PRN Reason: Constipation Methylprednisolone (Solu-Medrol) 40 mg IV Q6 [facility] Last Admin: 01/06/19 05:45 Dose: 40 mg Metoprolol Tartrate (Lopressor (Beta Tobin)) 12.5 mg GT BID [facility] Ondansetron HCl (Zofran) 4 mg IV Q8H PRN PRN PRN Reason: Nausea Polyethylene Glycol (Miralax) 17 gm GT BID [facility] Last Admin: 01/05/19 21:37 Dose: 17 gm Senna/Docusate Sodium (Senokot-S, Mini-Colace) 2 tablet GT BID [facility] Last Admin: 01/05/19 21:37 Dose: 2 tablet Sodium Chloride () 5 - 15 ml IV UD PRN PRN Reason: SALINE FLUSH Last Admin: 01/05/19 12:27 Dose: 10 ml Sodium Chloride () 10 - 20 ml IV UD PRN PRN Reason: PICC FLUSH Last Admin: 01/05/19 05:47 Dose: 10 ml Medical Necessity - Tobacco Use Smoking Status: Former smoker Tobacco Use: Cigarettes Assessment/Plan All Active Problems (Last Reviewed 01/03/19 @ 16:18 by Cristopher Lazcano DO) Hypercapnic respiratory failure (Acute) Hypokalemia (Acute) End of life care (Acute) Cough productive of yellow sputum (Acute) stem cell injection (Resolved) bladder sling (Resolved) History of cholecystectomy (Resolved) History of inguinal hernia repair (Resolved) History of hemorrhoidectomy (Resolved) H/O cataract removal with insertion of prosthetic lens (Resolved) Parotitis (Acute) Colon polyp (Acute) Vitamin B12 deficiency (Acute) Vitamin D deficiency (Acute) Allergic rhinitis (Acute) Constipation (Acute) Urinary incontinence (Acute) Dyspnea (Acute) Oral pharyngeal candidiasis (Acute) Hypoxia (Acute) Dehydration (Acute) Acute on chronic respiratory failure with hypoxia and hypercapnia (Acute) COPD exacerbation (Acute) Metabolic alkalosis (Resolved) Angioedema (Acute) History of DVT of lower extremity (Resolved) Parotitis (Resolved) 83-year-old female with past medical history of COPD admitted with shortness of breath, found to be in respiratory failure secondary to COPD exacerbation, emergently intubated in the emergency department and subsequently managed in ICU. 1. Acute hypercapnic respiratory failure secondary to acute COPD exacerbation, status post intubation, on mechanical ventilator, Difficulty extubating, failed airleak testing, remains on mechanical ventilator, ENT: Consulted Continue on IV steroids, IV levaquin, breathing treatments. 2. Acute COPD exacerbation, management as above 3. Hypophosphatemia, resolved 4. Type II DM, HgbA1c is 7.2, was on Onglyza at home, held on admission, currently on Accu-Cheks with insulin sliding scale, Blood sugars are fairly uncontrolled, will increase ISS to high dose. 5. Leucocytosis secondary to IV steroids, will trend 6. DVT prophylaxis with Lovenox subcu 7. GI PPx- Famotidine Code Visit Inpatient E&M: 77843 Subs Hosp L2
[2019-01-06] MEDS: Famotidine 20 MG Tablet GT ×2 (08:39→22:18)
[2019-01-06] MEDS: Aspirin 81 MG TAB.CHEW GT (08:40)
[2019-01-06] MEDS: Polyethylene Glycol 3350 17 GM PACKET GT (08:40)
[2019-01-06] MEDS: Senna/Docusate Sodium 1 Tablet 2 TABLET GT (08:40)
[2019-01-06] MEDS: Lisinopril 20 MG Tablet GT (08:40)
[2019-01-06] MEDS: Enoxaparin 40 MG/0.4 ML Syringe SC (08:44)
[2019-01-06] MEDS: Chlorhexidine 15 ML PO ×2 (08:44→22:18)
[2019-01-06] MEDS: Furosemide 20 MG/2 ML VIAL IV ×2 (08:44→22:18)
[2019-01-06 11:16] LABS: Bedside Glucose 206 mg/dL (70-110)
[2019-01-06] MEDS: Magnesium Citrate 300 ML 150 ML GT (12:15)
--- NOTE | 2019-01-06 17:11 | PCM.HP.BLA ---
History and Physical Date of Admission: 01/03/19 Asked to see the patient at the request of Dr. Gamboa for a failed leak test 83 yo white female presented to the ER in respiratory distress. She was intubated in the ER without incident. From a pulmonary standpoint, she is now ready for extubation, however, she has failed a leak test. She has been on steroids since admission for COPD exacerbation. 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) Abdominal hernia (Chronic) Obesity (BMI 35.0-39.9 without comorbidity) (Chronic) Chronic respiratory failure with hypoxia and hypercapnia (Chronic) COLD (chronic obstructive lung disease) (Chronic) Dyslipidemia (Chronic) Esophageal reflux (Chronic) Essential hypertension (Chronic) Former smoker (Chronic) Diabetes mellitus type 2 in obese (Chronic) Medical History: Medical History (Last Reviewed 01/03/19 @ 16:18 by Cristopher Lazcano DO) Parotitis (Acute) K11.20 Colon polyp (Acute) K63.5 Vitamin B12 deficiency (Acute) E53.8 Vitamin D deficiency (Acute) E55.9 Hypercholesteremia (Chronic) E78.00 Plasma cell disorder (Chronic) D72.9 Carotid stenosis (Chronic) I65.29 Allergic rhinitis (Acute) J30.9 Constipation (Acute) K59.00 Osteopenia (Chronic) M85.80 Lung nodule (Chronic) R91.1 Hypersomnia (Chronic) G47.10 Urinary incontinence (Acute) R32 Dyspnea (Acute) R06.00 Oral pharyngeal candidiasis (Acute) B37.0 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 classification (Chronic) J44.9 Abdominal hernia (Chronic) K46.9 Hypoxia (Acute) R09.02 Obesity (BMI 35.0-39.9 without comorbidity) (Chronic) E66.9 Dehydration (Acute) E86.0 Chronic respiratory failure with hypoxia and hypercapnia (Chronic) J96.11, J96.12 Acute on chronic respiratory failure with hypoxia and hypercapnia (Acute) J96.21, J96.22 COPD exacerbation (Acute) J44.1 FEV1 44% of predicted COLD (chronic obstructive lung disease) (Chronic) J44.9 Dyslipidemia (Chronic) E78.5 Esophageal reflux (Chronic) K21.9 Essential hypertension (Chronic) I10 Metabolic alkalosis (Resolved) E87.3 Former smoker (Chronic) Z87.891 Diabetes mellitus type 2 in obese (Chronic) E11.9, E66.9 Angioedema (Acute) T78.3XXA Allergies bee venom protein (honey bee) Allergy (Severe, Verified 01/03/19 16:50) Anaphylaxis LEATHA Inhibitors Allergy (Verified 01/03/19 16:50) Unknown latex Allergy (Verified 11/11/18 09:49) Itching levofloxacin [From Levaquin] Allergy (Verified 01/03/19 16:50) Unknown Sulfa (Sulfonamide Antibiotics) Allergy (Verified 11/11/18 09:49) PT CAN'T REMEMBER budesonide [From Symbicort] Adverse Reaction (Verified 11/11/18 09:49) SORES IN MOUTH fluticasone [From Advair Diskus] Adverse Reaction (Verified 11/11/18 09:49) SORES IN MOUTH formoterol [From Symbicort] Adverse Reaction (Verified 11/11/18 09:49) SORES IN MOUTH ipratropium Adverse Reaction (Verified 11/11/18 09:49) SORES IN MOUTH salmeterol [From Advair Diskus] Adverse Reaction (Verified 11/11/18 09:49) SORES IN MOUTH BREATHING TREATMENTS Adverse Reaction (Uncoded 11/11/18 09:49) SORES IN MOUTH Home Medications: Ambulatory Orders Medication Instructions Recorded Oxygen, Home [Home Oxygen] 2 lpm NASAL DAILY 04/08/15 Aspirin [Aspirin, Baby] 81 mg PO DAILY@0800 07/14/16 Tolterodine Tartrate 4 mg PO DAILY 12/02/16 Rabeprazole Sodium [Aciphex] 20 mg PO DAILY 09/15/17 Red Yeast Rice 600 mg PO DAILY 09/15/17 epinephrine 0.3 mg/0.3 mL 0.5 mg IM Q10-15M PRN 10/28/17 injection, auto-injector vit C,E,zinc,copper-jnghp5m 250 cap PO 10/28/17 mg-lutein 5 mg-zeaxanthin 1 mg capsule ipratropium 20 mcg-albuterol 100 2 inh INHALATION Q6H PRN #4 g 01/13/18 mcg/actuation mist for inhalation acetaminophen 325 mg capsule 325 mg PO TID PRN cap 04/21/18 albuterol sulfate 2.5 mg/3 mL 2.5 mg INHALATION Q4H PRN #180 vial 06/21/18 (0.083 %) solution for nebulization lisinopril 10 mg tablet 10 mg PO DAILY 08/12/18 furosemide 40 mg tablet 40 mg PO BID #14 tab 11/11/18 potassium chloride 40 mEq/15 mL 40 meq PO DAILY #473 ml 11/11/18 oral liquid Saxagliptin HCl [Onglyza] 5 mg PO DAILY 01/03/19 Surgical History: Surgical History (Last Reviewed 01/03/19 @ 16:18 by Cristopher Lazcano DO) stem cell injection (Resolved) bladder sling (Resolved) History of cholecystectomy (Resolved) Z98.890, Z90.49 History of inguinal hernia repair (Resolved) Z98.890, Z87.19 History of hemorrhoidectomy (Resolved) Z98.890 H/O cataract removal with insertion of prosthetic lens (Resolved) Z98.49, Z96.1 Surgical History: cataract - Bilateral, cholecystectomy, - - Bladder sling, Psychiatric History: No pertinent psych hx 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 Smoking Status: Former smoker - *Family History Maternal Family History: Family History (Last Reviewed 01/03/19 @ 16:18 by Cristopher Lazcano DO) Brother Lung disease Mother Heart disease Diabetes Father CAD (coronary artery disease) History Items: Diabetes, Heart Disease Paternal Family History: Family History (Last Reviewed 01/03/19 @ 16:18 by Cristopher Lazcano DO) Brother Lung disease Mother Heart disease Diabetes Father CAD (coronary artery disease) History Items: - - father at 76 with a DVT and PE Sibling Family History: Family History (Last Reviewed 01/03/19 @ 16:18 by Cristopher Lazcano DO) Brother Lung disease Mother Heart disease Diabetes Father CAD (coronary artery disease) History Items: - - she has 10 siblings...one is with pancreatic cancer Review of Systems Unable to obtain accurate/complete ROS d/t: Intubated and sedated. See HPI PE: awake on sedation ETT and OG tube are in place. Neck is short and full. The thyroid cartilage is palpable. A: Acute on chronic respiratory failure Now with a failed leak test. P: I would recommend extubating. I will be available/present for an airway evaluation if she fails. If she does fail, she will need re intubated (ie not emergent tracheotomy).
--- NOTE | 2019-01-06 17:16 | HP.PCM_ITS ---
History and Physical Date of Admission: 01/03/19 Asked to see the patient at the request of Dr. Gamboa for a failed leak test 83 yo white female presented to the ER in respiratory distress. She was intubated in the ER without incident. From a pulmonary standpoint, she is now ready for extubation, however, she has failed a leak test. She has been on steroids since admission for COPD exacerbation. Past Medical History Past Medical History (Chronic Problems): Chronic Problems (Last Reviewed 01/03/19 @ 16:18 by Cristopher aLzcano DO) COPD exacerbation (Chronic) Hypercholesteremia (Chronic) Plasma cell disorder (Chronic) Carotid stenosis (Chronic) Osteopenia (Chronic) Lung nodule (Chronic) Hypersomnia (Chronic) 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 classification (Chronic) Abdominal hernia (Chronic) Obesity (BMI 35.0-39.9 without comorbidity) (Chronic) Chronic respiratory failure with hypoxia and hypercapnia (Chronic) COLD (chronic obstructive lung disease) (Chronic) Dyslipidemia (Chronic) Esophageal reflux (Chronic) Essential hypertension (Chronic) Former smoker (Chronic) Diabetes mellitus type 2 in obese (Chronic) Medical History: Medical History (Last Reviewed 01/03/19 @ 16:18 by Cristopher Lazcano DO) Parotitis (Acute) K11.20 Colon polyp (Acute) K63.5 Vitamin B12 deficiency (Acute) E53.8 Vitamin D deficiency (Acute) E55.9 Hypercholesteremia (Chronic) E78.00 Plasma cell disorder (Chronic) D72.9 Carotid stenosis (Chronic) I65.29 Allergic rhinitis (Acute) J30.9 Constipation (Acute) K59.00 Osteopenia (Chronic) M85.80 Lung nodule (Chronic) R91.1 Hypersomnia (Chronic) G47.10 Urinary incontinence (Acute) R32 Dyspnea (Acute) R06.00 Oral pharyngeal candidiasis (Acute) B37.0 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 classification (Chronic) J44.9 Abdominal hernia (Chronic) K46.9 Hypoxia (Acute) R09.02 Obesity (BMI 35.0-39.9 without comorbidity) (Chronic) E66.9 Dehydration (Acute) E86.0 Chronic respiratory failure with hypoxia and hypercapnia (Chronic) J96.11, J96.12 Acute on chronic respiratory failure with hypoxia and hypercapnia (Acute) J96.2 1, J96.22 COPD exacerbation (Acute) J44.1 FEV1 44% of predicted COLD (chronic obstructive lung disease) (Chronic) J44.9 Dyslipidemia (Chronic) E78.5 Esophageal reflux (Chronic) K21.9 Essential hypertension (Chronic) I10 Metabolic alkalosis (Resolved) E87.3 Former smoker (Chronic) Z87.891 Diabetes mellitus type 2 in obese (Chronic) E11.9, E66.9 Angioedema (Acute) T78.3XXA Allergies bee venom protein (honey bee) Allergy (Severe, Verified 01/03/19 16:50) Anaphylaxis LEATHA Inhibitors Allergy (Verified 01/03/19 16:50) Unknown latex Allergy (Verified 11/11/18 09:49) Itching levofloxacin [From Levaquin] Allergy (Verified 01/03/19 16:50) Unknown Sulfa (Sulfonamide Antibiotics) Allergy (Verified 11/11/18 09:49) PT CAN'T REMEMBER budesonide [From Symbicort] Adverse Reaction (Verified 11/11/18 09:49) SORES IN MOUTH fluticasone [From Advair Diskus] Adverse Reaction (Verified 11/11/18 09:49) SORES IN MOUTH formoterol [From Symbicort] Adverse Reaction (Verified 11/11/18 09:49) SORES IN MOUTH ipratropium Adverse Reaction (Verified 11/11/18 09:49) SORES IN MOUTH salmeterol [From Advair Diskus] Adverse Reaction (Verified 11/11/18 09:49) SORES IN MOUTH BREATHING TREATMENTS Adverse Reaction (Uncoded 11/11/18 09:49) SORES IN MOUTH Home Medications: Ambulatory Orders Medication Instructions Recorded Oxygen, Home [Home Oxygen] 2 lpm NASAL DAILY 04/08/15 Aspirin [Aspirin, Baby] 81 mg PO DAILY@0800 07/14/16 Tolterodine Tartrate 4 mg PO DAILY 12/02/16 Rabeprazole Sodium [Aciphex] 20 mg PO DAILY 09/15/17 Red Yeast Rice 600 mg PO DAILY 09/15/17 epinephrine 0.3 mg/0.3 mL 0.5 mg IM Q10-15M PRN 10/28/17 injection, auto-injector vit C,E,zinc,copper-pdphj4d 250 cap PO 10/28/17 mg-lutein 5 mg-zeaxanthin 1 mg capsule ipratropium 20 mcg-albuterol 100 2 inh INHALATION Q6H PRN #4 g 01/13/18 mcg/actuation mist for inhalation acetaminophen 325 mg capsule 325 mg PO TID PRN cap 04/21/18 albuterol sulfate 2.5 mg/3 mL 2.5 mg INHALATION Q4H PRN #180 vial 06/21/18 (0.083 %) solution for nebulization lisinopril 10 mg tablet 10 mg PO DAILY 08/12/18 furosemide 40 mg tablet 40 mg PO BID #14 tab 11/11/18 potassium chloride 40 mEq/15 mL 40 meq PO DAILY #473 ml 11/11/18 oral liquid Saxagliptin HCl [Onglyza] 5 mg PO DAILY 01/03/19 Surgical History: Surgical History (Last Reviewed 01/03/19 @ 16:18 by Cristopher Lazcano DO) stem cell injection (Resolved) bladder sling (Resolved) History of cholecystectomy (Resolved) Z98.890, Z90.49 History of inguinal hernia repair (Resolved) Z98.890, Z87.19 History of hemorrhoidectomy (Resolved) Z98.890 H/O cataract removal with insertion of prosthetic lens (Resolved) Z98.49, Z96.1 Surgical History: cataract - Bilateral, cholecystectomy, - - Bladder sling, Psychiatric History: No 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 psych 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 Smoking Status: Former smoker - *Family History Maternal Family History: Family History (Last Reviewed 01/03/19 @ 16:18 by Cristopher Lazcano DO) Brother Lung disease Mother Heart disease Diabetes Father CAD (coronary artery disease) History Items: Diabetes, Heart Disease Paternal Family History: Family History (Last Reviewed 01/03/19 @ 16:18 by Cristopher Lazcano DO) Brother Lung disease Mother Heart disease Diabetes Father CAD (coronary artery disease) History Items: - - father at 76 with a DVT and PE Sibling Family History: Family History (Last Reviewed 01/03/19 @ 16:18 by Cristopher Lazcano DO) Brother Lung disease Mother Heart disease Diabetes Father CAD (coronary artery disease) History Items: - - she has 10 siblings...one is with pancreatic cancer Review of Systems Unable to obtain accurate/complete ROS d/t: Intubated and sedated. See HPI PE: awake on sedation ETT and OG tube are in place. Neck is short and full. The thyroid cartilage is palpable. A: Acute on chronic respiratory failure Now with a failed leak test. P: I would recommend extubating. I will be available/present for an airway evaluation if she fails. If she does fail, she will need re intubated (ie not emergent tracheotomy).
[2019-01-06 21:41] LABS: Bedside Glucose 201 mg/dL (70-110)
[2019-01-06] MEDS: Metoprolol Tartrate 25 MG Tablet 12.5 MG GT (22:18)
[2019-01-06] MEDS: levoFLOXacin IV 250 MG/50 ML BAG 50 MG IV (22:22)
[2019-01-07] VITALS (37 sets, daily range): BP systolic 110–176; BP diastolic 35–86; PULSE 50–104; RESP 11–26; TEMP 36.5–37.1; O2SAT 65–99
[2019-01-07] MEDS: hydrALAZINE 20 MG/ML Vial 5 MG IV (00:31)
[2019-01-07] MEDS: Insulin Lispro 100 UNIT/ML INSULN.PEN SQ ×2 (00:31→06:08)
[2019-01-07] MEDS: 0.9% NaCl PICC Flush IV ×4 (00:31→10:17)
[2019-01-07] MEDS: CHLORHEXIDINE GLUC 2% CLOTH 1 EACH TOWELETTE TOPICAL (00:32)
[2019-01-07] MEDS: Dexmedetomidine 1,000 mcg in 0.9% NS 240 mL 11.66 MCG CONT INF (00:32)
[2019-01-07 00:46] LABS: Bedside Glucose 207 mg/dL (70-110)
[2019-01-07] MEDS: Ipratropium/Albuterol Sulfate 3 ML AMPUL.NEB INHALATION ×6 (02:07→23:16)
[2019-01-07] MEDS: guaiFENesin 10 ML UDC (200MG/10ML) GT ×2 (03:35→06:08)
[2019-01-07] MEDS: fentaNYL drip 100 ML 10 MCG CONT INF (04:43)
[2019-01-07 05:03] LABS: Absolute Lymphocyte Count 0.76 X10^3/ul (0.83-4.51); Absolute Neutrophil Count 10.3 X10^3/uL (2.0-7.7); Hemoglobin 13.5 g/dl (12.0-15.0); Lymphocyte # 0.76 X10^3/ul (4.0); Lymphocyte % 6.7 % (19-41); Mean Corp Hgb Conc 32.1 g/gl (32-36); Mean Corpuscular Volume 96.6 fL (81-99); Mean Platelet Vol. 10.4 fl (6.2-12.0); Monocyte# 0.25 X10^3/uL; Monocyte% 2.2 % (0-10); Neutrophil # 10.31 X10^3/uL (2.7-7.7); Neutrophil % 90.9 % (47-70); Platelet Count 191 K/mm3 (150-450); RBC Distribution Width SD 52.5 fl (35.1-43.9); Red Blood Count 4.35 M/mm3 (4.2-5.4); White Blood Count 11.3 K/mm3 (4.4-11.0)
[2019-01-07 05:06] LABS: POSITIVE COUNT NO; POSITIVE DIFFERENTIAL NO; POSITIVE MORPHOLOGY NO
[2019-01-07 05:14] LABS: Anion Gap 5 (5-15); BUN 30 mg/dL (7-18); BUN/Creat Ratio 41.2 RATIO (10-20); Calcium,Total 8.1 mg/dL (8.5-10.1); Chloride 94 mmol/L (98-107); Creatinine, Serum 0.73 mg/dL (0.55-1.02); EST Glomerular Filtration Rate 82 mL/min (>60); Est Glom Filt Rate - Afr Amer 99 mL/min (>60); Estimated Creatinine Clearance 64.29 ml/min; Glucose 171 mg/dL (74-106); Potassium 3.6 mmol/L (3.5-5.1); Sodium Level 139 mmol/L (136-145)
[2019-01-07 06:21] LABS: Allen Test POS; Base Excess 17 mmol/L (-2 to +2); Bicarbonate 41.4 mmol/L (22-26); Blood Gas Specimen Type ART; FI02 35; Mode CPAP PS; O2 Delivery Device Vent; PEEP 5; PO2 76 mmHG (75-100); PS 5; SITE L Radial; SO2 95 % (95-99); Time Given 610; Total Carbon Dioxide 43 mmol/L; pCO2 59.5 mmHg (35-45); pH 7.45 (7.35-7.45)
[2019-01-07 06:21] LABS: Bedside Glucose 202 mg/dL (70-110)
--- NOTE | 2019-01-07 06:30 | NURSING ---
Pt extubated with RT staff at bedside to 4L NC. Pt tolerated well. Minimal secretions, cough/gag intact, OG d/c'd. Vocal chords intact as well.
--- NOTE | 2019-01-07 06:56 | PN_ITS ---
Subjective: Patient did well overnight. No acute issues were reported. Patient did tolerate a spontaneous breathing trial this morning and air leak was noted around the endotracheal tube. Patient was successfully extubated under my direct supervision. Patient did not have any stridor following extubation, but did report a sore throat. Patient does appear to be somewhat confused at this time and picking at various lines. General: Alert, Cooperative, No apparent distress, - - Morbidly obese. HEENT: Atraumatic, PERRLA, EOMI, Normocephalic, - - No scleral icterus or injection noted Oral: Moist Mucosa, No Gingival or Mucosal Lesions/ Ulcerations Neck: Supple, No Nodes, Trachea Midline, JVD, Right Lungs: No rhonchi, No wheeze, No rales, Diminished, - - Symmetric expansion. No dullness to percussion. Cardiovascular: Normal S1, Normal S2, Bradycardic, Murmur - Grade 2 out of 6 systolic ejection murmur, No rub noted, No Gallop Abdomen: Bowel Sounds Present, Soft, Non Tender, Non-Distended, Obese Extremities: No cyanosis, Clubbing, Edema Skin: - - Dermal atrophy. No significant changes compared to previous Musculoskeletal: No Tenderness to Palpation of Joints or Extremities Lymphatic: No Cervical, Supraclavicular, or Inguinal Adenopathy Neurological: Cranial nerves II-XII grossly intact, Neuro grossly intact, Motor Exam 5/5 strength throughout Psych/Mental Status: Appropriate, Flat Affect Vital Signs Temp Pulse Resp BP Pulse Ox 36.7 C 58 L 12 155/55 H 95 01/07/19 06:00 01/07/19 06:00 01/07/19 06:00 01/07/19 06:00 01/07/19 06:00 Oxygen Delivery Method Mechanical Ventilator Weight: 92.3 kg Body Mass Index (BMI) 40.5 Intake and Output for Last 24 Hours 01/05/19 01/06/19 01/07/19 23:59 23:59 23:59 Intake Total 1881.5 / 1881.5 2249 / 2249 1203.1 / 1203.1 Output Total 1999 2450 / 2450 1710 / 1710 Balance -118.5 / -118.5 -201 / -201 -506.9 / -506.9 Labs (Last 48 Hours) 01/05/19 01/05/1919 04:45 11:55 18:24 WBC RBC Hgb Hct MCV MCH MCHC RDW RDW Differential Plt Count MPV Immature Gran % (Auto) Neut % (Auto) Lymph % (Auto) [place] % (Auto) Eos % (Auto) Baso % (Auto) Absolute Neuts (auto) Absolute Lymphs (auto) Total Counted Differential Comment PT INR Specimen Type Sample Site pH Bicarbonate Actual POC Total CO2 Base Excess O2 Saturation O2 % ABG pCO2 ABG pO2 Erick Test O2 Delivery Device Vent Mode POC PEEP POC Pressure Suppt Blood Gas Notified Whom Blood Gas Notified Time Sodium Potassium Chloride Carbon Dioxide Anion Gap BUN Creatinine Estim Creat Clear Calc Est GFR (MDRD) Af Amer Est GFR (MDRD) Non-Af BUN/Creatinine Ratio Glucose Hemoglobin A1c 7.2 H Calcium Phosphorus Albumin POC Glucose 245 H 244 H 01/05/19 01/06/19 01/06/19 23:41 04:30 04:30 WBC 12.8 H RBC 4.37 Hgb 13.3 Hct 41.9 MCV 95.9 MCH 30.4 MCHC 31.7 L RDW 14.9 H RDW Differential 50.4 H Plt Count 189 MPV 10.6 Immature Gran % (Auto) 0.300 Neut % (Auto) 93.2 H Lymph % (Auto) 2.3 L [place] % (Auto) 4.2 Eos % (Auto) 0.0 Baso % (Auto) 0.0 Absolute Neuts (auto) 12.0 H Absolute Lymphs (auto) 0.30 L Total Counted Not Reportable Differential Comment SCANNED PT INR Specimen Type Sample Site pH Bicarbonate Actual POC Total CO2 Base Excess O2 Saturation O2 % ABG pCO2 ABG pO2 Erick Test O2 Delivery Device Vent Mode POC PEEP POC Pressure Suppt Blood Gas Notified Whom Blood Gas Notified Time Sodium 139 Potassium 4.2 Chloride 95 L Carbon Dioxide 41.0 H Anion Gap 3 L BUN 29 H Creatinine 0.82 Estim Creat Clear Calc 80.70 Est GFR (MDRD) Af Amer 86 Est GFR (MDRD) Non-Af 71 BUN/Creatinine Ratio 35.3 H Glucose 190 H Hemoglobin A1c Calcium 8.3 L Phosphorus 4.2 Albumin 2.7 L POC Glucose 194 H 01/06/19 01/06/19 01/06/19 04:30 06:18 11:11 WBC RBC Hgb Hct MCV MCH MCHC RDW RDW Differential Plt Count MPV Immature Gran % (Auto) Neut % (Auto) Lymph % (Auto) [place] % (Auto) Eos % (Auto) Baso % (Auto) Absolute Neuts (auto) Absolute Lymphs (auto) Total Counted Differential Comment PT 13.3 INR 1.0 Specimen Type Sample Site pH Bicarbonate Actual POC Total CO2 Base Excess O2 Saturation O2 % ABG pCO2 ABG pO2 Erick Test O2 Delivery Device Vent Mode POC PEEP POC Pressure Suppt Blood Gas Notified Whom Blood Gas Notified Time Sodium Potassium Chloride Carbon Dioxide Anion Gap BUN Creatinine Estim Creat Clear Calc Est GFR (MDRD) Af Amer Est GFR (MDRD) Non-Af BUN/Creatinine Ratio Glucose Hemoglobin A1c Calcium Phosphorus Albumin POC Glucose 206 H 206 H 01/06/19 01/07/19 01/07/19 18:41 00:27 04:50 WBC 11.3 H RBC 4.35 Hgb 13.5 Hct 42.0 MCV 96.6 MCH 31.0 MCHC 32.1 RDW 15.0 H RDW Differential 52.5 H Plt Count 191 MPV 10.4 Immature Gran % (Auto) 0.200 Neut % (Auto) 90.9 H Lymph % (Auto) 6.7 L [place] % (Auto) 2.2 Eos % (Auto) 0.0 Baso % (Auto) 0.0 Absolute Neuts (auto) 10.3 H Absolute Lymphs (auto) 0.76 L Total Counted Not Reportable Differential Comment PT INR Specimen Type Sample Site pH Bicarbonate Actual POC Total CO2 Base Excess O2 Saturation O2 % ABG pCO2 ABG pO2 Erick Test O2 Delivery Device Vent Mode POC PEEP POC Pressure Suppt Blood Gas Notified Whom Blood Gas Notified Time Sodium Potassium Chloride Carbon Dioxide Anion Gap BUN Creatinine Estim Creat Clear Calc Est GFR (MDRD) Af Amer Est GFR (MDRD) Non-Af BUN/Creatinine Ratio Glucose Hemoglobin A1c Calcium Phosphorus Albumin POC Glucose 201 H 207 H 01/07/19 01/07/19 01/07/19 04:50 06:04 06:16 WBC RBC Hgb Hct MCV MCH MCHC RDW RDW Differential Plt Count MPV Immature Gran % (Auto) Neut % (Auto) Lymph % (Auto) [place] % (Auto) Eos % (Auto) Baso % (Auto) Absolute Neuts (auto) Absolute Lymphs (auto) Total Counted Differential Comment PT INR Specimen Type ART Sample Site L Radial pH 7.45 Bicarbonate Actual 41.4 H POC Total CO2 43 Base Excess 17 H O2 Saturation 95 O2 % 35 ABG pCO2 59.5 H ABG pO2 76 Erick Test POS O2 Delivery Device Vent Vent Mode CPAP PS POC PEEP 5 POC Pressure Suppt 5 Blood Gas Notified Whom ICU MD Blood Gas Notified Time 610 Sodium 139 Potassium 3.6 Chloride 94 L Carbon Dioxide 40.0 H Anion Gap 5 BUN 30 H Creatinine 0.73 Estim Creat Clear Calc 64.29 Est GFR (MDRD) Af Amer 99 Est GFR (MDRD) Non-Af 82 BUN/Creatinine Ratio 41.2 H Glucose 171 H Hemoglobin A1c Calcium 8.1 L Phosphorus Albumin POC Glucose 202 H Microbiology 01/03/19 13:25 Blood Culture (Wb) #2 - Right Forearm Blood Culture - Preliminary No growth in 48 hours. 01/03/19 13:18 Blood Culture (Wb) - Left Forearm Blood Culture - Preliminary No growth in 48 hours. 01/03/19 17:30 Sputum, Induced/Lukens Gram Stain - Final 01/03/19 17:30 Sputum, Induced/Lukens Respiratory Culture - Final Medical Necessity - Tobacco Use Smoking Status: Former smoker Tobacco Use: Cigarettes Assessment/Plan All Active Problems (Last Reviewed 01/03/19 @ 16:18 by Cristopher Lazcano DO) Hypercapnic respiratory failure (Acute) Hypokalemia (Acute) End of life care (Acute) Cough productive of yellow sputum (Acute) stem cell injection (Resolved) bladder sling (Resolved) History of cholecystectomy (Resolved) History of inguinal hernia repair (Resolved) History of hemorrhoidectomy (Resolved) H/O cataract removal with insertion of prosthetic lens (Resolved) Parotitis (Acute) Colon polyp (Acute) Vitamin B12 deficiency (Acute) Vitamin D deficiency (Acute) Allergic rhinitis (Acute) Constipation (Acute) Urinary incontinence (Acute) Dyspnea (Acute) Oral pharyngeal candidiasis (Acute) Hypoxia (Acute) Dehydration (Acute) Acute on chronic respiratory failure with hypoxia and hypercapnia (Acute) COPD exacerbation (Acute) Metabolic alkalosis (Resolved) Angioedema (Acute) History of DVT of lower extremity (Resolved) Parotitis (Resolved) RECOMMENDATIONS: 1. Continue mucolytic, bronchodilators and empiric antibiotics 2. Wean oxygen as tolerated 3. Wean steroids, discontinue Precedex and fentanyl drips 4. Continues breathing and awakening trials per protocol 5. Sliding scale insulin 6. Await bedside swallow evaluation 7. Removal of FMS later today IMPRESSIONS: 1. Acute on chronic hypoxemic and hypercarbic respiratory failure Patient with advanced COPD by PFT criteria at baseline. Unclear etiology of patient's current exacerbation. Chest x-ray does not show any significant infiltrate, so viral etiology versus volume depletion would be suspected. Patient successfully extubated and appears to be doing well. Patient will have steroids decreased. Fentanyl and Precedex have been discontinued. Patient will complete antibiotic regimen. Await bedside swallow evaluation. 2. Diabetes mellitus type 2 Patient continues on empiric steroid therapy. Will need to watch blood sugars closely. Patient has had high residuals, but no bowel movements have been noted. Patient with significant diarrhea overnight, likely secondary to medications. Await bedside swallow evaluation. 3. Morbid obesity/dyslipidemia/esophageal reflux/hypertension/chronic steroids/osteopenia Complicates care, management, recovery and prognosis. Blood pressure medications will be held. Anticipate prolonged taper TIME: 32 minutes of critical care time was spent addressing the patient's acute on chronic respiratory failure, diabetes mellitus, review of all data and collaboration with the care team. (5:50 AM to 6:45 AM) Code Visit 9xxxx: [id number] Critical care first hour
--- NOTE | 2019-01-07 09:42 | PN_ITS ---
Patient Problems: Active and Suspected Problems (Last Reviewed 01/03/19 @ 16:18 by Cristopher Lazcano DO) Hypercapnic respiratory failure (Acute) Subjective: Patient was seen and examined. She was extubated today. Complains of sore throat. Denies any worsening SOB. On 4L oxygen. ROS was negative Vitals/I&O's: Vital Signs Temp Pulse Resp BP Pulse Ox 98.1 F 59 L 18 155/55 H 94 01/07/19 06:00 01/07/19 07:07 01/07/19 07:07 01/07/19 06:00 01/07/19 07:07 Oxygen Flow Rate (L/min) 4 Oxygen Delivery Method Nasal Cannula Weight: 92.3 kg Body Mass Index (BMI) 40.5 Intake and Output for Last 24 Hours 01/05/19 01/06/19 01/07/19 23:59 23:59 23:59 Intake Total 1881.5 / 1881.5 2249 / 2249 1203.1 / 1203.1 Output Total 1999 2450 / 2450 1710 / 1710 Balance -118.5 / -118.5 -201 / -201 -506.9 / -506.9 General: Alert, Oriented x3, Cooperative, No apparent distress, - - on 4L oxygen HEENT: Atraumatic, PERRLA, EOMI, Normocephalic Oral: Moist Mucosa Neck: Supple Lungs: Clear to auscultation, Normal air movement Cardiovascular: Regular rate, Regular Rhythm, Normal S1, Normal S2, No murmurs Abdomen: Bowel Sounds Present, Soft, Non Tender, Non-Distended, No Hepato- splenomegaly Extremities: Edema - improving, +1 bilateral pedal edema, slight erythema of lower extremities Skin: No rashes Musculoskeletal: No Tenderness to Palpation of Joints or Extremities Lymphatic: No Cervical, Supraclavicular, or Inguinal Adenopathy Neurological: Cranial nerves II-XII grossly intact, Neuro grossly intact Psych/Mental Status: Normal Affect, Appropriate Microbiology Past 72 Hours 01/03/19 13:25 Blood Culture (Wb) #2 - Right Forearm Blood Culture - Preliminary No growth in 48 hours. 01/03/19 13:18 Blood Culture (Wb) - Left Forearm Blood Culture - Preliminary No growth in 48 hours. 01/03/19 17:30 Sputum, Induced/Lukens Gram Stain - Final 01/03/19 17:30 Sputum, Induced/Lukens Respiratory Culture - Final 01/03/19 18:20 Mucosa - Nasopharyngeal Respiratory Panel (PCR) - Final Laboratory Results 01/06/19 11:11: POC Glucose 206 H 01/06/19 18:41: POC Glucose 201 H 01/07/19 00:27: POC Glucose 207 H 01/07/19 04:50: WBC 11.3 H, RBC 4.35, Hgb 13.5, Hct 42.0, MCV 96.6, MCH 31.0, MCHC 32.1, RDW 15.0 H, RDW Differential 52.5 H, Plt Count 191, MPV 10.4, Immature Gran % (Auto) 0.200, Neut % (Auto) 90.9 H, Lymph % (Auto) 6.7 L, [place] % (Auto) 2.2, Eos % (Auto) 0.0, Baso % (Auto) 0.0, Absolute Neuts (auto) 10.3 H, Absolute Lymphs (auto) 0.76 L, Total Counted Not Reportable 01/07/19 04:50: Sodium 139, Potassium 3.6, Chloride 94 L, Carbon Dioxide 40.0 H, Anion Gap 5, BUN 30 H, Creatinine 0.73, Estim Creat Clear Calc 64.29, Est GFR (MDRD) Af Amer 99, Est GFR (MDRD) Non-Af 82, BUN/Creatinine Ratio 41.2 H, Glucose 171 H, Calcium 8.1 L 01/07/19 06:04: POC Glucose 202 H 01/07/19 06:16: Specimen Type ART, Sample Site L Radial, pH 7.45, Bicarbonate Actual 41.4 H, POC Total CO2 43, Base Excess 17 H, O2 Saturation 95, O2 % 35, ABG pCO2 59.5 H, ABG pO2 76, Erick Test POS, O2 Delivery Device Vent, Vent Mode CPAP PS, POC PEEP 5, POC Pressure Suppt 5, Blood Gas Notified Whom ICU MD, Blood Gas Notified Time 610 Current Medications Acetaminophen (Tylenol Liquid) 650 mg GT Q6H PRN PRN PRN Reason: Fever > 100.4/Pain Albuterol Sulfate (Ventolin Aerosols) 2.5 mg INHALATION Q2H PRN PRN PRN Reason: SHORTNESS OF BREATH Albuterol/Ipratropium (Duoneb) 3 ml INHALATION Q4H.RT [facility] Last Admin: 01/07/19 07:07 Dose: 3 ml Aspirin (Aspirin, Baby) 81 mg GT DAILY [facility] Last Admin: 01/06/19 08:40 Dose: 81 mg Chlorhexidine Gluconate () 1 each TOPICAL DAILY [facility] Last Admin: 01/07/19 00:32 Dose: 1 each Dextrose (D50w Syringe) 0 gm IV X1 PRN; Protocol PRN Reason: Hypoglycemia Enoxaparin Sodium (Lovenox) 40 mg SC DAILY@1000 [facility] Last Admin: 01/06/19 08:44 Dose: 40 mg Famotidine (Pepcid) 20 mg GT BID [facility] Last Admin: 01/06/19 22:18 Dose: 20 mg Furosemide (Lasix) 20 mg IV BID [facility] Last Admin: 01/06/19 22:18 Dose: 20 mg Glucagon () 1 mg IM .X1 PRN PRN Reason: Hypoglycemia Guaifenesin (Robitussin) 10 ml GT Q4H [facility] Last Admin: 01/07/19 06:08 Dose: 10 ml Heparin Sodium (Beef Lung) () 50 units IV UD PRN PRN Reason: HEPARIN FLUSH Hydralazine HCl (Apresoline Iv) 5 mg IV Q6H PRN PRN PRN Reason: BLOOD PRESSURE Last Admin: 01/07/19 00:31 Dose: 5 mg Sodium Chloride () 250 mls @ 15 mls/hr IV .[id number] PRN PRN Reason: SALINE FLUSH Last Admin: 01/04/19 04:13 Dose: 15 mls/hr Sodium Chloride () 500 mls @ 15 mls/hr IV .[id number] PRN PRN Reason: SALINE FLUSH Levofloxacin (Levaquin Iv) 250 mg in 50 mls @ 50 mls/hr IV Q24H [facility] Stop: 01/09/19 22:01 Last Admin: 01/06/19 22:22 Dose: 50 mls/hr Insulin Human Lispro (Humalog Kwikpen (Bkc)) 0 unit SQ Q6 [facility]; Protocol Last Admin: 01/07/19 06:08 Dose: 3 u Lisinopril (Zestril) 20 mg GT DAILY [facility] Last Admin: 01/06/19 08:40 Dose: 20 mg Magnesium Hydroxide (Milk Of Magnesia) 30 ml PO DAILY PRN PRN PRN Reason: Constipation Methylprednisolone (Solu-Medrol) 40 mg IV Q8 [facility] Metoprolol Tartrate (Lopressor (Beta Tobin)) 12.5 mg GT BID [facility] Last Admin: 01/06/19 22:18 Dose: 12.5 mg Ondansetron HCl (Zofran) 4 mg IV Q8H PRN PRN PRN Reason: Nausea Polyethylene Glycol (Miralax) 17 gm GT BID [facility] Last Admin: 01/06/19 22:19 Dose: Not Given Senna/Docusate Sodium (Senokot-S, Mini-Colace) 2 tablet GT BID [facility] Last Admin: 01/06/19 22:19 Dose: Not Given Sodium Chloride () 5 - 15 ml IV UD PRN PRN Reason: SALINE FLUSH Last Admin: 01/05/19 12:27 Dose: 10 ml Sodium Chloride () 10 - 20 ml IV UD PRN PRN Reason: PICC FLUSH Last Admin: 01/07/19 04:43 Dose: 20 ml Medical Necessity - Tobacco Use Smoking Status: Former smoker Tobacco Use: Cigarettes Assessment/Plan All Active Problems (Last Reviewed 01/03/19 @ 16:18 by Cristopher Lazcano DO) Hypercapnic respiratory failure (Acute) Hypokalemia (Acute) End of life care (Acute) Cough productive of yellow sputum (Acute) stem cell injection (Resolved) bladder sling (Resolved) History of cholecystectomy (Resolved) History of inguinal hernia repair (Resolved) History of hemorrhoidectomy (Resolved) H/O cataract removal with insertion of prosthetic lens (Resolved) Parotitis (Acute) Colon polyp (Acute) Vitamin B12 deficiency (Acute) Vitamin D deficiency (Acute) Allergic rhinitis (Acute) Constipation (Acute) Urinary incontinence (Acute) Dyspnea (Acute) Oral pharyngeal candidiasis (Acute) Hypoxia (Acute) Dehydration (Acute) Acute on chronic respiratory failure with hypoxia and hypercapnia (Acute) COPD exacerbation (Acute) Metabolic alkalosis (Resolved) Angioedema (Acute) History of DVT of lower extremity (Resolved) Parotitis (Resolved) 83-year-old female with past medical history of COPD admitted with shortness of breath, found to be in respiratory failure secondary to COPD exacerbation, emergently intubated in the emergency department and subsequently managed in ICU. 1. Acute hypercapnic respiratory failure secondary to acute COPD exacerbation, resolving Extubated today, on 4L nasal canula oxygen, will do breathing treatment and wean off oxygen. 2. Acute COPD exacerbation, management as above, will consider switching to prednisone from tomorrow 3. Hypophosphatemia, resolved 4. Type II DM, HgbA1c is 7.2, was on Onglyza at home, held on admission, Blood sugars remain fairly uncontrolled, likely was secondary to tube feeds, will continue on high dose ISS for now. Will resume home Onglyza in a couple of days. 5. Leucocytosis secondary to IV steroids, resolving, labs in am 6. DVT prophylaxis with Lovenox subcu 7. GI PPx- Famotidine Code Visit Inpatient E&M: [id number] Subs Hosp L2
[2019-01-07] MEDS: Furosemide 20 MG/2 ML VIAL IV (10:09)
[2019-01-07] MEDS: Enoxaparin 40 MG/0.4 ML Syringe SC (10:09)
[2019-01-07 12:01] LABS: Bedside Glucose 120 mg/dL (70-110)
--- NOTE | 2019-01-07 13:01 | NURSING ---
speech therapy presentin pt room
[2019-01-07] MEDS: Famotidine 20 MG Tablet PO ×2 (13:28→21:27)
[2019-01-07] MEDS: Metoprolol Tartrate 25 MG Tablet 12.5 MG PO ×2 (13:29→21:27)
[2019-01-07 16:50] LABS: Bedside Glucose 147 mg/dL (70-110)
[2019-01-07] MEDS: levoFLOXacin IV 250 MG/50 ML BAG 50 MG IV (21:26)
[2019-01-07 22:35] LABS: Bedside Glucose 138 mg/dL (70-110)
[2019-01-08] VITALS (23 sets, daily range): BP systolic 135–190; BP diastolic 55–89; PULSE 62–114; RESP 12–21; TEMP 36.6–37.1; O2SAT 92–100
[2019-01-08 06:09] LABS: Absolute Lymphocyte Count 1.22 X10^3/ul (0.83-4.51); Absolute Neutrophil Count 13.9 X10^3/uL (2.0-7.7); Basophil# 0.01 X10^3/uL; Basophil% 0.1 % (0-1); Hemoglobin 13.8 g/dl (12.0-15.0); Lymphocyte # 1.22 X10^3/ul (4.0); Lymphocyte % 7.8 % (19-41); Mean Corp Hgb Conc 31.4 g/gl (32-36); Mean Corpuscular Hgb 30.8 pg (27.0-32.0); Mean Corpuscular Volume 98.2 fL (81-99); Mean Platelet Vol. 10.6 fl (6.2-12.0); Monocyte# 0.49 X10^3/uL; Monocyte% 3.1 % (0-10); Neutrophil # 13.89 X10^3/uL (2.7-7.7); Neutrophil % 88.6 % (47-70); Platelet Count 249 K/mm3 (150-450); RBC Distribution Width CV 15.1 % (11.6-14.6); RBC Distribution Width SD 54.1 fl (35.1-43.9); Red Blood Count 4.48 M/mm3 (4.2-5.4); White Blood Count 15.7 K/mm3 (4.4-11.0)
[2019-01-08 06:24] LABS: Anion Gap 7 (5-15); BUN 29 mg/dL (7-18); BUN/Creat Ratio 30.1 RATIO (10-20); Calcium,Total 8.5 mg/dL (8.5-10.1); Chloride 94 mmol/L (98-107); Creatinine, Serum 0.96 mg/dL (0.55-1.02); EST Glomerular Filtration Rate 59 mL/min (>60); Est Glom Filt Rate - Afr Amer 71 mL/min (>60); Estimated Creatinine Clearance 66.82 ml/min; Glucose 145 mg/dL (74-106); Potassium 3.5 mmol/L (3.5-5.1); Sodium Level 142 mmol/L (136-145)
[2019-01-08 06:26] LABS: POSITIVE COUNT NO; POSITIVE DIFFERENTIAL NO; POSITIVE MORPHOLOGY NO
[2019-01-08] MEDS: Ipratropium/Albuterol Sulfate 3 ML AMPUL.NEB INHALATION ×4 (07:00→19:40)
--- NOTE | 2019-01-08 07:19 | PCM.PN.INT ---
Subjective: Patient did well overnight. No hemodynamic instability has been reported. Patient did not use noninvasive therapy overnight. Patient is back on baseline nasal cannula oxygen, but remains confused with little to no short-term memory. Patient also has been noted to be significantly weak and unable to stand without significant help. Patient was up in a chair yesterday. General: Alert, Cooperative, No apparent distress, - - Needs redirected frequently. Morbidly obese. HEENT: Atraumatic, PERRLA, EOMI, Normocephalic, - - No scleral icterus or injection noted. Oral: Moist Mucosa, No Gingival or Mucosal Lesions/ Ulcerations Neck: Supple, No Nodes, Trachea Midline, JVD, Right Lungs: No rhonchi, No wheeze, No rales, Diminished, - - Symmetric expansion. No dullness to percussion. Cardiovascular: Regular rate, Regular Rhythm, Normal S1, Normal S2, No murmurs, No rub noted, No Gallop Abdomen: Bowel Sounds Present, Soft, Non Tender, Obese Extremities: No cyanosis, Clubbing, Edema - Improving Skin: - - No significant change compared to previous Musculoskeletal: No Tenderness to Palpation of Joints or Extremities, No Muscle Wasting Lymphatic: No Cervical, Supraclavicular, or Inguinal Adenopathy Neurological: Cranial nerves II-XII grossly intact, Neuro grossly intact, Motor Exam 5/5 strength throughout Psych/Mental Status: Appropriate, Impulsive Vital Signs Temp Pulse Resp BP Pulse Ox 36.6 C 87 14 162/66 H 100 01/08/19 00:00 01/08/19 07:00 01/08/19 07:00 01/08/19 07:00 01/08/19 07:00 Oxygen Flow Rate (L/min) 3 Oxygen Delivery Method Nasal Cannula Weight: 92.1 kg Body Mass Index (BMI) 40.5 Intake and Output for Last 24 Hours 01/06/19 01/07/19 01/08/19 23:59 23:59 23:59 Intake Total 2249 / 2249 1203.1 / 1203.1 57 / 57 Output Total 2450 / 2450 3060 / 3060 1200 / 1200 Balance -201 / -201 -1856.9 / -1856.9 -1143 / -1143 Labs (Last 48 Hours) 01/06/19 01/06/19 01/07/19 11:11 18:41 00:27 WBC RBC Hgb Hct MCV MCH MCHC RDW RDW Differential Plt Count MPV Immature Gran % (Auto) Neut % (Auto) Lymph % (Auto) Page % (Auto) Eos % (Auto) Baso % (Auto) Absolute Neuts (auto) Absolute Lymphs (auto) Total Counted Specimen Type Sample Site pH Bicarbonate Actual POC Total CO2 Base Excess O2 Saturation O2 % ABG pCO2 ABG pO2 Erick Test O2 Delivery Device Vent Mode POC PEEP POC Pressure Suppt Blood Gas Notified Whom Blood Gas Notified Time Sodium Potassium Chloride Carbon Dioxide Anion Gap BUN Creatinine Estim Creat Clear Calc Est GFR (MDRD) Af Amer Est GFR (MDRD) Non-Af BUN/Creatinine Ratio Glucose Calcium POC Glucose 206 H 201 H 207 H 01/07/19 01/07/19 01/07/19 04:50 04:50 06:04 WBC 11.3 H RBC 4.35 Hgb 13.5 Hct 42.0 MCV 96.6 MCH 31.0 MCHC 32.1 RDW 15.0 H RDW Differential 52.5 H Plt Count 191 MPV 10.4 Immature Gran % (Auto) 0.200 Neut % (Auto) 90.9 H Lymph % (Auto) 6.7 L Page % (Auto) 2.2 Eos % (Auto) 0.0 Baso % (Auto) 0.0 Absolute Neuts (auto) 10.3 H Absolute Lymphs (auto) 0.76 L Total Counted Not Reportable Specimen Type Sample Site pH Bicarbonate Actual POC Total CO2 Base Excess O2 Saturation O2 % ABG pCO2 ABG pO2 Erick Test O2 Delivery Device Vent Mode POC PEEP POC Pressure Suppt Blood Gas Notified Whom Blood Gas Notified Time Sodium 139 Potassium 3.6 Chloride 94 L Carbon Dioxide 40.0 H Anion Gap 5 BUN 30 H Creatinine 0.73 Estim Creat Clear Calc 64.29 Est GFR (MDRD) Af Amer 99 Est GFR (MDRD) Non-Af 82 BUN/Creatinine Ratio 41.2 H Glucose 171 H Calcium 8.1 L POC Glucose 202 H 01/07/19 01/07/19 01/07/19 06:16 11:54 16:46 WBC RBC Hgb Hct MCV MCH MCHC RDW RDW Differential Plt Count MPV Immature Gran % (Auto) Neut % (Auto) Lymph % (Auto) Page % (Auto) Eos % (Auto) Baso % (Auto) Absolute Neuts (auto) Absolute Lymphs (auto) Total Counted Specimen Type ART Sample Site L Radial pH 7.45 Bicarbonate Actual 41.4 H POC Total CO2 43 Base Excess 17 H O2 Saturation 95 O2 % 35 ABG pCO2 59.5 H ABG pO2 76 Erick Test POS O2 Delivery Device Vent Vent Mode CPAP PS POC PEEP 5 POC Pressure Suppt 5 Blood Gas Notified Whom ICU MD Blood Gas Notified Time 610 Sodium Potassium Chloride Carbon Dioxide Anion Gap BUN Creatinine Estim Creat Clear Calc Est GFR (MDRD) Af Amer Est GFR (MDRD) Non-Af BUN/Creatinine Ratio Glucose Calcium POC Glucose 120 H 147 H 01/07/19 01/08/19 01/08/19 22:32 05:40 05:40 WBC 15.7 H RBC 4.48 Hgb 13.8 Hct 44.0 MCV 98.2 MCH 30.8 MCHC 31.4 L RDW 15.1 H RDW Differential 54.1 H Plt Count 249 MPV 10.6 Immature Gran % (Auto) 0.400 Neut % (Auto) 88.6 H Lymph % (Auto) 7.8 L Page % (Auto) 3.1 Eos % (Auto) 0.0 Baso % (Auto) 0.1 Absolute Neuts (auto) 13.9 H Absolute Lymphs (auto) 1.22 Total Counted Not Reportable Specimen Type Sample Site pH Bicarbonate Actual POC Total CO2 Base Excess O2 Saturation O2 % ABG pCO2 ABG pO2 Erick Test O2 Delivery Device Vent Mode POC PEEP POC Pressure Suppt Blood Gas Notified Whom Blood Gas Notified Time Sodium 142 Potassium 3.5 Chloride 94 L Carbon Dioxide 41.0 H Anion Gap 7 BUN 29 H Creatinine 0.96 Estim Creat Clear Calc 66.82 Est GFR (MDRD) Af Amer 71 Est GFR (MDRD) Non-Af 59 L BUN/Creatinine Ratio 30.1 H Glucose 145 H Calcium 8.5 POC Glucose 138 H Medical Necessity - Tobacco Use Smoking Status: Former smoker Tobacco Use: Cigarettes Assessment/Plan All Active Problems (Last Reviewed 01/03/19 @ 16:18 by Cristopher Lazcano DO) Hypercapnic respiratory failure (Acute) Hypokalemia (Acute) End of life care (Acute) Cough productive of yellow sputum (Acute) stem cell injection (Resolved) bladder sling (Resolved) History of cholecystectomy (Resolved) History of inguinal hernia repair (Resolved) History of hemorrhoidectomy (Resolved) H/O cataract removal with insertion of prosthetic lens (Resolved) Parotitis (Acute) Colon polyp (Acute) Vitamin B12 deficiency (Acute) Vitamin D deficiency (Acute) Allergic rhinitis (Acute) Constipation (Acute) Urinary incontinence (Acute) Dyspnea (Acute) Oral pharyngeal candidiasis (Acute) Hypoxia (Acute) Dehydration (Acute) Acute on chronic respiratory failure with hypoxia and hypercapnia (Acute) COPD exacerbation (Acute) Metabolic alkalosis (Resolved) Angioedema (Acute) History of DVT of lower extremity (Resolved) Parotitis (Resolved) RECOMMENDATIONS: 1. Continue mucolytic, bronchodilators and empiric antibiotics 2. Wean oxygen as tolerated 3. Wean steroids 4. Continues breathing and awakening trials per protocol 5. Sliding scale insulin 6. Okay to leave the intensive care unit from my perspective IMPRESSIONS: 1. Acute on chronic hypoxemic and hypercarbic respiratory failure Patient with advanced COPD by PFT criteria at baseline. Unclear etiology of patient's current exacerbation. Chest x-ray does not show any significant infiltrate, so viral etiology versus volume depletion would be suspected. Patient successfully extubated and appears to be doing well. Patient will have steroids decreased. Patient will complete antibiotic regimen. Hemodynamically stable on baseline nasal cannula oxygen. Okay to transfer from the intensive care unit from my perspective. 2. Diabetes mellitus type 2 Patient continues on empiric steroid therapy. Will need to watch blood sugars closely. Patient has had high residuals, but no bowel movements have been noted. Patient with significant diarrhea overnight, likely secondary to medications. Await bedside swallow evaluation. 3. Morbid obesity/dyslipidemia/esophageal reflux/hypertension/chronic steroids/osteopenia Complicates care, management, recovery and prognosis. Blood pressure medications will be held. Anticipate prolonged taper. Patient does have significant short-term memory loss and appears to be much weaker than baseline. Physical and Occupational Therapy are following. Clinical suspicion for rehab placement following hospitalization. Code Visit Inpatient E&M: 91338 Subs Hosp L3
[2019-01-08 07:25] LABS: Bedside Glucose 145 mg/dL (70-110)
--- NOTE | 2019-01-08 07:31 | PN_ITS ---
Patient Problems: Active and Suspected Problems (Last Reviewed 01/03/19 @ 16:18 by Cristopher Lazcano DO) Hypercapnic respiratory failure (Acute) Subjective: Patient was seen and examined. She feels better. On 3L oxygen. Denies any new complains. No fever or chills, or worsening SOB. Objective: Physical exam: General: Alert, Oriented x3, Cooperative, No apparent distress, - - on 3L oxygen HEENT: Atraumatic, PERRLA, EOMI, Normocephalic Oral: Moist Mucosa Neck: Supple Lungs: Clear to auscultation, Normal air movement Cardiovascular: Regular rate, Regular Rhythm, Normal S1, Normal S2, No murmurs Abdomen: Bowel Sounds Present, Soft, Non Tender, Non-Distended, No Hepato- splenomegaly Extremities: Edema - improving, +1 bilateral pedal edema, slight erythema of lower extremities Skin: No rashes Musculoskeletal: No Tenderness to Palpation of Joints or Extremities Lymphatic: No Cervical, Supraclavicular, or Inguinal Adenopathy Neurological: Cranial nerves II-XII grossly intact, Neuro grossly intact Psych/Mental Status: Normal Affect, Appropriate Vitals/I&O's: Vital Signs Temp Pulse Resp BP Pulse Ox 97.8 F 92 16 162/66 H 95 01/08/19 00:00 01/08/19 07:00 01/08/19 07:00 01/08/19 07:00 01/08/19 07:00 Oxygen Flow Rate (L/min) 3 Oxygen Delivery Method Nasal Cannula Weight: 92.1 kg Body Mass Index (BMI) 40.5 Intake and Output for Last 24 Hours 01/06/19 01/07/19 01/08/19 23:59 23:59 23:59 Intake Total 2249 / 2249 1203.1 / 1203.1 57 / 57 Output Total 2450 / 2450 3060 / 3060 1200 / 1200 Balance -201 / -201 -1856.9 / -1856.9 -1143 / -1143 Microbiology Past 72 Hours 01/03/19 13:25 Blood Culture (Wb) #2 - Right Forearm Blood Culture - Preliminary No growth in 48 hours. 01/03/19 13:18 Blood Culture (Wb) - Left Forearm Blood Culture - Preliminary No growth in 48 hours. 01/03/19 17:30 Sputum, Induced/Lukens Gram Stain - Final 01/03/19 17:30 Sputum, Induced/Lukens Respiratory Culture - Final Laboratory Results 01/07/19 11:54: POC Glucose 120 H 01/07/19 16:46: POC Glucose 147 H 01/07/19 22:32: POC Glucose 138 H 01/08/19 05:40: Sodium 142, Potassium 3.5, Chloride 94 L, Carbon Dioxide 41.0 H, Anion Gap 7, BUN 29 H, Creatinine 0.96, Estim Creat Clear Calc 66.82, Est GFR (MDRD) Af Amer 71, Est GFR (MDRD) Non-Af 59 L, BUN/Creatinine Ratio 30.1 H, Glu cose 145 H, Calcium 8.5 01/08/19 05:40: WBC 15.7 H, RBC 4.48, Hgb 13.8, Hct 44.0, MCV 98.2, MCH 30.8, MCHC 31.4 L, RDW 15.1 H, RDW Differential 54.1 H, Plt Count 249, MPV 10.6, Immature Gran % (Auto) 0.400, Neut % (Auto) 88.6 H, Lymph % (Auto) 7.8 L, Nolan % (Auto) 3.1, Eos % (Auto) 0.0, Baso % (Auto) 0.1, Absolute Neuts (auto) 13.9 H, Absolute Lymphs (auto) 1.22, Total Counted Not Reportable 01/08/19 07:00: POC Glucose 145 H Current Medications Acetaminophen (Tylenol Liquid) 650 mg PO Q6H PRN PRN PRN Reason: Fever > 100.4/Pain Albuterol Sulfate (Ventolin Aerosols) 2.5 mg INHALATION Q2H PRN PRN PRN Reason: SHORTNESS OF BREATH Albuterol/Ipratropium (Duoneb) 3 ml INHALATION Q4H.RT [facility] Last Admin: 01/08/19 07:00 Dose: 3 ml Aspirin (Aspirin, Baby) 81 mg PO DAILYCM [facility] Chlorhexidine Gluconate () 1 each TOPICAL DAILY [facility] Last Admin: 01/07/19 00:32 Dose: 1 each Dextrose (D50w Syringe) 0 gm IV X1 PRN; Protocol PRN Reason: Hypoglycemia Enoxaparin Sodium (Lovenox) 40 mg SC DAILY@1000 [facility] Last Admin: 01/07/19 10:09 Dose: 40 mg Famotidine (Pepcid) 20 mg PO BID [facility] Last Admin: 01/07/19 21:27 Dose: 20 mg Furosemide (Lasix) 20 mg PO BID PRN PRN Reason: Swelling Glucagon () 1 mg IM .X1 PRN PRN Reason: Hypoglycemia Heparin Sodium (Beef Lung) () 50 units IV UD PRN PRN Reason: HEPARIN FLUSH Hydralazine HCl (Apresoline Iv) 5 mg IV Q6H PRN PRN PRN Reason: BLOOD PRESSURE Last Admin: 01/07/19 00:31 Dose: 5 mg Sodium Chloride () 250 mls @ 15 mls/hr IV .[id number] PRN PRN Reason: SALINE FLUSH Last Admin: 01/04/19 04:13 Dose: 15 mls/hr Sodium Chloride () 500 mls @ 15 mls/hr IV .[id number] PRN PRN Reason: SALINE FLUSH Levofloxacin (Levaquin Iv) 250 mg in 50 mls @ 50 mls/hr IV Q24H [facility] Stop: 01/09/19 22:01 Last Admin: 01/07/19 21:26 Dose: 50 mls/hr Insulin Human Lispro (Humalog Kwikpen (Bkc)) 0 unit SQ ACHS [facility]; Protocol Last Admin: 01/08/19 07:01 Dose: Not Given Lisinopril (Zestril) 20 mg PO DAILY [facility] Magnesium Hydroxide (Milk Of Magnesia) 30 ml PO DAILY PRN PRN PRN Reason: Constipation Methylprednisolone (Solu-Medrol) 40 mg IV Q12 [facility] Metoprolol Tartrate (Lopressor (Beta Tobin)) 12.5 mg PO BID [facility] Last Admin: 01/07/19 21:27 Dose: 12.5 mg Ondansetron HCl (Zofran) 4 mg IV Q8H PRN PRN PRN Reason: Nausea Polyethylene Glycol (Miralax) 17 gm PO BID [facility] Last Admin: 01/07/19 21:28 Dose: Not Given Senna/Docusate Sodium (Senokot-S, Mini-Colace) 2 tablet PO BID [facility] Last Admin: 01/07/19 21:28 Dose: Not Given Sodium Chloride () 5 - 15 ml IV UD PRN PRN Reason: SALINE FLUSH Last Admin: 01/05/19 12:27 Dose: 10 ml Sodium Chloride () 10 - 20 ml IV UD PRN PRN Reason: PICC FLUSH Last Admin: 01/07/19 10:17 Dose: 20 ml Medical Necessity - Tobacco Use Smoking Status: Former smoker Tobacco Use: Cigarettes Assessment/Plan All Active Problems (Last Reviewed 01/03/19 @ 16:18 by Cristopher Lazcano DO) Hypercapnic respiratory failure (Acute) Hypokalemia (Acute) End of life care (Acute) Cough productive of yellow sputum (Acute) stem cell injection (Resolved) bladder sling (Resolved) History of cholecystectomy (Resolved) History of inguinal hernia repair (Resolved) History of hemorrhoidectomy (Resolved) H/O cataract removal with insertion of prosthetic lens (Resolved) Parotitis (Acute) Colon polyp (Acute) Vitamin B12 deficiency (Acute) Vitamin D deficiency (Acute) Allergic rhinitis (Acute) Constipation (Acute) Urinary incontinence (Acute) Dyspnea (Acute) Oral pharyngeal candidiasis (Acute) Hypoxia (Acute) Dehydration (Acute) Acute on chronic respiratory failure with hypoxia and hypercapnia (Acute) COPD exacerbation (Acute) Metabolic alkalosis (Resolved) Angioedema (Acute) History of DVT of lower extremity (Resolved) Parotitis (Resolved) 83-year-old female with past medical history of COPD admitted with shortness of breath, found to be in respiratory failure secondary to COPD exacerbation, emergently intubated in the emergency department and subsequently managed in ICU. She was extubated on 01/07/19 1. Acute hypercapnic respiratory failure secondary to acute COPD exacerbation, resolving Improved to 3L oxygen, will continue on breathing treatments, continue to wean off for SPO2 more than 94% 2. Acute COPD exacerbation, management as above, will consider switching to prednisone from tomorrow Stop IV Levaquin tomorrow 3. Hypertension, uncontrolled, on lisinopril 20mg, as well as metoprolol 12.5 mg Increase metoprolol to 25 mg twice daily, continue lisinopril, continue to monitor vitals 4. Type II DM, HgbA1c is 7.2, was on Onglyza at home, held on admission, Blood sugars are better controlled; elevated likely secondary to tube feeds, wOn high dose ISS for now. Will resume home Onglyza in a couple of days. 5. Hypophosphatemia, resolved 6. Leucocytosis secondary to IV steroids, will monitor 7. DVT prophylaxis with Lovenox subcu 8. GI PPx- Famotidine Code Visit Inpatient E&M: 15273 Subs Hosp L2
[2019-01-08] MEDS: Aspirin 81 MG TAB.CHEW PO (07:55)
[2019-01-08] MEDS: Famotidine 20 MG Tablet PO ×2 (09:58→21:37)
[2019-01-08] MEDS: Senna/Docusate Sodium 1 Tablet 2 TABLET PO ×2 (09:58→21:12)
[2019-01-08] MEDS: Metoprolol Tartrate 25 MG Tablet 12.5 MG PO (09:58)
[2019-01-08] MEDS: Enoxaparin 40 MG/0.4 ML Syringe SC (09:58)
[2019-01-08] MEDS: Lisinopril 20 MG Tablet PO (09:59)
[2019-01-08] MEDS: Insulin Lispro 100 UNIT/ML INSULN.PEN SQ (11:10)
[2019-01-08 11:20] LABS: Bedside Glucose 163 mg/dL (70-110)
[2019-01-08 12:24] LABS: Phosphorus 3.6 mg/dL (2.5-4.9)
[2019-01-08 18:10] LABS: Bedside Glucose 111 mg/dL (70-110)
[2019-01-08] MEDS: Metoprolol Tartrate 25 MG Tablet PO (21:12)
[2019-01-08] MEDS: Polyethylene Glycol 3350 17 GM PACKET PO (21:12)
[2019-01-08] MEDS: 0.9% NaCl PICC Flush IV ×2 (21:21→21:41)
[2019-01-08] MEDS: levoFLOXacin IV 250 MG/50 ML BAG 50 MG IV (21:47)
[2019-01-09] VITALS (9 sets, daily range): BP systolic 136–149; BP diastolic 55–61; PULSE 68–87; RESP 11–18; TEMP 36.4–37.1; O2SAT 92–98
[2019-01-09] MEDS: 0.9% NaCl PICC Flush IV (00:10)
[2019-01-09 01:01] LABS: Bedside Glucose 99 mg/dL (70-110)
--- NOTE | 2019-01-09 01:33 | NURSING ---
This RN entered pt room d/t bed exit alarming. Pt was working on getting out of bed. The RECREATION FACILITY ATTENDANT assisted pt to the bathroom. RECREATION FACILITY ATTENDANT reported that pt was diaphoretic and her lips were blue. This RN entered the room and pt was diaphoretic and working to breathe after returning to bed. Pt oxygen saturation noted to be 79% on 2L NC. Pt was bumped up to 4L. Pt oxygen saturation now 96% on 4L NC. Pt reports feeling a little short of breath at this time. No distress noted now.
--- NOTE | 2019-01-09 02:14 | EKG12_ITS ---
Test Reason : Blood Pressure : / mmHG Vent. Rate : 074 BPM Atrial Rate : 074 BPM P-R Int : 156 ms QRS Dur : 086 ms QT Int : 386 ms P-R-T Axes : 088 037 053 degrees QTc Int : 428 ms Sinus rhythm with Premature atrial complexes Low voltage QRS Borderline ECG When compared with ECG of 05-JAN-2019 17:54, MANUAL COMPARISON REQUIRED, DATA IS UNCONFIRMED Confirmed by QUINN MARTINEZ, KEVAN ([id number]), editor farm journal DHRUV HOLT ([id number]) on 01/10/2019 8:06:36 AM Referred By: Cristopher Lazcano Confirmed By:KEVAN BALL MD
[2019-01-09] MEDS: Ipratropium/Albuterol Sulfate 3 ML AMPUL.NEB INHALATION ×4 (03:10→14:58)
[2019-01-09 05:07] LABS: Anion Gap 7 (5-15); BUN 29 mg/dL (7-18); BUN/Creat Ratio 27.4 RATIO (10-20); Calcium,Total 7.9 mg/dL (8.5-10.1); Chloride 97 mmol/L (98-107); Creatinine, Serum 1.06 mg/dL (0.55-1.02); EST Glomerular Filtration Rate 53 mL/min (>60); Est Glom Filt Rate - Afr Amer 64 mL/min (>60); Estimated Creatinine Clearance 60.52 ml/min; Glucose 206 mg/dL (74-106); Potassium 3.5 mmol/L (3.5-5.1); Sodium Level 142 mmol/L (136-145)
[2019-01-09 05:56] LABS: Absolute Lymphocyte Count 0.31 X10^3/ul (0.83-4.51); Absolute Neutrophil Count 11.3 X10^3/uL (2.0-7.7); Basophil# 0.01 X10^3/uL; Basophil% 0.1 % (0-1); Hematocrit 42.3 % (37-47); Hemoglobin 13.1 g/dl (12.0-15.0); Lymphocyte # 0.31 X10^3/ul (4.0); Lymphocyte % 2.5 % (19-41); Mean Corpuscular Hgb 30.4 pg (27.0-32.0); Mean Corpuscular Volume 98.1 fL (81-99); Mean Platelet Vol. 10.8 fl (6.2-12.0); Monocyte# 0.72 X10^3/uL; Monocyte% 5.8 % (0-10); Neutrophil # 11.26 X10^3/uL (2.7-7.7); Neutrophil % 91.3 % (47-70); Platelet Count 206 K/mm3 (150-450); RBC Distribution Width CV 15.1 % (11.6-14.6); RBC Distribution Width SD 52.4 fl (35.1-43.9); Red Blood Count 4.31 M/mm3 (4.2-5.4); White Blood Count 12.3 K/mm3 (4.4-11.0)
[2019-01-09 06:10] LABS: Differential Indicated SCAN CRITERIA MET; POSITIVE COUNT NO; POSITIVE DIFFERENTIAL YES; POSITIVE MORPHOLOGY NO
[2019-01-09 06:22] LABS: Differential Comment SCANNED
[2019-01-09 07:00] LABS: Bedside Glucose 143 mg/dL (70-110)
[2019-01-09] MEDS: Famotidine 20 MG Tablet PO (09:26)
[2019-01-09] MEDS: Aspirin 81 MG TAB.CHEW PO (09:26)
[2019-01-09] MEDS: predniSONE 20 MG Tablet 40 MG PO (09:26)
[2019-01-09] MEDS: Senna/Docusate Sodium 1 Tablet 2 TABLET PO (09:27)
[2019-01-09] MEDS: Lisinopril 20 MG Tablet PO (09:27)
[2019-01-09] MEDS: Metoprolol Tartrate 25 MG Tablet PO (09:27)
[2019-01-09] MEDS: Polyethylene Glycol 3350 17 GM PACKET PO (09:28)
[2019-01-09] MEDS: Enoxaparin 40 MG/0.4 ML Syringe SC (09:29)
--- NOTE | 2019-01-09 10:02 | PCM.PN.PUL ---
Subjective: The patient was seen and examined at the bedside this morning. Events from the last 24 hours have been reviewed. The patient is currently afebrile, hemodynamically stable and maintaining appropriate oxygen saturations on 3 L/min via nasal cannula. Breathing quality has improved. Objective: The patient's most recent lab work, culture data and imaging studies have all been personally reviewed. Respiratory viral panel was negative. Sputum culture was negative. Blood cultures have shown no growth to date. - Physical Exam General: Alert, Cooperative, No apparent distress HEENT: Atraumatic, PERRLA, Normocephalic Oral: No Gingival or Mucosal Lesions/ Ulcerations Neck: Supple, No Nodes, Trachea Midline Lungs: No rhonchi, No wheeze, No rales, Diminished Cardiovascular: Regular rate, Regular Rhythm, Normal S1, Normal S2, No murmurs Abdomen: Bowel Sounds Present, Soft, Non Tender, Obese Extremities: No clubbing, No cyanosis, Edema Skin: No breakdown Musculoskeletal: No Muscle Wasting Lymphatic: No Cervical, Supraclavicular, or Inguinal Adenopathy Neurological: Neuro grossly intact Psych/Mental Status: Normal Affect, Appropriate Vital Signs Temp Pulse Resp BP Pulse Ox 36.6 C 83 12 136/61 H 98 01/09/19 08:46 01/09/19 09:27 01/09/19 08:53 01/09/19 09:27 01/09/19 08:46 Oxygen Flow Rate (L/min) 3 Oxygen Delivery Method Nasal Cannula Weight: 194 lb 0.108 oz Body Mass Index (BMI) 40.5 Intake and Output for Last 24 Hours 01/07/19 01/08/19 01/09/19 23:59 23:59 23:59 Intake Total 1203.1 / 1203.1 801 / 801 Output Total 3060 / 3060 1200 / 1200 Balance -1856.9 / -1856.9 -399 / -399 Microbiology Past 72 Hours 01/03/19 13:25 Blood Culture - Final Blood Culture (Wb) #2 - Right Forearm No growth in 5 days. 01/03/19 13:18 Blood Culture - Final Blood Culture (Wb) - Left Forearm No growth in 5 days. Laboratory Tests Past 24 Hrs 01/08/19 01/09/19 01/09/19 05:40 04:35 04:35 WBC 12.3 H RBC 4.31 Hgb 13.1 Hct 42.3 MCV 98.1 MCH 30.4 MCHC 31.0 L RDW 15.1 H RDW Differential 52.4 H Plt Count 206 MPV 10.8 Immature Gran % (Auto) 0.300 Neut % (Auto) 91.3 H Lymph % (Auto) 2.5 L [place] % (Auto) 5.8 Eos % (Auto) 0.0 Baso % (Auto) 0.1 Absolute Neuts (auto) 11.3 H Absolute Lymphs (auto) 0.31 L Total Counted Not Reportable Differential Comment SCANNED Sodium 142 Potassium 3.5 Chloride 97 L Carbon Dioxide 38.0 H Anion Gap 7 BUN 29 H Creatinine 1.06 H Estim Creat Clear Calc 60.52 Est GFR (MDRD) Af Amer 64 Est GFR (MDRD) Non-Af 53 L BUN/Creatinine Ratio 27.4 H Glucose 206 H Calcium 7.9 L Phosphorus 3.6 POC Glucose 01/09/19 01/08/19 01/08/19 06:58 21:07 17:57 POC Glucose 143 H 99 111 H 01/08/19 11:08 POC Glucose 163 H Clinical Impression(s) from Imaging Studies Brain CT 01/03/19 13:05 IMPRESSION: Chronic involutional changes of the brain. Opacification of the ethmoid sinuses bilaterally. Endotracheal tube is seen. Electronically Signed: Garrett Rivera, at 15:30 EDT , Service support , Chest X-Ray 01/03/19 13:10 IMPRESSION: Moderate cardiomegaly. No acute abnormality is seen. Electronically Signed: Garrett Rivera, at 14:03 EDT , Service support , Chest X-Ray 01/03/19 14:30 IMPRESSION: The tip of the endotracheal tube is in the right mainstem bronchus. It should be pulled back approximately 5.3 cm. Findings areas of atelectasis at left lung base. Electronically Signed: Garrett Rivera, at 14:56 EDT , Service support , Chest X-Ray 01/03/19 16:25 IMPRESSION: Satisfactory position of the endotracheal tube. Enteric tube tip in the proximal stomach. This could be advanced 5-10 cm for improved positioning. Electronically Signed: Ar Butts, at 17:12 EDT Tel , Service support , KUB X-Ray 01/03/19 21:26 IMPRESSION: The tip of the orogastric tube is in the distal portion of the stomach. Electronically Signed: Garrett Rivera, at 10:14 EDT , Service support , Medical Necessity - Tobacco Use Smoking Status: Former smoker Tobacco Use: Cigarettes Assessment/Plan All Active Problems (Last Reviewed 01/03/19 @ 16:18 by Cristopher Lazcano DO) Hypercapnic respiratory failure (Acute) End of life care (Acute) Cough productive of yellow sputum (Acute) stem cell injection (Resolved) bladder sling (Resolved) History of cholecystectomy (Resolved) History of inguinal hernia repair (Resolved) History of hemorrhoidectomy (Resolved) H/O cataract removal with insertion of prosthetic lens (Resolved) Parotitis (Acute) Colon polyp (Acute) Vitamin B12 deficiency (Acute) Vitamin D deficiency (Acute) Allergic rhinitis (Acute) Urinary incontinence (Acute) Dyspnea (Acute) Oral pharyngeal candidiasis (Acute) Hypoxia (Acute) Dehydration (Acute) Acute on chronic respiratory failure with hypoxia and hypercapnia (Acute) COPD exacerbation (Acute) Metabolic alkalosis (Resolved) Angioedema (Acute) History of DVT of lower extremity (Resolved) Parotitis (Resolved) RECOMMENDATIONS: 1. Continue bronchodilators and empiric antibiotics to complete treatment course. 2. Continue prednisone 40 mg daily, with plans to wean by 10 mg every 3 days. 3. Wean supplemental oxygen as tolerated. 4. Perform walking oximetry study prior to consideration for discharge from the hospital. 5. Outpatient pulmonary follow-up is recommended within 2 weeks of discharge. IMPRESSIONS: 1. Acute on chronic hypoxemic and hypercarbic respiratory failure The patient has advanced COPD by PFT criteria at baseline. She is currently maintaining appropriate oxygen saturations at her baseline requirement. Although bacterial cultures were negative, will plan to continue antibiotics empirically to complete a 7-day treatment course. Continue volume optimization with diuretics as ordered. Wean supplemental oxygen as tolerated. Encourage incentive spirometer use and mobilize patient as tolerated. The patient's prednisone can be weaned by 10 mg every 3 days. I do recommend that she follow-up in the pulmonary medicine clinic within 2 weeks of her discharge from the hospital. 2. Diabetes mellitus type 2 Continue sliding scale insulin coverage. 3. Morbid obesity/dyslipidemia/esophageal reflux/hypertension/chronic steroids/osteopenia Complicates care, management, recovery and prognosis. Likely okay to continue home medications. This note was generated with [employer] dictation software. It may contain incorrect words, spelling, and punctuation that were not noted in checking the note before signing. Code Visit Inpatient E&M: 32511 Subs Hosp L2
--- NOTE | 2019-01-09 10:06 | PN_ITS ---
Subjective: The patient was seen and examined at the bedside this morning. Events from the last 24 hours have been reviewed. The patient is currently afebrile, hemodynamically stable and maintaining appropriate oxygen saturations on 3 L/min via nasal cannula. Breathing quality has improved. Objective: The patient's most recent lab work, culture data and imaging studies have all been personally reviewed. Respiratory viral panel was negative. Sputum culture was negative. Blood cultures have shown no growth to date. - Physical Exam General: Alert, Cooperative, No apparent distress HEENT: Atraumatic, PERRLA, Normocephalic Oral: No Gingival or Mucosal Lesions/ Ulcerations Neck: Supple, No Nodes, Trachea Midline Lungs: No rhonchi, No wheeze, No rales, Diminished Cardiovascular: Regular rate, Regular Rhythm, Normal S1, Normal S2, No murmurs Abdomen: Bowel Sounds Present, Soft, Non Tender, Obese Extremities: No clubbing, No cyanosis, Edema Skin: No breakdown Musculoskeletal: No Muscle Wasting Lymphatic: No Cervical, Supraclavicular, or Inguinal Adenopathy Neurological: Neuro grossly intact Psych/Mental Status: Normal Affect, Appropriate Vital Signs Temp Pulse Resp BP Pulse Ox 36.6 C 83 12 136/61 H 98 01/09/19 08:46 01/09/19 09:27 01/09/19 08:53 01/09/19 09:27 01/09/19 08:46 Oxygen Flow Rate (L/min) 3 Oxygen Delivery Method Nasal Cannula Weight: 194 lb 0.108 oz Body Mass Index (BMI) 40.5 Intake and Output for Last 24 Hours 01/07/19 01/08/19 01/09/19 23:59 23:59 23:59 Intake Total 1203.1 / 1203.1 801 / 801 Output Total 3060 / 3060 1200 / 1200 Balance -1856.9 / -1856.9 -399 / -399 Microbiology Past 72 Hours 01/03/19 13:25 Blood Culture - Final Blood Culture (Wb) #2 - Right Forearm No growth in 5 days. 01/03/19 13:18 Blood Culture - Final Blood Culture (Wb) - Left Forearm No growth in 5 days. Laboratory Tests Past 24 Hrs 01/08/19 01/09/19 01/09/19 05:40 04:35 04:35 WBC 12.3 H RBC 4.31 Hgb 13.1 Hct 42.3 MCV 98.1 MCH 30.4 MCHC 31.0 L RDW 15.1 H RDW Differential 52.4 H Plt Count 206 MPV 10.8 Immature Gran % (Auto) 0.300 Neut % (Auto) 91.3 H Lymph % (Auto) 2.5 L [place] % (Auto) 5.8 Eos % (Auto) 0.0 Baso % (Auto) 0.1 Absolute Neuts (auto) 11.3 H Absolute Lymphs (auto) 0.31 L Total Counted Not Reportable Differential Comment SCANNED Sodium 142 Potassium 3.5 Chloride 97 L Carbon Dioxide 38.0 H Anion Gap 7 BUN 29 H Creatinine 1.06 H Estim Creat Clear Calc 60.52 Est GFR (MDRD) Af Amer 64 Est GFR (MDRD) Non-Af 53 L BUN/Creatinine Ratio 27.4 H Glucose 206 H Calcium 7.9 L Phosphorus 3.6 POC Glucose 01/09/19 01/08/19 01/08/19 06:58 21:07 17:57 POC Glucose 143 H 99 111 H 01/08/19 11:08 POC Glucose 163 H Clinical Impression(s) from Imaging Studies Brain CT 01/03/19 13:05 IMPRESSION: Chronic involutional changes of the brain. Opacification of the ethmoid sinuses bilaterally. Endotracheal tube is seen. Electronically Signed: Garrett Rivera, at 15:30 EDT , Service support , Chest X-Ray 01/03/19 13:10 IMPRESSION: Moderate cardiomegaly. No acute abnormality is seen. Electronically Signed: Garrett Rivera, at 14:03 EDT , Service support , Chest X-Ray 01/03/19 14:30 IMPRESSION: The tip of the endotracheal tube is in the right mainstem bronchus. It should be pulled back approximately 5.3 cm. Findings areas of atelectasis at left lung base. Electronically Signed: Garrett Rivera, at 14:56 EDT , Service support , Chest X-Ray 01/03/19 16:25 IMPRESSION: Satisfactory position of the endotracheal tube. Enteric tube tip in the proximal stomach. This could be advanced 5-10 cm for improved positioning. Electronically Signed: Ar Butts, at 17:12 EDT Tel , Service support , KUB X-Ray 01/03/19 21:26 IMPRESSION: The tip of the orogastric tube is in the distal portion of the stomach. Electronically Signed: Garrett Rivera, at 10:14 EDT , Service support , Medical Necessity - Tobacco Use Smoking Status: Former smoker Tobacco Use: Cigarettes Assessment/Plan All Active Problems (Last Reviewed 01/03/19 @ 16:18 by Cristopher Lazcano DO) Hypercapnic respiratory failure (Acute) End of life care (Acute) Cough productive of yellow sputum (Acute) stem cell injection (Resolved) bladder sling (Resolved) History of cholecystectomy (Resolved) History of inguinal hernia repair (Resolved) History of hemorrhoidectomy (Resolved) H/O cataract removal with insertion of prosthetic lens (Resolved) Parotitis (Acute) Colon polyp (Acute) Vitamin B12 deficiency (Acute) Vitamin D deficiency (Acute) Allergic rhinitis (Acute) Urinary incontinence (Acute) Dyspnea (Acute) Oral pharyngeal candidiasis (Acute) Hypoxia (Acute) Dehydration (Acute) Acute on chronic respiratory failure with hypoxia and hypercapnia (Acute) COPD exacerbation (Acute) Metabolic alkalosis (Resolved) Angioedema (Acute) History of DVT of lower extremity (Resolved) Parotitis (Resolved) RECOMMENDATIONS: 1. Continue bronchodilators and empiric antibiotics to complete treatment course. 2. Continue prednisone 40 mg daily, with plans to wean by 10 mg every 3 days. 3. Wean supplemental oxygen as tolerated. 4. Perform walking oximetry study prior to consideration for discharge from the hospital. 5. Outpatient pulmonary follow-up is recommended within 2 weeks of discharge. IMPRESSIONS: 1. Acute on chronic hypoxemic and hypercarbic respiratory failure The patient has advanced COPD by PFT criteria at baseline. She is currently maintaining appropriate oxygen saturations at her baseline requirement. Although bacterial cultures were negative, will plan to continue antibiotics empirically to complete a 7-day treatment course. Continue volume optimization with diuretics as ordered. Wean supplemental oxygen as tolerated. Encourage incentive spirometer use and mobilize patient as tolerated. The patient's prednisone can be weaned by 10 mg every 3 days. I do recommend that she follow- up in the pulmonary medicine clinic within 2 weeks of her discharge from the hospital. 2. Diabetes mellitus type 2 Continue sliding scale insulin coverage. 3. Morbid obesity/dyslipidemia/esophageal reflux/hypertension/chronic steroids/osteopenia Complicates care, management, recovery and prognosis. Likely okay to continue home medications. This note was generated with [employer] dictation software. It may contain incorrect words, spelling, and punctuation that were not noted in checking the note before signing. Code Visit Inpatient E&M: 93946 Subs Hosp L2
--- NOTE | 2019-01-09 11:27 | PN_ITS ---
<Epifanio James - Last Filed: 01/09/19 11:19> Patient Problems: Active and Suspected Problems (Last Reviewed 01/03/19 @ 16:18 by Cristopher Lazcano DO) Hypercapnic respiratory failure (Acute) Subjective: Pt is at her baseline O2. She is overall improved with regards to her SOB. She has no cough, fevers/chills, CP, LE edema. She is deciding on home vs skilled rehab. wants her to go to SNF, unsure about if he feels safe with her at home. - Physical Exam General: Alert, Oriented x3, Cooperative HEENT: Atraumatic, PERRLA, EOMI, Normocephalic Neck: Supple, No JVD, Negative Carotid Bruits Lungs: Diminished - severely diminished throughout Cardiovascular: Regular rate, No murmurs Abdomen: Bowel Sounds Present, Soft, Non Tender Extremities: No edema, Capillary Refill Less than 3 Seconds Skin: No rashes, No breakdown Musculoskeletal: No Tenderness to Palpation of Joints or Extremities Neurological: Cranial nerves II-XII grossly intact Psych/Mental Status: Normal Affect, Appropriate, Alert and oriented to time, place, person, mood and affect Vital Signs Temp Pulse Resp BP Pulse Ox 98 F 83 12 136/61 H 98 01/09/19 08:46 01/09/19 09:27 01/09/19 08:53 01/09/19 09:27 01/09/19 08:46 Oxygen Flow Rate (L/min) 3 Oxygen Delivery Method Nasal Cannula Weight: 194 lb 0.108 oz Body Mass Index (BMI) 40.5 Intake and Output for Last 24 Hours 01/07/19 01/08/19 01/09/19 23:59 23:59 23:59 Intake Total 1203.1 / 1203.1 801 / 801 Output Total 3060 / 3060 1200 / 1200 Balance -1856.9 / -1856.9 -399 / -399 Microbiology Past 72 Hours 01/03/19 13:25 Blood Culture - Final Blood Culture (Wb) #2 - Right Forearm No growth in 5 days. 01/03/19 13:18 Blood Culture - Final Blood Culture (Wb) - Left Forearm No growth in 5 days. Laboratory Tests Past 24 Hrs 01/08/19 01/09/19 01/09/19 05:40 04:35 04:35 WBC 12.3 H RBC 4.31 Hgb 13.1 Hct 42.3 MCV 98.1 MCH 30.4 MCHC 31.0 L RDW 15.1 H RDW Differential 52.4 H Plt Count 206 MPV 10.8 Immature Gran % (Auto) 0.300 Neut % (Auto) 91.3 H Lymph % (Auto) 2.5 L [place] % (Auto) 5.8 Eos % (Auto) 0.0 Baso % (Auto) 0.1 Absolute Neuts (auto) 11.3 H Absolute Lymphs (auto) 0.31 L Total Counted Not Reportable Differential Comment SCANNED Sodium 142 Potassium 3.5 Chloride 97 L Carbon Dioxide 38.0 H Anion Gap 7 BUN 29 H Creatinine 1.06 H Estim Creat Clear Calc 60.52 Est GFR (MDRD) Af Amer 64 Est GFR (MDRD) Non-Af 53 L BUN/Creatinine Ratio 27.4 H Glucose 206 H Calcium 7.9 L Phosphorus 3.6 POC Glucose 01/09/19 01/08/19 01/08/19 06:58 21:07 17:57 POC Glucose 143 H 99 111 H 01/08/19 11:08 POC Glucose 163 H Medical Necessity - Tobacco Use Smoking Status: Former smoker Tobacco Use: Cigarettes Assessment/Plan All Active Problems (Last Reviewed 01/03/19 @ 16:18 by Cristopher Lazcano DO) Hypercapnic respiratory failure (Acute) Hypokalemia (Acute) End of life care (Acute) Cough productive of yellow sputum (Acute) stem cell injection (Resolved) bladder sling (Resolved) History of cholecystectomy (Resolved) History of inguinal hernia repair (Resolved) History of hemorrhoidectomy (Resolved) H/O cataract removal with insertion of prosthetic lens (Resolved) Parotitis (Acute) Colon polyp (Acute) Vitamin B12 deficiency (Acute) Vitamin D deficiency (Acute) Allergic rhinitis (Acute) Constipation (Acute) Urinary incontinence (Acute) Dyspnea (Acute) Oral pharyngeal candidiasis (Acute) Hypoxia (Acute) Dehydration (Acute) Acute on chronic respiratory failure with hypoxia and hypercapnia (Acute) COPD exacerbation (Acute) Metabolic alkalosis (Resolved) Angioedema (Acute) History of DVT of lower extremity (Resolved) Parotitis (Resolved) 1. Acute hypercapneic respiratory failure 2/2 acute COPD exacerbation - resolved. O2 back to baseline. PO prednisone taper. s/p intubation/ICU stay. Completed 5 days levaquin. 2. HTN - improved. 3. T2DM - a1c 7.2, resume onglyza at dc, continue current ISS 4. Low phos - repleted, resolved 5. Dysphagia - regular solids, nectar thickened liquids. DVT ppx: lovenox DC planning: home vs SNF This patient was seen by Epifanio James PA-C under the supervision of Dr. Whitney <Damian Whitney - Last Filed: 01/09/19 11:44> - Physical Exam Vital Signs Temp Pulse Resp BP Pulse Ox 98 F 83 12 136/61 H 98 01/09/19 08:46 01/09/19 09:27 01/09/19 08:53 01/09/19 09:27 01/09/19 08:46 Oxygen Flow Rate (L/min) 3 Oxygen Delivery Method Nasal Cannula Weight: 88 kg Body Mass Index (BMI) 40.5 Intake and Output for Last 24 Hours 01/07/19 01/08/19 01/09/19 23:59 23:59 23:59 Intake Total 1203.1 / 1203.1 801 / 801 Output Total 3060 / 3060 1200 / 1200 Balance -1856.9 / -1856.9 -399 / -399 Microbiology Past 72 Hours 01/03/19 13:25 Blood Culture - Final Blood Culture (Wb) #2 - Right Forearm No growth in 5 days. 01/03/19 13:18 Blood Culture - Final Blood Culture (Wb) - Left Forearm No growth in 5 days. Laboratory Tests Past 24 Hrs 01/08/19 01/09/19 01/09/19 05:40 04:35 04:35 WBC 12.3 H RBC 4.31 Hgb 13.1 Hct 42.3 MCV 98.1 MCH 30.4 MCHC 31.0 L RDW 15.1 H RDW Differential 52.4 H Plt Count 206 MPV 10.8 Immature Gran % (Auto) 0.300 Neut % (Auto) 91.3 H Lymph % (Auto) 2.5 L [place] % (Auto) 5.8 Eos % (Auto) 0.0 Baso % (Auto) 0.1 Absolute Neuts (auto) 11.3 H Absolute Lymphs (auto) 0.31 L Total Counted Not Reportable Differential Comment SCANNED Sodium 142 Potassium 3.5 Chloride 97 L Carbon Dioxide 38.0 H Anion Gap 7 BUN 29 H Creatinine 1.06 H Estim Creat Clear Calc 60.52 Est GFR (MDRD) Af Amer 64 Est GFR (MDRD) Non-Af 53 L BUN/Creatinine Ratio 27.4 H Glucose 206 H Calcium 7.9 L Phosphorus 3.6 POC Glucose 01/09/19 01/08/19 01/08/19 06:58 21:07 17:57 POC Glucose 143 H 99 111 H Assessment/Plan This patient was seen in conjunction with Epifanio James PA-C . I have independently interviewed and examined the patient and reviewed pertinent historical, laboratory, and other data. Please refer to Epifanio James PA-C note for details of this patient's presentation, findings, and recommendations. I have reviewed Epifanio James PA-C note and concur with documented findings. In brief, patient- 83 year-old lady who presented with progressive shortness of breath. An assessment of acute hypoxic respiratory failure secondary to COPD with acute exacerbation was made. Patient intubated and managed in the ICU transferred to PCU following extubation Physical Examination: GENERAL: cooperative HEENT: Atraumatic; moist oral mucosa EYES; Anicteric, Normal Conjunctiva NECK; supple, normal thyroid, RESPIRATORY: Diminished to auscultation bilaterally, CARDIOVASCULAR: Regular S1 S2, NEURO: Awake; no lateralizing signs. SKIN: No Rash PSYCH; Normal affect Assessment: Keep 1. Acute hypoxic and hypercapnic respiratory failure status post intubation and subsequent extubation 2. COPD with acute exacerbation 3. Hypertension 4. Diabetes mellitus type 2 5. Hypophosphatemia 6. Dysphagia 7. Physical deconditioning 8. Morbid obesity with BMI of 38 9. DVT prophylaxis SC Lovenox Recommendations: 1. I have discussed the results of my overview and impressions with the patient 2. Options for management were reviewed Code Visit Inpatient E&M: 19632 Subs Hosp L3
[2019-01-09 12:10] LABS: Bedside Glucose 121 mg/dL (70-110)
--- NOTE | 2019-01-09 13:06 | CASEMGMT ---
Social work: Met with patient in room. Patient aware that physician and therapy staff are recommending short term SNF placement for continued therapy for strengthening. Patient agreeable to placement but does not have a preference to which facility. Patient giving this SW permission to contact to discuss D/C planning. Spoke with patient's in private waiting area. Patient's agreeable to SNF placement and choosing [facility] as first choice. Support given as patient's is expressing concerns about family issues. Will continue to follow for D/C planning and emotional support. TC to Julia at [facility]. Julia states that they will review clinicals. Referral faxed to [facility] for review. BILL Donovan
--- NOTE | 2019-01-09 15:08 | PCM.EXTCARCO ---
- Diet 01/07/19 13:37 Diet: Regular Diet Food consistency:: Regular Liquid Consistency:: Regular/Thin Is pt able to select menu?: No Diet Comments: Distaint supervision; meds whole w/ purees - Routine Orders/Code Status Suppository Type: Dulcolax 10mg Suppository Frequency: Daily PRN O2 Frequency: Continuous Keep PO Greater than or Equal to (%): 89 Routine Lab Work: CBC - 5 days, BMP - 3 days Code Status: Full Code - Wound(s) L buttock Wound Type: Pressure Injury - Therapies Physical Therapy: Eval and Treat Occupational Therapy: Eval and Treat Speech Therapy: Eval and Treat - Problem/Diagnosis (1) Acute on chronic respiratory failure with hypoxia and hypercapnia Status: Acute Current Visit: No (2) Hypercapnic respiratory failure Status: Acute Current Visit: Yes (3) COPD exacerbation Status: Chronic Current Visit: Yes (4) Dysphagia Status: Chronic Current Visit: Yes (5) Constipation Status: Chronic Current Visit: No (6) Hypokalemia Status: Chronic Current Visit: No (7) Carotid stenosis Status: Chronic Current Visit: No (8) Diabetes mellitus type 2 in obese Status: Chronic Current Visit: No (9) Dyslipidemia Status: Chronic Current Visit: No (10) Esophageal reflux Status: Chronic Current Visit: No (11) Essential hypertension Status: Chronic Current Visit: No (12) Former smoker Status: Chronic Current Visit: No - Allergies/Procedures Done in Hospital Allergies/Adverse Reactions: Allergies bee venom protein (honey bee) Allergy (Severe, Verified 01/03/19 16:50) Anaphylaxis LEATHA Inhibitors Allergy (Verified 01/03/19 16:50) Unknown latex Allergy (Verified 11/11/18 09:49) Itching Sulfa (Sulfonamide Antibiotics) Allergy (Verified 11/11/18 09:49) PT CAN'T REMEMBER budesonide [From Symbicort] Adverse Reaction (Verified 11/11/18 09:49) SORES IN MOUTH fluticasone [From Advair Diskus] Adverse Reaction (Verified 11/11/18 09:49) SORES IN MOUTH formoterol [From Symbicort] Adverse Reaction (Verified 11/11/18 09:49) SORES IN MOUTH ipratropium Adverse Reaction (Verified 11/11/18 09:49) SORES IN MOUTH salmeterol [From Advair Diskus] Adverse Reaction (Verified 11/11/18 09:49) SORES IN MOUTH BREATHING TREATMENTS Adverse Reaction (Uncoded 11/11/18 09:49) SORES IN MOUTH Procedures: Intubation - Type of Care/Length of Stay Estimated LOS: Convalescent Care Less Than 30 days Type of Care Needed: Skilled Rehab Potential: Fair Prognosis: Fair - Additional Orders/Day of Discharge Day of Discharge: 01/09/19 - Dietary and Speech Recommendations Dietitian Recommendations/Changes: Suggest therapeutic diet change to 1600 calorie/cardiac with texture/consistency as per speech. - Follow Up Care Primary Care Physician: Arianna Beyer MD [Primary Care Provider] - Please follow up with your Primary Care Physician in: 1-2 weeks Please Follow Up With: Leandro Gamboa MD When: 2 weeks
--- NOTE | 2019-01-09 15:12 | PCM.DC.SUM ---
<Epifanio James - Last Filed: 01/09/19 15:12> Discharge Date and Diagnosis - Problem List Patient Problems: Active and Suspected Problems (Last Reviewed 01/03/19 @ 16:18 by Cristopher Lazcano DO) Hypercapnic respiratory failure (Acute) Date of Admission: 01/03/19 Date of Discharge: 01/09/19 - Primary Discharge Diagnosis Active and Suspected Problems (Last Reviewed 01/03/19 @ 16:18 by Cristopher Lazcano DO) Acute on chronic hypoxic hypercapnic respiratory failure secondary to acute COPD exacerbation Dysphagia Former smoker Type 2 diabetes mellitus Hyperlipidemia Hypertension GERD - Secondary Discharge Diagnosis Chronic Problems (Last Reviewed 01/03/19 @ 16:18 by Cristopher Lazcano DO) COPD exacerbation (Chronic) Dysphagia (Chronic) Hypokalemia (Chronic) Hypercholesteremia (Chronic) Plasma cell disorder (Chronic) Carotid stenosis (Chronic) Constipation (Chronic) Osteopenia (Chronic) Lung nodule (Chronic) Hypersomnia (Chronic) 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 Opacification of the ethmoid sinuses bilaterally. Endotracheal tube is seen. RAD/Chest 1 View (Portable) IMPRESSION: Moderate cardiomegaly. No acute abnormality is seen. RAD/Chest 1 View (Portable) IMPRESSION: The tip of the endotracheal tube is in the right mainstem bronchus. It should be pulled back approximately 5.3 cm. Findings areas of atelectasis at left lung base. RAD/Chest 1 View (Portable) IMPRESSION: Satisfactory position of the endotracheal tube. Enteric tube tip in the proximal stomach. This could be advanced 5-10 cm for improved positioning. RAD/Abdomen Single View IMPRESSION: The tip of the orogastric tube is in the distal portion of the stomach. Consultations: Cooper/Carlos-pulmonology Operations: None Procedures: Intubation Summary of Care Provided: Hospital Course: The patient is a 83 year old F with past medical history of COPD, chronic hypoxic respiratory failure on 3 L/min oxygen chronically at home, hyperlipidemia, hypertension, former smoker who presented the emergency room with increased shortness of breath, also fell at home hitting her head. She was found to be hypoxic requiring nonrebreather mask, and ABG revealed significant hypercarbia with PCO2 of 130. She also had leukocytosis, negative chest x-ray, and initially without fever, however later she did develop a fever. She was intubated, OG tube placed, placed in the ICU. She was treated with aerosols, Levaquin, Solu-Medrol, mechanical ventilation. She was able to be extubated successfully, and transitioned to the PCU. She remained stable following extubation. She was weaned to her baseline O2 level. She had some dysphagia and required a modified diet initially, however later she was transitioned to normal mechanical and thin liquids, although she still requires supervision with feeding. She will need two more doses of levaquin to complete a 7 day course. She will need to complete a prednisone oral taper. She will continue O2 at night and during the day. She will continue aerosol therapy. She remained somewhat debilitated and her did not feel she was safe at home. [facility] She will need follow up with pulmonology in two weeks and with her PCP in 1-2 weeks. This patient was seen by Epifanio James PA-C under the supervision of Dr. Whitney. [] Patient Problems: Active and Suspected Problems (Last Reviewed 01/03/19 @ 16:18 by Cristopher Lazcano DO) Hypercapnic respiratory failure (Acute) - Physical Exam General: Alert, Oriented x3, Cooperative HEENT: Atraumatic, PERRLA, EOMI, Normocephalic Neck: Supple, No JVD, Negative Carotid Bruits Lungs: Diminished Cardiovascular: Regular rate, No murmurs Abdomen: Bowel Sounds Present, Soft, Non Tender Extremities: No edema, Capillary Refill Less than 3 Seconds Skin: No rashes, No breakdown Musculoskeletal: No Tenderness to Palpation of Joints or Extremities Neurological: Cranial nerves II-XII grossly intact Psych/Mental Status: Normal Affect, Appropriate, Alert and oriented to time, place, person, mood and affect Vital Signs Temp Pulse Resp BP Pulse Ox 98 F 75 16 136/61 H 98 01/09/19 08:46 01/09/19 11:30 01/09/19 11:30 01/09/19 09:27 01/09/19 11:30 Oxygen Flow Rate (L/min) 3 Oxygen Delivery Method Nasal Cannula Weight: 194 lb 0.108 oz Body Mass Index (BMI) 40.5 Intake and Output for Last 24 Hours 01/07/19 01/08/19 01/09/19 23:59 23:59 23:59 Intake Total 1203.1 / 1203.1 801 / 801 750 / 750 Output Total 3060 / 3060 1200 / 1200 475 / 475 Balance -1856.9 / -1856.9 -399 / -399 275 / 275 Microbiology Past 72 Hours 01/03/19 13:25 Blood Culture - Final Blood Culture (Wb) #2 - Right Forearm No growth in 5 days. 01/03/19 13:18 Blood Culture - Final Blood Culture (Wb) - Left Forearm No growth in 5 days. Laboratory Tests Past 24 Hrs 01/09/19 01/09/19 04:35 04:35 WBC 12.3 H RBC 4.31 Hgb 13.1 Hct 42.3 MCV 98.1 MCH 30.4 MCHC 31.0 L RDW 15.1 H RDW Differential 52.4 H Plt Count 206 MPV 10.8 Immature Gran % (Auto) 0.300 Neut % (Auto) 91.3 H Lymph % (Auto) 2.5 L [place] % (Auto) 5.8 Eos % (Auto) 0.0 Baso % (Auto) 0.1 Absolute Neuts (auto) 11.3 H Absolute Lymphs (auto) 0.31 L Total Counted Not Reportable Differential Comment SCANNED Sodium 142 Potassium 3.5 Chloride 97 L Carbon Dioxide 38.0 H Anion Gap 7 BUN 29 H Creatinine 1.06 H Estim Creat Clear Calc 60.52 Est GFR (MDRD) Af Amer 64 Est GFR (MDRD) Non-Af 53 L BUN/Creatinine Ratio 27.4 H Glucose 206 H Calcium 7.9 L POC Glucose 01/09/19 01/09/19 01/08/19 11:46 06:58 21:07 POC Glucose 121 H 143 H 99 01/08/19 17:57 POC Glucose 111 H Discharge Diet: Low fat/ Low Cholesterol, 1800 Calorie Control Diet, 2000 mg Sodium Diet Discharge Activity: Return to Normal Activity Home Medications: Medications to take at Discharge Oxygen, Home [Home Oxygen] 2 lpm NASAL DAILY 04/08/15 Tolterodine Tartrate 4 mg PO DAILY 12/02/16 Rabeprazole Sodium [Aciphex] 20 mg PO DAILY 09/15/17 Red Yeast Rice 600 mg PO DAILY 09/15/17 epinephrine 0.3 mg/0.3 mL injection, auto-injector 0.5 mg IM Q10-15M PRN 10/28/17 vit C,E,zinc,copper-[id number] 250 mg-lutein 5 mg-zeaxanthin 1 mg capsule 1 cap PO DAILY 10/28/17 acetaminophen 325 mg capsule 325 mg PO TID PRN cap 04/21/18 Furosemide [Lasix] 20 mg PO BID PRN 01/03/19 Saxagliptin HCl [Onglyza] 5 mg PO DAILY 01/03/19 Albuterol Aerosols [Ventolin Aerosols] 2.5 mg INHALATION Q2H PRN PRN vial.neb. 01/09/19 Aspirin [Aspirin, Baby] 81 mg PO DAILYCM tab.chew 01/09/19 Famotidine [Pepcid] 20 mg PO BID tablet 01/09/19 Ipratropium/Albuterol Sulfate [Duoneb] 3 ml INHALATION Q4H.RT ampul.neb 01/09/19 Lisinopril [Zestril] 20 mg PO DAILY tablet 01/09/19 Magnesium Hydroxide [Milk Of Magnesia] 30 ml PO DAILY PRN PRN udc 01/09/19 Metoprolol Tartrate [Lopressor (beta hiram)] 25 mg PO BID tablet 01/09/19 Polyethylene Glycol 3350 [Miralax] 17 gm PO BID packet 01/09/19 Prednisone 10 mg PO UD #26 tablet 01/09/19 Senna/Docusate Sodium [Senokot-S] 2 tablet PO BID tablet 01/09/19 levoFLOXacin tablet [Levaquin tablet] 250 mg PO DAILY #2 tablet 01/09/19 Following Prescrptions Were Given to Patient: levoFLOXacin tablet [Levaquin tablet] 250 mg PO DAILY #2 tablet Prednisone 10 mg PO UD #26 tablet Primary Care Physician: Arianna Beyer MD [Primary Care Provider] - Please follow up with your Primary Care Physician in: 1-2 weeks Please Follow Up With: Leandro Gamboa MD When: 2 weeks Disposition: [facility] facility Minutes spent on discharge:: 40 Patient Condition:: Stable Medical Necessity - Tobacco Use Smoking Status: Former smoker Tobacco Use: Cigarettes Meaningful Use Info Meaningful Use Diagnoses (Choose all that apply): None applicable <Damian Whitney - Last Filed: 01/09/19 16:03> Discharge Date and Diagnosis - Primary Discharge Diagnosis Active and Suspected Problems (Last Reviewed 01/03/19 @ 16:18 by Cristopher Lazcano DO) Hypercapnic respiratory failure (Acute) - Secondary Discharge Diagnosis Chronic Problems (Last Reviewed 01/03/19 @ 16:18 by Critsopher Lazcano DO) COPD exacerbation (Chronic) Dysphagia (Chronic) Hypokalemia (Chronic) Hypercholesteremia (Chronic) Plasma cell disorder (Chronic) Carotid stenosis (Chronic) Constipation (Chronic) Osteopenia (Chronic) Lung nodule (Chronic) Hypersomnia (Chronic) 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 classification (Chronic) Abdominal hernia (Chronic) Obesity (BMI 35.0-39.9 without comorbidity) (Chronic) Chronic respiratory failure with hypoxia and hypercapnia (Chronic) COLD (chronic obstructive lung disease) (Chronic) Dyslipidemia (Chronic) Esophageal reflux (Chronic) Essential hypertension (Chronic) Former smoker (Chronic) Diabetes mellitus type 2 in obese (Chronic) Hospital Course and Treatment Summary of Care Provided: This patient was seen in conjunction with Epifanio James PA-C . I have independently interviewed and examined the patient and reviewed pertinent historical, laboratory, and other data. Please refer to Epifanio James PA-C note for details of this patient's presentation, findings, and recommendations. I have reviewed Epifanio James PA-C note and concur with documented findings. In brief, patient- 83 year-old lady who presented with progressive shortness of breath. An assessment of acute hypoxic respiratory failure secondary to COPD with acute exacerbation was made. Patient intubated and managed in the ICU transferred to PCU following extubation Assessment: Keep 1. Acute hypoxic and hypercapnic respiratory failure status post intubation and subsequent extubation 2. COPD with acute exacerbation 3. Hypertension 4. Diabetes mellitus type 2 5. Hypophosphatemia 6. Dysphagia 7. Physical deconditioning 8. Morbid obesity with BMI of 38 9. DVT prophylaxis SC Lovenox Hospital course ; As documented by Epifanio James PA-C - Physical Exam Vital Signs Temp Pulse Resp BP Pulse Ox 98.8 F 87 18 144/55 H 94 01/09/19 15:22 01/09/19 15:22 01/09/19 15:22 01/09/19 15:22 01/09/19 15:22 Oxygen Flow Rate (L/min) 3 Oxygen Delivery Method Nasal Cannula Weight: 88 kg Body Mass Index (BMI) 40.5 Intake and Output for Last 24 Hours 01/07/19 01/08/19 01/09/19 23:59 23:59 23:59 Intake Total 1203.1 / 1203.1 801 / 801 750 / 750 Output Total 3060 / 3060 1200 / 1200 475 / 475 Balance -1856.9 / -1856.9 -399 / -399 275 / 275 Microbiology Past 72 Hours 01/03/19 13:25 Blood Culture - Final Blood Culture (Wb) #2 - Right Forearm No growth in 5 days. 01/03/19 13:18 Blood Culture - Final Blood Culture (Wb) - Left Forearm No growth in 5 days. Laboratory Tests Past 24 Hrs 01/09/19 01/09/19 04:35 04:35 WBC 12.3 H RBC 4.31 Hgb 13.1 Hct 42.3 MCV 98.1 MCH 30.4 MCHC 31.0 L RDW 15.1 H RDW Differential 52.4 H Plt Count 206 MPV 10.8 Immature Gran % (Auto) 0.300 Neut % (Auto) 91.3 H Lymph % (Auto) 2.5 L [place] % (Auto) 5.8 Eos % (Auto) 0.0 Baso % (Auto) 0.1 Absolute Neuts (auto) 11.3 H Absolute Lymphs (auto) 0.31 L Total Counted Not Reportable Differential Comment SCANNED Sodium 142 Potassium 3.5 Chloride 97 L Carbon Dioxide 38.0 H Anion Gap 7 BUN 29 H Creatinine 1.06 H Estim Creat Clear Calc 60.52 Est GFR (MDRD) Af Amer 64 Est GFR (MDRD) Non-Af 53 L BUN/Creatinine Ratio 27.4 H Glucose 206 H Calcium 7.9 L POC Glucose 01/09/19 01/09/19 01/08/19 11:46 06:58 21:07 POC Glucose 121 H 143 H 99 01/08/19 17:57 POC Glucose 111 H Code Visit Inpatient E&M: 49453 Disch Hosp
--- NOTE | 2019-01-09 15:25 | DS.PCM_ITS ---
<Epifanio James - Last Filed: 01/09/19 15:12> Discharge Date and Diagnosis - Problem List Patient Problems: Active and Suspected Problems (Last Reviewed 01/03/19 @ 16:18 by Cristopher Lazcano DO) Hypercapnic respiratory failure (Acute) Date of Admission: 01/03/19 Date of Discharge: 01/09/19 - Primary Discharge Diagnosis Active and Suspected Problems (Last Reviewed 01/03/19 @ 16:18 by Cristopher Lazcano DO) Acute on chronic hypoxic hypercapnic respiratory failure secondary to acute COPD exacerbation Dysphagia Former smoker Type 2 diabetes mellitus Hyperlipidemia Hypertension GERD - Secondary Discharge Diagnosis Chronic Problems (Last Reviewed 01/03/19 @ 16:18 by Cristopher Lazcano DO) COPD exacerbation (Chronic) Dysphagia (Chronic) Hypokalemia (Chronic) Hypercholesteremia (Chronic) Plasma cell disorder (Chronic) Carotid stenosis (Chronic) Constipation (Chronic) Osteopenia (Chronic) Lung nodule (Chronic) Hypersomnia (Chronic) 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 Opacification of the ethmoid sinuses bilaterally. Endotracheal tube is seen. RAD/Chest 1 View (Portable) IMPRESSION: Moderate cardiomegaly. No acute abnormality is seen. RAD/Chest 1 View (Portable) IMPRESSION: The tip of the endotracheal tube is in the right mainstem bronchus. It should be pulled back approximately 5.3 cm. Findings areas of atelectasis at left lung base. RAD/Chest 1 View (Portable) IMPRESSION: Satisfactory position of the endotracheal tube. Enteric tube tip in the proximal stomach. This could be advanced 5-10 cm for improved positioning. RAD/Abdomen Single View IMPRESSION: The tip of the orogastric tube is in the distal portion of the stomach. Consultations: Cooper/Carlos-pulmonology Operations: None Procedures: Intubation Summary of Care Provided: Hospital Course: The patient is a 83 year old F with past medical history of COPD, chronic hypoxic respiratory failure on 3 L/min oxygen chronically at home, hyperlipidemia, hypertension, former smoker who presented the emergency room with increased shortness of breath, also fell at home hitting her head. She was found to be hypoxic requiring nonrebreather mask, and ABG revealed significant hypercarbia with PCO2 of 130. She also had leukocytosis, negative chest x-ray, and initially without fever, however later she did develop a fever. She was intubated, OG tube placed, placed in the ICU. She was treated with aerosols, Levaquin, Solu-Medrol, mechanical ventilation. She was able to be extubated successfully, and transitioned to the PCU. She remained stable following extubation. She was weaned to her baseline O2 level. She had some dysphagia and required a modified diet initially, however later she was transitioned to normal mechanical and thin liquids, although she still requires supervision with feeding. She will need two more doses of levaquin to complete a 7 day course. She will need to complete a prednisone oral taper. She will continue O2 at night and during the day. She will continue aerosol therapy. She remained somewhat debilitated and her did not feel she was safe at home. [facility]. She will need follow up with pulmonology in two weeks and with her PCP in 1-2 weeks. This patient was seen by Epifanio James PA-C under the supervision of Dr. Whitney. [] Patient Problems: Active and Suspected Problems (Last Reviewed 01/03/19 @ 16:18 by Cristopher Lazcano DO) Hypercapnic respiratory failure (Acute) - Physical Exam General: Alert, Oriented x3, Cooperative HEENT: Atraumatic, PERRLA, EOMI, Normocephalic Neck: Supple, No JVD, Negative Carotid Bruits Lungs: Diminished Cardiovascular: Regular rate, No murmurs Abdomen: Bowel Sounds Present, Soft, Non Tender Extremities: No edema, Capillary Refill Less than 3 Seconds Skin: No rashes, No breakdown Musculoskeletal: No Tenderness to Palpation of Joints or Extremities Neurological: Cranial nerves II-XII grossly intact Psych/Mental Status: Normal Affect, Appropriate, Alert and oriented to time, place, person, mood and affect Vital Signs Temp Pulse Resp BP Pulse Ox 98 F 75 16 136/61 H 98 01/09/19 08:46 01/09/19 11:30 01/09/19 11:30 01/09/19 09:27 01/09/19 11:30 Oxygen Flow Rate (L/min) 3 Oxygen Delivery Method Nasal Cannula Weight: 194 lb 0.108 oz Body Mass Index (BMI) 40.5 Intake and Output for Last 24 Hours 01/07/19 01/08/19 01/09/19 23:59 23:59 23:59 Intake Total 1203.1 / 1203.1 801 / 801 750 / 750 Output Total 3060 / 3060 1200 / 1200 475 / 475 Balance -1856.9 / -1856.9 -399 / -399 275 / 275 Microbiology Past 72 Hours 01/03/19 13:25 Blood Culture - Final Blood Culture (Wb) #2 - Right Forearm No growth in 5 days. 01/03/19 13:18 Blood Culture - Final Blood Culture (Wb) - Left Forearm No growth in 5 days. Laboratory Tests Past 24 Hrs 01/09/19 01/09/19 04:35 04:35 WBC 12.3 H RBC 4.31 Hgb 13.1 Hct 42.3 MCV 98.1 MCH 30.4 MCHC 31.0 L RDW 15.1 H RDW Differential 52.4 H Plt Count 206 MPV 10.8 Immature Gran % (Auto) 0.300 Neut % (Auto) 91.3 H Lymph % (Auto) 2.5 L [place] % (Auto) 5.8 Eos % (Auto) 0.0 Baso % (Auto) 0.1 Absolute Neuts (auto) 11.3 H Absolute Lymphs (auto) 0.31 L Total Counted Not Reportable Differential Comment SCANNED Sodium 142 Potassium 3.5 Chloride 97 L Carbon Dioxide 38.0 H Anion Gap 7 BUN 29 H Creatinine 1.06 H Estim Creat Clear Calc 60.52 Est GFR (MDRD) Af Amer 64 Est GFR (MDRD) Non-Af 53 L BUN/Creatinine Ratio 27.4 H Glucose 206 H Calcium 7.9 L POC Glucose 01/09/19 01/09/19 01/08/19 11:46 06:58 21:07 POC Glucose 121 H 143 H 99 01/08/19 17:57 POC Glucose 111 H Discharge Diet: Low fat/ Low Cholesterol, 1800 Calorie Control Diet, 2000 mg Sodium Diet Discharge Activity: Return to Normal Activity Home Medications: Medications to take at Discharge Oxygen, Home [Home Oxygen] 2 lpm NASAL DAILY 04/08/15 Tolterodine Tartrate 4 mg PO DAILY 12/02/16 Rabeprazole Sodium [Aciphex] 20 mg PO DAILY 09/15/17 Red Yeast Rice 600 mg PO DAILY 09/15/17 epinephrine 0.3 mg/0.3 mL injection, auto-injector 0.5 mg IM Q10-15M PRN 10/28/17 vit C,E,zinc,copper-tsuax8a 250 mg-lutein 5 mg-zeaxanthin 1 mg capsule 1 cap PO DAILY 10/28/17 acetaminophen 325 mg capsule 325 mg PO TID PRN cap 04/21/18 Furosemide [Lasix] 20 mg PO BID PRN 01/03/19 Saxagliptin HCl [Onglyza] 5 mg PO DAILY 01/03/19 Albuterol Aerosols [Ventolin Aerosols] 2.5 mg INHALATION Q2H PRN PRN vial.neb. 01/09/19 Aspirin [Aspirin, Baby] 81 mg PO DAILYCM tab.chew 01/09/19 Famotidine [Pepcid] 20 mg PO BID tablet 01/09/19 Ipratropium/Albuterol Sulfate [Duoneb] 3 ml INHALATION Q4H.RT ampul.neb 01/09/19 Lisinopril [Zestril] 20 mg PO DAILY tablet 01/09/19 Magnesium Hydroxide [Milk Of Magnesia] 30 ml PO DAILY PRN PRN udc 01/09/19 Metoprolol Tartrate [Lopressor (beta hiram)] 25 mg PO BID tablet 01/09/19 Polyethylene Glycol 3350 [Miralax] 17 gm PO BID packet 01/09/19 Prednisone 10 mg PO UD #26 tablet 01/09/19 Senna/Docusate Sodium [Senokot-S] 2 tablet PO BID tablet 01/09/19 levoFLOXacin tablet [Levaquin tablet] 250 mg PO DAILY #2 tablet 01/09/19 Following Prescrptions Were Given to Patient: levoFLOXacin tablet [Levaquin tablet] 250 mg PO DAILY #2 tablet Prednisone 10 mg PO UD #26 tablet Primary Care Physician: Arianna Beyer MD [Primary Care Provider] - Please follow up with your Primary Care Physician in: 1-2 weeks Please Follow Up With: Leandro Gamboa MD When: 2 weeks Disposition: Care Home facility Minutes spent on discharge:: 40 Patient Condition:: Stable Medical Necessity - Tobacco Use Smoking Status: Former smoker Tobacco Use: Cigarettes Meaningful Use Info Meaningful Use Diagnoses (Choose all that apply): None applicable <Damian Whitney - Last Filed: 01/09/19 16:03> Discharge Date and Diagnosis - Primary Discharge Diagnosis Active and Suspected Problems (Last Reviewed 01/03/19 @ 16:18 by Cristopher Lazcano DO) Hypercapnic respiratory failure (Acute) - Secondary Discharge Diagnosis Chronic Problems (Last Reviewed 01/03/19 @ 16:18 by Cristopher Lazcano DO) COPD exacerbation (Chronic) Dysphagia (Chronic) Hypokalemia (Chronic) Hypercholesteremia (Chronic) Plasma cell disorder (Chronic) Carotid stenosis (Chronic) Constipation (Chronic) Osteopenia (Chronic) Lung nodule (Chronic) Hypersomnia (Chronic) 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 classification (Chronic) Abdominal hernia (Chronic) Obesity (BMI 35.0-39.9 without comorbidity) (Chronic) Chronic respiratory failure with hypoxia and hypercapnia (Chronic) COLD (chronic obstructive lung disease) (Chronic) Dyslipidemia (Chronic) Esophageal reflux (Chronic) Essential hypertension (Chronic) Former smoker (Chronic) Diabetes mellitus type 2 in obese (Chronic) Hospital Course and Treatment Summary of Care Provided: This patient was seen in conjunction with Epifanio James PA-C . I have independently interviewed and examined the patient and reviewed pertinent histor ical, laboratory, and other data. Please refer to Epifanio James PA-C note for details of this patient's presentation, findings, and recommendations. I have reviewed Epifanio James PA-C note and concur with documented findings. In brief, patient- 83 year-old lady who presented with progressive shortness of breath. An assessment of acute hypoxic respiratory failure secondary to COPD with acute exacerbation was made. Patient intubated and managed in the ICU transferred to PCU following extubation Assessment: Keep 1. Acute hypoxic and hypercapnic respiratory failure status post intubation and subsequent extubation 2. COPD with acute exacerbation 3. Hypertension 4. Diabetes mellitus type 2 5. Hypophosphatemia 6. Dysphagia 7. Physical deconditioning 8. Morbid obesity with BMI of 38 9. DVT prophylaxis SC Lovenox Hospital course ; As documented by Epifanio James PA-C - Physical Exam Vital Signs Temp Pulse Resp BP Pulse Ox 98.8 F 87 18 144/55 H 94 01/09/19 15:22 01/09/19 15:22 01/09/19 15:22 01/09/19 15:22 01/09/19 15:22 Oxygen Flow Rate (L/min) 3 Oxygen Delivery Method Nasal Cannula Weight: 88 kg Body Mass Index (BMI) 40.5 Intake and Output for Last 24 Hours 01/07/19 01/08/19 01/09/19 23:59 23:59 23:59 Intake Total 1203.1 / 1203.1 801 / 801 750 / 750 Output Total 3060 / 3060 1200 / 1200 475 / 475 Balance -1856.9 / -1856.9 -399 / -399 275 / 275 Microbiology Past 72 Hours 01/03/19 13:25 Blood Culture - Final Blood Culture (Wb) #2 - Right Forearm No growth in 5 days. 01/03/19 13:18 Blood Culture - Final Blood Culture (Wb) - Left Forearm No growth in 5 days. Laboratory Tests Past 24 Hrs 01/09/19 01/09/19 04:35 04:35 WBC 12.3 H RBC 4.31 Hgb 13.1 Hct 42.3 MCV 98.1 MCH 30.4 MCHC 31.0 L RDW 15.1 H RDW Differential 52.4 H Plt Count 206 MPV 10.8 Immature Gran % (Auto) 0.300 Neut % (Auto) 91.3 H Lymph % (Auto) 2.5 L [place] % (Auto) 5.8 Eos % (Auto) 0.0 Baso % (Auto) 0.1 Absolute Neuts (auto) 11.3 H Absolute Lymphs (auto) 0.31 L Total Counted Not Reportable Differential Comment SCANNED Sodium 142 Potassium 3.5 Chloride 97 L Carbon Dioxide 38.0 H Anion Gap 7 BUN 29 H Creatinine 1.06 H Estim Creat Clear Calc 60.52 Est GFR (MDRD) Af Amer 64 Est GFR (MDRD) Non-Af 53 L BUN/Creatinine Ratio 27.4 H Glucose 206 H Calcium 7.9 L POC Glucose 01/09/19 01/09/19 01/08/19 11:46 06:58 21:07 POC Glucose 121 H 143 H 99 01/08/19 17:57 POC Glucose 111 H Code Visit Inpatient E&M: 36118 Disch Hosp
--- NOTE | 2019-01-09 15:34 | CASEMGMT ---
Social Work: TC from Julia at [facility]. Julia states that they are able to accept patient today. Transfer to Extended Care form and med list faxed to Julia. HENS completed. Copy in chart and in packet. TC to [facility]. [facility] transportation scheduled for 4:00pm. Ground transport form on chart. Spoke with patient and in room. Both aware that [facility] has accepted patient and that D/C will be today. [facility] will be arriving at 4:00pm. to transport patient and patient/ is aware. D/C PLAN: Patient will be discharged to [facility] today for skilled care. BILL [facility]
--- NOTE | 2019-01-09 16:43 | NURSING ---
report called to [facility] Misti Romero
== END 2019-01-09 15:15 | disposition skilled nursing facility (03) | DRG 208 ==
LOC: ED 15:52 → ICU 01-04 07:00 → PCU 01-08 11:48
PROVIDERS: Internal Medicine; Internal Medicine Critical Care Medicine; Emergency Provider Emergency Medicine; Family Provider Family Medicine; PCP Family Medicine; Visit Provider Internal Medicine
DX: J96.22 Acute and chronic respiratory failure with hypercapnia (principal); J44.1 Chronic obstructive pulmonary disease with (acute) exacerbation; Z68.41 Body mass index [BMI] 40.0-44.9, adult; J96.21 Acute and chronic respiratory failure with hypoxia; Z87.891 Personal history of nicotine dependence; E78.5 Hyperlipidemia, unspecified; K21.9 Gastro-esophageal reflux disease without esophagitis; E66.01 Morbid (severe) obesity due to excess calories; Z99.81 Dependence on supplemental oxygen; E83.39 Other disorders of phosphorus metabolism; L89.159 Pressure ulcer of sacral region, unspecified stage; E11.9 Type 2 diabetes mellitus without complications; Z79.84 Long term (current) use of oral hypoglycemic drugs; I10 Essential (primary) hypertension; R13.10 Dysphagia, unspecified
CPT/HCPCS: 31500; 31720; 36569; 36600; 51702; 70450; 71045; 74018; 80048; 80069; 82040; 82803; 82962; 83036; 83605; 83735; 84100; 84484; 85025; 85610; 85730; 87040; 87070; 87205; 87633; 87804; 92526; 92610; 93005; 94002; 94003; 94640; 94660; 95831; 97110; 97163; 97166; 97530; 97535; 97802; 99251; 99285; J7030; J7040; J7050; A4216; G0463; J1940; J3490

== ENCOUNTER 2019-01-25 07:02 | Inpatient (IN) | payer MEDICARE, OTHER, SELFPAY ==
[2019-01-03 16:27] VITALS: BMI 40.5
[2019-01-25] VITALS (28 sets, daily range): BP systolic 98–164; BP diastolic 41–61; PULSE 61–98; RESP 12–28; TEMP 35.8–36.6; O2SAT 66–100; BMI 38.0; BMI 36.1; BMI 36.2
--- NOTE | 2019-01-25 07:19 | RAD_ITS ---
STUDY: X-RAY CHEST REASON FOR EXAM: Female, 83 years old. Hypoxia and shortness of breath. TECHNIQUE: Single AP portable view of the chest. COMPARISON: January 03, 2019. FINDINGS: Cardiac monitoring leads are present. The lungs are underexpanded compared to previous study. There is eventration of the right hemidiaphragm. There are prominent bronchovascular markings in both lungs. There are small bilateral pleural effusions. There is mild cardiac enlargement. Normal mediastinum and jonny. Normal visualized pulmonary arteries. There is atherosclerotic calcification of the aortic arch with tortuosity. There is demineralization of the osseous structures. Normal visualized ribs, clavicles, and shoulders. There is no demonstrated abnormality of the visualized soft tissue structures of the upper abdomen. RAD/Chest 1 View (Portable) IMPRESSION: Mild cardiomegaly with pulmonary congestion and small pleural effusions. Electronically Signed: Liana Garcia MD at 8:04 EDT , Service support ,
--- NOTE | 2019-01-25 07:19 | EKG12_ITS ---
Test Reason : SOB Blood Pressure : / mmHG Vent. Rate : 070 BPM Atrial Rate : 070 BPM P-R Int : 144 ms QRS Dur : 092 ms QT Int : 390 ms P-R-T Axes : 077 040 039 degrees QTc Int : 421 ms Normal sinus rhythm Normal ECG Confirmed by HILLARY BRAND ([id number]), city editor DHRUV HOLT ([id number]) on 01/26/2019 10:52:27 AM Referred By: JAZ Confirmed By:HILLARY BRAND
--- NOTE | 2019-01-25 07:23 | ED.VISSUMM ---
- ER Visit Summary Date of Service: 01/25/19 Chief Complaint: Hypoxia History of Present Illness: The patient is a 83 F with a history of COPD, respiratory failure and carotid stenosis. Patient recently been hospitalized for CO2 retention and respiratory failure. Today at the [facility] was hypoxic and was sent to the ER for further evaluation. They are trying to get CPAP approved but not able to as of this time. Currently she is also full CODE STATUS. Patient is awake her eyes are open she does respond but she is a limited informant. She is definitely lethargic. Physical Examination: Vital signs she is afebrile 97 8. Her pulse ox is 66% on room air on oxygen she is 98%. HEENT exam she will open her eyes. No facial droop. Dry mucous membranes. Neck nontender. Lungs clear to auscultation bilaterally but diminished breath sounds bilaterally. She is not taking deep respirations. Heart regular rhythm rate about 80 no murmur. Abdomen is soft and nontender. Obese. No peritoneal signs. Patient can move all 4 extremities. She has trace edema both lower extremities equal symmetrical. Calves are nontender. Neurologically she is lethargic but easily arousable. Her eyes are open. She does respond to commands. 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 And has dorsi flexion bilaterally. He has no focal motor deficits. She is just overall diminished. Test Results: CBC White count 11.2. Hemoglobin 12. No bands. Chemistries show a CO2 greater than 45 normal creatinine. Urinalysis is pending. Troponin normal. BNP is pending. Patient's arterial blood gas showed a pH of 7.36 with a PCO2 of 111 and a PO2 of 50 and a bicarb of 64. Obviously consistent with CO2 retention. Patient was started on BiPAP for the CO2 retention. Chest x-ray showed small bilateral pleural effusions with pulmonary congestion is read both by myself and the radiologist. Emergency Department Course and Treatment: Elderly female that is hypoxic and a respiratory failure. Repeat exam at 08 10 AM patient is doing better on BiPAP. I very spoken to her and she will be admitted I have the hospitalist on page. Treatment Plan: [] Disposition: Admission Impression: Acute respiratory failure with CO2 retention Acute hypoxia Acute exacerbation of COPD Decreased mental status secondary to CO2 retention This note was generated with [employer] software. It may contain incorrect words, spelling, and punctuation that were not noted in review of the chart prior to signing ED Disposition - Plan for ED Patient: Referrals: Arianna Beyer MD [Primary Care Provider] -
--- NOTE | 2019-01-25 07:27 | ED.DCSUM_ITS ---
- ER Visit Summary Date of Service: 01/25/19 Chief Complaint: Hypoxia History of Present Illness: The patient is a 83 F with a history of COPD, respiratory failure and carotid stenosis. Patient recently been hospitalized for CO2 retention and respiratory failure. Today at the [facility] was hypoxic and was sent to the ER for further evaluation. They are trying to get CPAP approved but not able to as of this time. Currently she is also full CODE STATUS. Patient is awake her eyes are open she does respond but she is a limited informant. She is definitely lethargic. Physical Examination: Vital signs she is afebrile 97 8. Her pulse ox is 66% on room air on oxygen she is 98%. HEENT exam she will open her eyes. No facial droop. Dry mucous membranes. Neck nontender. Lungs clear to auscultation bilaterally but diminished breath sounds bilaterally. She is not taking deep respirations. Heart regular rhythm rate about 80 no murmur. Abdomen is soft and nontender. Obese. No peritoneal signs. Patient can move all 4 extremities. She has trace edema both lower extremities equal symmetrical. Calves are nontender. Neurologically she is lethargic but easily arousable. Her eyes are open. She does respond to commands. 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 And has dorsi flexion bilaterally. He has no focal motor deficits. She is just overall diminished. Test Results: CBC White count 11.2. Hemoglobin 12. No bands. Chemistries show a CO2 greater than 45 normal creatinine. Urinalysis is pending. Troponin normal. BNP is pending. Patient's arterial blood gas showed a pH of 7.36 with a PCO2 of 111 and a PO2 of 50 and a bicarb of 64. Obviously consistent with CO2 retention. Patient was started on BiPAP for the CO2 retention. Chest x-ray showed small bilateral pleural effusions with pulmonary congestion is read both by myself and the radiologist. Emergency Department Course and Treatment: Elderly female that is hypoxic and a respiratory failure. Repeat exam at 08 10 AM patient is doing better on BiPAP. I very spoken to her and she will be admitted I have the hospitalist on page. Treatment Plan: [] Disposition: Admission Impression: Acute respiratory failure with CO2 retention Acute hypoxia Acute exacerbation of COPD Decreased mental status secondary to CO2 retention This note was generated with [employer] software. It may contain incorrect words, spelling, and punctuation that were not noted in review of the chart prior to signing ED Disposition - Plan for ED Patient: Referrals: Arianna Beyer MD [Primary Care Provider] -
[2019-01-25 07:30] LABS: Absolute Lymphocyte Count 0.93 X10^3/ul (0.83-4.51); Basophil# 0.01 X10^3/uL; Basophil% 0.1 % (0-1); Eosinophil# 0.06 X10^3/uL; Eosinophils% 0.5 % (0-5); Hematocrit 42.3 % (37-47); Hemoglobin 12.2 g/dl (12.0-15.0); Lymphocyte # 0.93 X10^3/ul (4.0); Lymphocyte % 8.3 % (19-41); Mean Corp Hgb Conc 28.8 g/gl (32-36); Mean Corpuscular Hgb 31.2 pg (27.0-32.0); Mean Corpuscular Volume 108.2 fL (81-99); Mean Platelet Vol. 11.3 fl (6.2-12.0); Monocyte# 1.09 X10^3/uL; Monocyte% 9.8 % (0-10); Neutrophil # 9.03 X10^3/uL (2.7-7.7); Platelet Count 135 K/mm3 (150-450); RBC Distribution Width CV 15.6 % (11.6-14.6); RBC Distribution Width SD 60.6 fl (35.1-43.9); Red Blood Count 3.91 M/mm3 (4.2-5.4); White Blood Count 11.2 K/mm3 (4.4-11.0)
[2019-01-25 07:31] LABS: POSITIVE COUNT NO; POSITIVE DIFFERENTIAL NO; POSITIVE MORPHOLOGY NO
[2019-01-25 07:51] LABS: Base Excess > 30 mmol/L (-2 to +2); Blood Gas Specimen Type ART; O2 Delivery Device Nasal Can; PO2 50 mmHG (75-100); SITE L Brachial; SO2 79 % (95-99); Time Given 744; Total Carbon Dioxide > 50 mmol/L; pCO2 111.8 mmHg (35-45); pH 7.37 (7.35-7.45)
[2019-01-25 07:55] LABS: BUN 17 mg/dL (7-18); BUN/Creat Ratio 31.5 RATIO (10-20); Calcium,Total 8.6 mg/dL (8.5-10.1); Carbon Dioxide > 45.0 mmol/L (21.0-32.0); Chloride 90 mmol/L (98-107); Creatinine, Serum 0.54 mg/dL (0.55-1.02); EST Glomerular Filtration Rate 115 mL/min (>60); Est Glom Filt Rate - Afr Amer 139 mL/min (>60); Glucose 174 mg/dL (74-106); Potassium 4.1 mmol/L (3.5-5.1); Sodium Level 141 mmol/L (136-145)
--- NOTE | 2019-01-25 08:03 | CPS ---
This RT gave critical ABG results to at 0755. Emily Malcolm RRT
[2019-01-25 08:16] LABS: BNP,B-Type NATRIURETIC PEPTIDE 113.8 pg/mL (0-100)
--- NOTE | 2019-01-25 08:21 | NURSING ---
DR DAREK SEBASTIAN
--- NOTE | 2019-01-25 08:25 | NURSING ---
PCU K[facility]TOE RESP FAILURE, COPD W CO 2 RETENTION
--- NOTE | 2019-01-25 08:32 | PCM.HP.STD ---
History of Present Illness The patient is a 83 year old F [] Past Medical History Past Medical History (Chronic Problems): Chronic Problems (Last Reviewed 01/03/19 @ 16:18 by Cristopher Lazcano DO) COPD exacerbation (Chronic) Dysphagia (Chronic) Hypokalemia (Chronic) Hypercholesteremia (Chronic) Plasma cell disorder (Chronic) Carotid stenosis (Chronic) Constipation (Chronic) Osteopenia (Chronic) Lung nodule (Chronic) Hypersomnia (Chronic) 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 classification (Chronic) Abdominal hernia (Chronic) Obesity (BMI 35.0-39.9 without comorbidity) (Chronic) Chronic respiratory failure with hypoxia and hypercapnia (Chronic) COLD (chronic obstructive lung disease) (Chronic) Dyslipidemia (Chronic) Esophageal reflux (Chronic) Essential hypertension (Chronic) Former smoker (Chronic) Diabetes mellitus type 2 in obese (Chronic) Medical History: Medical History (Last Reviewed 01/03/19 @ 16:18 by Cristopher Lazcano DO) Parotitis (Acute) K11.20 Colon polyp (Acute) K63.5 Vitamin B12 deficiency (Acute) E53.8 Vitamin D deficiency (Acute) E55.9 Hypercholesteremia (Chronic) E78.00 Plasma cell disorder (Chronic) D72.9 Carotid stenosis (Chronic) I65.29 Allergic rhinitis (Acute) J30.9 Constipation (Chronic) K59.00 Osteopenia (Chronic) M85.80 Lung nodule (Chronic) R91.1 Hypersomnia (Chronic) G47.10 Urinary incontinence (Acute) R32 Dyspnea (Acute) R06.00 Oral pharyngeal candidiasis (Acute) B37.0 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 classification (Chronic) J44.9 Abdominal hernia (Chronic) K46.9 Hypoxia (Acute) R09.02 Obesity (BMI 35.0-39.9 without comorbidity) (Chronic) E66.9 Dehydration (Acute) E86.0 Chronic respiratory failure with hypoxia and hypercapnia (Chronic) J96.11, J96.12 Acute on chronic respiratory failure with hypoxia and hypercapnia (Acute) J96.21, J96.22 COPD exacerbation (Acute) J44.1 FEV1 44% of predicted COLD (chronic obstructive lung disease) (Chronic) J44.9 Dyslipidemia (Chronic) E78.5 Esophageal reflux (Chronic) K21.9 Essential hypertension (Chronic) I10 Metabolic alkalosis (Resolved) E87.3 Former smoker (Chronic) Z87.891 Diabetes mellitus type 2 in obese (Chronic) E11.9, E66.9 Angioedema (Acute) T78.3XXA Allergies bee venom protein (honey bee) Allergy (Severe, Verified 01/25/19 07:06) Anaphylaxis LEATHA Inhibitors Allergy (Verified 01/25/19 07:06) Unknown latex Allergy (Verified 01/25/19 07:06) Itching Sulfa (Sulfonamide Antibiotics) Allergy (Verified 01/25/19 07:06) PT CAN'T REMEMBER budesonide [From Symbicort] Adverse Reaction (Verified 01/25/19 07:06) SORES IN MOUTH fluticasone [From Advair Diskus] Adverse Reaction (Verified 01/25/19 07:06) SORES IN MOUTH formoterol [From Symbicort] Adverse Reaction (Verified 01/25/19 07:06) SORES IN MOUTH ipratropium Adverse Reaction (Verified 01/25/19 07:06) SORES IN MOUTH salmeterol [From Advair Diskus] Adverse Reaction (Verified 01/25/19 07:06) SORES IN MOUTH BREATHING TREATMENTS Adverse Reaction (Uncoded 01/25/19 07:06) SORES IN MOUTH Home Medications: Ambulatory Orders Medication Instructions Recorded Oxygen, Home [Home Oxygen] 2 lpm NASAL DAILY 04/08/15 Tolterodine Tartrate 4 mg PO DAILY 12/02/16 Red Yeast Rice 600 mg PO DAILY 09/15/17 epinephrine 0.3 mg/0.3 mL 0.5 mg IM Q10-15M PRN 10/28/17 injection, auto-injector vit C,E,zinc,copper-ymyps7g 250 1 cap PO DAILY 10/28/17 mg-lutein 5 mg-zeaxanthin 1 mg capsule acetaminophen 325 mg capsule 325 mg PO TID PRN cap 04/21/18 Furosemide [Lasix] 20 mg PO BID PRN 01/03/19 Saxagliptin HCl [Onglyza] 5 mg PO DAILY 01/03/19 Albuterol Aerosols [Ventolin 2.5 mg INHALATION Q2H PRN PRN 01/09/19 Aerosols] vial.neb. Aspirin [Aspirin, Baby] 81 mg PO DAILYCM tab.chew 01/09/19 Famotidine [Pepcid] 20 mg PO BID tablet 01/09/19 Ipratropium/Albuterol Sulfate 3 ml INHALATION Q4H.RT ampul.neb 01/09/19 [Duoneb] Lisinopril [Zestril] 20 mg PO DAILY tablet 01/09/19 Magnesium Hydroxide [Milk Of 30 ml PO DAILY PRN PRN udc 01/09/19 Magnesia] Metoprolol Tartrate [Lopressor 25 mg PO BID tablet 01/09/19 (beta hiram)] Polyethylene Glycol 3350 [Miralax] 17 gm PO BID packet 01/09/19 Senna/Docusate Sodium [Senokot-S] 2 tablet PO BID tablet 01/09/19 Argin/Glut/Cahmb/Collag/Mv-Min 1 each PO BID 01/25/19 [Rhett Packet] Hydrocortisone 2.5% Crm [Hytone] 1 applic TOPICAL BID PRN PRN 01/25/19 Omeprazole [Prilosec] 20 mg PO DAILY 01/25/19 Surgical History: Surgical History (Last Reviewed 01/03/19 @ 16:18 by Cristopher Lazcano DO) stem cell injection (Resolved) bladder sling (Resolved) History of cholecystectomy (Resolved) Z98.890, Z90.49 History of inguinal hernia repair (Resolved) Z98.890, Z87.19 History of hemorrhoidectomy (Resolved) Z98.890 H/O cataract removal with insertion of prosthetic lens (Resolved) Z98.49, Z96.1 Surgical History: cataract - Bilateral, cholecystectomy, - - Bladder sling, Psychiatric History: No pertinent psych hx 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 Smoking Status: Former smoker - *Family History Maternal Family History: Family History (Last Reviewed 01/03/19 @ 16:18 by Cristopher Lazcano DO) Brother Lung disease Mother Heart disease Diabetes Father CAD (coronary artery disease) History Items: Diabetes, Heart Disease Paternal Family History: Family History (Last Reviewed 01/03/19 @ 16:18 by Cristopher Lazcano DO) Brother Lung disease Mother Heart disease Diabetes Father CAD (coronary artery disease) History Items: - - father at 76 with a DVT and PE Sibling Family History: Family History (Last Reviewed 01/03/19 @ 16:18 by Cristopher Lzacano DO) Brother Lung disease Mother Heart disease Diabetes Father CAD (coronary artery disease) History Items: - - she has 10 siblings...one is with pancreatic cancer - Physical Exam Vital Signs Temp Pulse Resp BP Pulse Ox 96.5 F L 70 19 H 108/61 95 01/25/19 08:07 01/25/19 08:07 01/25/19 08:07 01/25/19 08:07 01/25/19 08:07 Oxygen Flow Rate (L/min) 3 Oxygen Delivery Method Bi-pap Weight: 94.5 kg Body Mass Index (BMI) 38.0 Laboratory Tests Past 24 Hrs 01/25/19 01/25/19 01/25/19 07:10 07:10 07:10 WBC 11.2 H RBC 3.91 L Hgb 12.2 Hct 42.3 MCV 108.2 H MCH 31.2 MCHC 28.8 L RDW 15.6 H RDW Differential 60.6 H Plt Count 135 L MPV 11.3 Immature Gran % (Auto) 0.300 Neut % (Auto) 81.0 H Lymph % (Auto) 8.3 L [place] % (Auto) 9.8 Eos % (Auto) 0.5 Baso % (Auto) 0.1 Absolute Neuts (auto) 9.0 H Absolute Lymphs (auto) 0.93 Total Counted Not Reportable Specimen Type Sample Site pH Bicarbonate Actual POC Total CO2 Base Excess O2 Saturation ABG pCO2 ABG pO2 Erick Test O2 Delivery Device Liter Flow Blood Gas Notified Whom Blood Gas Notified Time Sodium 141 Potassium 4.1 Chloride 90 L Carbon Dioxide > 45.0 H* Anion Gap TNP BUN 17 Creatinine 0.54 L Estim Creat Clear Calc 34.90 Est GFR (MDRD) Af Amer 139 Est GFR (MDRD) Non-Af 115 BUN/Creatinine Ratio 31.5 H Glucose 174 H Lactic Acid Calcium 8.6 Troponin I < 0.015 B-Natriuretic Peptide 113.8 H 01/25/19 01/25/19 07:45 08:30 WBC RBC Hgb Hct MCV MCH MCHC RDW RDW Differential Plt Count MPV Immature Gran % (Auto) Neut % (Auto) Lymph % (Auto) [place] % (Auto) Eos % (Auto) Baso % (Auto) Absolute Neuts (auto) Absolute Lymphs (auto) Total Counted Specimen Type ART Sample Site L Brachial pH 7.37 Bicarbonate Actual 64.0 H POC Total CO2 > 50 Base Excess > 30 H O2 Saturation 79 L ABG pCO2 111.8 H* ABG pO2 50 L Erick Test NA O2 Delivery Device Nasal Can Liter Flow 4.0 Blood Gas Notified Whom ED MD Blood Gas Notified Time 744 Sodium Potassium Chloride Carbon Dioxide Anion Gap BUN Creatinine Estim Creat Clear Calc Est GFR (MDRD) Af Amer Est GFR (MDRD) Non-Af BUN/Creatinine Ratio Glucose Lactic Acid Pending Calcium Troponin I B-Natriuretic Peptide Assessment/Plan All Active Problems (Last Reviewed 01/03/19 @ 16:18 by Cristopher Lazcano DO) Hypercapnic respiratory failure (Acute) End of life care (Acute) Cough productive of yellow sputum (Acute) stem cell injection (Resolved) bladder sling (Resolved) History of cholecystectomy (Resolved) History of inguinal hernia repair (Resolved) History of hemorrhoidectomy (Resolved) H/O cataract removal with insertion of prosthetic lens (Resolved) Parotitis (Acute) Colon polyp (Acute) Vitamin B12 deficiency (Acute) Vitamin D deficiency (Acute) Allergic rhinitis (Acute) Urinary incontinence (Acute) Dyspnea (Acute) Oral pharyngeal candidiasis (Acute) Hypoxia (Acute) Dehydration (Acute) Acute on chronic respiratory failure with hypoxia and hypercapnia (Acute) COPD exacerbation (Acute) Metabolic alkalosis (Resolved) Angioedema (Acute) History of DVT of lower extremity (Resolved) Parotitis (Resolved)
[2019-01-25 09:15] LABS: Lactic Acid 1.5 mmol/L (0.4-2.0)
[2019-01-25] MEDS: Ipratropium/Albuterol Sulfate 3 ML AMPUL.NEB INHALATION ×4 (10:53→22:58)
[2019-01-25] MEDS: Furosemide 100 MG/10 ML Vial 60 MG IV (11:06)
[2019-01-25] MEDS: 0.9% NaCl Peripheral Flush Adult/Peds IV ×2 (11:08→21:43)
[2019-01-25] MEDS: Senna/Docusate Sodium 1 Tablet 2 TABLET PO ×2 (11:11→21:43)
[2019-01-25] MEDS: Famotidine 20 MG Tablet PO ×2 (11:12→21:43)
[2019-01-25] MEDS: Enoxaparin 40 MG/0.4 ML Syringe SC (11:12)
[2019-01-25] MEDS: Polyethylene Glycol 3350 17 GM PACKET PO (11:13)
[2019-01-25] MEDS: Pantoprazole Sodium 20 MG Tablet PO (11:19)
[2019-01-25] MEDS: LINAGLIPTIN 5 MG TABLET PO (11:19)
[2019-01-25] MEDS: Tolterodine Tartrate 4 MG CAP.SA PO (11:19)
--- NOTE | 2019-01-25 11:30 | CPS ---
Aerosol rx was given after speaking with pt and her . Pt allergy to aerosol rx's was discussed. Pt and stated that pt takes rx at home and has no issues. Pt and offered aerosol rx. Pt and stated they do want her to take rx's since she does take them at home.
[2019-01-25 11:56] LABS: Bedside Glucose 131 mg/dL (70-110)
--- NOTE | 2019-01-25 12:24 | CON.PCM_ITS ---
Reason for Consult Date of Consultation: 01/25/19 Reason for Consultation: Chronic respiratory failure History of Present Illness: The patient is an 83-year-old female, with a history as outlined below, who presented to the emergency department on January 25 from her [facility] facility over concerns for hypoxia. The patient was just discharged from the hospital on January 09 after having been admitted for 6 days with acute on chronic respiratory failure due to a COPD exacerbation. The patient is followed in the pulmonary medicine clinic by Dr. Gamboa and was last seen in our clinic in November 2018. 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 The patient is currently on maximal therapy for her underlying COPD. She was previously prescribed a home Trelegy machine (noninvasive ventilator). However, the patient was noncompliant with its use and the machine was subsequently taken back by the DME provider. The patient instead opted to pursue stem cell therapy in [place], rather than utilize for noninvasive positive pressure ventilation. However, the stem cell therapy did not yield any positive effects for the patient. On presentation to the emergency department, the patient was noted to be afebrile and hemodynamically stable. As of the 0700-hour vital signs from the emergency department, the patient was saturating 96% on 3 L/min, which is her baseline requirement. An arterial blood gas was obtained which revealed a compensated pH of 7.37, PCO2 of 112 and PO2 of 50. Chemistry profile revealed a chronically elevated serum bicarbonate of greater than 45. Lactate was within normal limits. Troponin was negative. Chest x-ray revealed no acute cardiopulmonary process. The patient was placed on BiPAP and subsequently admitted to the progressive care unit. Past Medical History Past Medical History (Chronic Problems): Chronic Problems (Last Reviewed 01/03/19 @ 16:18 by Cristopher Lazcano DO) COPD exacerbation (Chronic) Dysphagia (Chronic) End stage COPD (Chronic) Hypokalemia (Chronic) End of life care (Chronic) Cough productive of yellow sputum (Chronic) Colon polyp (Chronic) Vitamin B12 deficiency (Chronic) Vitamin D deficiency (Chronic) Hypercholesteremia (Chronic) Plasma cell disorder (Chronic) Carotid stenosis (Chronic) Allergic rhinitis (Chronic) Constipation (Chronic) Osteopenia (Chronic) Lung nodule (Chronic) Hypersomnia (Chronic) Urinary incontinence (Chronic) 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 classification (Chronic) Abdominal hernia (Chronic) Obesity (BMI 35.0-39.9 without comorbidity) (Chronic) Dehydration (Chronic) Chronic respiratory failure with hypoxia and hypercapnia (Chronic) COLD (chronic obstructive lung disease) (Chronic) Dyslipidemia (Chronic) Esophageal reflux (Chronic) Essential hypertension (Chronic) Former smoker (Chronic) Diabetes mellitus type 2 in obese (Chronic) Medical History: Medical History (Last Reviewed 01/03/19 @ 16:18 by Cristopher Lazcano DO) Parotitis (Suspected) K11.20 Colon polyp (Chronic) K63.5 Vitamin B12 deficiency (Chronic) E53.8 Vitamin D deficiency (Chronic) E55.9 Hypercholesteremia (Chronic) E78.00 Plasma cell disorder (Chronic) D72.9 Carotid stenosis (Chronic) I65.29 Allergic rhinitis (Chronic) J30.9 Constipation (Chronic) K59.00 Osteopenia (Chronic) M85.80 Lung nodule (Chronic) R91.1 Hypersomnia (Chronic) G47.10 Urinary incontinence (Chronic) R32 Dyspnea (Acute) R06.00 Oral pharyngeal candidiasis (Suspected) B37.0 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 classification (Chronic) J44.9 Abdominal hernia (Chronic) K46.9 Hypoxia (Acute) R09.02 Obesity (BMI 35.0-39.9 without comorbidity) (Chronic) E66.9 Dehydration (Chronic) E86.0 Chronic respiratory failure with hypoxia and hypercapnia (Chronic) J96.11, J96.12 Acute on chronic respiratory failure with hypoxia and hypercapnia (Acute) J96.21, J96.22 COPD exacerbation (Acute) J44.1 FEV1 44% of predicted COLD (chronic obstructive lung disease) (Chronic) J44.9 Dyslipidemia (Chronic) E78.5 Esophageal reflux (Chronic) K21.9 Essential hypertension (Chronic) I10 Metabolic alkalosis (Resolved) E87.3 Former smoker (Chronic) Z87.891 Diabetes mellitus type 2 in obese (Chronic) E11.9, E66.9 Angioedema (Resolved) T78.3XXA Allergies bee venom protein (honey bee) Allergy (Severe, Verified 01/25/19 07:06) Anaphylaxis LEATHA Inhibitors Allergy (Verified 01/25/19 07:06) Unknown latex Allergy (Verified 01/25/19 07:06) Itching Sulfa (Sulfonamide Antibiotics) Allergy (Verified 01/25/19 07:06) PT CAN'T REMEMBER budesonide [From Symbicort] Adverse Reaction (Verified 01/25/19 07:06) SORES IN MOUTH fluticasone [From Advair Diskus] Adverse Reaction (Verified 01/25/19 07:06) SORES IN MOUTH formoterol [From Symbicort] Adverse Reaction (Verified 01/25/19 07:06) SORES IN MOUTH ipratropium Adverse Reaction (Verified 01/25/19 07:06) SORES IN MOUTH salmeterol [From Advair Diskus] Adverse Reaction (Verified 01/25/19 07:06) SORES IN MOUTH BREATHING TREATMENTS Adverse Reaction (Uncoded 01/25/19 07:06) SORES IN MOUTH Home Medications: Ambulatory Orders Medication Instructions Recorded Oxygen, Home [Home Oxygen] 2 lpm NASAL DAILY 04/08/15 Tolterodine Tartrate 4 mg PO DAILY 12/02/16 Red Yeast Rice 600 mg PO DAILY 09/15/17 epinephrine 0.3 mg/0.3 mL 0.5 mg IM Q10-15M PRN 10/28/17 injection, auto-injector vit C,E,zinc,copper-rwbly5n 250 1 cap PO DAILY 10/28/17 mg-lutein 5 mg-zeaxanthin 1 mg capsule acetaminophen 325 mg capsule 325 mg PO TID PRN cap 04/21/18 Furosemide [Lasix] 20 mg PO BID PRN 01/03/19 Saxagliptin HCl [Onglyza] 5 mg PO DAILY 01/03/19 Albuterol Aerosols [Ventolin 2.5 mg INHALATION Q2H PRN PRN 01/09/19 Aerosols] vial.neb. Aspirin [Aspirin, Baby] 81 mg PO DAILYCM tab.chew 01/09/19 Famotidine [Pepcid] 20 mg PO BID tablet 01/09/19 Ipratropium/Albuterol Sulfate 3 ml INHALATION Q4H.RT ampul.neb 01/09/19 [Duoneb] Lisinopril [Zestril] 20 mg PO DAILY tablet 01/09/19 Magnesium Hydroxide [Milk Of 30 ml PO DAILY PRN PRN udc 01/09/19 Magnesia] Metoprolol Tartrate [Lopressor 25 mg PO BID tablet 01/09/19 (beta hiram)] Polyethylene Glycol 3350 [Miralax] 17 gm PO BID packet 01/09/19 Senna/Docusate Sodium [Senokot-S] 2 tablet PO BID tablet 01/09/19 Argin/Glut/Cahmb/Collag/Mv-Min 1 each PO BID 01/25/19 [Rhett Packet] Hydrocortisone 2.5% Crm [Hytone] 1 applic TOPICAL BID PRN PRN 01/25/19 Omeprazole [Prilosec] 20 mg PO DAILY 01/25/19 Surgical History: Surgical History (Last Reviewed 01/03/19 @ 16:18 by Cristopher Lazcano DO) stem cell injection (Resolved) bladder sling (Resolved) History of cholecystectomy (Resolved) Z98.890, Z90.49 History of inguinal hernia repair (Resolved) Z98.890, Z87.19 History of hemorrhoidectomy (Resolved) Z98.890 H/O cataract removal with insertion of prosthetic lens (Resolved) Z98.49, Z96.1 Surgical History: cataract - Bilateral, cholecystectomy, - - Bladder sling, Psychiatric History: No pertinent psych hx PRODUCTION TESTER History: No pertinent PRODUCTION TESTER history Smoking Status: Former smoker - *Family History Maternal Family History: Family History (Last Reviewed 01/03/19 @ 16:18 by Cristopher Lazcano DO) Brother Lung disease Mother Heart disease Diabetes Father CAD (coronary artery disease) History Items: Diabetes, Heart Disease Paternal Family History: Family History (Last Reviewed 01/03/19 @ 16:18 by Cristopher Lazcano DO) Brother Lung disease Mother Heart disease Diabetes Father CAD (coronary artery disease) History Items: - - father at 76 with a DVT and PE Sibling Family History: Family History (Last Reviewed 01/03/19 @ 16:18 by Cristopher Lazcano DO) Brother Lung disease Mother Heart disease Diabetes Father CAD (coronary artery disease) History Items: - - she has 10 siblings...one is with pancreatic cancer Review of Systems Constitutional: Denies: Chills, Fever Eyes: Denies: Blurred vision, Double vision HEENT: Denies: Head Aches, Sinus Congestion, Sinus Drainage Cardiovascular: Denies: Chest Pain, Palpitations Respiratory: Reports: Shortness of Breath Gastrointestinal: Denies: Abdominal Pain, Nausea, Vomiting Genitourinary: Denies: Dysuria Musculoskeletal: Reports: Back Pain Skin: Denies: Rash, Wounds Neurological: Denies: Numbness, Tingling, Focal weakness Psychiatric: Denies: Anxiety, Depression, Homicidal Ideations, Suicidal Ideations Hematologic/ Lymphatic: Denies: Easy Bruising, Easy Bleeding Objective: The patient's most recent lab work, culture data and imaging studies have all been personally reviewed. - Physical Exam General: Alert, Oriented x3, Cooperative, No apparent distress, - - Sitting upright in bed eating lunch. Maintaining appropriate oxygen saturations on ba seline 3 L/min. is present at the bedside. HEENT: Atraumatic, PERRLA, Normocephalic Oral: No Gingival or Mucosal Lesions/ Ulcerations Neck: Supple, No Nodes, Trachea Midline, - - Large neck circumference Lungs: - - Globally diminished air movement bilaterally without appreciable wheezes, rales or rhonchi. Cardiovascular: Regular rate, Regular Rhythm, Normal S1, Normal S2, No murmurs Abdomen: Bowel Sounds Present, Soft, Non Tender, Obese Extremities: No cyanosis, Clubbing, Edema Skin: No breakdown Musculoskeletal: No Tenderness to Palpation of Joints or Extremities Lymphatic: No Cervical, Supraclavicular, or Inguinal Adenopathy Neurological: Neuro grossly intact Psych/Mental Status: Normal Affect, Appropriate Vital Signs Temp Pulse Resp BP Pulse Ox 97 F L 94 20 H 103/60 91 01/25/19 10:00 01/25/19 10:53 01/25/19 10:53 01/25/19 10:00 01/25/19 10:53 Oxygen Flow Rate (L/min) 3 Oxygen Delivery Method Bi-pap Weight: 196 lb 10.437 oz Body Mass Index (BMI) 36.1 Intake and Output for Last 24 Hours 01/23/19 01/24/19 01/25/19 23:59 23:59 23:59 Intake Total 240 / 240 Output Total 450 / 450 Balance -210 / -210 Laboratory Tests Past 24 Hrs 01/25/19 01/25/19 01/25/19 07:10 07:10 07:10 WBC 11.2 H RBC 3.91 L Hgb 12.2 Hct 42.3 MCV 108.2 H MCH 31.2 MCHC 28.8 L RDW 15.6 H RDW Differential 60.6 H Plt Count 135 L MPV 11.3 Immature Gran % (Auto) 0.300 Neut % (Auto) 81.0 H Lymph % (Auto) 8.3 L [place] % (Auto) 9.8 Eos % (Auto) 0.5 Baso % (Auto) 0.1 Absolute Neuts (auto) 9.0 H Absolute Lymphs (auto) 0.93 Total Counted Not Reportable Specimen Type Sample Site pH Bicarbonate Actual POC Total CO2 Base Excess O2 Saturation ABG pCO2 ABG pO2 Erick Test O2 Delivery Device Liter Flow Blood Gas Notified Whom Blood Gas Notified Time Sodium 141 Potassium 4.1 Chloride 90 L Carbon Dioxide > 45.0 H* Anion Gap TNP BUN 17 Creatinine 0.54 L Estim Creat Clear Calc 34.90 Est GFR (MDRD) Af Amer 139 Est GFR (MDRD) Non-Af 115 BUN/Creatinine Ratio 31.5 H Glucose 174 H Lactic Acid Calcium 8.6 Troponin I < 0.015 B-Natriuretic Peptide 113.8 H 01/25/19 01/25/19 07:45 08:30 WBC RBC Hgb Hct MCV MCH MCHC RDW RDW Differential Plt Count MPV Immature Gran % (Auto) Neut % (Auto) Lymph % (Auto) [place] % (Auto) Eos % (Auto) Baso % (Auto) Absolute Neuts (auto) Absolute Lymphs (auto) Total Counted Specimen Type ART Sample Site L Brachial pH 7.37 Bicarbonate Actual 64.0 H POC Total CO2 > 50 Base Excess > 30 H O2 Saturation 79 L ABG pCO2 111.8 H* ABG pO2 50 L Erick Test NA O2 Delivery Device Nasal Can Liter Flow 4.0 Blood Gas Notified Whom ED MD Blood Gas Notified Time 744 Sodium Potassium Chloride Carbon Dioxide Anion Gap BUN Creatinine Estim Creat Clear Calc Est GFR (MDRD) Af Amer Est GFR (MDRD) Non-Af BUN/Creatinine Ratio Glucose Lactic Acid 1.5 Calcium Troponin I B-Natriuretic Peptide POC Glucose 01/25/19 11:42 POC Glucose 131 H Clinical Impression(s) from Imaging Studies Chest X-Ray 01/25/19 07:19 IMPRESSION: Mild cardiomegaly with pulmonary congestion and small pleural effusions. Electronically Signed: Liana Garcia MD at 8:04 EDT , Service support , Assessment/Plan All Active Problems (Last Reviewed 01/03/19 @ 16:18 by Cristopher Lazcano DO) Hypercapnic respiratory failure (Acute) stem cell injection (Resolved) bladder sling (Resolved) History of cholecystectomy (Resolved) History of inguinal hernia repair (Resolved) History of hemorrhoidectomy (Resolved) H/O cataract removal with insertion of prosthetic lens (Resolved) Dyspnea (Acute) Hypoxia (Acute) Acute on chronic respiratory failure with hypoxia and hypercapnia (Acute) COPD exacerbation (Acute) Metabolic alkalosis (Resolved) Angioedema (Resolved) History of DVT of lower extremity (Resolved) Parotitis (Resolved) RECOMMENDATIONS: 1. Transition patient from conventional BiPAP to AVAPS. 2. Continue 3 L/min of supplemental oxygen at rest and 5 L/min with exertion. 3. Continue bronchodilators. 4. Discontinue antibiotics and steroids. 5. Obtain repeat echocardiogram. 6. We will ask case management to look into whether the patient could qualify for another Trilogy Machine. IMPRESSIONS: 1. Chronic combined respiratory failure/end-stage COPD The patient presented to the emergency department from her fpc facility over concerns for hypoxia. On arrival, the patient was noted to have a compensated respiratory acidosis. She was subsequently placed on BiPAP. The patient does have end-stage COPD and currently follows in the pulmonary medicine clinic. She is on maximal therapy from an inhaler perspective and was previously prescribed a home trilogy noninvasive ventilator. However, the patient discontinued its use to pursue stem cell therapy in [place]. Due to her noncompliance, her DME provider took her machine back. The patient does not appear to have any acute pulmonary infectious process. Therefore, I would recommend discontinuation of her antibiotics. The patient, from my perspective, appears to be at her baseline from a respiratory perspective. Nevertheless, I do feel that she would benefit from some form of ventilatory support on a chronic, baseline basis. The patient does require volume ventilation and all other alternative therapies have been considered and ruled out due to the severity of the disease state and life-threatening condition, including CO2 retention. Due to the increased probability of acute exacerbation, the patient requires ventilation to be used during the day as needed, in addition to nightly usage with facemask. Call will be placed to [facility] to see if the patient can be qualified for a new machine. In the interim, the patient is going to be transitioned from conventional BiPAP therapy to AVAPS therapy to be used PRN throughout the day and nightly. 2. Morbid obesity/diabetes mellitus/dyslipidemia/GERD/hypertension Complicates care, management, recovery and prognosis. Continue home medications as indicated. This note was generated with Flicstartation software. It may contain incorrect words, spelling, and punctuation that were not noted in checking the note before signing. Code Visit Inpatient E&M: 50692 Init Hosp L3
--- NOTE | 2019-01-25 13:43 | CASEMGMT ---
Per Dr. Gonzalez, pt has had trilogy in the past but then tried alternative treatment and [place] [facility], pt is in need of trilogy again at this time and he wants to know if she would be able to get it. Call to Kayce at [facility] and she states that pt should be able to get Trilogy as long as she qualifies and Kayce is made aware that pt is at [facility] currently and she states that she will call [facility] to verify that they are willing to pay the daily fee for the trilogy on pt return. [place] [facility] [place] time. Brenda FRANCIS CM
--- NOTE | 2019-01-25 14:13 | PCM.HP.STD ---
<Epifanio James - Last Filed: 01/25/19 14:13> Problem List (1) Hypercapnic respiratory failure Status: Acute Qualifiers: Chronicity: acute on chronic Qualified Code(s): J96.22 - Acute and chronic respiratory failure with hypercapnia (2) End stage COPD Status: Chronic (3) Vitamin D deficiency Status: Chronic (4) Hypercholesteremia Status: Chronic (5) Carotid stenosis Status: Chronic (6) Allergic rhinitis Status: Chronic (7) Osteopenia Status: Chronic (8) Obesity (BMI 35.0-39.9 without comorbidity) Status: Chronic (9) Esophageal reflux Status: Chronic (10) Essential hypertension Status: Chronic (11) Former smoker Status: Chronic (12) Diabetes mellitus type 2 in obese Status: Chronic (13) Vitamin B12 deficiency Status: Chronic History of Present Illness Date of Admission: 01/25/19 Chief Complaint: SOB The patient is a 83 year old F with a past medical history of end-stage COPD, patient of Dr. Gamboa, hypoxic and hypercapnic respiratory failure, type 2 diabetes, obesity, EMEA, GERD, hypertension, former smoker, who presents to the emergency room from the [facility] for hypoxia. The patient was formerly on trilogy at the [facility]. She stopped using her trilogy to pursue stem cell treatment in [place]. When she decided to do this her trilogy was taken away by her home health care. Since then she has not had any improvement. She has not had any CPAP, BiPAP, or trilogy. On room air she was at 67%, however she chronically uses oxygen at 3 L/min. On 3 L/min she is satting 97%. At time of history taking, the patient denied any shortness of breath. She does have a cough productive of yellow sputum. No fevers or chills. She seems somewhat lethargic. Her CO2 was markedly elevated on ABG at 111.8, PO2 was 50. PH is 7.37. Bicarb 64. She does have some lower extremity edema and her BNP is elevated at 113. Chest x-ray does demonstrate cardiomegaly, pulmonary congestion, small pleural effusions. She is currently resting comfortably in bed with no complaints. [] Past Medical History Past Medical History (Chronic Problems): Chronic Problems (Last Reviewed 01/03/19 @ 16:18 by Cristopher Lazcano DO) COPD exacerbation (Chronic) Dysphagia (Chronic) End stage COPD (Chronic) Hypokalemia (Chronic) End of life care (Chronic) Cough productive of yellow sputum (Chronic) Colon polyp (Chronic) Vitamin B12 deficiency (Chronic) Vitamin D deficiency (Chronic) Hypercholesteremia (Chronic) Plasma cell disorder (Chronic) Carotid stenosis (Chronic) Allergic rhinitis (Chronic) Constipation (Chronic) Osteopenia (Chronic) Lung nodule (Chronic) Hypersomnia (Chronic) Urinary incontinence (Chronic) 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 classification (Chronic) Abdominal hernia (Chronic) Obesity (BMI 35.0-39.9 without comorbidity) (Chronic) Dehydration (Chronic) Chronic respiratory failure with hypoxia and hypercapnia (Chronic) COLD (chronic obstructive lung disease) (Chronic) Dyslipidemia (Chronic) Esophageal reflux (Chronic) Essential hypertension (Chronic) Former smoker (Chronic) Diabetes mellitus type 2 in obese (Chronic) Medical History: Medical History (Last Reviewed 01/03/19 @ 16:18 by Cristopher Lazcano DO) Parotitis (Acute) K11.20 Colon polyp (Acute) K63.5 Vitamin B12 deficiency (Acute) E53.8 Vitamin D deficiency (Acute) E55.9 Hypercholesteremia (Chronic) E78.00 Plasma cell disorder (Chronic) D72.9 Carotid stenosis (Chronic) I65.29 Allergic rhinitis (Acute) J30.9 Constipation (Chronic) K59.00 Osteopenia (Chronic) M85.80 Lung nodule (Chronic) R91.1 Hypersomnia (Chronic) G47.10 Urinary incontinence (Acute) R32 Dyspnea (Acute) R06.00 Oral pharyngeal candidiasis (Acute) B37.0 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 classification (Chronic) J44.9 Abdominal hernia (Chronic) K46.9 Hypoxia (Acute) R09.02 Obesity (BMI 35.0-39.9 without comorbidity) (Chronic) E66.9 Dehydration (Acute) E86.0 Chronic respiratory failure with hypoxia and hypercapnia (Chronic) J96.11, J96.12 Acute on chronic respiratory failure with hypoxia and hypercapnia (Acute) J96.21, J96.22 COPD exacerbation (Acute) J44.1 FEV1 44% of predicted COLD (chronic obstructive lung disease) (Chronic) J44.9 Dyslipidemia (Chronic) E78.5 Esophageal reflux (Chronic) K21.9 Essential hypertension (Chronic) I10 Metabolic alkalosis (Resolved) E87.3 Former smoker (Chronic) Z87.891 Diabetes mellitus type 2 in obese (Chronic) E11.9, E66.9 Angioedema (Acute) T78.3XXA Allergies bee venom protein (honey bee) Allergy (Severe, Verified 01/25/19 07:06) Anaphylaxis LEATHA Inhibitors Allergy (Verified 01/25/19 07:06) Unknown latex Allergy (Verified 01/25/19 07:06) Itching Sulfa (Sulfonamide Antibiotics) Allergy (Verified 01/25/19 07:06) PT CAN'T REMEMBER budesonide [From Symbicort] Adverse Reaction (Verified 01/25/19 07:06) SORES IN MOUTH fluticasone [From Advair Diskus] Adverse Reaction (Verified 01/25/19 07:06) SORES IN MOUTH formoterol [From Symbicort] Adverse Reaction (Verified 01/25/19 07:06) SORES IN MOUTH ipratropium Adverse Reaction (Verified 01/25/19 07:06) SORES IN MOUTH salmeterol [From Advair Diskus] Adverse Reaction (Verified 01/25/19 07:06) SORES IN MOUTH BREATHING TREATMENTS Adverse Reaction (Uncoded 01/25/19 07:06) SORES IN MOUTH Home Medications: Ambulatory Orders Medication Instructions Recorded Oxygen, Home [Home Oxygen] 2 lpm NASAL DAILY 04/08/15 Tolterodine Tartrate 4 mg PO DAILY 12/02/16 Red Yeast Rice 600 mg PO DAILY 09/15/17 epinephrine 0.3 mg/0.3 mL 0.5 mg IM Q10-15M PRN 10/28/17 injection, auto-injector vit C,E,zinc,copper-pbxeo5h 250 1 cap PO DAILY 10/28/17 mg-lutein 5 mg-zeaxanthin 1 mg capsule acetaminophen 325 mg capsule 325 mg PO TID PRN cap 04/21/18 Furosemide [Lasix] 20 mg PO BID PRN 01/03/19 Saxagliptin HCl [Onglyza] 5 mg PO DAILY 01/03/19 Albuterol Aerosols [Ventolin 2.5 mg INHALATION Q2H PRN PRN 01/09/19 Aerosols] vial.neb. Aspirin [Aspirin, Baby] 81 mg PO DAILYCM tab.chew 01/09/19 Famotidine [Pepcid] 20 mg PO BID tablet 01/09/19 Ipratropium/Albuterol Sulfate 3 ml INHALATION Q4H.RT ampul.neb 01/09/19 [Duoneb] Lisinopril [Zestril] 20 mg PO DAILY tablet 01/09/19 Magnesium Hydroxide [Milk Of 30 ml PO DAILY PRN PRN udc 01/09/19 Magnesia] Metoprolol Tartrate [Lopressor 25 mg PO BID tablet 01/09/19 (beta hiram)] Polyethylene Glycol 3350 [Miralax] 17 gm PO BID packet 01/09/19 Senna/Docusate Sodium [Senokot-S] 2 tablet PO BID tablet 01/09/19 Argin/Glut/Cahmb/Collag/Mv-Min 1 each PO BID 01/25/19 [Rhett Packet] Hydrocortisone 2.5% Crm [Hytone] 1 applic TOPICAL BID PRN PRN 01/25/19 Omeprazole [Prilosec] 20 mg PO DAILY 01/25/19 Surgical History: Surgical History (Last Reviewed 01/03/19 @ 16:18 by Cristopher Lazcano DO) stem cell injection (Resolved) bladder sling (Resolved) History of cholecystectomy (Resolved) Z98.890, Z90.49 History of inguinal hernia repair (Resolved) Z98.890, Z87.19 History of hemorrhoidectomy (Resolved) Z98.890 H/O cataract removal with insertion of prosthetic lens (Resolved) Z98.49, Z96.1 Surgical History: cataract - Bilateral, cholecystectomy, - - Bladder sling, Psychiatric History: No pertinent psych hx 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 Smoking Status: Former smoker - *Family History Maternal Family History: Family History (Last Reviewed 01/03/19 @ 16:18 by Cristopher Lazcano DO) Brother Lung disease Mother Heart disease Diabetes Father CAD (coronary artery disease) History Items: Diabetes, Heart Disease Paternal Family History: Family History (Last Reviewed 01/03/19 @ 16:18 by Cristopher Lazcano DO) Brother Lung disease Mother Heart disease Diabetes Father CAD (coronary artery disease) History Items: - - father at 76 with a DVT and PE Sibling Family History: Family History (Last Reviewed 01/03/19 @ 16:18 by Cristopher Lazcano DO) Brother Lung disease Mother Heart disease Diabetes Father CAD (coronary artery disease) History Items: - - she has 10 siblings...one is with pancreatic cancer Review of Systems Constitutional: Reports: Fatigue. Denies: Chills, Fever, Weight Change HEENT: Denies: Head Aches, Sinus Congestion, Sinus Drainage Cardiovascular: Reports: Edema. Denies: Chest Pain, Chest Pressure, Chest Tightness, Heaviness, Light Headedness, Palpitations Respiratory: Reports: Cough, Shortness of breath upon exertion, Sputum production. Denies: Pleuritic Pain, Shortness of Breath, Shortness of breath at rest, Wheezing Gastrointestinal: Denies: Abdominal Pain, Nausea, Vomiting Genitourinary: Denies: Dysuria Musculoskeletal: Denies: Joint Pain, Joint Tenderness Skin: Denies: Rash, Wounds Neurological: Denies: Numbness, Tingling, Focal weakness Psychiatric: Denies: Anxiety, Depression, Homicidal Ideations, Suicidal Ideations Hematologic/ Lymphatic: Denies: Easy Bruising, Easy Bleeding VTE Information - Inpt Only VTE Present on Admission: No VTE Mechan Device Prophylaxis: None VTE Pharm Prophylaxis ordered?: Yes - Physical Exam General: Alert, Oriented x3, Cooperative HEENT: Atraumatic, PERRLA, EOMI, Normocephalic Neck: Supple, No JVD, Negative Carotid Bruits Lungs: Clear to auscultation, Diminished Cardiovascular: Regular rate, No murmurs Abdomen: Bowel Sounds Present, Soft, Non Tender Extremities: Capillary Refill Less than 3 Seconds, Edema - 2+ pitting edema BLE Skin: No rashes, No breakdown Musculoskeletal: No Tenderness to Palpation of Joints or Extremities Neurological: Cranial nerves II-XII grossly intact Psych/Mental Status: Normal Affect, Appropriate Vital Signs Temp Pulse Resp BP Pulse Ox 97 F L 87 22 H 101/60 97 01/25/19 10:00 01/25/19 12:00 01/25/19 12:00 01/25/19 12:00 01/25/19 13:00 Oxygen Flow Rate (L/min) 3 Oxygen Delivery Method Nasal Cannula Weight: 196 lb 10.437 oz Body Mass Index (BMI) 36.1 Intake and Output for Last 24 Hours 01/23/19 01/24/19 01/25/19 23:59 23:59 23:59 Intake Total 240 / 240 Output Total 450 / 450 Balance -210 / -210 Laboratory Tests Past 24 Hrs 01/25/19 01/25/19 01/25/19 07:10 07:10 07:10 WBC 11.2 H RBC 3.91 L Hgb 12.2 Hct 42.3 MCV 108.2 H MCH 31.2 MCHC 28.8 L RDW 15.6 H RDW Differential 60.6 H Plt Count 135 L MPV 11.3 Immature Gran % (Auto) 0.300 Neut % (Auto) 81.0 H Lymph % (Auto) 8.3 L Summers % (Auto) 9.8 Eos % (Auto) 0.5 Baso % (Auto) 0.1 Absolute Neuts (auto) 9.0 H Absolute Lymphs (auto) 0.93 Total Counted Not Reportable Specimen Type Sample Site pH Bicarbonate Actual POC Total CO2 Base Excess O2 Saturation ABG pCO2 ABG pO2 Erick Test O2 Delivery Device Liter Flow Blood Gas Notified Whom Blood Gas Notified Time Sodium 141 Potassium 4.1 Chloride 90 L Carbon Dioxide > 45.0 H* Anion Gap TNP BUN 17 Creatinine 0.54 L Estim Creat Clear Calc 34.90 Est GFR (MDRD) Af Amer 139 Est GFR (MDRD) Non-Af 115 BUN/Creatinine Ratio 31.5 H Glucose 174 H Lactic Acid Calcium 8.6 Troponin I < 0.015 B-Natriuretic Peptide 113.8 H 01/25/19 01/25/19 07:45 08:30 WBC RBC Hgb Hct MCV MCH MCHC RDW RDW Differential Plt Count MPV Immature Gran % (Auto) Neut % (Auto) Lymph % (Auto) Summers % (Auto) Eos % (Auto) Baso % (Auto) Absolute Neuts (auto) Absolute Lymphs (auto) Total Counted Specimen Type ART Sample Site L Brachial pH 7.37 Bicarbonate Actual 64.0 H POC Total CO2 > 50 Base Excess > 30 H O2 Saturation 79 L ABG pCO2 111.8 H* ABG pO2 50 L Erick Test NA O2 Delivery Device Nasal Can Liter Flow 4.0 Blood Gas Notified Whom ED MD Blood Gas Notified Time 744 Sodium Potassium Chloride Carbon Dioxide Anion Gap BUN Creatinine Estim Creat Clear Calc Est GFR (MDRD) Af Amer Est GFR (MDRD) Non-Af BUN/Creatinine Ratio Glucose Lactic Acid 1.5 Calcium Troponin I B-Natriuretic Peptide POC Glucose 01/25/19 11:42 POC Glucose 131 H Assessment/Plan All Active Problems (Last Reviewed 01/03/19 @ 16:18 by Cristopher Lazcano DO) Hypercapnic respiratory failure (Acute) stem cell injection (Resolved) bladder sling (Resolved) History of cholecystectomy (Resolved) History of inguinal hernia repair (Resolved) History of hemorrhoidectomy (Resolved) H/O cataract removal with insertion of prosthetic lens (Resolved) Dyspnea (Acute) Hypoxia (Acute) Acute on chronic respiratory failure with hypoxia and hypercapnia (Acute) COPD exacerbation (Acute) Metabolic alkalosis (Resolved) Angioedema (Resolved) History of DVT of lower extremity (Resolved) Parotitis (Resolved) 1. Acute on chronic hypercapnic respiratory failure secondary to end stage COPD with noncompliance to home trilogy therapy, also secondary to some degree of acute on chronic diastolic congestive heart failure-65% ejection fraction on last echo which was in 2013. We will repeat this. Provide BiPAP with ventilatory support. Aerosols will be provided. We will also diurese with IV Lasix as she appears to have fluid overload per chest x-ray with pleural effusions, pulmonary congestion, lower extremity edema. She is stable on her home oxygen levels. She denies shortness of breath at this time, however she is lethargic. -Lactate negative. -mild WBC elevation. -No fever -BNP 113 -Trop neg. -pH normal -pCO2 111.8, pO2 50. -abx, steroids not warranted per pulmonary medicine. -repeat echo 2. T2DM - SSI, tradjenta 3. HTN - leatha-i, metoprolol 4. GERD - Pepcid, Protonix 5. 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 Whitney <Damian Whitney - Last Filed: 01/25/19 14:54> Problem List (1) End stage COPD Status: Chronic (2) Acute on chronic respiratory failure with hypoxia and hypercapnia Status: Acute (3) Angioedema Status: Resolved (4) COPD exacerbation Status: Acute Comment: FEV1 44% of predicted (5) Colon polyp Status: Chronic (6) Cough productive of yellow sputum Status: Chronic (7) Dehydration Status: Chronic (8) Dyspnea Status: Acute (9) End of life care Status: Chronic (10) Hypercapnic respiratory failure Status: Acute Qualifiers: Chronicity: acute on chronic Qualified Code(s): J96.22 - Acute and chronic respiratory failure with hypercapnia (11) Hypoxia Status: Acute (12) Oral pharyngeal candidiasis Status: Suspected (13) Parotitis Status: Suspected (14) Urinary incontinence Status: Chronic (15) Abdominal hernia Status: Chronic (16) Allergic rhinitis Status: Chronic (17) COLD (chronic obstructive lung disease) Status: Chronic Qualifiers: COPD type: emphysema Emphysema type: unspecified Qualified Code(s): J43.9 - Emphysema, unspecified (18) COPD exacerbation Status: Chronic (19) Carotid stenosis Status: Chronic (20) Chronic respiratory failure with hypoxia and hypercapnia Status: Chronic (21) Constipation Status: Chronic (22) Diabetes mellitus type 2 in obese Status: Chronic (23) Dyslipidemia Status: Chronic (24) Dysphagia Status: Chronic (25) Esophageal reflux Status: Chronic (26) Essential hypertension Status: Chronic (27) Former smoker Status: Chronic (28) Hypercholesteremia Status: Chronic (29) Hypersomnia Status: Chronic (30) Hypokalemia Status: Chronic (31) Lung nodule Status: Chronic (32) Obesity (BMI 35.0-39.9 without comorbidity) Status: Chronic (33) Osteopenia Status: Chronic (34) Plasma cell disorder Status: Chronic (35) 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 classification Status: Chronic (36) Vitamin B12 deficiency Status: Chronic (37) Vitamin D deficiency Status: Chronic (38) H/O cataract removal with insertion of prosthetic lens Status: Resolved (39) History of cholecystectomy Status: Resolved (40) History of hemorrhoidectomy Status: Resolved (41) History of inguinal hernia repair Status: Resolved (42) Metabolic alkalosis Status: Resolved (43) bladder sling Status: Resolved (44) stem cell injection Status: Resolved History of Present Illness The patient is a 83 year old F [] Past Medical History Medical History: Medical History (Last Reviewed 01/03/19 @ 16:18 by Cristopher Lazcano DO) Parotitis (Acute) K11.20 Colon polyp (Acute) K63.5 Vitamin B12 deficiency (Acute) E53.8 Vitamin D deficiency (Acute) E55.9 Hypercholesteremia (Chronic) E78.00 Plasma cell disorder (Chronic) D72.9 Carotid stenosis (Chronic) I65.29 Allergic rhinitis (Acute) J30.9 Constipation (Chronic) K59.00 Osteopenia (Chronic) M85.80 Lung nodule (Chronic) R91.1 Hypersomnia (Chronic) G47.10 Urinary incontinence (Acute) R32 Dyspnea (Acute) R06.00 Oral pharyngeal candidiasis (Acute) B37.0 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 classification (Chronic) J44.9 Abdominal hernia (Chronic) K46.9 Hypoxia (Acute) R09.02 Obesity (BMI 35.0-39.9 without comorbidity) (Chronic) E66.9 Dehydration (Acute) E86.0 Chronic respiratory failure with hypoxia and hypercapnia (Chronic) J96.11, J96.12 Acute on chronic respiratory failure with hypoxia and hypercapnia (Acute) J96.21, J96.22 COPD exacerbation (Acute) J44.1 FEV1 44% of predicted COLD (chronic obstructive lung disease) (Chronic) J44.9 Dyslipidemia (Chronic) E78.5 Esophageal reflux (Chronic) K21.9 Essential hypertension (Chronic) I10 Metabolic alkalosis (Resolved) E87.3 Former smoker (Chronic) Z87.891 Diabetes mellitus type 2 in obese (Chronic) E11.9, E66.9 Angioedema (Acute) T78.3XXA Allergies bee venom protein (honey bee) Allergy (Severe, Verified 01/25/19 07:06) Anaphylaxis LEATHA Inhibitors Allergy (Verified 01/25/19 07:06) Unknown latex Allergy (Verified 01/25/19 07:06) Itching Sulfa (Sulfonamide Antibiotics) Allergy (Verified 01/25/19 07:06) PT CAN'T REMEMBER budesonide [From Symbicort] Adverse Reaction (Verified 01/25/19 07:06) SORES IN MOUTH fluticasone [From Advair Diskus] Adverse Reaction (Verified 01/25/19 07:06) SORES IN MOUTH formoterol [From Symbicort] Adverse Reaction (Verified 01/25/19 07:06) SORES IN MOUTH ipratropium Adverse Reaction (Verified 01/25/19 07:06) SORES IN MOUTH salmeterol [From Advair Diskus] Adverse Reaction (Verified 01/25/19 07:06) SORES IN MOUTH BREATHING TREATMENTS Adverse Reaction (Uncoded 01/25/19 07:06) SORES IN MOUTH Surgical History: Surgical History (Last Reviewed 01/03/19 @ 16:18 by Cristopher Lazcano DO) stem cell injection (Resolved) bladder sling (Resolved) History of cholecystectomy (Resolved) Z98.890, Z90.49 History of inguinal hernia repair (Resolved) Z98.890, Z87.19 History of hemorrhoidectomy (Resolved) Z98.890 H/O cataract removal with insertion of prosthetic lens (Resolved) Z98.49, Z96.1 - *Family History Maternal Family History: Family History (Last Reviewed 01/03/19 @ 16:18 by Cristopher Lazcano DO) Brother Lung disease Mother Heart disease Diabetes Father CAD (coronary artery disease) Paternal Family History: Family History (Last Reviewed 01/03/19 @ 16:18 by Cristopher Lazcano DO) Brother Lung disease Mother Heart disease Diabetes Father CAD (coronary artery disease) Sibling Family History: Family History (Last Reviewed 01/03/19 @ 16:18 by Cristopher Lazcano DO) Brother Lung disease Mother Heart disease Diabetes Father CAD (coronary artery disease) - Physical Exam Vital Signs Temp Pulse Resp BP Pulse Ox 97 F L 87 22 H 101/60 97 01/25/19 10:00 01/25/19 12:00 01/25/19 12:00 01/25/19 12:00 01/25/19 13:00 Oxygen Flow Rate (L/min) 3 Oxygen Delivery Method Nasal Cannula Weight: 89.2 kg Body Mass Index (BMI) 36.1 Intake and Output for Last 24 Hours 01/23/19 01/24/19 01/25/19 23:59 23:59 23:59 Intake Total 240 / 240 Output Total 450 / 450 Balance -210 / -210 Laboratory Tests Past 24 Hrs 01/25/19 01/25/19 01/25/19 07:10 07:10 07:10 WBC 11.2 H RBC 3.91 L Hgb 12.2 Hct 42.3 MCV 108.2 H MCH 31.2 MCHC 28.8 L RDW 15.6 H RDW Differential 60.6 H Plt Count 135 L MPV 11.3 Immature Gran % (Auto) 0.300 Neut % (Auto) 81.0 H Lymph % (Auto) 8.3 L Summers % (Auto) 9.8 Eos % (Auto) 0.5 Baso % (Auto) 0.1 Absolute Neuts (auto) 9.0 H Absolute Lymphs (auto) 0.93 Total Counted Not Reportable Specimen Type Sample Site pH Bicarbonate Actual POC Total CO2 Base Excess O2 Saturation ABG pCO2 ABG pO2 Erick Test O2 Delivery Device Liter Flow Blood Gas Notified Whom Blood Gas Notified Time Sodium 141 Potassium 4.1 Chloride 90 L Carbon Dioxide > 45.0 H* Anion Gap TNP BUN 17 Creatinine 0.54 L Estim Creat Clear Calc 34.90 Est GFR (MDRD) Af Amer 139 Est GFR (MDRD) Non-Af 115 BUN/Creatinine Ratio 31.5 H Glucose 174 H Lactic Acid Calcium 8.6 Troponin I < 0.015 B-Natriuretic Peptide 113.8 H 01/25/19 01/25/19 07:45 08:30 WBC RBC Hgb Hct MCV MCH MCHC RDW RDW Differential Plt Count MPV Immature Gran % (Auto) Neut % (Auto) Lymph % (Auto) Summers % (Auto) Eos % (Auto) Baso % (Auto) Absolute Neuts (auto) Absolute Lymphs (auto) Total Counted Specimen Type ART Sample Site L Brachial pH 7.37 Bicarbonate Actual 64.0 H POC Total CO2 > 50 Base Excess > 30 H O2 Saturation 79 L ABG pCO2 111.8 H* ABG pO2 50 L Erick Test NA O2 Delivery Device Nasal Can Liter Flow 4.0 Blood Gas Notified Whom ED MD Blood Gas Notified Time 744 Sodium Potassium Chloride Carbon Dioxide Anion Gap BUN Creatinine Estim Creat Clear Calc Est GFR (MDRD) Af Amer Est GFR (MDRD) Non-Af BUN/Creatinine Ratio Glucose Lactic Acid 1.5 Calcium Troponin I B-Natriuretic Peptide POC Glucose 01/25/19 11:42 POC Glucose 131 H Assessment/Plan This patient was seen in conjunction with Epifanio James PA-C . I have independently interviewed and examined the patient and reviewed pertinent historical, laboratory, and other data. Please refer to Epifanio James PA-C note for details of this patient's presentation, findings, and recommendations. I have reviewed Epifanio James PA-C note and concur with documented findings. In brief, patient- 83 year-old lady who presented with progressive shortness of breath. An assessment of acute hypoxic respiratory failure secondary to COPD with acute exacerbation was made. She was placed on BiPAP and admitted to the progressive care unit Physical Examination: GENERAL: Dyspneic at rest on BiPAP HEENT: Atraumatic; moist oral mucosa EYES; Anicteric, Normal Conjunctiva NECK; supple, normal thyroid, RESPIRATORY: Diminished to auscultation bilaterally, CARDIOVASCULAR: Regular S1 S2, NEURO: Awake; no lateralizing signs. SKIN: No Rash PSYCH;flat affect Assessment: Keep 1. Acute hypoxic and hypercapnic respiratory failure 2. COPD with acute exacerbation 3. Suspected acute diastolic congestive heart failure echo on 4. Essential hypertension 5. Diabetes mellitus type 2 6. GERD 7. Physical deconditioning 8. Morbid obesity with BMI of 36 9. DVT prophylaxis SC Lovenox Recommendations: 1. I have discussed the results of my overview and impressions with the patient 2. Options for management were reviewed Code Visit Inpatient E&M: [id number] Init Hosp L3
[2019-01-25 17:20] LABS: Bedside Glucose 115 mg/dL (70-110)
[2019-01-25] MEDS: Metoprolol Tartrate 25 MG Tablet PO (21:43)
[2019-01-25] MEDS: Furosemide 40 MG/4 ML Vial IV (21:43)
[2019-01-25 21:56] LABS: Bedside Glucose 146 mg/dL (70-110)
[2019-01-26] VITALS (25 sets, daily range): BP systolic 89–139; BP diastolic 33–61; PULSE 57–101; RESP 12–28; TEMP 36.4–37; O2SAT 91–96
[2019-01-26] MEDS: Ipratropium/Albuterol Sulfate 3 ML AMPUL.NEB INHALATION ×6 (03:41→22:13)
--- NOTE | 2019-01-26 05:13 | CPS ---
on avaps pt resp rate kept triggering high rates than pt, tried extending i times, and increased pressures.
[2019-01-26 05:55] LABS: Absolute Lymphocyte Count 0.82 X10^3/ul (0.83-4.51); Absolute Neutrophil Count 7.1 X10^3/uL (2.0-7.7); Basophil# 0.01 X10^3/uL; Basophil% 0.1 % (0-1); Eosinophil# 0.07 X10^3/uL; Eosinophils% 0.8 % (0-5); Hematocrit 39.3 % (37-47); Hemoglobin 11.6 g/dl (12.0-15.0); Lymphocyte # 0.82 X10^3/ul (4.0); Lymphocyte % 9.2 % (19-41); Mean Corp Hgb Conc 29.5 g/gl (32-36); Mean Corpuscular Hgb 31.1 pg (27.0-32.0); Mean Corpuscular Volume 105.4 fL (81-99); Mean Platelet Vol. 11.1 fl (6.2-12.0); Monocyte# 0.86 X10^3/uL; Monocyte% 9.6 % (0-10); Neutrophil # 7.14 X10^3/uL (2.7-7.7); Neutrophil % 80.1 % (47-70); Platelet Count 146 K/mm3 (150-450); RBC Distribution Width CV 15.1 % (11.6-14.6); RBC Distribution Width SD 56.7 fl (35.1-43.9); Red Blood Count 3.73 M/mm3 (4.2-5.4); White Blood Count 8.9 K/mm3 (4.4-11.0)
[2019-01-26 06:00] LABS: POSITIVE COUNT NO; POSITIVE DIFFERENTIAL NO; POSITIVE MORPHOLOGY NO
[2019-01-26] MEDS: Furosemide 40 MG/4 ML Vial IV ×2 (06:31→14:17)
[2019-01-26 06:34] LABS: BUN 18 mg/dL (7-18); BUN/Creat Ratio 30.2 RATIO (10-20); Calcium,Total 8.4 mg/dL (8.5-10.1); Carbon Dioxide > 45.0 mmol/L (21.0-32.0); Chloride 80 mmol/L (98-107); EST Glomerular Filtration Rate 103 mL/min (>60); Est Glom Filt Rate - Afr Amer 124 mL/min (>60); Estimated Creatinine Clearance 33.29 ml/min; Glucose 138 mg/dL (74-106); Magnesium 1.7 mg/dL (1.6-2.6); Sodium Level 141 mmol/L (136-145)
[2019-01-26] MEDS: 0.9% NaCl Peripheral Flush Adult/Peds IV ×2 (06:36→14:16)
[2019-01-26 06:50] LABS: Bedside Glucose 134 mg/dL (70-110)
--- NOTE | 2019-01-26 07:38 | PN_ITS ---
Subjective: The patient was seen and examined at the bedside this morning. Events from the last 24 hours have been reviewed. The patient is currently afebrile, hemodynamically stable and maintaining appropriate oxygen saturations on 3 L/min via nasal cannula. The patient was maintained on AVAPS overnight. Yesterday, I did complete an order/paperwork for the patient to receive a new trilogy machine through [employer]. Breathing quality appears to be at baseline. Objective: The patient's most recent lab work, culture data and imaging studies have all been personally reviewed. - Physical Exam General: Alert, Cooperative, No apparent distress, - - is present at the bedside. HEENT: Atraumatic, PERRLA, Normocephalic Oral: Moist Mucosa, No Gingival or Mucosal Lesions/ Ulcerations Neck: Supple, No Nodes, Trachea Midline Lungs: No rhonchi, No wheeze, No rales, Diminished Cardiovascular: Regular rate, Regular Rhythm, Normal S1, Normal S2, No murmurs Abdomen: Bowel Sounds Present, Soft, Non Tender, Obese Extremities: No clubbing, No cyanosis, Edema Skin: No breakdown Musculoskeletal: No Tenderness to Palpation of Joints or Extremities Lymphatic: No Cervical, Supraclavicular, or Inguinal Adenopathy Neurological: Cranial nerves II-XII grossly intact, Neuro grossly intact Psych/Mental Status: Normal Affect, Appropriate Vital Signs Temp Pulse Resp BP Pulse Ox 97.6 F L 101 H 16 139/61 H 95 01/26/19 03:35 01/26/19 07:22 01/26/19 07:22 01/26/19 03:35 01/26/19 07:22 Oxygen Flow Rate (L/min) 4 Oxygen Delivery Method Nasal Cannula Weight: 195 lb 15.855 oz Body Mass Index (BMI) 36.1 Intake and Output for Last 24 Hours 01/24/19 01/25/19 01/26/19 23:59 23:59 23:59 Intake Total 480 / 480 0 / 0 Output Total 850 / 850 Balance -370 / -370 0 / 0 Laboratory Tests Past 24 Hrs 01/25/19 01/25/19 01/25/19 07:10 07:10 07:45 WBC RBC Hgb Hct MCV MCH MCHC RDW RDW Differential Plt Count MPV Immature Gran % (Auto) Neut % (Auto) Lymph % (Auto) [place] % (Auto) Eos % (Auto) Baso % (Auto) Absolute Neuts (auto) Absolute Lymphs (auto) Total Counted Specimen Type ART Sample Site L Brachial pH 7.37 Bicarbonate Actual 64.0 H POC Total CO2 > 50 Base Excess > 30 H O2 Saturation 79 L ABG pCO2 111.8 H* ABG pO2 50 L Erick Test NA O2 Delivery Device Nasal Can Liter Flow 4.0 Blood Gas Notified Whom ED MD Blood Gas Notified Time 744 Sodium 141 Potassium 4.1 Chloride 90 L Carbon Dioxide > 45.0 H* Anion Gap TNP BUN 17 Creatinine 0.54 L Estim Creat Clear Calc 34.90 Est GFR (MDRD) Af Amer 139 Est GFR (MDRD) Non-Af 115 BUN/Creatinine Ratio 31.5 H Glucose 174 H Lactic Acid Calcium 8.6 Magnesium Troponin I < 0.015 B-Natriuretic Peptide 113.8 H 01/25/19 01/26/19 01/26/19 08:30 05:20 05:20 WBC 8.9 RBC 3.73 L Hgb 11.6 L Hct 39.3 MCV 105.4 H MCH 31.1 MCHC 29.5 L RDW 15.1 H RDW Differential 56.7 H Plt Count 146 L MPV 11.1 Immature Gran % (Auto) 0.200 Neut % (Auto) 80.1 H Lymph % (Auto) 9.2 L [place] % (Auto) 9.6 Eos % (Auto) 0.8 Baso % (Auto) 0.1 Absolute Neuts (auto) 7.1 Absolute Lymphs (auto) 0.82 L Total Counted Not Reportable Specimen Type Sample Site pH Bicarbonate Actual POC Total CO2 Base Excess O2 Saturation ABG pCO2 ABG pO2 Erick Test O2 Delivery Device Liter Flow Blood Gas Notified Whom Blood Gas Notified Time Sodium 141 Potassium 3.0 L Chloride 80 L Carbon Dioxide > 45.0 H* Anion Gap TNP BUN 18 Creatinine 0.60 Estim Creat Clear Calc 33.29 Est GFR (MDRD) Af Amer 124 Est GFR (MDRD) Non-Af 103 BUN/Creatinine Ratio 30.2 H Glucose 138 H Lactic Acid 1.5 Calcium 8.4 L Magnesium 1.7 Troponin I B-Natriuretic Peptide POC Glucose 01/26/19 01/25/19 01/25/19 06:32 21:41 17:09 POC Glucose 134 H 146 H 115 H 01/25/19 11:42 POC Glucose 131 H Clinical Impression(s) from Imaging Studies Chest X-Ray 01/25/19 07:19 IMPRESSION: Mild cardiomegaly with pulmonary congestion and small pleural effusions. Electronically Signed: Liana Garcia MD at 8:04 EDT , Service support , Medical Necessity - Tobacco Use Smoking Status: Former smoker Assessment/Plan All Active Problems (Last Reviewed 01/03/19 @ 16:18 by Cristopher Lazcano DO) Hypercapnic respiratory failure (Acute) stem cell injection (Resolved) bladder sling (Resolved) History of cholecystectomy (Resolved) History of inguinal hernia repair (Resolved) History of hemorrhoidectomy (Resolved) H/O cataract removal with insertion of prosthetic lens (Resolved) Dyspnea (Acute) Hypoxia (Acute) Acute on chronic respiratory failure with hypoxia and hypercapnia (Acute) COPD exacerbation (Acute) Metabolic alkalosis (Resolved) Angioedema (Resolved) History of DVT of lower extremity (Resolved) Parotitis (Resolved) RECOMMENDATIONS: 1. Continue AVAPS nightly and PRN throughout the day. 2. Continue 3 L/min of supplemental oxygen at rest and 5 L/min with exertion. 3. Continue bronchodilators. IMPRESSIONS: 1. Chronic combined respiratory failure/end-stage COPD The patient presented to the emergency department from her custodial facility over concerns for hypoxia. On arrival, the patient was noted to have a compensated respiratory acidosis. She was subsequently placed on BiPAP. The patient does have end-stage COPD and currently follows in the pulmonary medicine clinic. She is on maximal therapy from an inhaler perspective and was previously prescribed a home trilogy noninvasive ventilator. However, the patient discontinued its use to pursue stem cell therapy in [place]. Due to her noncompliance, her DME provider took her machine back. The patient does not appear to have any acute pulmonary infectious process. Therefore, I would recommend discontinuation of her antibiotics. The patient, from my perspective, appears to be at her baseline from a respiratory perspective. Nevertheless, I do feel that she would benefit from some form of ventilatory support on a chronic, baseline basis. The patient does require volume ventilation and all other alternative therapies have been considered and ruled out due to the severity of the disease state and life-threatening condition, including CO2 retention. Due to the increased probability of acute exacerbation, the patient requires ventilation to be used during the day as needed, in addition to nightly usage with facemask. Call will be placed to [facility] to see if the patient can be qualified for a new machine. In the interim, the patient is going to be transitioned from conventional BiPAP therapy to AVAPS therapy to be used PRN throughout the day and nightly. 2. Morbid obesity/diabetes mellitus/dyslipidemia/GERD/hypertension Complicates care, management, recovery and prognosis. Continue home medications as indicated. This note was generated with [employer] dictation software. It may contain incorrect words, spelling, and punctuation that were not noted in checking the note before signing. Code Visit Inpatient E&M: 29400 Subs Hosp L2
[2019-01-26] MEDS: LINAGLIPTIN 5 MG TABLET PO (08:51)
[2019-01-26] MEDS: Aspirin 81 MG TAB.CHEW PO (08:51)
[2019-01-26] MEDS: Pantoprazole Sodium 20 MG Tablet PO (08:52)
[2019-01-26] MEDS: Tolterodine Tartrate 4 MG CAP.SA PO (08:52)
[2019-01-26] MEDS: Polyethylene Glycol 3350 17 GM PACKET PO (08:52)
[2019-01-26] MEDS: Lisinopril 20 MG Tablet PO (08:52)
[2019-01-26] MEDS: Senna/Docusate Sodium 1 Tablet 2 TABLET PO (08:52)
[2019-01-26] MEDS: Famotidine 20 MG Tablet PO (08:52)
[2019-01-26] MEDS: Metoprolol Tartrate 25 MG Tablet PO (08:53)
[2019-01-26] MEDS: Enoxaparin 40 MG/0.4 ML Syringe SC (08:53)
--- NOTE | 2019-01-26 10:14 | CASEMGMT ---
JILL spoke with patient and her per their request. They would like patient to go to [facility] instead of back to [place]. JILL told them will work on this and let them know when SW hears anything. JILL called Susan at [facility] and made referral. JILL also let her know that patient will need a Trilogy. She said she can get this, she will just need the order. JILL faxed information. Nolvia ROQUE MSW
[2019-01-26 11:51] LABS: Bedside Glucose 142 mg/dL (70-110)
--- NOTE | 2019-01-26 11:53 | PCM.PROGNOTE ---
<Emily Mcconnell - Last Filed: 01/26/19 12:02> Subjective: Patient seen and examined. Resting comfortably in bed, at bedside. Patient feels her breathing is at baseline. Denies current complaints. - Physical Exam General: Alert, Oriented x3, Cooperative HEENT: Atraumatic, PERRLA, EOMI, Normocephalic Neck: Supple, No JVD, Negative Carotid Bruits Lungs: Clear to auscultation, Diminished Cardiovascular: Regular rate, Regular Rhythm, Normal S1, Normal S2, No murmurs Abdomen: Bowel Sounds Present, Soft, Non Tender, Non-Distended, Obese Extremities: No clubbing, No cyanosis, Capillary Refill Less than 3 Seconds, Edema - +1-2 BLLE Skin: No rashes, No breakdown Musculoskeletal: No Tenderness to Palpation of Joints or Extremities Neurological: Cranial nerves II-XII grossly intact, Neuro grossly intact Psych/Mental Status: Normal Affect, Appropriate Vital Signs Temp Pulse Resp BP Pulse Ox 98.6 F 81 17 97/53 L 96 01/26/19 11:36 01/26/19 11:36 01/26/19 11:36 01/26/19 11:36 01/26/19 11:36 Oxygen Flow Rate (L/min) 4 Oxygen Delivery Method Nasal Cannula Weight: 195 lb 15.855 oz Body Mass Index (BMI) 36.1 Intake and Output for Last 24 Hours 01/24/19 01/25/19 01/26/19 23:59 23:59 23:59 Intake Total 480 / 480 680 / 680 Output Total 850 / 850 400 / 400 Balance -370 / -370 280 / 280 Laboratory Tests Past 24 Hrs 01/26/19 01/26/19 05:20 05:20 WBC 8.9 RBC 3.73 L Hgb 11.6 L Hct 39.3 MCV 105.4 H MCH 31.1 MCHC 29.5 L RDW 15.1 H RDW Differential 56.7 H Plt Count 146 L MPV 11.1 Immature Gran % (Auto) 0.200 Neut % (Auto) 80.1 H Lymph % (Auto) 9.2 L [place] % (Auto) 9.6 Eos % (Auto) 0.8 Baso % (Auto) 0.1 Absolute Neuts (auto) 7.1 Absolute Lymphs (auto) 0.82 L Total Counted Not Reportable Sodium 141 Potassium 3.0 L Chloride 80 L Carbon Dioxide > 45.0 H* Anion Gap TNP BUN 18 Creatinine 0.60 Estim Creat Clear Calc 33.29 Est GFR (MDRD) Af Amer 124 Est GFR (MDRD) Non-Af 103 BUN/Creatinine Ratio 30.2 H Glucose 138 H Calcium 8.4 L Magnesium 1.7 POC Glucose 01/26/19 01/26/19 01/25/19 11:31 06:32 21:41 POC Glucose 142 H 134 H 146 H 01/25/19 01/25/19 17:09 11:42 POC Glucose 115 H 131 H Medical Necessity - Tobacco Use Smoking Status: Former smoker Assessment/Plan All Active Problems (Last Reviewed 01/03/19 @ 16:18 by Cristopher Lazcano DO) Hypercapnic respiratory failure (Acute) stem cell injection (Resolved) bladder sling (Resolved) History of cholecystectomy (Resolved) History of inguinal hernia repair (Resolved) History of hemorrhoidectomy (Resolved) H/O cataract removal with insertion of prosthetic lens (Resolved) Dyspnea (Acute) Hypoxia (Acute) Acute on chronic respiratory failure with hypoxia and hypercapnia (Acute) COPD exacerbation (Acute) Metabolic alkalosis (Resolved) Angioedema (Resolved) History of DVT of lower extremity (Resolved) Parotitis (Resolved) 1. Acute on chronic combined hypoxic and hypercapnic respiratory failure secondary to end-stage COPD-pulmonary medicine consulted. Continue BiPAP as needed and nightly. Continue supplement oxygen to maintain O2 sat above 90%. Patient requires chronic 3 L nasal cannula continuously with rest and 5 L with exertion. Albuterol and DuoNeb aerosols. 2. Acute on chronic diastolic CHF-echo 2013 with EF 65%. Repeat echo pending. Chest x-ray admission with pulmonary congestion. BNP 113. Continue IV Lasix. Strict I&O. Daily weight. 3. Type 2 diabetes mellitus-hemoglobin A1c 01/05/2019 7.2%. Accu-Cheks ACHS with sliding scale insulin, continue Tradjenta regimen. 4. Hypertension-stable, continue lisinopril, metoprolol regimen. 5. Hyperlipidemia-continue statin. 6. GERD-continue PPI, pepcid. 7. Morbid obesity-encourage diet lifestyle modifications. Nutrition consult. DVT prophylaxis-Lovenox subcu. Discharge planning: SNF when able to obtain new trilogy. This patient was seen by DEEPA Goodwin under the supervision of Dr. Whitney. <Damian Whitney - Last Filed: 01/26/19 12:49> - Physical Exam Vital Signs Temp Pulse Resp BP Pulse Ox 98.6 F 81 17 97/53 L 96 01/26/19 11:36 01/26/19 11:36 01/26/19 11:36 01/26/19 11:36 01/26/19 11:36 Oxygen Flow Rate (L/min) 4 Oxygen Delivery Method Nasal Cannula Weight: 88.9 kg Body Mass Index (BMI) 36.1 Intake and Output for Last 24 Hours 01/24/19 01/25/19 01/26/19 23:59 23:59 23:59 Intake Total 480 / 480 680 / 680 Output Total 850 / 850 400 / 400 Balance -370 / -370 280 / 280 Laboratory Tests Past 24 Hrs 01/26/19 01/26/19 05:20 05:20 WBC 8.9 RBC 3.73 L Hgb 11.6 L Hct 39.3 MCV 105.4 H MCH 31.1 MCHC 29.5 L RDW 15.1 H RDW Differential 56.7 H Plt Count 146 L MPV 11.1 Immature Gran % (Auto) 0.200 Neut % (Auto) 80.1 H Lymph % (Auto) 9.2 L [place] % (Auto) 9.6 Eos % (Auto) 0.8 Baso % (Auto) 0.1 Absolute Neuts (auto) 7.1 Absolute Lymphs (auto) 0.82 L Total Counted Not Reportable Sodium 141 Potassium 3.0 L Chloride 80 L Carbon Dioxide > 45.0 H* Anion Gap TNP BUN 18 Creatinine 0.60 Estim Creat Clear Calc 33.29 Est GFR (MDRD) Af Amer 124 Est GFR (MDRD) Non-Af 103 BUN/Creatinine Ratio 30.2 H Glucose 138 H Calcium 8.4 L Magnesium 1.7 POC Glucose 01/26/19 01/26/19 01/25/19 11:31 06:32 21:41 POC Glucose 142 H 134 H 146 H 01/25/19 17:09 POC Glucose 115 H Assessment/Plan This patient was seen in conjunction withEmily Mcconnlel CNP. I have independently interviewed and examined the patient and reviewed pertinent historical, laboratory, and other data. Please refer to Emily Mcconnell CNP note for details of this patient's presentation, findings, and recommendations. I have reviewed Emily Mcconnell CNP note and concur with documented findings. In brief, patient- 83 year-old lady who presented with progressive shortness of breath. An assessment of acute hypoxic respiratory failure secondary to COPD with acute exacerbation was made. She was placed on BiPAP and admitted to the progressive care unit 01/26/2019: Patient seen breathing back to baseline. Case discussed with case management regarding patient's disposition back to ECF plan is for patient to be discharged back to her ECF when TRILOGY equipment is available Physical Examination: GENERAL: Cooperative HEENT: Atraumatic; moist oral mucosa EYES; Anicteric, Normal Conjunctiva NECK; supple, normal thyroid, RESPIRATORY: Diminished to auscultation bilaterally, CARDIOVASCULAR: Regular S1 S2, NEURO: Awake; no lateralizing signs. SKIN: No Rash PSYCH;flat affect Assessment: Keep 1. Acute hypoxic and hypercapnic respiratory failure 2. COPD with acute exacerbation 3. Suspected acute diastolic congestive heart failure; 2D echo results pending 4. Essential hypertension 5. Diabetes mellitus type 2 6. GERD 7. Physical deconditioning 8. Morbid obesity with BMI of 36 9. DVT prophylaxis SC Lovenox Recommendations: 1. I have discussed the results of my overview and impressions with the patient 2. Options for management were reviewed Code Visit Inpatient E&M: 27048 Subs Hosp L3
--- NOTE | 2019-01-26 13:51 | CASEMGMT ---
[facility] can take patient. However, they will not have the Trilogy until Wednesday between 12p-2p. SW notified [employer] and patient will be discharged tomorrow. Plan: d/c to [facility] with trilogy. Nolvia ROQUE MSW
[2019-01-26] MEDS: Insulin Lispro 100 UNIT/ML INSULN.PEN SQ ×2 (16:00→21:51)
[2019-01-26 16:20] LABS: Bedside Glucose 158 mg/dL (70-110)
[2019-01-26 22:55] LABS: Bedside Glucose 158 mg/dL (70-110)
[2019-01-27] VITALS (12 sets, daily range): BP systolic 106–139; BP diastolic 48–60; PULSE 72–106; RESP 12–24; TEMP 36.7–36.9; O2SAT 89–98
[2019-01-27] MEDS: Furosemide 40 MG/4 ML Vial IV (06:18)
[2019-01-27] MEDS: 0.9% NaCl Peripheral Flush Adult/Peds IV ×2 (06:18→08:32)
[2019-01-27 06:32] LABS: Absolute Lymphocyte Count 1.04 X10^3/ul (0.83-4.51); Absolute Neutrophil Count 6.3 X10^3/uL (2.0-7.7); Basophil# 0.01 X10^3/uL; Basophil% 0.1 % (0-1); Eosinophil# 0.08 X10^3/uL; Eosinophils% 0.9 % (0-5); Hematocrit 40.6 % (37-47); Hemoglobin 12.2 g/dl (12.0-15.0); Lymphocyte # 1.04 X10^3/ul (4.0); Lymphocyte % 12.2 % (19-41); Mean Corpuscular Hgb 30.9 pg (27.0-32.0); Mean Corpuscular Volume 102.8 fL (81-99); Monocyte# 1.03 X10^3/uL; Monocyte% 12.1 % (0-10); Neutrophil # 6.32 X10^3/uL (2.7-7.7); Neutrophil % 74.5 % (47-70); Platelet Count 174 K/mm3 (150-450); RBC Distribution Width CV 15.8 % (11.6-14.6); RBC Distribution Width SD 58.7 fl (35.1-43.9); Red Blood Count 3.95 M/mm3 (4.2-5.4); White Blood Count 8.5 K/mm3 (4.4-11.0)
[2019-01-27 06:33] LABS: POSITIVE COUNT NO; POSITIVE DIFFERENTIAL NO; POSITIVE MORPHOLOGY NO
[2019-01-27] MEDS: Ipratropium/Albuterol Sulfate 3 ML AMPUL.NEB INHALATION ×2 (06:42→10:41)
--- NOTE | 2019-01-27 06:46 | PCM.PN.PUL ---
Subjective: The patient was seen and examined at the bedside this morning. Events from the last 24 hours have been reviewed. The patient is currently afebrile, hemodynamically stable and maintaining appropriate oxygen saturations on 4 L/min via nasal cannula. The patient was compliant with use of AVAPS overnight. Disposition to [facility] is pending. Objective: The patient's most recent lab work, culture data and imaging studies have all been personally reviewed. Surface echocardiogram completed January 26 revealed normal LV size with an ejection fraction of 60% along with stage I diastolic dysfunction. - Physical Exam General: Alert, Cooperative, No apparent distress HEENT: Atraumatic, PERRLA, Normocephalic Oral: Moist Mucosa, No Gingival or Mucosal Lesions/ Ulcerations Neck: Supple, No Nodes, Trachea Midline Lungs: No rhonchi, No wheeze, No rales, Diminished Cardiovascular: Regular rate, Regular Rhythm, Normal S1, Normal S2, No murmurs Abdomen: Bowel Sounds Present, Soft, Non Tender, Obese Extremities: No clubbing, No cyanosis Skin: No breakdown Musculoskeletal: No Tenderness to Palpation of Joints or Extremities, No Muscle Wasting Lymphatic: No Cervical, Supraclavicular, or Inguinal Adenopathy Neurological: Cranial nerves II-XII grossly intact, Neuro grossly intact Psych/Mental Status: Normal Affect, Appropriate Vital Signs Temp Pulse Resp BP Pulse Ox 98.0 F 92 18 130/57 H 94 01/27/19 06:15 01/27/19 06:15 01/27/19 06:15 01/27/19 06:15 01/27/19 06:15 Oxygen Flow Rate (L/min) 4 Oxygen Delivery Method Nasal Cannula Weight: 190 lb 7.67 oz Body Mass Index (BMI) 36.1 Intake and Output for Last 24 Hours 01/25/19 01/26/19 01/27/19 23:59 23:59 23:59 Intake Total 480 / 480 1160 / 1160 0 / 0 Output Total 850 / 850 600 / 600 0 / 0 Balance -370 / -370 560 / 560 0 / 0 Laboratory Tests Past 24 Hrs 01/27/19 01/27/19 05:35 05:35 WBC 8.5 RBC 3.95 L Hgb 12.2 Hct 40.6 MCV 102.8 H MCH 30.9 MCHC 30.0 L RDW 15.8 H RDW Differential 58.7 H Plt Count 174 MPV 11.0 Immature Gran % (Auto) 0.200 Neut % (Auto) 74.5 H Lymph % (Auto) 12.2 L [place] % (Auto) 12.1 H Eos % (Auto) 0.9 Baso % (Auto) 0.1 Absolute Neuts (auto) 6.3 Absolute Lymphs (auto) 1.04 Total Counted Not Reportable Sodium Pending Potassium Pending Chloride Pending Carbon Dioxide Pending Anion Gap Pending BUN Pending Creatinine Pending Est GFR (MDRD) Af Amer Pending Est GFR (MDRD) Non-Af Pending BUN/Creatinine Ratio Pending Glucose Pending Calcium Pending POC Glucose 01/26/19 01/26/19 01/26/19 21:46 15:56 11:31 POC Glucose 158 H 158 H 142 H 01/26/19 06:32 POC Glucose 134 H Clinical Impression(s) from Imaging Studies Chest X-Ray 01/25/19 07:19 IMPRESSION: Mild cardiomegaly with pulmonary congestion and small pleural effusions. Electronically Signed: Liana Garcia MD at 8:04 EDT , Service support , Medical Necessity - Tobacco Use Smoking Status: Former smoker Assessment/Plan All Active Problems (Last Reviewed 01/03/19 @ 16:18 by Cristopher Lazcano DO) Hypercapnic respiratory failure (Acute) stem cell injection (Resolved) bladder sling (Resolved) History of cholecystectomy (Resolved) History of inguinal hernia repair (Resolved) History of hemorrhoidectomy (Resolved) H/O cataract removal with insertion of prosthetic lens (Resolved) Dyspnea (Acute) Hypoxia (Acute) Acute on chronic respiratory failure with hypoxia and hypercapnia (Acute) COPD exacerbation (Acute) Metabolic alkalosis (Resolved) Angioedema (Resolved) History of DVT of lower extremity (Resolved) Parotitis (Resolved) RECOMMENDATIONS: 1. Continue AVAPS nightly and PRN throughout the day. 2. Continue 3 L/min of supplemental oxygen at rest and 5 L/min with exertion. 3. Continue bronchodilators. 4. Electrolyte repletion as ordered. 5. Continue diuretic regimen. 6. The patient should follow-up in the pulmonary medicine clinic within 2 weeks of her discharge from the hospital. 7. The patient is medically stable for [facility] to detention facility with trilogy support. IMPRESSIONS: 1. Chronic combined respiratory failure/end-stage COPD The patient presented to the emergency department from her detention facility over concerns for hypoxia. On arrival, the patient was noted to have a compensated respiratory acidosis. She was subsequently placed on BiPAP. The patient does have end-stage COPD and currently follows in the pulmonary medicine clinic. She is on maximal therapy from an inhaler perspective and was previously prescribed a home trilogy noninvasive ventilator. However, the patient discontinued its use to pursue stem cell therapy in [place]. Due to her noncompliance, her DME provider took her machine back. The patient does not appear to have any acute pulmonary infectious process. Therefore, her antibiotics were discontinued. The patient, from my perspective, appears to be at her baseline from a respiratory perspective. Nevertheless, I do feel that she would benefit from some form of ventilatory support on a chronic, baseline basis. The patient does require volume ventilation and all other alternative therapies have been considered and ruled out due to the severity of the disease state and life-threatening condition, including CO2 retention. Due to the increased probability of acute exacerbation, the patient requires ventilation to be used during the day as needed, in addition to nightly usage with facemask. There are plans for the patient to be discharged to a nursing facility, where trilogy support will be continued. 2. Baseline heart failure with preserved ejection fraction Continue diuretic therapy as ordered. 3. Hypokalemia Electrolyte repletion as ordered. 4. Morbid obesity/diabetes mellitus/dyslipidemia/GERD/hypertension Complicates care, management, recovery and prognosis. Continue home medications as indicated. This note was generated with [employer] dictation software. It may contain incorrect words, spelling, and punctuation that were not noted in checking the note before signing. Code Visit Inpatient E&M: 39770 Subs Hosp L2
--- NOTE | 2019-01-27 06:50 | PN_ITS ---
Subjective: The patient was seen and examined at the bedside this morning. Events from the last 24 hours have been reviewed. The patient is currently afebrile, hemodynamically stable and maintaining appropriate oxygen saturations on 4 L/min via nasal cannula. The patient was compliant with use of AVAPS overnight. Disposition to [facility] is pending. Objective: The patient's most recent lab work, culture data and imaging studies have all been personally reviewed. Surface echocardiogram completed January 26 revealed normal LV size with an ejection fraction of 60% along with stage I diastolic dysfunction. - Physical Exam General: Alert, Cooperative, No apparent distress HEENT: Atraumatic, PERRLA, Normocephalic Oral: Moist Mucosa, No Gingival or Mucosal Lesions/ Ulcerations Neck: Supple, No Nodes, Trachea Midline Lungs: No rhonchi, No wheeze, No rales, Diminished Cardiovascular: Regular rate, Regular Rhythm, Normal S1, Normal S2, No murmurs Abdomen: Bowel Sounds Present, Soft, Non Tender, Obese Extremities: No clubbing, No cyanosis Skin: No breakdown Musculoskeletal: No Tenderness to Palpation of Joints or Extremities, No Muscle Wasting Lymphatic: No Cervical, Supraclavicular, or Inguinal Adenopathy Neurological: Cranial nerves II-XII grossly intact, Neuro grossly intact Psych/Mental Status: Normal Affect, Appropriate Vital Signs Temp Pulse Resp BP Pulse Ox 98.0 F 92 18 130/57 H 94 01/27/19 06:15 01/27/19 06:15 01/27/19 06:15 01/27/19 06:15 01/27/19 06:15 Oxygen Flow Rate (L/min) 4 Oxygen Delivery Method Nasal Cannula Weight: 190 lb 7.67 oz Body Mass Index (BMI) 36.1 Intake and Output for Last 24 Hours 01/25/19 01/26/19 01/27/19 23:59 23:59 23:59 Intake Total 480 / 480 1160 / 1160 0 / 0 Output Total 850 / 850 600 / 600 0 / 0 Balance -370 / -370 560 / 560 0 / 0 Laboratory Tests Past 24 Hrs 01/27/19 01/27/19 05:35 05:35 WBC 8.5 RBC 3.95 L Hgb 12.2 Hct 40.6 MCV 102.8 H MCH 30.9 MCHC 30.0 L RDW 15.8 H RDW Differential 58.7 H Plt Count 174 MPV 11.0 Immature Gran % (Auto) 0.200 Neut % (Auto) 74.5 H Lymph % (Auto) 12.2 L [place] % (Auto) 12.1 H Eos % (Auto) 0.9 Baso % (Auto) 0.1 Absolute Neuts (auto) 6.3 Absolute Lymphs (auto) 1.04 Total Counted Not Reportable Sodium Pending Potassium Pending Chloride Pending Carbon Dioxide Pending Anion Gap Pending BUN Pending Creatinine Pending Est GFR (MDRD) Af Amer Pending Est GFR (MDRD) Non-Af Pending BUN/Creatinine Ratio Pending Glucose Pending Calcium Pending POC Glucose 01/26/19 01/26/19 01/26/19 21:46 15:56 11:31 POC Glucose 158 H 158 H 142 H 01/26/19 06:32 POC Glucose 134 H Clinical Impression(s) from Imaging Studies Chest X-Ray 01/25/19 07:19 IMPRESSION: Mild cardiomegaly with pulmonary congestion and small pleural effusions. Electronically Signed: Liana Garcia MD at 8:04 EDT , Service support , Medical Necessity - Tobacco Use Smoking Status: Former smoker Assessment/Plan All Active Problems (Last Reviewed 01/03/19 @ 16:18 by Cristopher Lazcano DO) Hypercapnic respiratory failure (Acute) stem cell injection (Resolved) bladder sling (Resolved) History of cholecystectomy (Resolved) History of inguinal hernia repair (Resolved) History of hemorrhoidectomy (Resolved) H/O cataract removal with insertion of prosthetic lens (Resolved) Dyspnea (Acute) Hypoxia (Acute) Acute on chronic respiratory failure with hypoxia and hypercapnia (Acute) COPD exacerbation (Acute) Metabolic alkalosis (Resolved) Angioedema (Resolved) History of DVT of lower extremity (Resolved) Parotitis (Resolved) RECOMMENDATIONS: 1. Continue AVAPS nightly and PRN throughout the day. 2. Continue 3 L/min of supplemental oxygen at rest and 5 L/min with exertion. 3. Continue bronchodilators. 4. Electrolyte repletion as ordered. 5. Continue diuretic regimen. 6. The patient should follow-up in the pulmonary medicine clinic within 2 weeks of her discharge from the hospital. 7. The patient is medically stable for discharge to [facility] facility with trilogy support. IMPRESSIONS: 1. Chronic combined respiratory failure/end-stage COPD The patient presented to the emergency department from her [facility] facility over concerns for hypoxia. On arrival, the patient was noted to have a compensated respiratory acidosis. She was subsequently placed on BiPAP. The patient does have end-stage COPD and currently follows in the pulmonary medicine clinic. She is on maximal therapy from an inhaler perspective and was previously prescribed a home trilogy noninvasive ventilator. However, the patient discontinued its use to pursue stem cell therapy in [place]. Due to her noncompliance, her DME provider took her machine back. The patient does not appear to have any acute pulmonary infectious process. Therefore, her antibiotics were discontinued. The patient, from my perspective, appears to be at her baseline from a respiratory perspective. Nevertheless, I do feel that she would benefit from some form of ventilatory support on a chronic, baseline basis. The patient does require volume ventilation and all other alternative therapies have been considered and ruled out due to the severity of the disease state and life-threatening condition, including CO2 retention. Due to the increased probability of acute exacerbation, the patient requires ventilation to be used during the day as needed, in addition to nightly usage with facemask. There are plans for the patient to be discharged to a nursing facility, where trilogy support will be continued. 2. Baseline heart failure with preserved ejection fraction Continue diuretic therapy as ordered. 3. Hypokalemia Electrolyte repletion as ordered. 4. Morbid obesity/diabetes mellitus/dyslipidemia/GERD/hypertension Complicates care, management, recovery and prognosis. Continue home medications as indicated. This note was generated with [employer] dictation software. It may contain incorrect words, spelling, and punctuation that were not noted in checking the note before signing. Code Visit Inpatient E&M: 55375 Subs Hosp L2
[2019-01-27 06:57] LABS: BUN 17 mg/dL (7-18); BUN/Creat Ratio 24.1 RATIO (10-20); Calcium,Total 8.8 mg/dL (8.5-10.1); Carbon Dioxide > 45.0 mmol/L (21.0-32.0); Chloride 84 mmol/L (98-107); EST Glomerular Filtration Rate 85 mL/min (>60); Est Glom Filt Rate - Afr Amer 102 mL/min (>60); Estimated Creatinine Clearance 33.29 ml/min; Glucose 136 mg/dL (74-106); Potassium 3.1 mmol/L (3.5-5.1); Sodium Level 140 mmol/L (136-145)
[2019-01-27 07:01] LABS: Bedside Glucose 149 mg/dL (70-110)
[2019-01-27] MEDS: Potassium Chloride 10mEq/100mL 10 MEQ/100 ML IV.SOLN. 100 MEQ IV BOLUS ×4 (08:27→12:22)
[2019-01-27] MEDS: Aspirin 81 MG TAB.CHEW PO (08:28)
--- NOTE | 2019-01-27 10:35 | CASEMGMT ---
JILL spoke with patient and her . Patient's will transport patient. He has portable O2 with him for patient. JILL told him Tyroneduyen Koby wants to make sure the Trilogy is at the facility before we let her go. JILL told them SW will let them know. Plan: Arlyn Whalen under skilled level of care. Nolvia ROQUE MSW
--- NOTE | 2019-01-27 11:14 | PCM.EXTCARCO ---
- Diet 01/25/19 09:28 Diet: Calorie Controlled How many daily calories?: 1999 calorie - Routine Orders/Code Status Enema Type: Fleetz Enema Frequency: Daily PRN Suppository Type: Dulcolax 10mg Suppository Frequency: Daily PRN O2 Liters per Minute: 3 O2 Frequency: Continuous Keep PO Greater than or Equal to (%): 89 - 5L with exertion Routine Lab Work: - - BMP daily X3 days then CBC, BMP weekly - Wound(s) left buttock Wound Type: Pressure Injury - Suggestions for Active Care Change Position every (hours): 2 Times a day to sit in chair: 3 - Therapies Physical Therapy: Eval and Treat Occupational Therapy: Eval and Treat - Problem/Diagnosis (1) End stage COPD Status: Chronic Current Visit: Yes (2) Hypokalemia Status: Chronic Current Visit: Yes (3) Acute on chronic respiratory failure with hypoxia and hypercapnia Status: Acute Current Visit: Yes (4) Dyslipidemia Status: Chronic Current Visit: No (5) Diabetes mellitus type 2 in obese Status: Chronic Current Visit: No - Allergies/Procedures Done in Hospital Allergies/Adverse Reactions: Allergies bee venom protein (honey bee) Allergy (Severe, Verified 01/25/19 07:06) Anaphylaxis LEATHA Inhibitors Allergy (Verified 01/25/19 07:06) Unknown latex Allergy (Verified 01/25/19 07:06) Itching Sulfa (Sulfonamide Antibiotics) Allergy (Verified 01/25/19 07:06) PT CAN'T REMEMBER budesonide [From Symbicort] Adverse Reaction (Verified 01/25/19 07:06) SORES IN MOUTH fluticasone [From Advair Diskus] Adverse Reaction (Verified 01/25/19 07:06) SORES IN MOUTH formoterol [From Symbicort] Adverse Reaction (Verified 01/25/19 07:06) SORES IN MOUTH ipratropium Adverse Reaction (Verified 01/25/19 07:06) SORES IN MOUTH salmeterol [From Advair Diskus] Adverse Reaction (Verified 01/25/19 07:06) SORES IN MOUTH BREATHING TREATMENTS Adverse Reaction (Uncoded 01/25/19 07:06) SORES IN MOUTH Procedures: 2-D Echocardiogram - Type of Care/Length of Stay Estimated LOS: Convalescent Care Less Than 30 days Type of Care Needed: Skilled Rehab Potential: Fair Prognosis: Fair - Additional Orders/Day of Discharge H&P will serve as current which was dated: 01/25/19 Day of Discharge: 01/27/19 - Dietary and Speech Recommendations Dietitian Recommendations/Changes: Rec 1800 calorie controlled, cardiac diet w/ fluid restriction as indicated. Continue 1 packet Rhett BID for wound healing. Rec WAXER FLOOR evaluation- hx of dysphagia. - Follow Up Care Primary Care Physician: Arianna Beyer MD [Primary Care Provider] - Please follow up with your Primary Care Physician in: 1 Week Please Follow Up With: Leandro Gamboa MD - May see [employer]CHITECT When: 2 Weeks
[2019-01-27] MEDS: Lisinopril 20 MG Tablet PO (11:25)
[2019-01-27] MEDS: Famotidine 20 MG Tablet PO (11:25)
[2019-01-27] MEDS: Enoxaparin 40 MG/0.4 ML Syringe SC (11:25)
[2019-01-27] MEDS: Metoprolol Tartrate 25 MG Tablet PO (11:26)
[2019-01-27] MEDS: LINAGLIPTIN 5 MG TABLET PO (11:26)
[2019-01-27] MEDS: Pantoprazole Sodium 20 MG Tablet PO (11:26)
[2019-01-27] MEDS: Tolterodine Tartrate 4 MG CAP.SA PO (11:27)
[2019-01-27] MEDS: Insulin Lispro 100 UNIT/ML INSULN.PEN SQ (11:37)
[2019-01-27 11:41] LABS: Bedside Glucose 183 mg/dL (70-110)
--- NOTE | 2019-01-27 12:23 | PCM.DC.SUM ---
<Emily Mcconnell - Last Filed: 01/27/19 12:31> Discharge Date and Diagnosis Date of Admission: 01/25/19 Date of Discharge: 01/27/19 - Primary Discharge Diagnosis Active and Suspected Problems (Last Reviewed 01/03/19 @ 16:18 by Cristopher Lazcano DO) 1. Acute on chronic combined hypoxic and hypercapnic respiratory failure secondary to end stage COPD 2. Acute on chronic diastolic CHF 3. Type 2 diabetes mellitus 4. Hypertension 5. Hyperlipidemia 6. GERD 7. Morbid obesity 8. Hypokalemia - Secondary Discharge Diagnosis Chronic Problems (Last Reviewed 01/03/19 @ 16:18 by Cristopher Lazcano DO) COPD exacerbation (Chronic) Dysphagia (Chronic) End stage COPD (Chronic) Hypokalemia (Chronic) End of life care (Chronic) Cough productive of yellow sputum (Chronic) Colon polyp (Chronic) Vitamin B12 deficiency (Chronic) Vitamin D deficiency (Chronic) Hypercholesteremia (Chronic) Plasma cell disorder (Chronic) Carotid stenosis (Chronic) Allergic rhinitis (Chronic) Constipation (Chronic) Osteopenia (Chronic) Lung nodule (Chronic) Hypersomnia (Chronic) Urinary incontinence (Chronic) 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 classification (Chronic) Abdominal hernia (Chronic) Obesity (BMI 35.0-39.9 without comorbidity) (Chronic) Dehydration (Chronic) Chronic respiratory failure with hypoxia and hypercapnia (Chronic) COLD (chronic obstructive lung disease) (Chronic) Dyslipidemia (Chronic) Esophageal reflux (Chronic) Essential hypertension (Chronic) Former smoker (Chronic) Diabetes mellitus type 2 in obese (Chronic) Hospital Course and Treatment Imaging Results: Diagnostic Data Chest X-Ray 01/25/19 07:19 IMPRESSION: Mild cardiomegaly with pulmonary congestion and small pleural effusions. Electronically Signed: Liana Garcia MD at 8:04 EDT , Service support , Dr. Gonzalez- Pulmonary Medicine Operations: None Procedures: 2-D Echocardiogram Summary of Care Provided: The patient is a 83 year old F admitted for 2418 due to shortness of breath. 1. Acute on chronic combined hypoxic and hypercapnic respiratory failure secondary to end-stage COPD-pulmonary medicine consulted during admission. Continue supplement oxygen to maintain O2 sat above 89%. Patient requires chronic 3 L nasal cannula continuously with rest and 5 L with exertion. Albuterol and DuoNeb aerosols. Trilogy will be set up at [facility] which will be used at night and as needed throughout the day. Follow-up with pulmonary medicine in 2 weeks. 2. Acute on chronic diastolic CHF-echo 2013 with EF 65%. Repeat echocardiogram shows an EF of 60%, stage I diastolic dysfunction.. Chest x-ray admission with pulmonary congestion. BNP 113. Patient received IV Lasix during admission. Previously on Lasix as needed. Discharged on Lasix 20 mg daily. 3. Type 2 diabetes mellitus-hemoglobin A1c 01/05/2019 7.2%. Continue Tradjenta regimen. 4. Hypertension-stable, continue lisinopril, metoprolol regimen. 5. Hyperlipidemia-continue statin. 6. GERD-continue PPI, pepcid. 7. Morbid obesity-encourage diet lifestyle modifications. Nutrition consult. 8. Hypokalemia-secondary to diuretic regimen. General: Alert, Oriented x3, Cooperative HEENT: Atraumatic, PERRLA, EOMI, Normocephalic Neck: Supple, No JVD, Negative Carotid Bruits Lungs: Clear to auscultation, Diminished Cardiovascular: Regular rate, Regular Rhythm, Normal S1, Normal S2, No murmurs Abdomen: Bowel Sounds Present, Soft, Non Tender, Non-Distended, Obese Extremities: No clubbing, No cyanosis, Capillary Refill Less than 3 Seconds, Edema non-pitting BLLE Skin: No rashes, No breakdown Musculoskeletal: No Tenderness to Palpation of Joints or Extremities Neurological: Cranial nerves II-XII grossly intact, Neuro grossly intact Psych/Mental Status: Normal Affect, Appropriate Patient seen and examined prior to discharge. Physical assessment as noted above. Patient is stable for discharge with follow up recommendations as noted above. This patient was seen by DEEPA Goodwin under the supervision of Dr. Whitney. - Physical Exam Vital Signs Temp Pulse Resp BP Pulse Ox 98.5 F 81 24 H 114/60 98 01/27/19 09:43 01/27/19 11:26 01/27/19 10:42 01/27/19 11:26 01/27/19 09:43 Oxygen Flow Rate (L/min) 4 Oxygen Delivery Method Nasal Cannula Weight: 190 lb 7.67 oz Body Mass Index (BMI) 36.1 Intake and Output for Last 24 Hours 01/25/19 01/26/19 01/27/19 23:59 23:59 23:59 Intake Total 480 / 480 1160 / 1160 835 / 835 Output Total 850 / 850 600 / 600 0 / 0 Balance -370 / -370 560 / 560 835 / 835 Laboratory Tests Past 24 Hrs 01/27/19 01/27/19 05:35 05:35 WBC 8.5 RBC 3.95 L Hgb 12.2 Hct 40.6 MCV 102.8 H MCH 30.9 MCHC 30.0 L RDW 15.8 H RDW Differential 58.7 H Plt Count 174 MPV 11.0 Immature Gran % (Auto) 0.200 Neut % (Auto) 74.5 H Lymph % (Auto) 12.2 L [place] % (Auto) 12.1 H Eos % (Auto) 0.9 Baso % (Auto) 0.1 Absolute Neuts (auto) 6.3 Absolute Lymphs (auto) 1.04 Total Counted Not Reportable Sodium 140 Potassium 3.1 L Chloride 84 L Carbon Dioxide > 45.0 H* Anion Gap TNP BUN 17 Creatinine 0.70 Estim Creat Clear Calc 33.29 Est GFR (MDRD) Af Amer 102 Est GFR (MDRD) Non-Af 85 BUN/Creatinine Ratio 24.1 H Glucose 136 H Calcium 8.8 POC Glucose 01/27/19 01/27/19 01/26/19 11:36 06:50 21:46 POC Glucose 183 H 149 H 158 H 01/26/19 15:56 POC Glucose 158 H Home Medications: Medications to take at Discharge Oxygen, Home [Home Oxygen] 2 lpm NASAL DAILY 04/08/15 Tolterodine Tartrate 4 mg PO DAILY 12/02/16 Red Yeast Rice 600 mg PO DAILY 09/15/17 epinephrine 0.3 mg/0.3 mL injection, auto-injector 0.5 mg IM Q10-15M PRN 10/28/17 vit C,E,zinc,copper-[id number] 250 mg-lutein 5 mg-zeaxanthin 1 mg capsule 1 cap PO DAILY 10/28/17 acetaminophen 325 mg capsule 325 mg PO TID PRN cap 04/21/18 Saxagliptin HCl [Onglyza] 5 mg PO DAILY 01/03/19 Albuterol Aerosols [Ventolin Aerosols] 2.5 mg INHALATION Q2H PRN PRN vial.neb. 01/09/19 Aspirin [Aspirin, Baby] 81 mg PO DAILYCM tab.chew 01/09/19 Famotidine [Pepcid] 20 mg PO BID tablet 01/09/19 Ipratropium/Albuterol Sulfate [Duoneb] 3 ml INHALATION Q4H.RT ampul.neb 01/09/19 Lisinopril [Zestril] 20 mg PO DAILY tablet 01/09/19 Magnesium Hydroxide [Milk Of Magnesia] 30 ml PO DAILY PRN PRN udc 01/09/19 Metoprolol Tartrate [Lopressor (beta hiram)] 25 mg PO BID tablet 01/09/19 Polyethylene Glycol 3350 [Miralax] 17 gm PO BID packet 01/09/19 Senna/Docusate Sodium [Senokot-S] 2 tablet PO BID tablet 01/09/19 Argin/Glut/Cahmb/Collag/Mv-Min [Rhett Packet] 1 each PO BID 01/25/19 Hydrocortisone 2.5% Crm [Hytone] 1 applic TOPICAL BID PRN PRN 01/25/19 Omeprazole [Prilosec] 20 mg PO DAILY 01/25/19 Furosemide [Lasix] 20 mg PO DAILY #0 01/27/19 Potassium Chloride [K-Dur] 20 meq PO DAILY tablet 01/27/19 Primary Care Physician: Arianna Beyer MD [Primary Care Provider] - Please follow up with your Primary Care Physician in: 1 Week Please Follow Up With: Leandro Gamboa MD - May see [employer] TECHNICIAN When: 2 Weeks Disposition: Detention facility Minutes spent on discharge:: 35 Patient Condition:: Stable Medical Necessity - Tobacco Use Smoking Status: Former smoker Meaningful Use Info Meaningful Use Diagnoses (Choose all that apply): None applicable <Damian Whitney - Last Filed: 01/27/19 12:56> Discharge Date and Diagnosis - Secondary Discharge Diagnosis Chronic Problems (Last Updated 01/27/19 @ 12:23 by DEEPA oGodwin) COPD exacerbation (Chronic) Dysphagia (Chronic) End stage COPD (Chronic) Hypokalemia (Chronic) End of life care (Chronic) Cough productive of yellow sputum (Chronic) Colon polyp (Chronic) Vitamin B12 deficiency (Chronic) Vitamin D deficiency (Chronic) Hypercholesteremia (Chronic) Plasma cell disorder (Chronic) Carotid stenosis (Chronic) Allergic rhinitis (Chronic) Constipation (Chronic) Osteopenia (Chronic) Lung nodule (Chronic) Hypersomnia (Chronic) Urinary incontinence (Chronic) 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 classification (Chronic) Abdominal hernia (Chronic) Obesity (BMI 35.0-39.9 without comorbidity) (Chronic) Dehydration (Chronic) Chronic respiratory failure with hypoxia and hypercapnia (Chronic) COLD (chronic obstructive lung disease) (Chronic) Dyslipidemia (Chronic) Esophageal reflux (Chronic) Essential hypertension (Chronic) Former smoker (Chronic) Diabetes mellitus type 2 in obese (Chronic) Hospital Course and Treatment Summary of Care Provided: This patient was seen in conjunction with Emily Mcconnell CNP. I have independently interviewed and examined the patient and reviewed pertinent historical, laboratory, and other data. Please refer to Emily Mcconnell CNP note for details of this patient's presentation, findings, and recommendations. I have reviewed Emily Mcconnell CNP note and concur with documented findings. In brief, patient- 83 year-old lady who presented with progressive shortness of breath. An assessment of acute hypoxic respiratory failure secondary to COPD with acute exacerbation was made. She was placed on BiPAP and admitted to the progressive care unit 1. Acute hypoxic and hypercapnic respiratory failure 2. COPD with acute exacerbation 3. Suspected acute diastolic congestive heart failure; 2D echo results pending 4. Essential hypertension 5. Diabetes mellitus type 2 6. GERD 7. Physical deconditioning 8. Morbid obesity with BMI of 36 9. [facility] course: As documented above by Emily Mcconnell CMP - Physical Exam Vital Signs Temp Pulse Resp BP Pulse Ox 98.5 F 81 24 H 114/60 98 01/27/19 09:43 01/27/19 11:26 01/27/19 10:42 01/27/19 11:26 01/27/19 09:43 Oxygen Flow Rate (L/min) 4 Oxygen Delivery Method Nasal Cannula Weight: 86.4 kg Body Mass Index (BMI) 36.1 Intake and Output for Last 24 Hours 01/25/19 01/26/19 01/27/19 23:59 23:59 23:59 Intake Total 480 / 480 1160 / 1160 835 / 835 Output Total 850 / 850 600 / 600 0 / 0 Balance -370 / -370 560 / 560 835 / 835 Laboratory Tests Past 24 Hrs 01/27/19 01/27/19 05:35 05:35 WBC 8.5 RBC 3.95 L Hgb 12.2 Hct 40.6 MCV 102.8 H MCH 30.9 MCHC 30.0 L RDW 15.8 H RDW Differential 58.7 H Plt Count 174 MPV 11.0 Immature Gran % (Auto) 0.200 Neut % (Auto) 74.5 H Lymph % (Auto) 12.2 L [place] % (Auto) 12.1 H Eos % (Auto) 0.9 Baso % (Auto) 0.1 Absolute Neuts (auto) 6.3 Absolute Lymphs (auto) 1.04 Total Counted Not Reportable Sodium 140 Potassium 3.1 L Chloride 84 L Carbon Dioxide > 45.0 H* Anion Gap TNP BUN 17 Creatinine 0.70 Estim Creat Clear Calc 33.29 Est GFR (MDRD) Af Amer 102 Est GFR (MDRD) Non-Af 85 BUN/Creatinine Ratio 24.1 H Glucose 136 H Calcium 8.8 POC Glucose 01/27/19 01/27/19 01/26/19 11:36 06:50 21:46 POC Glucose 183 H 149 H 158 H 01/26/19 15:56 POC Glucose 158 H Code Visit Inpatient E&M: 73141 Disch Hosp
--- NOTE | 2019-01-27 12:30 | DS.PCM_ITS ---
<Emily Mcconnell - Last Filed: 01/27/19 12:31> Discharge Date and Diagnosis Date of Admission: 01/25/19 Date of Discharge: 01/27/19 - Primary Discharge Diagnosis Active and Suspected Problems (Last Reviewed 01/03/19 @ 16:18 by Cristopher Lazcano DO) 1. Acute on chronic combined hypoxic and hypercapnic respiratory failure secondary to end stage COPD 2. Acute on chronic diastolic CHF 3. Type 2 diabetes mellitus 4. Hypertension 5. Hyperlipidemia 6. GERD 7. Morbid obesity 8. Hypokalemia - Secondary Discharge Diagnosis Chronic Problems (Last Reviewed 01/03/19 @ 16:18 by Cristopher Lazcano DO) COPD exacerbation (Chronic) Dysphagia (Chronic) End stage COPD (Chronic) Hypokalemia (Chronic) End of life care (Chronic) Cough productive of yellow sputum (Chronic) Colon polyp (Chronic) Vitamin B12 deficiency (Chronic) Vitamin D deficiency (Chronic) Hypercholesteremia (Chronic) Plasma cell disorder (Chronic) Carotid stenosis (Chronic) Allergic rhinitis (Chronic) Constipation (Chronic) Osteopenia (Chronic) Lung nodule (Chronic) Hypersomnia (Chronic) Urinary incontinence (Chronic) 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 classification (Chronic) Abdominal hernia (Chronic) Obesity (BMI 35.0-39.9 without comorbidity) (Chronic) Dehydration (Chronic) Chronic respiratory failure with hypoxia and hypercapnia (Chronic) COLD (chronic obstructive lung disease) (Chronic) Dyslipidemia (Chronic) Esophageal reflux (Chronic) Essential hypertension (Chronic) Former smoker (Chronic) Diabetes mellitus type 2 in obese (Chronic) Hospital Course and Treatment Imaging Results: Diagnostic Data Chest X-Ray 01/25/19 07:19 IMPRESSION: Mild cardiomegaly with pulmonary congestion and small pleural effusions. Electronically Signed: Liana Garcia MD at 8:04 EDT , Service support , Dr. Gonzalez- Pulmonary Medicine Operations: None Procedures: 2-D Echocardiogram Summary of Care Provided: The patient is a 83 year old F admitted for 2418 due to shortness of breath. 1. Acute on chronic combined hypoxic and hypercapnic respiratory failure secondary to end-stage COPD-pulmonary medicine consulted during admission. Continue supplement oxygen to maintain O2 sat above 89%. Patient requires chronic 3 L nasal cannula continuously with rest and 5 L with exertion. Albuterol and DuoNeb aerosols. Trilogy will be set up at [facility] which will be used at night and as needed throughout the day. Follow-up with pulmonary medicine in 2 weeks. 2. Acute on chronic diastolic CHF-echo 2013 with EF 65%. Repeat echocardiogram shows an EF of 60%, stage I diastolic dysfunction.. Chest x-ray admission with pulmonary congestion. BNP 113. Patient received IV Lasix during admission. Previously on Lasix as needed. Discharged on Lasix 20 mg daily. 3. Type 2 diabetes mellitus-hemoglobin A1c 01/05/2019 7.2%. Continue Tradjenta regimen. 4. Hypertension-stable, continue lisinopril, metoprolol regimen. 5. Hyperlipidemia-continue statin. 6. GERD-continue PPI, pepcid. 7. Morbid obesity-encourage diet lifestyle modifications. Nutrition consult. 8. Hypokalemia-secondary to diuretic regimen. General: Alert, Oriented x3, Cooperative HEENT: Atraumatic, PERRLA, EOMI, Normocephalic Neck: Supple, No JVD, Negative Carotid Bruits Lungs: Clear to auscultation, Diminished Cardiovascular: Regular rate, Regular Rhythm, Normal S1, Normal S2, No murmurs Abdomen: Bowel Sounds Present, Soft, Non Tender, Non-Distended, Obese Extremities: No clubbing, No cyanosis, Capillary Refill Less than 3 Seconds, Edema non-pitting BLLE Skin: No rashes, No breakdown Musculoskeletal: No Tenderness to Palpation of Joints or Extremities Neurological: Cranial nerves II-XII grossly intact, Neuro grossly intact Psych/Mental Status: Normal Affect, Appropriate Patient seen and examined prior to discharge. Physical assessment as noted above. Patient is stable for discharge with follow up recommendations as noted above. This patient was seen by DEEPA Goodwin under the supervision of Dr. Whitney. - Physical Exam Vital Signs Temp Pulse Resp BP Pulse Ox 98.5 F 81 24 H 114/60 98 01/27/19 09:43 01/27/19 11:26 01/27/19 10:42 01/27/19 11:26 01/27/19 09:43 Oxygen Flow Rate (L/min) 4 Oxygen Delivery Method Nasal Cannula Weight: 190 lb 7.67 oz Body Mass Index (BMI) 36.1 Intake and Output for Last 24 Hours 01/25/19 01/26/19 01/27/19 23:59 23:59 23:59 Intake Total 480 / 480 1160 / 1160 835 / 835 Output Total 850 / 850 600 / 600 0 / 0 Balance -370 / -370 560 / 560 835 / 835 Laboratory Tests Past 24 Hrs 01/27/19 01/27/19 05:35 05:35 WBC 8.5 RBC 3.95 L Hgb 12.2 Hct 40.6 MCV 102.8 H MCH 30.9 MCHC 30.0 L RDW 15.8 H RDW Differential 58.7 H Plt Count 174 MPV 11.0 Immature Gran % (Auto) 0.200 Neut % (Auto) 74.5 H Lymph % (Auto) 12.2 L [place] % (Auto) 12.1 H Eos % (Auto) 0.9 Baso % (Auto) 0.1 Absolute Neuts (auto) 6.3 Absolute Lymphs (auto) 1.04 Total Counted Not Reportable Sodium 140 Potassium 3.1 L Chloride 84 L Carbon Dioxide > 45.0 H* Anion Gap TNP BUN 17 Creatinine 0.70 Estim Creat Clear Calc 33.29 Est GFR (MDRD) Af Amer 102 Est GFR (MDRD) Non-Af 85 BUN/Creatinine Ratio 24.1 H Glucose 136 H Calcium 8.8 POC Glucose 01/27/19 01/27/19 01/26/19 11:36 06:50 21:46 POC Glucose 183 H 149 H 158 H 01/26/19 15:56 POC Glucose 158 H Home Medications: Medications to take at Discharge Oxygen, Home [Home Oxygen] 2 lpm NASAL DAILY 04/08/15 Tolterodine Tartrate 4 mg PO DAILY 12/02/16 Red Yeast Rice 600 mg PO DAILY 09/15/17 epinephrine 0.3 mg/0.3 mL injection, auto-injector 0.5 mg IM Q10-15M PRN 10/28/17 vit C,E,zinc,copper-oebxp6q 250 mg-lutein 5 mg-zeaxanthin 1 mg capsule 1 cap PO DAILY 10/28/17 acetaminophen 325 mg capsule 325 mg PO TID PRN cap 04/21/18 Saxagliptin HCl [Onglyza] 5 mg PO DAILY 01/03/19 Albuterol Aerosols [Ventolin Aerosols] 2.5 mg INHALATION Q2H PRN PRN vial.neb. 01/09/19 Aspirin [Aspirin, Baby] 81 mg PO DAILYCM tab.chew 01/09/19 Famotidine [Pepcid] 20 mg PO BID tablet 01/09/19 Ipratropium/Albuterol Sulfate [Duoneb] 3 ml INHALATION Q4H.RT ampul.neb 01/09/19 Lisinopril [Zestril] 20 mg PO DAILY tablet 01/09/19 Magnesium Hydroxide [Milk Of Magnesia] 30 ml PO DAILY PRN PRN udc 01/09/19 Metoprolol Tartrate [Lopressor (beta hiram)] 25 mg PO BID tablet 01/09/19 Polyethylene Glycol 3350 [Miralax] 17 gm PO BID packet 01/09/19 Senna/Docusate Sodium [Senokot-S] 2 tablet PO BID tablet 01/09/19 Argin/Glut/Cahmb/Collag/Mv-Min [Rhett Packet] 1 each PO BID 01/25/19 Hydrocortisone 2.5% Crm [Hytone] 1 applic TOPICAL BID PRN PRN 01/25/19 Omeprazole [Prilosec] 20 mg PO DAILY 01/25/19 Furosemide [Lasix] 20 mg PO DAILY #0 01/27/19 Potassium Chloride [K-Dur] 20 meq PO DAILY tablet 01/27/19 Primary Care Physician: Arianna Beyer MD [Primary Care Provider] - Please follow up with your Primary Care Physician in: 1 Week Please Follow Up With: Leandro Gamboa MD - May see [employer] AND D[employer] TECHNICIAN When: 2 Weeks Disposition: Senior Living facility Minutes spent on discharge:: 35 Patient Condition:: Stable Medical Necessity - Tobacco Use Smoking Status: Former smoker Meaningful Use Info Meaningful Use Diagnoses (Choose all that apply): None applicable <Damian Whitney - Last Filed: 01/27/19 12:56> Discharge Date and Diagnosis - Secondary Discharge Diagnosis Chronic Problems (Last Updated 01/27/19 @ 12:23 by DEEPA Goodwin) COPD exacerbation (Chronic) Dysphagia (Chronic) End stage COPD (Chronic) Hypokalemia (Chronic) End of life care (Chronic) Cough productive of yellow sputum (Chronic) Colon polyp (Chronic) Vitamin B12 deficiency (Chronic) Vitamin D deficiency (Chronic) Hypercholesteremia (Chronic) Plasma cell disorder (Chronic) Carotid stenosis (Chronic) Allergic rhinitis (Chronic) Constipation (Chronic) Osteopenia (Chronic) Lung nodule (Chronic) Hypersomnia (Chronic) Urinary incontinence (Chronic) 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 classification (Chronic) Abdominal hernia (Chronic) Obesity (BMI 35.0-39.9 without comorbidity) (Chronic) Dehydration (Chronic) Chronic respiratory failure with hypoxia and hypercapnia (Chronic) COLD (chronic obstructive lung disease) (Chronic) Dyslipidemia (Chronic) Esophageal reflux (Chronic) Essential hypertension (Chronic) Former smoker (Chronic) Diabetes mellitus type 2 in obese (Chronic) Hospital Course and Treatment Summary of Care Provided: This patient was seen in conjunction with Emily Mcconnell CNP. I have independently interviewed and examined the patient and reviewed pertinent historical, laboratory, and other data. Please refer to Emily Mcconnell CNP note for details of this patient's presentation, findings, and recommendations. I have reviewed Emily Mcconnell CNP note and concur with documented findings. In brief, patient- 83 year-old lady who presented with progressive shortness of breath. An assessment of acute hypoxic respiratory failure secondary to COPD with acute exacerbation was made. She was placed on BiPAP and admitted to the progressive care unit 1. Acute hypoxic and hypercapnic respiratory failure 2. COPD with acute exacerbation 3. Suspected acute diastolic congestive heart failure; 2D echo results pending 4. Essential hypertension 5. Diabetes mellitus type 2 6. GERD 7. Physical deconditioning 8. Morbid obesity with BMI of 36 9. [facility] Hospital course: As documented above by Emily Mcconnell CMP - Physical Exam Vital Signs Temp Pulse Resp BP Pulse Ox 98.5 F 81 24 H 114/60 98 01/27/19 09:43 01/27/19 11:26 01/27/19 10:42 01/27/19 11:26 01/27/19 09:43 Oxygen Flow Rate (L/min) 4 Oxygen Delivery Method Nasal Cannula Weight: 86.4 kg Body Mass Index (BMI) 36.1 Intake and Output for Last 24 Hours 01/25/19 01/26/19 01/27/19 23:59 23:59 23:59 Intake Total 480 / 480 1160 / 1160 835 / 835 Output Total 850 / 850 600 / 600 0 / 0 Balance -370 / -370 560 / 560 835 / 835 Laboratory Tests Past 24 Hrs 01/27/19 01/27/19 05:35 05:35 WBC 8.5 RBC 3.95 L Hgb 12.2 Hct 40.6 MCV 102.8 H MCH 30.9 MCHC 30.0 L RDW 15.8 H RDW Differential 58.7 H Plt Count 174 MPV 11.0 Immature Gran % (Auto) 0.200 Neut % (Auto) 74.5 H Lymph % (Auto) 12.2 L [place] % (Auto) 12.1 H Eos % (Auto) 0.9 Baso % (Auto) 0.1 Absolute Neuts (auto) 6.3 Absolute Lymphs (auto) 1.04 Total Counted Not Reportable Sodium 140 Potassium 3.1 L Chloride 84 L Carbon Dioxide > 45.0 H* Anion Gap TNP BUN 17 Creatinine 0.70 Estim Creat Clear Calc 33.29 Est GFR (MDRD) Af Amer 102 Est GFR (MDRD) Non-Af 85 BUN/Creatinine Ratio 24.1 H Glucose 136 H Calcium 8.8 POC Glucose 01/27/19 01/27/19 01/26/19 11:36 06:50 21:46 POC Glucose 183 H 149 H 158 H 01/26/19 15:56 POC Glucose 158 H Code Visit Inpatient E&M: 35818 Disch Hosp
--- NOTE | 2019-01-27 12:48 | CASEMGMT ---
Addendum entered by Nolvia Galvan 01/27/19 13:05: Susan called back and they have not yet received the Trilogy. Nolvia PEPPER Original Note: JILL faxed orders to [facility]. JILL called Susan in admissions and left her a voice mail asking her if they have the trilogy machine yet. Plan: d/c to [facility] under skilled level of care on a convalescent stay. Patient's will transport via private vehicle. Patient came to [facility] this admission from [place], but did not want to return there at d/c. Nolvia PEPPER
--- NOTE | 2019-01-27 14:20 | NURSING ---
CALLED REPORT TO DIONICIO ROBERTS TO ESEQUIEL GARSIA RN SHE WILL CALL BACK WHEN TRILOGY MACHINE ARRIVES
--- NOTE | 2019-01-27 14:20 | PHA.DC.MR ---
Pharmacy Service has performed discharge medication reconciliation for this patient upon transfer to [facility]. The patient's discharge medication list was reviewed for discrepancies and discrepancies were resolved. Home Medications Oxygen, Home [Home Oxygen] 2 lpm NASAL DAILY 04/08/15 Tolterodine Tartrate 4 mg PO DAILY 12/02/16 Red Yeast Rice 600 mg PO DAILY 09/15/17 epinephrine 0.3 mg/0.3 mL injection, auto-injector 0.5 mg IM Q10-15M PRN 10/28/17 vit C,E,zinc,copper-ylkjz2q 250 mg-lutein 5 mg-zeaxanthin 1 mg capsule 1 cap PO DAILY 10/28/17 acetaminophen 325 mg capsule 325 mg PO TID PRN cap 04/21/18 Saxagliptin HCl [Onglyza] 5 mg PO DAILY 01/03/19 Albuterol Aerosols [Ventolin Aerosols] 2.5 mg INHALATION Q2H PRN PRN vial.neb. 01/09/19 Aspirin [Aspirin, Baby] 81 mg PO DAILYCM tab.chew 01/09/19 Famotidine [Pepcid] 20 mg PO BID tablet 01/09/19 Ipratropium/Albuterol Sulfate [Duoneb] 3 ml INHALATION Q4H.RT ampul.neb 01/09/19 Lisinopril [Zestril] 20 mg PO DAILY tablet 01/09/19 Magnesium Hydroxide [Milk Of Magnesia] 30 ml PO DAILY PRN PRN udc 01/09/19 Metoprolol Tartrate [Lopressor (beta hiram)] 25 mg PO BID tablet 01/09/19 Polyethylene Glycol 3350 [Miralax] 17 gm PO BID packet 01/09/19 Senna/Docusate Sodium [Senokot-S] 2 tablet PO BID tablet 01/09/19 Argin/Glut/Cahmb/Collag/Mv-Min [Rhett Packet] 1 each PO BID 01/25/19 Hydrocortisone 2.5% Crm [Hytone] 1 applic TOPICAL BID PRN PRN 01/25/19 Omeprazole [Prilosec] 20 mg PO DAILY 01/25/19 Furosemide [Lasix] 20 mg PO DAILY #0 01/27/19 Potassium Chloride [K-Dur] 20 meq PO DAILY tablet 01/27/19
== END 2019-01-27 14:50 | disposition skilled nursing facility (03) | DRG 189 ==
LOC: ED 08:36 → PCU 01-26 07:01
PROVIDERS: Admitting Provider Internal Medicine; Emergency Provider Emergency Medicine; Family Provider Family Medicine; PCP Family Medicine; Visit Provider Internal Medicine
DX: J96.21 Acute and chronic respiratory failure with hypoxia (principal); I50.33 Acute on chronic diastolic (congestive) heart failure; J44.1 Chronic obstructive pulmonary disease with (acute) exacerbation; E66.01 Morbid (severe) obesity due to excess calories; J96.22 Acute and chronic respiratory failure with hypercapnia; Z68.36 Body mass index [BMI] 36.0-36.9, adult; I11.0 Hypertensive heart disease with heart failure; E78.5 Hyperlipidemia, unspecified; Z87.891 Personal history of nicotine dependence; E87.6 Hypokalemia; E11.9 Type 2 diabetes mellitus without complications; K21.9 Gastro-esophageal reflux disease without esophagitis; Z79.84 Long term (current) use of oral hypoglycemic drugs; Z99.81 Dependence on supplemental oxygen
CPT/HCPCS: 36415; 36600; 71045; 80048; 82803; 82962; 83605; 83735; 83880; 84484; 85025; 93005; 93306; 94002; 94003; 94640; 97163; 97165; 97530; 97802; 99251; 99285; J7040; Q9957; A4216; C8929; G0463; J1940

== ENCOUNTER → 2019-03-21 10:11 | Outpatient (CLI) | payer SELFPAY ==
[2019-02-22 09:37] VITALS: BMI 35.3
[2019-03-21 11:35] VITALS: PULSE 55; PULSE 57; PULSE 60; PULSE 68; PULSE 69; PULSE 72; PULSE 74; PULSE 78; O2SAT 86; O2SAT 92; O2SAT 93; O2SAT 94; O2SAT 95
--- NOTE | 2019-03-21 11:38 | CPS ---
Patient came in on 3 lpm nasal cannula which is her home setting. SpO2 88% on room air sitting. Placed patient back on 3 lpm for testing. Patient states she doesn't walk much but when she does she uses a cane which she did not bring. She held onto [employer]JUDICATOR while walking. At the 2nd minute SpO2 86% on 3lpm O2, stopped patient and turned O2 up to 4 lpm. Patient recovered and started time again and patient only walked about 25 more feet before she took about a minute and a half break. I encouraged patient to start again if she felt able, walked an additional 70 ft without desaturation below 89% for the remainder of the test.
--- NOTE | 2019-03-23 08:15 | PCM.PSN.6M ---
PSN 6 Minute Walk Test - 6 Minute Walk Test 6 Minute Walk Test: 6 Minute Walk Test PSN:6-Minute Walk Test Start: 03/21/19 11:35 Freq: Status: Active Protocol: RESP.6MINW Document 03/21/19 11:35 [facility] (Rec: 03/21/19 11:44 BEBE [id number]) 6 Minute Walk Test Date Performed 03/21/19 Time Performed 10:40 Height 5 ft 1.5 in Weight: 189 lb Weight in Pounds 189.[address]: Leandro Gamboa Assistive device used: Cane Pre-test Oxygen Flow Rate (L/min) (L/min) 3 Oxygen Delivery Method Nasal Cannula Pulse Ox (%) 95 Pulse Rate (60-100 beats/min) 57 L Dyspnea Bibi Scale (0-10) 0 Exertion Bibi Scale (6-20) 6 1st minute Oxygen Flow Rate (L/min) (L/min) 3 Oxygen Delivery Method Nasal Cannula Pulse Ox (%) 94 Pulse Rate (60-100 beats/min) 72 2nd minute Oxygen Flow Rate (L/min) (L/min) 3 Oxygen Delivery Method Nasal Cannula Pulse Ox (%) 86 Pulse Rate (60-100 beats/min) 78 Dyspnea Bibi Scale (0-10) 3 Number of Rests Taken 1 3rd minute Oxygen Flow Rate (L/min) (L/min) 4 Oxygen Delivery Method Nasal Cannula Pulse Ox (%) 94 Pulse Rate (60-100 beats/min) 69 Number of Rests Taken 1 4th minute Oxygen Flow Rate (L/min) (L/min) 4 Oxygen Delivery Method Nasal Cannula Pulse Ox (%) 93 Pulse Rate (60-100 beats/min) 60 Number of Rests Taken 1 5th minute Oxygen Flow Rate (L/min) (L/min) 4 Oxygen Delivery Method Nasal Cannula Pulse Ox (%) 93 Pulse Rate (60-100 beats/min) 68 6th minute Oxygen Flow Rate (L/min) (L/min) 4 Oxygen Delivery Method Nasal Cannula Pulse Ox (%) 94 Pulse Rate (60-100 beats/min) 74 Dyspnea Bibi Scale (0-10) 2 Exertion Bibi Scale (6-20) 14 Post-test Oxygen Flow Rate (L/min) (L/min) 4 Oxygen Delivery Method Nasal Cannula Pulse Ox (%) 92 Pulse Rate (60-100 beats/min) 55 L Full Laps Walked 2 Partial Lap, Number of Tiles Walked 44 Total Distance Walked (ft) 162 03/21/19 11:38 Cardiopulmonary Services by Latoya Otto Patient came in on 3 lpm nasal cannula which is her home setting. SpO2 88% on room air sitting. Placed patient back on 3 lpm for testing. Patient states she doesn't walk much but when she does she uses a cane which she did not bring. She held onto [employer] while walking. At the 2nd minute SpO2 86% on 3lpm O2, stopped patient and turned O2 up to 4 lpm. Patient recovered and started time again and patient only walked about 25 more feet before she took about a minute and a half break. I encouraged patient to start again if she felt able, walked an additional 70 ft without desaturation below 89% for the remainder of the test. Initialized on 03/21/19 11:38 - END OF NOTE - Interpretation Interpretation: The patient ambulated 162 feet over the course of 6 minutes beginning on supplemental oxygen with the use of a cane. The patient did take breaks during testing. Pretesting oxygen saturation on room air was noted to be 88%. The patient was subsequently placed on 3 L/min. With ambulation, the patient desaturated to 86% at minute 2 of testing. His supplemental oxygen flow rate was increased to 4 L/min. The patient was then able to complete the remainder of the test while maintaining appropriate oxygen saturations. - Recommendations Recommendations: 3 L/min of supplemental oxygen should be utilized at rest. 4 L/min of supplemental oxygen should be utilized with exertion.
== END ==
PROVIDERS: Family Provider Family Medicine; PCP Family Medicine; Referring Provider Internal Medicine Critical Care Medicine; Visit Provider Internal Medicine Critical Care Medicine
DX: J44.9 Chronic obstructive pulmonary disease, unspecified (principal); J96.11 Chronic respiratory failure with hypoxia; J96.12 Chronic respiratory failure with hypercapnia
CPT/HCPCS: 94618

== ENCOUNTER → 2019-05-24 08:02 | Outpatient (CLI) | payer MEDICARE, OTHER, SELFPAY ==
[2019-02-22 09:37] VITALS: BMI 35.3
[2019-05-24 12:27] LABS: Absolute Lymphocyte Count 1.13 X10^3/uL (0.83-4.51); Absolute Neutrophil Count 8.4 X10^3/uL (2.0-7.7); Basophil# 0.05 X10^3/uL; Basophil% 0.5 % (0-1); Eosinophils% 1.9 % (0-5); Hematocrit 45.2 % (37-47); Hemoglobin 13.4 g/dL (12.0-15.0); Lymphocyte # 1.13 X10^3/ul (4.0); Lymphocyte % 10.6 % (19-41); Mean Corp Hgb Conc 29.6 g/dL (32-36); Mean Corpuscular Hgb 31.8 pg (27.0-32.0); Mean Corpuscular Volume 107.4 fL (81-99); Mean Platelet Vol. 10.9 fl (6.2-12.0); Monocyte# 0.86 X10^3/uL; NRBC Flagged by Analyzer 0 % (0-5); Neutrophil # 8.39 X10^3/uL (2.7-7.7); Neutrophil % 78.4 % (47-70); Platelet Count 271 K/mm3 (150-450); RBC Distribution Width CV 13.1 % (11.6-14.6); Red Blood Count 4.21 M/mm3 (4.2-5.4); White Blood Count 10.7 K/mm3 (4.4-11.0)
[2019-05-24 12:36] LABS: Anion Gap 3 (5-15); BUN 13 mg/dL (7-18); BUN/Creat Ratio 14.5 RATIO (10-20); Calcium,Total 9.1 mg/dL (8.5-10.1); Chloride 98 mmol/L (98-107); Creatinine, Serum 0.89 mg/dL (0.55-1.02); EST Glomerular Filtration Rate 64 mL/min (>60); Est Glom Filt Rate - Afr Amer 78 mL/min (>60); Glucose 146 mg/dL (74-106); Potassium 4.5 mmol/L (3.5-5.1); Sodium Level 143 mmol/L (136-145)
== END ==
PROVIDERS: Family Provider Family Medicine; PCP Family Medicine; Visit Provider Family Medicine
DX: E11.9 Type 2 diabetes mellitus without complications (principal); E87.6 Hypokalemia; I10 Essential (primary) hypertension
CPT/HCPCS: 36415; 80048; 85025

== ENCOUNTER → 2019-08-01 13:14 | Outpatient (CLI) | payer MEDICARE, OTHER, SELFPAY ==
[2019-02-22 09:37] VITALS: BMI 35.3
[2019-08-01 15:38] LABS: BUN 15 mg/dL (7-18); EST Glomerular Filtration Rate 56 mL/min (>60); Glucose 121 mg/dL (74-106)
[2019-08-01 15:39] LABS: Anion Gap 5 (5-15); Calcium,Total 9.3 mg/dL (8.5-10.1); Chloride 94 mmol/L (98-107); Est Glom Filt Rate - Afr Amer 68 mL/min (>60); Potassium 4.4 mmol/L (3.5-5.1); Sodium Level 139 mmol/L (136-145)
== END ==
PROVIDERS: Family Provider Family Medicine; PCP Family Medicine; Visit Provider Family Medicine
DX: I10 Essential (primary) hypertension (principal)
CPT/HCPCS: 36415; 80048

== ENCOUNTER → 2019-12-06 12:53 | Outpatient (CLI) | payer MEDICARE, OTHER, SELFPAY ==
[2019-02-22 09:37] VITALS: BMI 35.3
--- NOTE | 2019-12-06 15:04 | PFTCOMP_ITS ---
COMPLETE PULMONARY FUNCTION TEST INTERPRETATION Brief HPI: Patient is an 84 year old female, currently under the care of Dr. Gonzalez, who presents to [facility] for complete pulmonary function tests secondary to diagnosis of COPD. Respiratory therapist reports good effort and reproducible results. Interpretation: Forced expiration spirometry shows a very severe large airways obstructive ventilatory defect with an FEV1 of 31% predicted. There is a significant bronchodilator response in FVC by strict ATS criteria. Spirograms are of good quality and plateau slowly, indicating slowly emptying areas of the lungs. The respiratory flow volume loop shows decreased expiratory flow rates at all lung volumes consistent with airway obstruction. Lung volumes by body plethysmography show a normal total lung capacity at 4.04 L, 93% predicted. FRC and RV are elevated out of proportion. Lung volume measurements are consistent with air-trapping. Diffusion capacity by carbon monoxide is decreased at 21% predicted. The airway resistance is elevated. Compared to previous pulmonary function tests from 06/28/2018, there has been some improvement in air trapping with hyperinflation, but no significant change in flows. Impression: Partially reversible very severe large airways obstructive ventilatory defect with a symmetric reduction diffusing capacity
== END ==
PROVIDERS: PCP Family Medicine; Referring Provider Nurse Practitioner Acute Care; Visit Provider Nurse Practitioner Acute Care
DX: J44.9 Chronic obstructive pulmonary disease, unspecified (principal)
CPT/HCPCS: 94060; 94726; 94729

== ENCOUNTER → 2019-12-08 08:21 | Outpatient (CLI) | payer MEDICARE, OTHER, SELFPAY ==
[2019-02-22 09:37] VITALS: BMI 35.3
[2019-12-08 10:02] VITALS: PULSE 100; PULSE 82; PULSE 84; PULSE 89; PULSE 90; PULSE 91; PULSE 98; O2SAT 80; O2SAT 83; O2SAT 86; O2SAT 93; O2SAT 94; O2SAT 96
--- NOTE | 2019-12-08 10:06 | CPS ---
PATIENT ARRIVED ON OWN OXYGEN VIA SUPPLIED BY [employer]. PLACED ON RA PRIOR TO TESTING. SPO2 DROPPED QUICKLY TO 80%, WALK BEGAN ON 2LPM. PATIENT TOOK REST BREAKS FOR INCREASED WOB MINUTES 2-5 AND RESTED ENTIRE LAST MINUTE OF TEST. SHE PUSHED A WHEELCHAIR FOR STABILITY DURING TEST. AT TEST END, PATIENT WAS ON 6LPM TO MAINTAIN SPO2 ABOVE 88%. D/C BACK ON 3LPM WITH SPO2 AT 96%.
--- NOTE | 2019-12-08 15:10 | WT_ITS ---
PSN 6 Minute Walk Test - 6 Minute Walk Test 6 Minute Walk Test: 6 Minute Walk Test PSN:6-Minute Walk Test Start: 12/08/19 10:02 Freq: Status: Active Protocol: RESP.6MINW Document 12/08/19 10:02 [facility] (Rec: 12/08/19 10:11 [facility] [id number]) 6 Minute Walk Test Date Performed 12/08/19 Time Performed 08:30 Height 5 ft 2 in Weight: 74.843 kg Weight in Pounds 165.[address]: Maribel Ambrose Assistive device used: Walker Pre-test Oxygen Delivery Method Room Air Pulse Ox (%) 80 Pulse Rate (60-100 beats/min) 82 Dyspnea Bibi Scale (0-10) 2 Reported Symptoms Cyanotic 1st minute Oxygen Flow Rate (L/min) (L/min) 2 Oxygen Delivery Method Nasal Cannula Pulse Ox (%) 93 Pulse Rate (60-100 beats/min) 89 Dyspnea Bibi Scale (0-10) 2 Number of Rests Taken 0 2nd minute Oxygen Flow Rate (L/min) (L/min) 2 Oxygen Delivery Method Nasal Cannula Pulse Ox (%) 86 Pulse Rate (60-100 beats/min) 90 Dyspnea Bibi Scale (0-10) 3 Number of Rests Taken 1 Reported Symptoms Increased Work of Breathing 3rd minute Oxygen Flow Rate (L/min) (L/min) 3 Oxygen Delivery Method Nasal Cannula Pulse Ox (%) 93 Pulse Rate (60-100 beats/min) 91 Dyspnea Bibi Scale (0-10) 3 Number of Rests Taken 1 Reported Symptoms Increased Work of Breathing 4th minute Oxygen Flow Rate (L/min) (L/min) 3 Oxygen Delivery Method Nasal Cannula Pulse Ox (%) 86 Pulse Rate (60-100 beats/min) 98 Dyspnea Bibi Scale (0-10) 5 Number of Rests Taken 1 Reported Symptoms Increased Work of Breathing 5th minute Oxygen Flow Rate (L/min) (L/min) 4 Oxygen Delivery Method Nasal Cannula Pulse Ox (%) 83 Pulse Rate (60-100 beats/min) 98 Dyspnea Bibi Scale (0-10) 5 Number of Rests Taken 1 Reported Symptoms Cyanotic,Increased Work of Breathing 6th minute Oxygen Flow Rate (L/min) (L/min) 6 Oxygen Delivery Method Nasal Cannula Pulse Ox (%) 94 Pulse Rate (60-100 beats/min) 100 Dyspnea Bibi Scale (0-10) 4 Number of Rests Taken 1 Reported Symptoms Increased Work of Breathing Post-test Oxygen Flow Rate (L/min) (L/min) 3 Oxygen Delivery Method Nasal Cannula Pulse Ox (%) 96 Pulse Rate (60-100 beats/min) 84 Dyspnea Bibi Scale (0-10) 2 Full Laps Walked 5 Partial Lap, Number of Tiles Walked 5 Total Distance Walked (ft) 300 12/08/19 10:06 Cardiopulmonary Services by Lolis Doty PATIENT ARRIVED ON OWN OXYGEN VIA SUPPLIED BY [employer]. PLACED ON RA PRIOR TO TESTING. SPO2 DROPPED QUICKLY TO 80%, WALK BEGAN ON 2LPM. PATIENT TOOK REST BREAKS FOR INCREASED WOB MINUTES 2-5 AND RESTED ENTIRE LAST MINUTE OF TEST. SHE PUSHED A WHEELCHAIR FOR STABILITY DURING TEST. AT TEST END, PATIENT WAS ON 6LPM TO MAINTAIN SPO2 ABOVE 88%. D/C BACK ON 3LPM WITH SPO2 AT 96%. Initialized on 12/08/19 10:06 - END OF NOTE - Interpretation Interpretation: Patient noted to be 80% on room air, but improved to 92% with 2 L nasal cannula. The patient took multiple breaks during testing and required 6 L nasal cannula to maintain saturations. In total, the patient traveled only 300 feet over the course of 6 minutes with the help of a wheelchair and 5 breaks. These findings are consistent with a respiratory limitation exercise tolerance. - Recommendations Recommendations: 2 L nasal cannula should be used at rest, but patient requires 6 L nasal cannula with any exertion.
== END ==
PROVIDERS: PCP Family Medicine; Referring Provider Nurse Practitioner Acute Care; Visit Provider Nurse Practitioner Acute Care
DX: J44.9 Chronic obstructive pulmonary disease, unspecified (principal)
CPT/HCPCS: 94618

== ENCOUNTER 2020-05-03 12:01 | Outpatient (RCR) | payer MEDICARE, OTHER, SELFPAY ==
[2020-05-03 09:28] VITALS: BMI 35.3
[2020-05-03 12:16] VITALS: BP 172/50; PULSE 87; RESP 16; TEMP 36.4
--- NOTE | 2020-05-03 14:33 | HP.PCM_ITS ---
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 Status: Chronic Current Visit: Yes Code(s): L89.152 - Pressure ulcer of sacral region, stage 2 (3) Chronic respiratory failure with hypoxia and hypercapnia Status: Chronic Current Visit: Yes Code(s): J96.11 - Chronic respiratory failure with hypoxia; J96.12 - Chronic respiratory failure with hypercapnia (4) Diabetes mellitus type 2 in obese Status: Chronic Current Visit: Yes Code(s): E11.9 - Type 2 diabetes mellitus without complications; E66.9 - Obesity, unspecified (5) Dyslipidemia Status: Chronic Current Visit: Yes Code(s): E78.5 - Hyperlipidemia, unspecified (6) End stage COPD Status: Chronic Current Visit: Yes Code(s): J44.9 - Chronic obstructive pulmonary disease, unspecified (7) Urinary incontinence Status: Chronic Current Visit: Yes Qualifiers: Urinary Incontinence type: mixed stress and urge incontinence Qualified Code(s): N39.46 - Mixed incontinence Code(s): R32 - Unspecified urinary incontinence (8) Stage II pressure ulcer of left buttock Status: Chronic Current Visit: Yes Code(s): L89.322 - Pressure ulcer of left buttock, stage 2 History of Present Illness Date of Service: 05/03/20 Chief Complaint: Pressure ulcers of buttocks and coccyx History of Wound: Nancy is an 84 yo female who presents to the wound healing center for evaluation and treatment of pressure ulcers of her butoocks and coccyx that have been present since approx. April 14, 2020. She was recently in [facility] for rehabilitation for 22 days s/p a hospitalization for COPD and respiratory failure and acute PE. She has chronic end stage COPD and is oxygen dependent and is generally debilitated. She has been home from the SNF for 8 days and her has been trying to treat the pressure ulcer with optifoam dressings or bandaids and has not had much improvement. He expressed concern to the patients petrologist who referred her to the wound healing center for treatment. He reports that his spends most of her guillermina in the recliner and doesn't get up except to use the bathroom and doesn't bathe as much as she should or get up and walk around because of her shortness of breath on exertion. He states that it is extremely difficult to get her out of the house and he has a hard time with assisting her due to his own health. He is able to drive and to do her dressings. He has a Offloading cushion that is in her recliner that is an inflatable cushion - possibly a Roho? She does use a wheelchair and is unable to walk any significant distance because of her pulmonary issues. She is incontinent of urine and wears an adult diaper for treating her incontinence issues. He reports moderate drainage from the ulcers and no odor or surrounding erythema, fever or chills. Past Medical History Past Medical History: Chronic Problems (Last Reviewed 05/03/20 @ 09:58 by Maribel Ambrose NP-C) Stage II pressure ulcer of buttock (Chronic) Stage II pressure ulcer of sacral region (Chronic) Stage II pressure ulcer of left buttock (Chronic) COPD exacerbation (Chronic) Dysphagia (Chronic) End stage COPD (Chronic) Hypokalemia (Chronic) End of life care (Chronic) Cough productive of yellow sputum (Chronic) Colon polyp (Chronic) Vitamin B12 deficiency (Chronic) Vitamin D deficiency (Chronic) Hypercholesteremia (Chronic) Plasma cell disorder (Chronic) Carotid stenosis (Chronic) Allergic rhinitis (Chronic) Constipation (Chronic) Osteopenia (Chronic) Lung nodule (Chronic) Hypersomnia (Chronic) Urinary incontinence (Chronic) 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 classification (Chronic) Abdominal hernia (Chronic) Obesity (BMI 35.0-39.9 without comorbidity) (Chronic) Dehydration (Chronic) Chronic respiratory failure with hypoxia and hypercapnia (Chronic) COLD (chronic obstructive lung disease) (Chronic) Dyslipidemia (Chronic) Esophageal reflux (Chronic) Essential hypertension (Chronic) Former smoker (Chronic) Diabetes mellitus type 2 in obese (Chronic) Surgical History: cataract - Bilateral, cholecystectomy, - - Bladder sling, Allergies/Adverse Reactions: Allergies bee venom protein (honey bee) Allergy (Severe, Verified 05/03/20 09:26) Anaphylaxis LEATHA Inhibitors Allergy (Verified 05/03/20 09:26) Unknown latex Allergy (Verified 05/03/20 09:26) Itching Sulfa (Sulfonamide Antibiotics) Allergy (Verified 07/31/20 09:26) PT CAN'T REMEMBER budesonide [From Symbicort] Adverse Reaction (Verified 05/03/20 09:26) SORES IN MOUTH fluticasone [From Advair Diskus] Adverse Reaction (Verified 05/03/20 09:26) SORES IN MOUTH formoterol [From Symbicort] Adverse Reaction (Verified 05/03/20 09:26) SORES IN MOUTH ipratropium Adverse Reaction (Verified 05/03/20 09:) SORES IN MOUTH salmeterol [From Advair Diskus] Adverse Reaction (Verified 05/03/20 09:26) SORES IN MOUTH BREATHING TREATMENTS Adverse Reaction (Uncoded 05/03/20 09:) SORES IN MOUTH Home Medications: Ambulatory Orders Medication Instructions Recorded Oxygen, Home [Home Oxygen] 2 lpm NASAL DAILY 04/08/15 Tolterodine Tartrate 4 mg PO DAILY 12/02/16 Red Yeast Rice 600 mg PO DAILY 09/15/17 epinephrine 0.3 mg/0.3 mL 0.5 mg IM Q10-15M PRN 10/28/17 injection, auto-injector vit C,E,zinc,copper-[id number] 250 1 cap PO DAILY 10/28/17 mg-lutein 5 mg-zeaxanthin 1 mg capsule acetaminophen 325 mg capsule 325 mg PO TID PRN cap 04/21/18 Saxagliptin HCl [Onglyza] 5 mg PO DAILY 01/03/19 Aspirin [Aspirin, Baby] 81 mg PO DAILYCM tab.chew 01/09/19 Famotidine [Pepcid] 20 mg PO BID tab 01/09/19 Ipratropium/Albuterol Sulfate 3 ml INHALATION Q4H.RT ampul.neb 01/09/19 [Duoneb] Lisinopril [Zestril] 20 mg PO DAILY tab 01/09/19 Magnesium Hydroxide [Milk Of 30 ml PO DAILY PRN PRN udc 01/09/19 Magnesia] Metoprolol Tartrate [Lopressor 25 mg PO BID tab 01/09/19 (beta hiram)] Polyethylene Glycol 3350 [Miralax] 17 gm PO BID packet 01/09/19 Senna/Docusate Sodium [Senokot-S] 2 tab PO BID tab 01/09/19 Hydrocortisone 2.5% Crm [Hytone] 1 applic TOPICAL BID PRN PRN 01/25/19 Omeprazole [Prilosec] 20 mg PO DAILY 01/25/19 Furosemide [Lasix] 20 mg PO DAILY #0 01/27/19 Potassium Chloride [K-Dur] 20 meq PO DAILY tab 01/27/19 albuterol sulfate 2.5 mg INHALATION Q2H PRN PRN #180 05/30/19 ml Rhett (unflavored) [Rhett Packet] 1 packet PO BIDCM 05/03/20 ipratropium 0.5 mg-albuterol 3 mg 3 ml INHALATION Q4H PRN PRN #180 ml 05/03/20 (2.5 mg base)/3 mL nebulization soln - Family History Maternal Family History: Family History (Last Reviewed 05/03/20 @ 09:58 by DEEPA Encinas) Brother Lung disease Mother Heart disease Diabetes Father CAD (coronary artery disease) Diabetes, Heart Disease Paternal Family History: Family History (Last Reviewed 05/03/20 @ 09:58 by DEEPA Encinas) Brother Lung disease Mother Heart disease Diabetes Father CAD (coronary artery disease) - - father at 76 with a DVT and PE Sibling Family History: Family History (Last Reviewed 05/03/20 @ 09:58 by DEEPA Encinas) Brother Lung disease Mother Heart disease Diabetes Father CAD (coronary artery disease) - - she has 10 siblings...one is with pancreatic cancer Lives: Spouse/ Significant Other Smoking Status: Former smoker Tobacco Use: Non-smoker Alcohol: None Drugs: None Review of Systems Constitutional: Denies: Chills, Fever, Weight Change Eyes: Denies: Pain, Vision Change HEENT: Denies: Difficulty Hearing, Difficulty Swallowing, Sinus Congestion Cardiovascular: Denies: Chest Pain, Palpitations Respiratory: Reports: Shortness of Breath, Shortness of breath upon exertion Gastrointestinal: Denies: Diarrhea, Nausea, Vomiting Genitourinary: Reports: Incontinence. Denies: Dysuria, Hematuria Musculoskeletal: Reports: Joint Pain Skin: Reports: Wounds Endocrine: Denies: Heat/ Cold Intolerance, Polydipsia, Polyuria Hematologic/ Lymphatic: Denies: Easy Bruising, Easy Bleeding - Physical Exam Vital Signs Temp Pulse Resp BP 97.6 F L 87 16 172/50 H 05/03/20 12:16 05/03/20 12:16 05/03/20 12:16 05/03/20 12:16 General: Alert, Oriented x3, Cooperative, No apparent distress HEENT: Atraumatic, Normocephalic Oral: Moist Mucosa Neck: Supple Lungs: Clear to auscultation Abdomen: Obese Extremities: Edema Skin: Ulcer/ Wound Wound Measurements and Assessment WC - Nurse 1 - General Ulcer Measurement Start: 05/03/20 12:16 Freq: Status: Active Protocol: Activity Type Activity Date Activity User E-Sign Co-Sign Detail Recorded Client Recorded Date Recorded By Document 05/03/20 12:16 [facility] [id number] 05/03/20 12:41 [facility] 05/03/20 12:16 Wound Center Nurse 1 [Ulcer Assessment] #3- L BUTTOCK -Combined with other wound No -Current Size (cm) - Length 2.4 -Current Size (cm) - Width 1 -Current Size (cm) - Depth 0.2 -Total Square Cm 2.4 -Date of Last Picture (Recall this 05/03/20 field) -Photo Taken Yes -Epithelialization None Present -Tunneling No -Undermining/Tunneling No -Circular Undermining No -Exudate Amt Small -Exudate Type Serosanguineous -Wound Margin Distinct, Outline Attached -Granulation Amt Large (67-100%) -Granulation Quality Red -Slough/Fibrin No -Necrosis Amt None Present (0 %) -Texture (Mini-wound Skin Appearance) Assessed, Scarring -Moisture (Mini-wound Skin Appearance Assessed ) -Color (Mini-wound Skin Appearance) Assessed, Erythema -Temperature (Mini-wound Skin No Abnormality Appearance) (Pt Warm) -Tenderness on Palpation (Mini-wound No Skin Appearance) -Ulcer Cleansing Rinsed/ Irrigated with Saline -Foul Odor after Cleansing No -Anesthetic Used 4% Lidocaine Solution #2- COCCYX -Combined with other wound No -Current Size (cm) - Length 1 -Current Size (cm) - Width 0.4 -Current Size (cm) - Depth 0.2 -Total Square Cm 0.4 -Date of Last Picture (Recall this 05/03/20 field) -Photo Taken Yes -Epithelialization None Present -Tunneling No -Undermining/Tunneling No -Circular Undermining No -Exudate Amt Small -Exudate Type Serosanguineous -Wound Margin Distinct, Outline Attached -Granulation Amt Large (67-100%) -Granulation Quality Red -Slough/Fibrin No -Necrosis Amt None Present (0 %) -Texture (Mini-wound Skin Appearance) Assessed, Scarring -Moisture (Mini-wound Skin Appearance Assessed ) -Color (Mini-wound Skin Appearance) Assessed, Erythema -Temperature (Mini-wound Skin No Abnormality Appearance) (Pt Warm) -Tenderness on Palpation (Mini-wound No Skin Appearance) -Ulcer Cleansing Rinsed/ Irrigated with Saline -Foul Odor after Cleansing No -Anesthetic Used 4% Lidocaine Solution #1- R BUTTOCK -Combined with other wound No -Current Size (cm) - Length 0.3 -Current Size (cm) - Width 0.8 -Current Size (cm) - Depth 0.1 -Total Square Cm 0.24 -Date of Last Picture (Recall this 05/03/20 field) -Photo Taken Yes -Epithelialization None Present -Tunneling No -Undermining/Tunneling No -Circular Undermining No -Exudate Amt Small -Exudate Type Serosanguineous -Wound Margin Distinct, Outline Attached -Granulation Amt Large (67-100%) -Granulation Quality Red -Slough/Fibrin No -Necrosis Amt None Present (0 %) -Necrotic Tissue Type Adherent Slough -Texture (Mini-wound Skin Appearance) Assessed, Scarring -Moisture (Mini-wound Skin Appearance Assessed ) -Color (Mini-wound Skin Appearance) Assessed, Erythema -Temperature (Mini-wound Skin No Abnormality Appearance) (Pt Warm) -Tenderness on Palpation (Mini-wound No Skin Appearance) -Ulcer Cleansing Rinsed/ Irrigated with Saline -Foul Odor after Cleansing No -Anesthetic Used 4% Lidocaine Solution WC - Nurse 2 - General Ulcer CM Notes Start: 05/03/20 12:16 Freq: Status: Active Protocol: Activity Type Activity Date Activity User E-Sign Co-Sign Detail Recorded Client Recorded Date Recorded By Document 05/03/20 12:53 MW [id number] 05/03/20 13:09 MW 05/03/20 12:53 Wound Center Nurse 2 [Procedure/Treatment] #3- L BUTTOCK -Time 12:53 -Correct Patient Yes -Correct Side, Site, Position Yes -Correct Procedure Yes -Procedure Performed Yes -Type of Procedure Debridement -Clinical Debridement Subcutaneous -Post Debridement Size (cm) - Length 2.3 -Post Debridement Size (cm) - Width 1.3 -Post Debridement Size (cm) - Depth 0.1 -Total Square (cm) 2.99 -Wound/Ulcer Outcome Not Healed -Ulcer Cleansing Rinsed/ Irrigated with Saline -Foul Odor after Cleansing No -Bioengineered Tissue No -Bleeding Controlled with Pressure -Offloading No -Treatment Response Procedure Tolerated Well #2- COCCYX -Time 12:53 -Correct Patient Yes -Correct Side, Site, Position Yes -Correct Procedure Yes -Procedure Performed Yes -Type of Procedure Debridement -Clinical Debridement Subcutaneous -Post Debridement Size (cm) - Length 0.9 -Post Debridement Size (cm) - Width 0.5 -Post Debridement Size (cm) - Depth 0.1 -Total Square (cm) 0.45 -Wound/Ulcer Outcome Not Healed -Ulcer Cleansing Rinsed/ Irrigated with Saline -Foul Odor after Cleansing No -Bioengineered Tissue No -Bleeding Controlled with Pressure -Offloading No -Treatment Response Procedure Tolerated Well #1- R BUTTOCK -Time 12:53 -Correct Patient Yes -Correct Side, Site, Position Yes -Correct Procedure Yes -Procedure Performed Yes -Type of Procedure Debridement -Clinical Debridement Subcutaneous -Post Debridement Size (cm) - Length 0.5 -Post Debridement Size (cm) - Width 0.9 -Post Debridement Size (cm) - Depth 0.1 -Total Square (cm) 0.45 -Wound/Ulcer Outcome Not Healed -Ulcer Cleansing Rinsed/ Irrigated with Saline -Foul Odor after Cleansing No -Bioengineered Tissue No -Bleeding Controlled with Pressure -Offloading No -Treatment Response Procedure Tolerated Well [See Physician Procedure note for Specifics] Pain Scale: 0-10 Numeric [Pain] -Is Patient Pain Free? Yes Psych/Mental Status: Normal Affect, Appropriate Debridement Note Post-Debridement Measurements/Treatment WC - Nurse 2 - General Ulcer CM Notes Start: 05/03/20 12:16 Freq: Status: Active Protocol: Activity Type Activity Date Activity User E-Sign Co-Sign Detail Recorded Client Recorded Date Recorded By Document 05/03/20 12:53 MW [id number] 05/03/20 13:09 MW 05/03/20 12:53 Wound Center Nurse 2 #3- L BUTTOCK -Time 12:53 -Correct Patient Yes -Correct Side, Site, Position Yes -Correct Procedure Yes -Procedure Performed Yes -Type of Procedure Debridement -Clinical Debridement Subcutaneous -Post Debridement Size (cm) - Length 2.3 -Post Debridement Size (cm) - Width 1.3 -Post Debridement Size (cm) - Depth 0.1 -Total Square (cm) 2.99 -Wound/Ulcer Outcome Not Healed -Ulcer Cleansing Rinsed/ Irrigated with Saline -Foul Odor after Cleansing No -Bioengineered Tissue No -Bleeding Controlled with Pressure -Offloading No -Treatment Response Procedure Tolerated Well #2- COCCYX -Time 12:53 -Correct Patient Yes -Correct Side, Site, Position Yes -Correct Procedure Yes -Procedure Performed Yes -Type of Procedure Debridement -Clinical Debridement Subcutaneous -Post Debridement Size (cm) - Length 0.9 -Post Debridement Size (cm) - Width 0.5 -Post Debridement Size (cm) - Depth 0.1 -Total Square (cm) 0.45 -Wound/Ulcer Outcome Not Healed -Ulcer Cleansing Rinsed/ Irrigated with Saline -Foul Odor after Cleansing No -Bioengineered Tissue No -Bleeding Controlled with Pressure -Offloading No -Treatment Response Procedure Tolerated Well #1- R BUTTOCK -Time 12:53 -Correct Patient Yes -Correct Side, Site, Position Yes -Correct Procedure Yes -Procedure Performed Yes -Type of Procedure Debridement -Clinical Debridement Subcutaneous -Post Debridement Size (cm) - Length 0.5 -Post Debridement Size (cm) - Width 0.9 -Post Debridement Size (cm) - Depth 0.1 -Total Square (cm) 0.45 -Wound/Ulcer Outcome Not Healed -Ulcer Cleansing Rinsed/ Irrigated with Saline -Foul Odor after Cleansing No -Bioengineered Tissue No -Bleeding Controlled with Pressure -Offloading No -Treatment Response Procedure Tolerated Well Pain Scale: 0-10 Numeric Is Patient Pain Free? Yes Wound debrided: left buttock Laterality: Left Wound Grade/Stage: Stage 2 Type of Debridement: Excisional debridement Anesthesia Used: 4% Lidocaine Solution Depth: Down to and including healthy tissue, in the subcutaneous layer Percentage of wound debrided: 100 Instrument Used: 5mm curette Tissue Removed: Yellow slough, devitalized tissue Severity: Fat Layer Exposed Amount of bleeding with debridement: Mild Bleeding Controlled with: Compression and gauze Patient tolerated procedure well - Additional Wound Wound debrided: right buttock Laterality: Right Wound Grade/Stage: Stage 2 Type of Debridement: Excisional debridement Anesthesia Used: 4% Lidocaine Solution Depth: Down to and including healthy tissue, in the subcutaneous layer Percentage of wound debrided: 100 Instrument Used: 3mm curette Tissue Removed: Yellow slough, devitalized tissue Severity: Fat Layer Exposed Amount of bleeding with debridement: Mild Bleeding Controlled with: Compression and gauze Patient tolerated procedure: Patient tolerated procedure well - Additional Wound Wound debrided: coccyx Laterality: Not Applicable Wound Grade/Stage: Stage 2 Type of Debridement: Excisional debridement Anesthesia Used: 4% Lidocaine Solution, 5% Lidocaine Gel Depth: Down to and including healthy tissue, in the subcutaneous layer Percentage of wound debrided: 100 Instrument Used: 3mm curette Tissue Removed: Yellow slough, devitalized tissue Severity: Fat Layer Exposed Amount of bleeding with debridement: Mild Bleeding Controlled with: Compression and gauze Patient tolerated procedure: Patient tolerated procedure well Assessment/Plan Active Problems (Last Reviewed 05/03/20 @ 09:58 by Maribel Ambrose NP-C) Stage II pressure ulcer of buttock (Chronic) Stage II pressure ulcer of sacral region (Chronic) Stage II pressure ulcer of left buttock (Chronic) End stage COPD (Chronic) Urinary incontinence (Chronic) Chronic respiratory failure with hypoxia and hypercapnia (Chronic) Dyslipidemia (Chronic) Diabetes mellitus type 2 in obese (Chronic) Assessment: Pressure ulcers of right and left buttocks and coccyx Plan: Nancy's ulcers were evaluated and debrided today as above. Wound culture was taken. Offloading was encouraged and demonstrated to help heal her pressure ulcers. She will use Farzana and optifoam with border dressings changed every other day to her ulcers for moderate drainage. Encouraged increased protein intake. Regular bathing and frequent changes of her incontinence pads to avoid moisture to the ulcers. Will have her clean the ulcers with antibacterial soap and water prior to applying dressings. Encouraged her to get up and walk around and do PT activities that she was doing while at SNF to maintain strength and improve mobility. Advised her to call if there is any increase in drainage, odor, erythema. Follow up in 1 week.
== END 2020-05-03 23:59 ==
LOC: WC 12:01
PROVIDERS: PCP Family Medicine; Referring Provider Nurse Practitioner Acute Care; Visit Provider Family Medicine
DX: L89.312 Pressure ulcer of right buttock, stage 2 (principal); L89.152 Pressure ulcer of sacral region, stage 2; J96.11 Chronic respiratory failure with hypoxia; J96.12 Chronic respiratory failure with hypercapnia; E11.9 Type 2 diabetes mellitus without complications; J44.9 Chronic obstructive pulmonary disease, unspecified; N39.46 Mixed incontinence; E78.5 Hyperlipidemia, unspecified; L89.322 Pressure ulcer of left buttock, stage 2; R26.2 Difficulty in walking, not elsewhere classified; E66.9 Obesity, unspecified; I10 Essential (primary) hypertension; K21.9 Gastro-esophageal reflux disease without esophagitis; Z86.711 Personal history of pulmonary embolism; Z99.81 Dependence on supplemental oxygen; Z87.891 Personal history of nicotine dependence; Z79.899 Other long term (current) drug therapy; Z79.82 Long term (current) use of aspirin; Z79.84 Long term (current) use of oral hypoglycemic drugs
CPT/HCPCS: 11042; 87070; 87075; 87077; 87186; 87205; 99213; G0463

== ENCOUNTER 2020-05-17 11:24 | Outpatient (RCR) | payer MEDICARE, OTHER, SELFPAY ==
[2020-05-04 00:44] VITALS: BP 172/50; PULSE 87; RESP 16; TEMP 36.4
[2020-05-17 11:39] VITALS: BP 148/94; PULSE 75; RESP 18; TEMP 36.8; BMI 35.3
--- NOTE | 2020-05-18 15:33 | PN.PCM_ITS ---
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 Status: Chronic Current Visit: Yes Code(s): L89.152 - Pressure ulcer of sacral region, stage 2 (3) Stage II pressure ulcer of left buttock Status: Chronic Current Visit: Yes Code(s): L89.322 - Pressure ulcer of left buttock, stage 2 (4) End stage COPD Status: Chronic Current Visit: Yes Code(s): J44.9 - Chronic obstructive pulmonary disease, unspecified (5) Diabetes mellitus type 2 in obese Status: Chronic Current Visit: Yes Code(s): E11.9 - Type 2 diabetes mellitus without complications; E66.9 - Obesity, unspecified Type of Wound Date of Service: 05/17/20 Chief Complaint: Pressure ulcers of buttocks and coccyx History of Wound: Nancy is an 84 yo female who presents to the wound healing center for evaluation and treatment of pressure ulcers of her butoocks and clover cyx that have been present since approx. April 14, 2020. She was recently in [facility] for rehabilitation for 22 days s/p a hospitalization for COPD and respiratory failure and acute PE. She has chronic end stage COPD and is oxygen dependent and is generally debilitated. She has been home from the SNF for 8 days and her has been trying to treat the pressure ulcer with optifoam dressings or bandaids and has not had much improvement. He expressed concern to the patients forensic materials engineer who referred her to the wound healing center for treatment. He reports that his spends most of her guillermina in the recliner and doesn't get up except to use the bathroom and doesn't bathe as much as she should or get up and walk around because of her shortness of breath on exertion. He states that it is extremely difficult to get her out of the house and he has a hard time with assisting her due to his own health. He is able to drive and to do her dressings. He has a Offloading cushion that is in her recliner that is an inflatable cushion - possibly a Roho? She does use a wheelchair and is unable to walk any significant distance because of her pulmonary issues. She is incontinent of urine and wears an adult diaper for treating her incontinence issues. He reports moderate drainage from the ulcers and no odor or surrounding erythema, fever or chills. Progress of Wound: Nancy is here today for follow up of sacral and bilateral buttock pressure ulcers. Her ulcers are healed today. - Physical Exam Vital Signs Temp Pulse Resp BP 98.2 F 75 18 148/94 H 05/17/20 11:39 05/17/20 11:39 05/17/20 11:39 05/17/20 11:39 General: Alert, Oriented x3, Cooperative, No apparent distress HEENT: Atraumatic, Normocephalic Oral: Moist Mucosa Abdomen: Obese Skin: Ulcer/ Wound Wound Measurements and Assessment WC - Nurse 1 - General Ulcer Measurement Start: 05/17/20 11:38 Freq: Status: Active Protocol: Activity Type Activity Date Activity User E-Sign Co-Sign Detail Recorded Client Recorded Date Recorded By Document 05/17/20 11:39 [facility] [id number] 05/17/20 11:53 [facility] 05/17/20 11:39 Wound Center Nurse 1 [Ulcer Assessment] #3- L BUTTOCK -Combined with other wound No -Current Size (cm) - Length 0.1 -Current Size (cm) - Width 0.1 -Current Size (cm) - Depth 0.1 -Total Square Cm 0.01 -Epithelialization Large 67-100% -Tunneling No -Undermining/Tunneling No -Circular Undermining No -Texture (Mini-wound Skin Appearance) Assessed, Scarring -Moisture (Mini-wound Skin Appearance Assessed,Dry/ ) Scaly -Color (Mini-wound Skin Appearance) Assessed -Temperature (Mini-wound Skin No Abnormality Appearance) (Pt Warm) -Tenderness on Palpation (Mini-wound No Skin Appearance) -Ulcer Cleansing soapy water -Foul Odor after Cleansing No #2- COCCYX -Combined with other wound No -Current Size (cm) - Length 0.1 -Current Size (cm) - Width 0.1 -Current Size (cm) - Depth 0.1 -Total Square Cm 0.01 -Epithelialization Large 67-100% -Tunneling No -Undermining/Tunneling No -Circular Undermining No -Texture (Mini-wound Skin Appearance) Assessed, Scarring -Moisture (Mini-wound Skin Appearance Assessed,Dry/ ) Scaly -Color (Mini-wound Skin Appearance) Assessed -Temperature (Mini-wound Skin No Abnormality Appearance) (Pt Warm) -Tenderness on Palpation (Mini-wound No Skin Appearance) -Ulcer Cleansing soapy water -Foul Odor after Cleansing No #1- R BUTTOCK -Combined with other wound No -Current Size (cm) - Length 0.1 -Current Size (cm) - Width 0.1 -Current Size (cm) - Depth 0.1 -Total Square Cm 0.01 -Epithelialization Large 67-100% -Tunneling No -Undermining/Tunneling No -Circular Undermining No -Texture (Mini-wound Skin Appearance) Assessed, Scarring -Moisture (Mini-wound Skin Appearance Assessed,Dry/ ) Scaly -Color (Mini-wound Skin Appearance) Assessed -Temperature (Mini-wound Skin No Abnormality Appearance) (Pt Warm) -Tenderness on Palpation (Mini-wound No Skin Appearance) -Ulcer Cleansing soapy water -Foul Odor after Cleansing No WC - Nurse 2 - General Ulcer CM Notes Start: 05/17/20 11:38 Freq: Status: Active Protocol: Activity Type Activity Date Activity User E-Sign Co-Sign Detail Recorded Client Recorded Date Recorded By Document 05/17/20 12:19 MW [id number] 05/17/20 12:22 MW 05/17/20 12:19 Wound Center Nurse 2 [Procedure/Treatment] #3- L BUTTOCK -Time 12:21 -Correct Patient Yes -Correct Side, Site, Position Yes -Correct Procedure Yes -Procedure Performed No -Post Debridement Size (cm) - Length 0 -Post Debridement Size (cm) - Width 0 -Post Debridement Size (cm) - Depth 0 -Total Square (cm) 0 -Wound/Ulcer Outcome Healed- Epithelialized #2- COCCYX -Time 12:21 -Correct Patient Yes -Correct Side, Site, Position Yes -Correct Procedure Yes -Procedure Performed No -Post Debridement Size (cm) - Length 0 -Post Debridement Size (cm) - Width 0 -Post Debridement Size (cm) - Depth 0 -Total Square (cm) 0 -Wound/Ulcer Outcome Healed- Epithelialized #1- R BUTTOCK -Time 12:21 -Correct Patient Yes -Correct Side, Site, Position Yes -Correct Procedure Yes -Procedure Performed No -Post Debridement Size (cm) - Length 0 -Post Debridement Size (cm) - Width 0 -Post Debridement Size (cm) - Depth 0 -Total Square (cm) 0 -Wound/Ulcer Outcome Healed- Epithelialized [See Physician Procedure note for Specifics] Pain Scale: 0-10 Numeric [Pain] -Is Patient Pain Free? Yes Psych/Mental Status: Normal Affect, Appropriate Debridement Note Post-Debridement Measurements/Treatment WC - Nurse 2 - General Ulcer CM Notes Start: 05/17/20 11:38 Freq: Status: Active Protocol: Activity Type Activity Date Activity User E-Sign Co-Sign Detail Recorded Client Recorded Date Recorded By Document 05/17/20 12:19 MW [id number] 05/17/20 12:22 MW 05/17/20 12:19 Wound Center Nurse 2 #3- L BUTTOCK -Time 12:21 -Correct Patient Yes -Correct Side, Site, Position Yes -Correct Procedure Yes -Procedure Performed No -Post Debridement Size (cm) - Length 0 -Post Debridement Size (cm) - Width 0 -Post Debridement Size (cm) - Depth 0 -Total Square (cm) 0 -Wound/Ulcer Outcome Healed- Epithelialized #2- COCCYX -Time 12:21 -Correct Patient Yes -Correct Side, Site, Position Yes -Correct Procedure Yes -Procedure Performed No -Post Debridement Size (cm) - Length 0 -Post Debridement Size (cm) - Width 0 -Post Debridement Size (cm) - Depth 0 -Total Square (cm) 0 -Wound/Ulcer Outcome Healed- Epithelialized #1- R BUTTOCK -Time 12:21 -Correct Patient Yes -Correct Side, Site, Position Yes -Correct Procedure Yes -Procedure Performed No -Post Debridement Size (cm) - Length 0 -Post Debridement Size (cm) - Width 0 -Post Debridement Size (cm) - Depth 0 -Total Square (cm) 0 -Wound/Ulcer Outcome Healed- Epithelialized Pain Scale: 0-10 Numeric Is Patient Pain Free? Yes Wound debrided: left buttock Laterality: Left No debridement was completed today - healed - Additional Wound Wound debrided: coccyx Laterality: Not Applicable Operative Diagnosis: no debridement done - healed - Additional Wound Wound debrided: left buttock Laterality: Left Operative Diagnosis: no debridement done - healed Assessment/Plan Active Problems (Last Reviewed 05/03/20 @ 09:58 by DEEPA Encinas) Stage II pressure ulcer of buttock (Chronic) Stage II pressure ulcer of sacral region (Chronic) Stage II pressure ulcer of left buttock (Chronic) End stage COPD (Chronic) Diabetes mellitus type 2 in obese (Chronic) Assessment: Pressure ulcers of right and left buttocks and coccyx Plan: Nancy's ulcers were evaluated and are healed. Offloading was encouraged. Encouraged increased protein intake. Encouraged her to get up and walk around and do PT activities that she was doing while at SNF to maintain strength and improve mobility. She will be discharged at this time and will follow up as needed.
== END 2020-06-03 23:59 ==
LOC: WC 11:24
PROVIDERS: PCP Family Medicine; Referring Provider Nurse Practitioner Acute Care; Visit Provider Family Medicine
DX: Z09 Encounter for follow-up examination after completed treatment for conditions other than malignant neoplasm (principal); J44.9 Chronic obstructive pulmonary disease, unspecified; E11.9 Type 2 diabetes mellitus without complications
CPT/HCPCS: 99212; G0463